=== PATIENT | male | born 1940 | race Caucasian/White ===

== ENCOUNTER 2018-02-15 11:49 | Inpatient (IN) | payer MEDICARE ==
[2018-02-15] MEDS ORDERED: Dextrose 50% Abboject 50 ML SYRINGE IVP PRN (12:19)
[2018-02-15] MEDS ORDERED: HumaLOG 300 UNITS/3 ML VIAL SC PRN (12:19)
[2018-02-15] MEDS ORDERED: Dextrose 5% in Water 1,000 ML IV PRN (12:19)
[2018-02-15] MEDS ORDERED: Acetaminophen 1,000 MG in Premix Bag 1 BAG IVPB PRN (12:21)
[2018-02-15] MEDS ORDERED: [UNRECOGNIZED DRUG - REMARK] FS SCH (12:45)
[2018-02-15] MEDS ORDERED: cefTRIAXone\\ROCEPHIN 1 GM in Sodium Chloride 0.9% 100 ML IVPB SCH ×2 (13:00→18:00)
[2018-02-15 13:19] LABS: #Eosinphils 0.3 thou/uL (0.0-0.7); #Lymphocytes 1.9 thou/uL (1.20-3.40); #Monocytes 0.4 thou/uL (0.11-0.59); #Neutrophils 5.2 thou/uL (1.40-6.50); %Basophils 0.2 % (0.0-1.0); %Eosinophils 3.2 % (0.0-10.0); %Lymphocytes 24.4 % (21.0-51.0); %Monocytes 5.6 % (0.0-10.0); %Neutrophils 66.5 % (42.0-75.0); Hemoglobin 10.7 g/dL (14.0-18.0); Mean Corpuscular HGB CONC 32.4 g/dL (32.0-36.0); Mean Corpuscular Hemoglobin 30.2 pg (27.0-31.0); Mean Corpuscular Volume 93.1 fL (78.0-98.0); Mean Platelet Volume 6.7 fL (7.4-10.4); Platelet Count 263 thou/uL (130-400); RBC Distribution Width 14.3 % (11.5-14.5); Red Blood Cell (RBC) Count 3.54 mill/uL (4.70-6.10); White Blood Cell (WBC) Count 7.8 thou/uL (4.8-10.8)
[2018-02-15 13:32] LABS: Anion Gap 13 mmol/L (10-20); BUN (Urea Nitrogen) 34 mg/dL (8.4-25.7); Calc. Creatinine Clearance 0 mL/min (70-130); Calcium 9.9 mg/dL (7.8-10.44); Carbon Dioxide 25 mmol/L (23-31); Chloride 105 mmol/L (98-107); Estimated GFR-MDRD 24; Glucose 100 mg/dL (83-110); Potassium 5.3 mmol/L (3.5-5.1); Sodium 138 mmol/L (136-145)
[2018-02-15 15:37] VITALS: BMI 28.2
[2018-02-15] MEDS ORDERED: Vancomycin HCl 1.5 GM in Sodium Chloride 0.9% 250 ML 300 ML IVPB SCH (16:00)
--- NOTE | 2018-02-15 16:09 | RAD ---
THREE VIEWS OF THE LEFT FOOT: 02/15/18 COMPARISON: None. HISTORY: Status post amputation. evaluation for foreign body or osteomyelitis. FINDINGS: Three views of the left foot shows the patient to be status post amputation of the foot through the m id metatarsal region. There is air in the distal soft tissues which may represent an open wound or i nfection. No radiopaque foreign body is seen. No underlying osseous erosions are seen to suggest ost eomyelitis. IMPRESSION: No evidence of osteomyelitis on this examination. POS: NELLIE
[2018-02-15] MEDS: Sodium Chloride 0.9% 1,000 ML IV SCH (16:32)
[2018-02-16] MEDS ORDERED: Dextrose 50% Abboject 50 ML SYRINGE SLOW IVP PRN ×2 (02:15→14:39)
[2018-02-16] MEDS ORDERED: Dextrose 5% in Water 1,000 ML IV PRN (02:15)
[2018-02-16] MEDS: Sodium Chloride 0.9% 1,000 ML IV SCH ×3 (05:42→18:30)
[2018-02-16] MEDS: Levothyroxine 175 MCG TAB PO SCH (06:03)
[2018-02-16 06:22] LABS: Anion Gap 12 mmol/L (10-20); Calc. Creatinine Clearance 30 mL/min (70-130); Carbon Dioxide 23 mmol/L (23-31); Chloride 106 mmol/L (98-107); Estimated GFR-MDRD 23; Glucose 247 mg/dL (83-110); Potassium 5.6 mmol/L (3.5-5.1); Sodium 135 mmol/L (136-145)
[2018-02-16 06:26] LABS: BUN (Urea Nitrogen) 32 mg/dL (8.4-25.7)
--- NOTE | 2018-02-16 07:08 | PDOC.PN ---
- Subjective Encounter Start Date: 02/16/18 Encounter Start Time: 05:00 Subjective: pt up in bed no complains - Objective Vital Signs & Weight: Vital Signs (12 hours) Temp Pulse Resp BP Pulse Ox 02/16/18 04:00 98.6 F 59 L 16 145/67 H 94 L 02/16/18 00:00 98.9 F 72 16 125/65 94 L 02/15/18 20:32 97 02/15/18 20:00 98.3 F 58 L 16 144/75 H 97 Weight Weight 208 lb I&O: 02/15/18 02/16/18 02/17/18 06:59 06:59 06:59 Intake Total 2430 Balance 2430 Result Diagrams: 02/15/18 13:03 02/16/18 05:06 Additional Labs: Accuchecks 02/16/18 02/15/18 02/15/18 05:17 20:16 16:35 POC Glucose 280 H 172 H 170 H Phys Exam - Physical Examination Neck: no nodes, no JVD, supple, full ROM Respiratory: no wheezing, no rales, no rhonchi, wheezing present, clear to auscultation bilateral Cardiovascular: RRR, no significant murmur, no rub, gallop, irregular Gastrointestinal: soft, non-tender, no distention, positive bowel sounds left foot area quarter size ulcer, right first metatarsal linear healing wound Neurological: non-focal, normal sensation, moves all 4 limbs Dx/Plan (1) Diabetic foot infection Code(s): E11.628 - TYPE 2 DIABETES MELLITUS WITH OTHER SKIN COMPLICATIONS; L08.9 - LOCAL INFECTION OF THE SKIN AND SUBCUTANEOUS TISSUE, UNSP Status: Acute Comment: continue IV cefepime, vancomycin and metronidazole. Cultures growing Staph, sensitive to oral Abx. Plan to transition if reasonable improveemnt in Deep wound infection. (2) Diabetes Code(s): E11.9 - TYPE 2 DIABETES MELLITUS WITHOUT COMPLICATIONS Status: Acute (3) CKD (chronic kidney disease) stage 4, GFR 15-29 ml/min Code(s): N18.4 - CHRONIC KIDNEY DISEASE, STAGE 4 (SEVERE) Status: Chronic Comment: check AM labs (4) Hyperkalemia Code(s): E87.5 - HYPERKALEMIA Status: Acute - Plan will half his 70/30 and hold am dose, pt is prone to hypoglycemia -: when pt returns will administer his insulin before he eats -: would benefit from JIMENA given his hx of DM -: abx per surgery. will give insulin and d50 for hyperkalemia -: may increase dose of insulin to home dose tori * . pt stated that he was doing well and has been of abx since end of jan. However pt stepped on a glass with his left foot, initially he had some minor bleeding. On Wednesday pt's sock was soaked. Home nurse came to see pt who got him an appointment with surgeon yesterday who then directed him to the ER. pt denies any fever or chills. since his K is high and so his blood sugar will give him 10 units of 70/30 mild risk of hypoglycemia due to the short acting insulin but that will help to lower his K. Review of Systems - Review of Systems Respiratory: negative: Cough, Dry, Shortness of Breath, Hemoptysis, SOB with Excertion, Pleuritic Pain, Sputum, Wheezing Cardiovascular: negative: chest pain, palpitations, orthopnea, paroxysmal nocturnal dyspnea, edema, light headedness, other Gastrointestinal: negative: Nausea, Vomiting, Abdominal Pain, Diarrhea, Constipation, Melena, Hematochezia, Other Genitourinary: negative: Dysuria, Frequency, Incontinence, Hematuria, Retention , Other - Medications/Allergies Allergies/Adverse Reactions: Allergies Allergy/AdvReac Type Severity Reaction Status Date / Time No Known Drug Allergies Allergy Verified 11/19/17 23:54 Medications: Current Medications Dextrose/Water (Dextrose 50%) 25 gm SLOW IVP PRN PRN PRN Reason: Hypoglycemia Enoxaparin Sodium (Lovenox) 40 mg SC 0900 [facility] Glucagon (Glucagon) 1 mg IM PRN PRN PRN Reason: Hypoglycemia Sodium Chloride (Normal Saline 0.9%) 1,000 mls @ 100 mls/hr IV .Q10H [facility] Last Admin: 02/16/18 05:42 Dose: 1,000 mls Acetaminophen 1,000 mg/ Device 100 mls @ 400 mls/hr IVPB Q6H PRN PRN Reason: Pain Stop: 02/16/18 12:22 Vancomycin HCl 1 gm/ Device 200 mls @ 200 mls/hr IVPB Q24HR@1600 [facility] Ceftriaxone Sodium 1 gm/ (Sodium Chloride) 100 mls @ 200 mls/hr IVPB 1800 [facility] Last Admin: 02/15/18 19:03 Dose: 100 mls Dextrose/Water (D5w) 1,000 mls @ 0 mls/hr IV .Q0M PRN PRN Reason: Hypoglycemia Insulin Human Isoph/Insulin Regular (Humulin 70/30) 22 units SC BID-WM [facility] Insulin Human Lispro (Humalog) 0 units SC .MODERATE SLIDING SC PRN; Protocol PRN Reason: MODERATE SLIDING SCALE Last Admin: 02/15/18 16:40 Dose: 2 unit Levothyroxine Sodium (Synthroid) 175 mcg PO 0600 [facility] Last Admin: 02/16/18 06:03 Dose: Not Given Miscellaneous Medication (Pharmacy To Dose) 0 each IVPB ASDIR PRN PRN Reason: Pharmacy to Dose VANCOMYCIN Pantoprazole Sodium (Protonix) 40 mg IVP DAILY [facility]
[2018-02-16] MEDS ORDERED: Insulin Regular 300 UNITS/3 ML VIAL IVP SCH (07:15)
[2018-02-16] MEDS ORDERED: Dextrose 25% Abboject 10 ML SYRINGE SLOW IVP SCH (07:15)
[2018-02-16] MEDS ORDERED: Calcium Gluc 4.6 MEQ/10 ML (100 MG/ML) SLOW IVP ONE (07:18)
[2018-02-16] MEDS ORDERED: Insulin NPH/Reg Insulin Hm 300 UNITS/3 ML VIAL SC SCH ×3 (07:30→17:00)
[2018-02-16] MEDS ORDERED: Sodium Bicarb 50 MEQ/50 ML Abboject 8.4% SYRINGE IVP SCH (08:30)
[2018-02-16 09:21] LABS: Hemoglobin A1c 7.2 % (4.0-6.0)
[2018-02-16 09:51] LABS: Potassium 5.2 mmol/L (3.5-5.1)
[2018-02-16] MEDS: Pantoprazole 40 MG VIAL IVP SCH (09:56)
[2018-02-16] MEDS: Enoxaparin Sodium 30 MG/0.3 ML SYRINGE SC SCH (09:58)
[2018-02-16] MEDS ORDERED: Bupivacaine 0.5% 10 ML VIAL ONE (11:33)
[2018-02-16] MEDS ORDERED: Fentanyl 100 MCG/2 ML VIAL ONE ×2 (11:36→11:49)
[2018-02-16] MEDS ORDERED: Midazolam HCl 2 mg/2 ml Vial ONE ×2 (11:36→11:49)
[2018-02-16] MEDS ORDERED: Ketamine 50 MG/ML (10ML VIAL) ONE (11:49)
[2018-02-16] MEDS ORDERED: Propofol 500 MG/50 ML VIAL ONE (11:49)
[2018-02-16] MEDS ORDERED: Bupivacaine/Epinephrine 0.25% 30 ML VIAL ONE (12:24)
[2018-02-16] MEDS ORDERED: Promethazine HCl 25 MG/ML VIAL IM PRN (12:56)
[2018-02-16] MEDS ORDERED: PACU-Morphine 4MG/ML VIAL SLOW IVP PRN (12:56)
[2018-02-16] MEDS ORDERED: Promethazine HCl 25 MG/ML VIAL SLOW IVP PRN (12:56)
[2018-02-16] MEDS ORDERED: Ondansetron HCl/PF 4 MG/2 ML Vial IVP PRN (12:56)
[2018-02-16] MEDS ORDERED: HYDROmorphone 2 MG/ML VIAL SLOW IVP PRN (12:56)
[2018-02-16 14:25] LABS: Potassium 4.9 mmol/L (3.5-5.1)
[2018-02-16] MEDS ORDERED: HumaLOG 300 UNITS/3 ML VIAL SC PRN (14:39)
[2018-02-16] MEDS ORDERED: Vancomycin HCl 1 GM in Premix Bag 1 BAG IVPB SCH ×2 (16:00→18:00)
[2018-02-16] MEDS ORDERED: PROPOFOL 200 MG/20 ML VIAL ONE (17:06)
[2018-02-16] MEDS: Insulin NPH/Reg Insulin Hm 300 UNITS/3 ML VIAL SC SCH (18:30)
[2018-02-16 19:04] LABS: Potassium 5.1 mmol/L (3.5-5.1)
[2018-02-16] MEDS ORDERED: cefTRIAXone\\ROCEPHIN 1 GM in Sodium Chloride 0.9% 100 ML IVPB SCH (20:00)
[2018-02-17] MEDS: Levothyroxine 175 MCG TAB PO SCH (04:16)
[2018-02-17] MEDS: Sodium Chloride 0.9% 1,000 ML IV SCH ×2 (04:17→14:21)
[2018-02-17 04:33] LABS: Anion Gap 10 mmol/L (10-20); BUN (Urea Nitrogen) 28 mg/dL (8.4-25.7); Calc. Creatinine Clearance 33 mL/min (70-130); Calcium 8.7 mg/dL (7.8-10.44); Carbon Dioxide 25 mmol/L (23-31); Chloride 107 mmol/L (98-107); Estimated GFR-MDRD 26; Glucose 108 mg/dL (83-110); Potassium 4.8 mmol/L (3.5-5.1); Sodium 137 mmol/L (136-145)
[2018-02-17] MEDS: Pantoprazole 40 MG VIAL IVP SCH (08:31)
[2018-02-17] MEDS: Enoxaparin Sodium 30 MG/0.3 ML SYRINGE SC SCH (08:32)
[2018-02-17] MEDS: Insulin NPH/Reg Insulin Hm 300 UNITS/3 ML VIAL SC SCH (08:40)
--- NOTE | 2018-02-17 08:45 | CON ---
DATE OF CONSULTATION: 02/16/2018 CONSULTING PHYSICIAN: Skinny Ronquillo M.D. REQUESTING PHYSICIAN: Flower Estrada MD REASON FOR CONSULTATION: Hyperkalemia in a patient with advanced chronic kidney disease. IMPRESSION: 1. Advanced chronic kidney disease stage 4 in the context of diabetic nephropathy plus or minus hype rtensive nephrosclerosis. 2. Hyperkalemia related to advanced chronic kidney disease stage 4 in the context of diabetic nephro princess plus or minus hypertensive nephrosclerosis. PLAN: 1. Low potassium diet. 2. Medical management of hyperkalemia. 3. Renally dose all medications for low GFR. Avoid potentially nephrotoxic agents. 4. Further management to be dependent on the clinical course. HISTORY OF PRESENT ILLNESS: This is a 78-year-old gentleman with advanced chronic kidney disease in the context of diabetic nephropathy, who presented here for debridement and noted with a slight eleva tion in creatinine above his baseline chronic kidney disease stage 4. The patient also noted to be h yperkalemic with potassium of 5.9. , decision has been taken to involve Renal in the management of this case. PAST MEDICAL HISTORY: Significant for chronic kidney disease stage 4, in the context of diabetic nep hropathy, type 2 diabetes, hypothyroidism, status post cholecystectomy and amputation. MEDICATIONS: Reviewed as documented on [employer]. ALLERGIES: No known drug allergy. FAMILY HISTORY: Significant for kidney disease, daughter is on dialysis. REVIEW OF SYSTEMS: As documented in the body of the history. All the other systems were reviewed an d found not to be significant related to the presenting illness. LABORATORY INVESTIGATION: Showed hemoglobin of 10.6. Chemistry showed a creatinine of 2.65, BUN of 32, potassium 5.6. PHYSICAL EXAMINATION: GENERAL: The patient was found not to be in any obvious distress. Noted with the following vital sig ns. VITAL SIGNS: Afebrile with temperature 97.6, pulse 64, respiratory rate of 16, O2 sat 96% with blood pressure of 115/64. HEENT: Unremarkable with moist oral mucosa. Neck is supple. No conjunctival injection or icterus. CARDIOVASCULAR SYSTEM: First and second heart sounds were heard. RESPIRATORY SYSTEM: Clear to auscultation. DIGESTIVE SYSTEM: Revealed a benign abdomen with positive bowel sounds. EXTREMITIES: No peripheral edema. SKIN: No new gross rash. LYMPHATICS: No peripheral lymphadenopathy. SUMMARY: A 78-year-old gentleman with advanced chronic kidney disease stage 4, who presented here fo r debridement of lower extremity and noted to be hyperkalemic. Thank you for this consultation. We will follow with you.
[2018-02-17] MEDS: HumaLOG 300 UNITS/3 ML VIAL SC PRN (12:36)
--- NOTE | 2018-02-17 14:13 | PDOC.OP ---
Operative Note - Operative Note Operative Note: PROCEDURE: Incision and debridement of left foot infection 02/16/2018 DATE OF PROCEDURE: SURGEON: Thompson Caballero M.D. PREOPERATIVE DIAGNOSES: Left diabetic foot infection POSTOPERATIVE DIAGNOSIS: Left diabetic foot infection HISTORY: Diabetic patient with significant peripheral neuropathy. He stepped on a piece of glass 2 weeks ago injuring the plantar surface of his foot. He has a previous transmetatarsal amputation of the left foot which has healed, and the puncture wound healed as well. However he then developed a blister over his distal foot, and had a necrotic area centrally. This was partially debrided at the bedside yesterday and culture swab sent, but he had additional necrotic tissue it was recommended he go to the operating room for definitive debridement. There is no evidence of osteomyelitis on foot x-ray. PROCEDURE IN DETAIL: After informed consent was obtained and appropriate antibiotics continued the patient was taken to the operating room he was placed in supine position and anesthesia was administered. He had an ankle block placed by anesthesia, and adequate anesthesia was confirmed intraoperatively. The necrotic skin over his transmetatarsal amputation site was sharply excised back to bleeding tissue. The underlying necrotic subcutaneous fat was sharply debrided back to viable appearing tissue. There was no bradley abscess cavity and the wound did not track to bone or medially under his flap. He did have some softness to the tissues over his medial foot is but on ultrasound this was just edema; there was no abscess cavity by ultrasound and the wound did not extend in that direction by direct examination. Hemostasis obtained throughout the case using Bovie electrocautery as necessary. The wound was irrigated and hemostasis was verified. The wound was then packed with iodoform and the foot dressed with gauze and Reji wrap. The patient was taken to recovery in good condition. Estimated blood loss is minimal. There were no complications. There were no specimens.
[2018-02-17] MEDS: metroNIDAZOLE 250 MG TAB PO SCH ×2 (15:08→20:59)
--- NOTE | 2018-02-17 15:39 | CON ---
DATE OF CONSULTATION: 02/17/2018 REASON FOR CONSULTATION: Left foot amputation site inflammatory changes. HISTORY OF PRESENT ILLNESS: A 78-year-old patient known to me from prior visit earlier this year when he presented with a history of type 2 diabetes, neuropathy, hypothyroidism, and bilateral transmetatarsal amputations, left and right foot. In November, he had amputation of the right first and second toes with almost complete resection of the right first metatarsal. In that area, he seems to be doing well, but now he developed inflammatory changes at the left foot, middle of the forefoot section. The patient was admitted and Dr. Caballero performed surgical procedure. The procedure report was reviewed. There was evidence of necrotic skin over the transmetatarsal amputation site. This was sharply excised back to bleeding tissue. There was no evidence of abscess cavity and the wound did not track to bone or to the flap area. There was some softness of tissues that was mostly edema. The patient had a foot x-ray which showed no bony abnormalities. There was some air in the distal soft tissues. Currently, he has minimal pain probably from neuropathy, no headaches, no change in visual symptoms, sore throat, odynophagia, dysphagia, no dyspnea or chest pain, no abdominal pain or diarrhea. No genitourinary symptoms. PAST MEDICAL HISTORY: Includes type 2 diabetes; neuropathy; prior transmetatarsal amputations, right and left side; hypothyroidism; and cholecystectomy. CURRENT MEDICATIONS: Include dextrose, Lovenox, glucagon, insulin, Synthroid, Zyvox, Flagyl, Protonix. ALLERGIES: No known drug allergy. SOCIAL HISTORY: Not contributory. FAMILY HISTORY: Noncontributory. PHYSICAL EXAMINATION: VITAL SIGNS: T-max 98.8, blood pressure 170/75, pulse 61, respirations 18, O2 saturation 97%. GENERAL: Appears in no distress. Standing up when I got in the room. Peripheral IV access. No Delgado catheter. The right foot with pretty much healed transmetatarsal amputation site of the first and second toes. The third , fourth, and fifth toes appear okay except for onycholysis. In the left foot transmetatarsal amputation site, there is an area of packing after the surgical debridement and around that there are some areas of peeling the superficial skin layer and also the surgical debridement sites. NECK: No lymphadenopathy. HEENT: Noncontributory. LUNGS: Clear. HEART: S1, S2, regular rate. ABDOMEN: Soft, not distended or tender. No signs of bladder distention. EXTREMITIES: No joint inflammatory activity. Pulses 1+ in dorsalis pedis. NEUROLOGIC: Nonfocal. LABORATORY DATA: White cell count 7.8, hemoglobin 10.7, platelets 263 with normal differential. Sodium 137, creatinine 2.44, which is a little bit higher than his baseline earlier in the year. The microbiology information from this admission with MRSA and Enterococcus faecalis from the foot site from the surgical procedure. ASSESSMENT: Type 2 diabetic neuropathy and superficial skin necrosis without tunneling towards the deeper segments of the left transmetatarsal amputation site. The surgical I+D was consistent with a superficial process. The bone x- ray did not show any evidence of bony abnormalities other than the amputation. At this point, we will switch him to oral Zyvox and Flagyl. Consider discharge planning. Duration of therapy around 10 days. Offloading will be important since this is probably what generated the original area of necrosis of the skin. Alternate combinations would include Minocycline/Rifampin if cost becomes a problem. Even Minocycline alone might suffice. MTDD
[2018-02-17] MEDS ORDERED: Insulin NPH/Reg Insulin Hm 300 UNITS/3 ML VIAL SC SCH (17:00)
--- NOTE | 2018-02-17 18:02 | PDOC.PN ---
- Subjective Encounter Start Date: 02/17/18 Encounter Start Time: 15:30 Patient seen and examined for med mngt. No new complaints. No overnight events - Objective MAR Reviewed: Yes Vital Signs & Weight: Vital Signs (12 hours) Temp Pulse Resp BP Pulse Ox 02/17/18 08:00 97.9 F 61 18 171/75 H 97 Weight Admit Weight 208 lb Weight 208 lb I&O: 02/16/18 02/17/18 02/18/18 06:59 06:59 06:59 Intake Total 2430 2480 1000 Balance 2430 2480 1000 Result Diagrams: 02/15/18 13:03 02/17/18 03:36 Additional Labs: Accuchecks 02/17/18 02/17/18 02/17/18 16:55 11:44 04:43 POC Glucose 179 H 252 H 114 H 02/16/18 20:24 POC Glucose 193 H Phys Exam - Physical Examination Constitutional: NAD Neurological: moves all 4 limbs Dx/Plan - Plan DVT proph w/lovenox, DVT proph w/SCDs 1. DM2 Humulin 70/30 dose reduced to 25 units in AM and 15 units in PM 2. CKD 4 with hyperkalemia Potssium improved, Nephrology consulted 3. Hypothyroidism Cont Levothyroxine 4. GERD Change PPI to PO Will sign off. Review of Systems - Review of Systems Respiratory: negative: Cough, Dry, Shortness of Breath, Hemoptysis, SOB with Excertion, Pleuritic Pain, Sputum, Wheezing Cardiovascular: negative: chest pain, palpitations, orthopnea, paroxysmal nocturnal dyspnea, edema, light headedness, other - Medications/Allergies Allergies/Adverse Reactions: Allergies Allergy/AdvReac Type Severity Reaction Status Date / Time No Known Drug Allergies Allergy Verified 11/19/17 23:54 Medications: Current Medications Dextrose/Water (Dextrose 50%) 25 gm SLOW IVP PRN PRN PRN Reason: Hypoglycemia Dextrose/Water (Dextrose 50%) 25 gm SLOW IVP PRN PRN PRN Reason: Hypoglycemia Enoxaparin Sodium (Lovenox) 30 mg SC 0900 [facility] Last Admin: 02/17/18 08:32 Dose: 30 mg Glucagon (Glucagon) 1 mg IM PRN PRN PRN Reason: Hypoglycemia Sodium Chloride (Normal Saline 0.9%) 1,000 mls @ 100 mls/hr IV .Q10H [facility] Last Admin: 02/17/18 14:21 Dose: Not Given Dextrose/Water (D5w) 1,000 mls @ 0 mls/hr IV .Q0M PRN PRN Reason: Hypoglycemia Insulin Human Isoph/Insulin Regular (Humulin 70/30) 25 units SC 0800 [facility] Insulin Human Isoph/Insulin Regular (Humulin 70/30) 15 units SC 1700 [facility] Last Admin: 02/17/18 17:44 Dose: 15 unit Insulin Human Lispro (Humalog) 0 units SC .MILD SLIDING SCALE PRN PRN Reason: Mild Correctional Scale Last Admin: 02/17/18 12:36 Dose: 4 unit Insulin Human Lispro (Humalog) 0 units SC .BEDTIME SLIDING SC PRN PRN Reason: Bedtime Correctional Scale Levothyroxine Sodium (Synthroid) 175 mcg PO 0600 [facility] Last Admin: 02/17/18 04:16 Dose: 175 mcg Linezolid (Zyvox) 600 mg PO Q12HR [facility] Metronidazole (Flagyl) 250 mg PO TID [facility] Last Admin: 02/17/18 15:08 Dose: 250 mg Pantoprazole Sodium (Protonix) 40 mg PO 2100 [facility]
[2018-02-17] MEDS: Linezolid 600 MG TAB PO SCH (20:58)
[2018-02-18] MEDS: Sodium Chloride 0.9% 1,000 ML IV SCH ×2 (01:03→10:29)
[2018-02-18] MEDS: Levothyroxine 175 MCG TAB PO SCH (05:21)
[2018-02-18] MEDS: HumaLOG 300 UNITS/3 ML VIAL SC PRN (05:22)
[2018-02-18] MEDS ORDERED: Insulin NPH/Reg Insulin Hm 300 UNITS/3 ML VIAL SC SCH (08:00)
[2018-02-18] MEDS: metroNIDAZOLE 250 MG TAB PO SCH ×2 (08:30→15:11)
[2018-02-18] MEDS: Enoxaparin Sodium 30 MG/0.3 ML SYRINGE SC SCH (08:33)
[2018-02-18] MEDS: Linezolid 600 MG TAB PO SCH (09:18)
[2018-02-18 15:03] VITALS: BP 174/77; TEMP 97.9
--- NOTE | 2018-02-18 17:14 | PRG ---
DATE OF SERVICE: 02/17/2018 SUBJECTIVE: The patient seen and examined, no new complaint, noted with the following vital signs. PHYSICAL EXAMINATION: VITAL SIGNS: Afebrile with temperature 98.4, pulse 58, respiratory rate of 18, O2 saturation 98% wit h blood pressure 174/77. HEENT: Unremarkable with moist oral mucosa. NECK: Supple, No conjunctival injection or icterus. CARDIOVASCULAR: First and second heart sounds were heard. RESPIRATORY: Clear to auscultation. DIGESTIVE: Revealed a benign abdomen with positive bowel sounds. EXTREMITIES: No peripheral edema. SKIN: No new gross rash. LYMPHATICS: No peripheral lymphadenopathy. IMPRESSION: Acute on chronic kidney disease, much improved. PLAN: 1. Continue current renal supportive measures. 2. Outpatient Nephrology followup recommended.
--- NOTE | 2018-02-18 18:16 | PRG ---
DATE OF SERVICE: 02/17/2018 SUBJECTIVE: The patient is seen and examined with no new complaint noted with the following vital si gns. OBJECTIVE: VITAL SIGNS: Afebrile with temperature 98.4, pulse 56, respiratory rate of 18, O2 saturation 97%, bl ood pressure /77. HEENT: Unremarkable with moist oral mucosa. Neck is supple. No conjunctival injection or icterus. DIGESTIVE: Revealed a benign abdomen with positive bowel sounds. EXTREMITIES: No peripheral edema. SKIN: No new gross rash. LYMPHATICS: No peripheral lymphadenopathy. IMPRESSION: 1. Acute on chronic kidney disease which is much improved with creatinine down to 2.4. 2. Hyperkalemia, resolved. PLAN: 1. Continue current renal supportive measures. 2. Outpatient Nephrology followup recommended.
== END 2018-02-18 15:24 | disposition home or self-care (01) | DRG 624 ==
LOC: T4-B 11:49
PROVIDERS: ADMIT Surgery; ATTEND Surgery
PROC: 0JBR0ZZ Excision of Left Foot Subcutaneous Tissue and Fascia, Open Approach (ICD-10-PCS; principal; 2018-02-16)
DX: E11.628 Type 2 diabetes mellitus with other skin complications (principal); L08.9 Local infection of the skin and subcutaneous tissue, unspecified; E87.5 Hyperkalemia; N18.4 Chronic kidney disease, stage 4 (severe); E11.22 Type 2 diabetes mellitus with diabetic chronic kidney disease; E03.9 Hypothyroidism, unspecified; K21.9 Gastro-esophageal reflux disease without esophagitis; D64.9 Anemia, unspecified; E11.21 Type 2 diabetes mellitus with diabetic nephropathy; E11.40 Type 2 diabetes mellitus with diabetic neuropathy, unspecified; N17.9 Acute kidney failure, unspecified; Z79.4 Long term (current) use of insulin; Z87.891 Personal history of nicotine dependence; Z89.422 Acquired absence of other left toe(s); Z89.421 Acquired absence of other right toe(s); Z81.1 Family history of alcohol abuse and dependence; Z83.3 Family history of diabetes mellitus; Z81.8 Family history of other mental and behavioral disorders
CPT/HCPCS: 36415; 36416; 80048; 83036; 84443; 85025; 87070; 87077; 87186; 87205; 99211; C9113; G0463; G8978-GP-CJ; G8979-GP-CI; J0696; J1650; J2250; J2704; J3010; J3370; J3490; J7050

== ENCOUNTER 2018-06-10 12:54 | Inpatient (IN) | payer MEDICARE ==
[2018-06-10 13:58] LABS: #Eosinphils 0.4 thou/uL (0.0-0.7); #Monocytes 0.6 thou/uL (0.11-0.59); #Neutrophils 3.8 thou/uL (1.40-6.50); %Basophils 0.6 % (0.0-1.0); %Eosinophils 5.8 % (0.0-10.0); %Lymphocytes 29.2 % (21.0-51.0); %Monocytes 8.4 % (0.0-10.0); %Neutrophils 56.1 % (42.0-75.0); Hemoglobin 11.5 g/dL (14.0-18.0); Mean Corpuscular HGB CONC 34.5 g/dL (32.0-36.0); Mean Corpuscular Hemoglobin 32.5 pg (27.0-31.0); Mean Platelet Volume 7.2 fL (7.4-10.4); Platelet Count 182 thou/uL (130-400); RBC Distribution Width 13.1 % (11.5-14.5); Red Blood Cell (RBC) Count 3.53 mill/uL (4.70-6.10); White Blood Cell (WBC) Count 6.8 thou/uL (4.8-10.8)
[2018-06-10 14:10] LABS: ALT (SGPT) 16 U/L (8-55); AST (SGOT) 15 U/L (5-34); Alkaline Phosphatase 58 U/L (40-150); Anion Gap 13 mmol/L (10-20); BUN (Urea Nitrogen) 27 mg/dL (8.4-25.7); Bilirubin, Total 0.4 mg/dL (0.2-1.2); Calc. Creatinine Clearance 0 mL/min (70-130); Calcium 9.7 mg/dL (7.8-10.44); Carbon Dioxide 23 mmol/L (23-31); Chloride 110 mmol/L (98-107); Estimated GFR-MDRD 25; Glucose 65 mg/dL (83-110); Potassium 4.5 mmol/L (3.5-5.1); Sodium 141 mmol/L (136-145)
--- NOTE | 2018-06-10 14:40 | RAD ---
LEFT FOOT 3 VIEWS: Date: 06/10/18 HISTORY: Wound. COMPARISON: Radiograph dated 02/15/18. FINDINGS: There is no acute fracture or malalignment. Prior transmetatarsal amputation at the first-fifth digit s with bridging bone between the second and third amputation margins. There is improved swelling of the soft tissue flap of the small lateral ulcer. Small focus of subcutaneous emphysema, improved, of the flap. IMPRESSION: Small focus of subcutaneous edema and emphysema of the flap, although appears improved from the 02/15 examination. No definite evidence of acute osteomyelitis. POS: CET
[2018-06-10] MEDS ORDERED: Piperacillin/Tazobactam 3.375 GM in Sodium Chloride 0.9% 100 ML IVPB SCH (16:00)
[2018-06-10] MEDS ORDERED: Piperacillin/Tazobactam 3.375 GM VIAL ONE (16:00)
[2018-06-10] MEDS ORDERED: Vancomycin HCl 1 GM in Premix Bag 1 BAG IVPB SCH (16:00)
[2018-06-10 18:14] LABS: Lactic Acid 1.3 mmol/L (0.5-2.2)
[2018-06-10] MEDS ORDERED: Guaifenesin DM 100-10/5 ML UDCUP PO PRN (18:17)
[2018-06-10] MEDS ORDERED: Acetaminophen 325 MG TAB PO PRN (18:17)
[2018-06-10] MEDS ORDERED: Dextrose 5% in Water 1,000 ML IV PRN (18:17)
[2018-06-10] MEDS ORDERED: HYDROcodone/Acetaminophen 5/325 mg Tablet PO PRN (18:17)
[2018-06-10] MEDS ORDERED: Dextrose 50% Abboject 50 ML SYRINGE SLOW IVP PRN (18:17)
[2018-06-10] MEDS ORDERED: HumaLOG 300 UNITS/3 ML VIAL SC PRN (18:17)
[2018-06-10] MEDS ORDERED: Senokot S 8.6-50 MG TAB PO PRN (18:17)
--- NOTE | 2018-06-10 20:04 | HP ---
REASON FOR ADMISSION: Left foot diabetic ulcer. HISTORY OF PRESENTING ILLNESS: The patient gives history of having seen Dr. Caballero a week back. He had a callus, which was cleaned up. This started to blister up, and the patient developed greenish discharge from the same. The ulcer started to become black. He got concerned, hence came to emergency room. The patient has prior history of transmetatarsal amputation of left foot. He also has had amputation of first and second toe on the right side, likely a ray amputation, and the surgical scar is healing well. No fever at home. He has been able to walk with no pain as such. PAST MEDICAL AND SURGICAL HISTORY: History of diabetes mellitus type 2 for more than 20 years, hypothyroidism, left transmetatarsal amputation of all toes, right first and second toe amputation, and cholecystectomy. CURRENT MEDICATIONS: 1. Novolin 70/30 45 units subcu twice daily. 2. Levothyroxine 175 mcg p.o. daily. ALLERGIES: NO KNOWN DRUG ALLERGIES. PERSONAL HISTORY: Does not abuse alcohol or drugs. No history of smoking. He lives alone. FAMILY HISTORY: Mother in her 70s. She of complications from seizure. He does not know much about his father, but he knows that he in his 70s. CODE STATUS: Full. [employer]: His daughter. REVIEW OF SYSTEMS: CONSTITUTIONAL: Negative for weight loss or gain, ability to conduct usual activities. SKIN: Negative for rash, itching. EYES: Negative for double vision, pain. ENT/MOUTH: Negative for nose bleeding, neck stiffness, pain, tenderness. CARDIOVASCULAR: Negative for palpitations, dyspnea on exertion, orthopnea. RESPIRATORY: Negative for shortness of breath, wheezing, cough, hemoptysis, fever or night sweats. GASTROINTESTINAL: Negative for poor appetite, abdominal pain, heartburn, nausea, vomiting, constipation, or diarrhea. GENITOURINARY: Negative for urgency, frequency, dysuria, nocturia. MUSCULOSKELETAL: Negative for pain, swelling. NEUROLOGIC/PSYCHIATRIC: Negative for anxiety, depression. ALLERGY/IMMUNOLOGIC: Negative for skin rash, bleeding tendency. PHYSICAL EXAMINATION: GENERAL: The patient is a 78-year-old male, who is currently not in any acute distress. VITAL SIGNS: Blood pressure 168/66, pulse 64 per minute, respiratory rate 18 per minute, temperature 98.8 degrees Fahrenheit, and saturating 96% on room air. NECK: Supple. No elevated JVD. EYES: Extraocular muscles are intact. Pupils are reacting to light. Oral cavity, mucous membranes are moist. No exudates or congestion. CARDIOVASCULAR SYSTEM: S1 and S2 heard. Regular rhythm. RESPIRATORY SYSTEM: Air entry 1+ bilateral. No rales or rhonchi. ABDOMEN: Soft. Bowel sounds heard. No tenderness, rigidity, or guarding. EXTREMITIES: Left foot on the ball of metatarsal head of the fifth toe, the patient has a 3 x 3 cm ulcer, which has black eschar. It is not oozing any material at present. The patient has a healing surgical scar on the right foot ray amputation site. Peripheral pulses are 1+ bilateral. No necrotic ulcer seen. CENTRAL NERVOUS SYSTEM: No gross focal deficits noted. The patient is alert, awake, and oriented well. PSYCHIATRIC SYSTEM: The patient's mood is euthymic. No hallucinations or delusions. LABORATORY DATA: White count of 6.8, H and H 11 and 33, platelet count 182, MCV is 94 with 56% neutrophils. Serum bicarb 23, BUN 27, creatinine 2.4, serum glucose 65. Lactic acid 2.7. CRP 1.38. Left foot three-view x-ray shows small focus of subcutaneous edema and emphysema of the flap, although appears improved from prior x-ray done on 02/15/2018. No definite evidence of acute osteomyelitis. CLINICAL IMPRESSION AND PLAN: The patient will be admitted to medical floor for left foot diabetic ulcer. This ulcer started out from last one week or so now. He has been started on vancomycin and Zosyn in the ER and will continue the same. We will obtain deep wound cultures by wound care from the left foot. The patient has chronic kidney disease, stage 3 to 4. We will continue his Humulin 70/30 at 20 units q.p.m. and 35 units q.a.m. along with Humalog coverage. We will also continue his Synthroid as before. We will consult Dr. Acosta on Wednesday. His general surgeon, Dr. Caballero is out for spring. We will continue to closely monitor him on medical floor. Job ID: [id number]
[2018-06-10 20:37] VITALS: BMI 30.6
[2018-06-10] MEDS: HumuLIN 70/30 (300 UNITS/3 ML VIAL) SC SCH (21:31)
[2018-06-10] MEDS: Famotidine 20 MG TAB PO SCH (21:31)
[2018-06-11] MEDS: Piperacillin/Tazobactam 2.25 GM in Sodium Chloride 0.9% 100 ML IVPB SCH ×4 (00:03→23:33)
[2018-06-11] MEDS: Levothyroxine 175 MCG TAB PO SCH (05:29)
[2018-06-11] MEDS: HumaLOG 300 UNITS/3 ML VIAL SC PRN ×2 (05:33→12:03)
[2018-06-11] MEDS: Enoxaparin Sodium 30 MG/0.3 ML SYRINGE SC SCH (07:58)
[2018-06-11] MEDS: HumuLIN 70/30 (300 UNITS/3 ML VIAL) SC SCH ×2 (07:58→20:27)
[2018-06-11 08:47] LABS: #Eosinphils 0.2 thou/uL (0.0-0.7); #Lymphocytes 0.9 thou/uL (1.20-3.40); #Monocytes 0.3 thou/uL (0.11-0.59); #Neutrophils 3.4 thou/uL (1.40-6.50); %Basophils 0.6 % (0.0-1.0); %Eosinophils 4.9 % (0.0-10.0); %Lymphocytes 18.9 % (21.0-51.0); %Neutrophils 69.6 % (42.0-75.0); Mean Corpuscular HGB CONC 34.1 g/dL (32.0-36.0); Mean Corpuscular Hemoglobin 31.2 pg (27.0-31.0); Mean Corpuscular Volume 91.5 fL (78.0-98.0); Mean Platelet Volume 7.5 fL (7.4-10.4); Platelet Count 173 thou/uL (130-400); RBC Distribution Width 13.2 % (11.5-14.5); Red Blood Cell (RBC) Count 3.52 mill/uL (4.70-6.10); White Blood Cell (WBC) Count 4.9 thou/uL (4.8-10.8)
[2018-06-11 09:12] LABS: Anion Gap 12 mmol/L (10-20); BUN (Urea Nitrogen) 25 mg/dL (8.4-25.7); Calc. Creatinine Clearance 36 mL/min (70-130); Calcium 9.4 mg/dL (7.8-10.44); Carbon Dioxide 21 mmol/L (23-31); Chloride 109 mmol/L (98-107); Estimated GFR-MDRD 26; Glucose 142 mg/dL (83-110); Potassium 4.5 mmol/L (3.5-5.1); Sodium 137 mmol/L (136-145)
--- NOTE | 2018-06-11 11:25 | PDOC.PN ---
- Subjective Encounter Start Date: 06/11/18 Encounter Start Time: 11:15 Subjective: feels better, no complaints -: had dressing change and cultures taken from wound care this am - Objective Resuscitation Status - Order Detail: 06/10/18 18:12 Resuscitation Status Routine Resuscitation Status: FULL: Full Resuscitation MAR Reviewed: Yes Vital Signs & Weight: Vital Signs (12 hours) Temp Pulse Resp BP Pulse Ox 06/11/18 08:00 95 06/11/18 07:40 97.9 F 59 L 16 159/68 H 95 06/11/18 03:45 98.7 F 58 L 16 156/69 H 95 06/10/18 23:44 98.1 F 60 16 164/72 H 98 Weight Weight 226 lb I&O: 06/10/18 06/11/18 06/12/18 06:59 06:59 07:59 Intake Total 412 240 Output Total 1075 Balance -663 240 Result Diagrams: 06/11/18 08:10 06/11/18 08:10 Additional Labs: Accuchecks 06/11/18 06/10/18 06/10/18 05:32 19:19 16:44 POC Glucose 199 H 219 H 72 06/10/18 14:36 POC Glucose 71 Phys Exam - Physical Examination HEENT: PERRLA, moist MMs Neck: no JVD, supple Respiratory: no wheezing, no rales Cardiovascular: RRR, no significant murmur Gastrointestinal: soft, non-tender, positive bowel sounds Musculoskeletal: pulses present left foot in dressing Neurological: non-focal, moves all 4 limbs Psychiatric: normal affect, A&O x 3 Dx/Plan (1) Diabetic foot infection Code(s): E11.628 - TYPE 2 DIABETES MELLITUS WITH OTHER SKIN COMPLICATIONS; L08.9 - LOCAL INFECTION OF THE SKIN AND SUBCUTANEOUS TISSUE, UNSP Status: Acute Comment: left foot (2) DM type 2 (diabetes mellitus, type 2) Status: Chronic Qualifiers: 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: with 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 use Diabetes mellitus complication detail: with chronic kidney disease Chronic kidney disease stage: stage 4 (severe) (3) CKD (chronic kidney disease) stage 4, GFR 15-29 ml/min Code(s): N18.4 - CHRONIC KIDNEY DISEASE, STAGE 4 (SEVERE) Status: Chronic (4) Hypothyroidism Code(s): E03.9 - HYPOTHYROIDISM, UNSPECIFIED Status: Chronic Qualifiers: Hypothyroidism type: unspecified Qualified Code(s): E03.9 - Hypothyroidism , unspecified Comment: on synthroid (5) Obesity (BMI 30.0-34.9) Code(s): E66.9 - OBESITY, UNSPECIFIED Status: Chronic - Plan is on vanc and zosyn, await cultures -: surgical/podiatry consultation pending -: continue humulin N twice daily, synthroid -: dc plan per surg/podiatry advice -: to ambulate as tolerated * . Review of Systems - Medications/Allergies Allergies/Adverse Reactions: Allergies Allergy/AdvReac Type Severity Reaction Status Date / Time No Known Drug Allergies Allergy Verified 11/19/17 23:54 Medications: Current Medications Acetaminophen (Tylenol) 650 mg PO Q4H PRN PRN Reason: Headache/Fever/Mild Pain (1-3) Hydrocodone Bitart/Acetaminophen ([place] 5/325) 1 tab PO Q4H PRN PRN Reason: Moderate Pain (4-6) Dextrose/Water (Dextrose 50%) 25 gm SLOW IVP PRN PRN PRN Reason: Hypoglycemia Enoxaparin Sodium (Lovenox) 30 mg SC 0900 [facility] Last Admin: 06/11/18 07:58 Dose: 30 mg Famotidine (Pepcid) 20 mg PO QPM [facility] Last Admin: 06/10/18 21:31 Dose: 20 mg Glucagon (Glucagon) 1 mg IM PRN PRN PRN Reason: Hypoglycemia Guaifenesin/Dextromethorphan (Robitussin Dm) 15 ml PO Q4H PRN PRN Reason: Cough Dextrose/Water (D5w) 1,000 mls @ 0 mls/hr IV .Q0M PRN PRN Reason: Hypoglycemia Piperacillin Sod/Tazobactam (Sod 2.25 gm/ Sodium Chloride) 100 mls @ 200 mls/ hr IVPB 0800,1600,2359 [facility] Last Admin: 06/11/18 07:57 Dose: 100 mls Vancomycin HCl 1.25 gm/ Sodium (Chloride) 250 mls @ 166.667 mls/hr IVPB Q24HR [facility] Insulin Human Isoph/Insulin Regular (Humulin 70/30) 20 units SC QPM [facility] Last Admin: 06/10/18 21:31 Dose: 20 units Insulin Human Isoph/Insulin Regular (Humulin 70/30) 35 units SC QAM [facility] Last Admin: 06/11/18 07:58 Dose: 35 unit Insulin Human Lispro (Humalog) 0 units SC .MODERATE SLIDING SC PRN PRN Reason: Moderate Correctional Scale Last Admin: 06/11/18 05:33 Dose: 2 units Insulin Human Lispro (Humalog) 0 units SC .BEDTIME SLIDING SC PRN PRN Reason: Bedtime Correctional Scale Levothyroxine Sodium (Synthroid) 175 mcg PO 0600 [facility] Last Admin: 06/11/18 05:29 Dose: 175 mcg Miscellaneous Medication (Pharmacy To Dose) 1 each IVPB PRN PRN PRN Reason: Pharmacy to dose Senna/Docusate Sodium (Senokot S) 2 tab PO BID PRN PRN Reason: Constipation Sodium Chloride (Flush - Normal Saline) 10 ml IVF Q12HR [facility] Last Admin: 06/11/18 08:01 Dose: 10 ml Sodium Chloride (Flush - Normal Saline) 10 ml IVF PRN PRN PRN Reason: Saline Flush
[2018-06-11] MEDS: Vancomycin HCl 1.25 GM in Sodium Chloride 0.9% 250 ML 250 ML IVPB SCH (13:46)
[2018-06-11] MEDS: Famotidine 20 MG TAB PO SCH (20:28)
[2018-06-12] MEDS: Levothyroxine 175 MCG TAB PO SCH (08:51)
[2018-06-12] MEDS: Piperacillin/Tazobactam 2.25 GM in Sodium Chloride 0.9% 100 ML IVPB SCH ×3 (08:51→23:49)
[2018-06-12] MEDS: Enoxaparin Sodium 30 MG/0.3 ML SYRINGE SC SCH (08:55)
[2018-06-12] MEDS: HumuLIN 70/30 (300 UNITS/3 ML VIAL) SC SCH ×2 (12:25→21:33)
[2018-06-12 13:44] LABS: Vancomycin, Trough 18.9 ug/mL
[2018-06-12] MEDS: Vancomycin HCl 1.25 GM in Sodium Chloride 0.9% 250 ML 250 ML IVPB SCH (15:13)
--- NOTE | 2018-06-12 15:19 | PDOC.PN ---
- Subjective Encounter Start Date: 06/12/18 Encounter Start Time: 13:00 Subjective: feels better, no complaints - Objective Resuscitation Status - Order Detail: 06/10/18 18:12 Resuscitation Status Routine Resuscitation Status: FULL: Full Resuscitation MAR Reviewed: Yes Vital Signs & Weight: Vital Signs (12 hours) Temp Pulse Resp BP BP Pulse Ox 06/12/18 11:00 98.3 F 53 L 18 169/75 H 93 L 06/12/18 08:00 98.4 F 56 L 18 167/70 H 95 Weight Admit Weight 226 lb Weight 226 lb I&O: 06/11/18 06/12/18 06/13/18 05:59 06:59 06:59 Intake Total Output Total Balance Result Diagrams: 06/11/18 08:10 06/11/18 08:10 Additional Labs: Accuchecks 06/12/18 06/12/18 06/11/18 11:42 06:26 19:31 POC Glucose 265 H 118 H 259 H 06/11/18 16:57 POC Glucose 136 H Phys Exam - Physical Examination HEENT: PERRLA, moist MMs Neck: no JVD, supple Respiratory: no wheezing, no rales Cardiovascular: RRR, no significant murmur Gastrointestinal: soft, non-tender, positive bowel sounds Musculoskeletal: no edema, pulses present Neurological: non-focal, moves all 4 limbs Psychiatric: normal affect, A&O x 3 Dx/Plan (1) Diabetic foot infection Code(s): E11.628 - TYPE 2 DIABETES MELLITUS WITH OTHER SKIN COMPLICATIONS; L08.9 - LOCAL INFECTION OF THE SKIN AND SUBCUTANEOUS TISSUE, UNSP Status: Acute Comment: left foot (2) DM type 2 (diabetes mellitus, type 2) Status: Chronic Qualifiers: Diabetes mellitus residential insulin use: with residential use Diabetes mellitus complication detail: with chronic kidney disease Chronic kidney disease stage: stage 4 (severe) (3) CKD (chronic kidney disease) stage 4, GFR 15-29 ml/min Code(s): N18.4 - CHRONIC KIDNEY DISEASE, STAGE 4 (SEVERE) Status: Chronic (4) Hypothyroidism Code(s): E03.9 - HYPOTHYROIDISM, UNSPECIFIED Status: Chronic Qualifiers: Hypothyroidism type: unspecified Qualified Code(s): E03.9 - Hypothyroidism , unspecified Comment: on synthroid (5) Obesity (BMI 30.0-34.9) Code(s): E66.9 - OBESITY, UNSPECIFIED Status: Chronic - Plan is on vanc and zosyn -: please consult in am (pt of ), ?debridement -: continue humulin, synthroid, narco prn -: to mobilize as tolerated -: dc plan per gen surgery adv * . Review of Systems - Medications/Allergies Allergies/Adverse Reactions: Allergies Allergy/AdvReac Type Severity Reaction Status Date / Time No Known Drug Allergies Allergy Verified 11/19/17 23:54 Medications: Current Medications Acetaminophen (Tylenol) 650 mg PO Q4H PRN PRN Reason: Headache/Fever/Mild Pain (1-3) Hydrocodone Bitart/Acetaminophen ([place] 5/325) 1 tab PO Q4H PRN PRN Reason: Moderate Pain (4-6) Dextrose/Water (Dextrose 50%) 25 gm SLOW IVP PRN PRN PRN Reason: Hypoglycemia Enoxaparin Sodium (Lovenox) 30 mg SC 0900 [facility] Last Admin: 06/12/18 08:55 Dose: 30 mg Famotidine (Pepcid) 20 mg PO QPM [facility] Last Admin: 06/11/18 20:28 Dose: 20 mg Glucagon (Glucagon) 1 mg IM PRN PRN PRN Reason: Hypoglycemia Guaifenesin/Dextromethorphan (Robitussin Dm) 15 ml PO Q4H PRN PRN Reason: Cough Dextrose/Water (D5w) 1,000 mls @ 0 mls/hr IV .Q0M PRN PRN Reason: Hypoglycemia Piperacillin Sod/Tazobactam (Sod 2.25 gm/ Sodium Chloride) 100 mls @ 200 mls/ hr IVPB 0800,1600,2359 [facility] Last Admin: 06/12/18 08:51 Dose: 100 mls Vancomycin HCl 1.25 gm/ Sodium (Chloride) 250 mls @ 166.667 mls/hr IVPB Q24HR [facility] Last Admin: 06/12/18 15:13 Dose: 250 mls Insulin Human Isoph/Insulin Regular (Humulin 70/30) 20 units SC QPM [facility] Last Admin: 06/11/18 20:27 Dose: 20 units Insulin Human Isoph/Insulin Regular (Humulin 70/30) 35 units SC QAM [facility] Last Admin: 06/12/18 12:25 Dose: 35 unit Insulin Human Lispro (Humalog) 0 units SC .MODERATE SLIDING SC PRN PRN Reason: Moderate Correctional Scale Last Admin: 06/11/18 12:03 Dose: 4 units Insulin Human Lispro (Humalog) 0 units SC .BEDTIME SLIDING SC PRN PRN Reason: Bedtime Correctional Scale Last Admin: 06/11/18 20:27 Dose: 3 unit Levothyroxine Sodium (Synthroid) 175 mcg PO 0600 [facility] Last Admin: 06/12/18 08:51 Dose: 175 mcg Miscellaneous Medication (Pharmacy To Dose) 1 each IVPB PRN PRN PRN Reason: Pharmacy to dose Senna/Docusate Sodium (Senokot S) 2 tab PO BID PRN PRN Reason: Constipation Sodium Chloride (Flush - Normal Saline) 10 ml IVF Q12HR [facility] Last Admin: 06/12/18 08:55 Dose: 10 ml Sodium Chloride (Flush - Normal Saline) 10 ml IVF PRN PRN PRN Reason: Saline Flush
[2018-06-12] MEDS: Famotidine 20 MG TAB PO SCH (21:33)
[2018-06-13] MEDS: Levothyroxine 175 MCG TAB PO SCH (05:09)
[2018-06-13] MEDS: Piperacillin/Tazobactam 2.25 GM in Sodium Chloride 0.9% 100 ML IVPB SCH ×2 (08:40→15:02)
[2018-06-13] MEDS: HumuLIN 70/30 (300 UNITS/3 ML VIAL) SC SCH (08:40)
[2018-06-13] MEDS: Enoxaparin Sodium 30 MG/0.3 ML SYRINGE SC SCH (08:40)
[2018-06-13] MEDS: Vancomycin HCl 1.25 GM in Sodium Chloride 0.9% 250 ML 250 ML IVPB SCH (13:50)
--- NOTE | 2018-06-13 13:56 | CON ---
DATE OF CONSULTATION: 06/13/2018 CHIEF COMPLAINT: Left foot ulcer. HISTORY OF PRESENT ILLNESS: The patient is a 78-year-old diabetic white male. He had prior surgery on his left foot by Dr. Caballero in February and he recently saw her in the office apparently last week. I am told that she debrided some callus on the lateral aspect of the distal/plantar surface of his left transmetatarsal amputation stump. He apparently began developing drainage from this and presented to the hospital. Cultures were obtained on June 11 when he presented and this revealed Pseudomonas. There was only a few organisms. There was also some Streptococcus. Since the culture and sensitivity has not yet been completed. He denies any infectious symptoms. He has had no fever or chills. He tells me his transmetatarsal amputation on his left foot was performed several years ago. PAST MEDICAL HISTORY: Diabetes, hypothyroidism. PAST SURGICAL HISTORY: 1. Left transmetatarsal amputation, right 1st and 2nd toe amputation, left foot incision and drainage in February [address] Caballero. 2. Cholecystectomy. MEDICATIONS: Include: 1. Novolin. 2. Levothyroxine. ALLERGIES: NO KNOWN DRUG ALLERGIES. PHYSICAL EXAMINATION: VITAL SIGNS: He is afebrile. Pulse is 52, blood pressure 161/78. MUSCULOSKELETAL: Examination is focused upon his left foot. Dressing is removed and there is an ulcer measuring about a cm in diameter. This has surrounding callus. The surrounding callus is easily elevated and sharply debrided. There is soft tissue within the ulcer base. This is not healthy tissue and I am able to pass a Q-tip or a or hemostat down to what I believe is the end of the 4th metatarsal bone. There is no purulence associated with this and there is certainly no foul smell or evidence of necrosis. X-RAYS: X-ray of the left foot was obtained upon admission on June 10. This revealed no evidence of osteomyelitis and specifically no definite changes associated with the tip of the 4th metatarsal. LABORATORY DATA: Basic metabolic panel obtained on June 11 is unremarkable except that his creatinine is elevated at 2.4, which is stable for him. His blood sugars have been elevated during this admission as well. His CBC reveals a hemoglobin level of 11 with a white blood cell count of 4.9. ASSESSMENT: The patient with a concerning ulcer on the plantar/distal aspect of his metatarsal stump. I am concerned that this appears to track down toward the bone. There is no evidence of purulence or obvious infection, but this is almost certainly a neuropathic problem that has the potential to turn into osteomyelitis. He will require continued gauze dressing changes and attempts of pressure avoidance. I recommended that he minimize ambulation to the extent possible because his severe diabetic neuropathy puts him at high risk for continued damage to this area. He already has a followup visit scheduled with Dr. Caballero in the office next week and I recommend that he has had appointment. From a surgical standpoint, he may certainly be discharged today. I would probably give him a prophylactic antibiotic like ciprofloxacin as we do not have final culture sensitivities. Job ID: [id number]
[2018-06-13 15:55] VITALS: BP 167/68; TEMP 97.9
== END 2018-06-13 16:29 | disposition home or self-care (01) | DRG 639 ==
LOC: ERS 12:54 → ONC 16:53 → T4-B 06-11 21:33
PROVIDERS: ADMIT Internal Medicine; ATTEND Internal Medicine
DX: E11.628 Type 2 diabetes mellitus with other skin complications (principal); N18.4 Chronic kidney disease, stage 4 (severe); E03.9 Hypothyroidism, unspecified; E11.22 Type 2 diabetes mellitus with diabetic chronic kidney disease; E66.9 Obesity, unspecified; Z90.49 Acquired absence of other specified parts of digestive tract; Z89.422 Acquired absence of other left toe(s); Z89.421 Acquired absence of other right toe(s); Z79.4 Long term (current) use of insulin; Z68.30 Body mass index [BMI] 30.0-30.9, adult
CPT/HCPCS: 36415; 36416; 80048; 80053; 80202; 83605; 85025; 85652; 86140; 87040; 87070; 87077; 87186; 87205; 96365; 96375; J1650; J1815; J2543; J3370; J7050

== ENCOUNTER 2018-07-12 14:23 | Inpatient (IN) | payer MEDICARE ==
[2018-07-12] MEDS ORDERED: Dextrose 5% in Water 1,000 ML IV PRN ×2 (16:00→21:31)
[2018-07-12] MEDS ORDERED: Dextrose 50% Abboject 50 ML SYRINGE IVP PRN (16:00)
[2018-07-12 16:33] VITALS: BMI 29.1
[2018-07-12 16:50] LABS: #Eosinphils 0.4 thou/uL (0.0-0.7); #Lymphocytes 1.9 thou/uL (1.20-3.40); #Monocytes 0.7 thou/uL (0.11-0.59); #Neutrophils 7.4 thou/uL (1.40-6.50); %Basophils 0.3 % (0.0-1.0); %Eosinophils 3.9 % (0.0-10.0); %Lymphocytes 17.9 % (21.0-51.0); %Monocytes 6.6 % (0.0-10.0); %Neutrophils 71.2 % (42.0-75.0); Hemoglobin 9.2 g/dL (14.0-18.0); Mean Corpuscular HGB CONC 32.5 g/dL (32.0-36.0); Mean Corpuscular Hemoglobin 30.7 pg (27.0-31.0); Mean Corpuscular Volume 94.5 fL (78.0-98.0); Mean Platelet Volume 6.3 fL (7.4-10.4); Platelet Count 449 thou/uL (130-400); RBC Distribution Width 12.3 % (11.5-14.5); White Blood Cell (WBC) Count 10.3 thou/uL (4.8-10.8)
[2018-07-12 17:15] LABS: ALT (SGPT) 23 U/L (8-55); AST (SGOT) 16 U/L (5-34); Albumin 3.5 g/dL (3.4-4.8); Alkaline Phosphatase 85 U/L (40-150); Anion Gap 13 mmol/L (10-20); BUN (Urea Nitrogen) 55 mg/dL (8.4-25.7); Bilirubin, Total 0.4 mg/dL (0.2-1.2); Calc. Creatinine Clearance 22 mL/min (70-130); Calcium 9.1 mg/dL (7.8-10.44); Carbon Dioxide 22 mmol/L (23-31); Chloride 107 mmol/L (98-107); Estimated GFR-MDRD 16; Globulin 5.1 g/dL (2.4-3.5); Glucose 145 mg/dL (83-110); Potassium 5.9 mmol/L (3.5-5.1); Protein, Total 8.6 g/dL (5.8-8.1); Sodium 136 mmol/L (136-145)
[2018-07-12] MEDS ORDERED: Piperacillin/Tazobactam 3.375 GM in Sodium Chloride 0.9% 100 ML IVPB SCH (18:00)
--- NOTE | 2018-07-12 18:37 | HP ---
HISTORY OF PRESENT ILLNESS: Mr. Park is a 78-year-old diabetic male with severe neuropathy, who has undergone multiple procedures on both feet. He appears to have healed his right first and second toe amputations and has not had any pain or drainage from that side. Also, he has rubbed a few new sores on the top of his third and fourth toes. However, his main problem today is his left foot. He had a wound on his left foot, which was debrided in the hospital a couple of months ago and he was discharged home with Home Health. However, his Home Health was recently discontinued and he has been trying to take care of the wound on his own. He has not been able to get into a Wound Care Clinic and states that the skin has gotten very white around the wound recently and he has developed a lot of odor. He has been changing the dressings twice a day . He has had some fevers up to about 101, but no pain. PAST MEDICAL HISTORY: 1. Diabetes with peripheral neuropathy. 2. Hypothyroidism. 3. Chronic renal insufficiency stage 4. 4. Anemia. PAST SURGICAL HISTORY: 1. Transmetatarsal amputation in 2010 with recent debridement of plantar wound. 2. Great toe amputation in 2007 with additional amputation of the first metatarsal and second toes in 2018. 3. Cholecystectomy. SOCIAL HISTORY: The patient is a former smoker, who quit in the . Does not use any illicit drugs and drinks rarely. He has limited help at home. ALLERGIES: NO KNOWN DRUG ALLERGIES. OUTPATIENT MEDICATIONS: Include insulin and Synthroid, but he is unsure of the exact doses. According to our clinic records, he is on 175 mcg of Synthroid daily, 70/30 insulin 45 units subcu b.i.d., and a sliding scale NovoLog pen. REVIEW OF SYSTEMS: Ten system review of systems is negative except per history of present illness and increasing swelling in his feet. PHYSICAL EXAMINATION: VITAL SIGNS: Weight is stable at 220 pounds, temperature 97.7, heart rate 66, blood pressure 155/53. GENERAL: Reveals an elderly man, in no acute distress. He is not flushed or toxic in appearance. He is not jaundiced or icteric. HEENT: Unremarkable. NECK: Supple without lymphadenopathy or thyroid nodules. HEART: Regular in its rate and rhythm. I cannot appreciate any murmurs, rubs, or gallops. LUNGS: Clear to auscultation bilaterally. ABDOMEN: Soft, nontender, nondistended. EXTREMITIES: He has palpable bilateral femoral pulses, but I cannot appreciate any popliteal or pedal pulses. However, his feet are warm and have fairly normal capillary refill. His right foot incision appears to be essentially healed, although there is a little bit of serous weeping from along the distal part of the incision. He has moderate edema of both feet. He has a large plantar wound with extensive tunneling on the left with necrotic tissue in the base, which was sharply excised. I cannot definitely feel any bone in the base of the wound. The surrounding skin is macerated and white, and some of the peeling epidermis was trimmed back. The wound was packed and dressed with Kerlix. ASSESSMENT AND PLAN: Worsening appearance of left plantar wound with concern for underlying osteomyelitis. The patient is going to be admitted to the hospital for IV antibiotics, MRI, and wound care. His home situation is tenuous, and he does not have any assistance with wound care, and this may just be a neglected wound, but if he does have evidence for osteomyelitis, then operative debridement and even below-knee amputation may be necessary. Hopefully, we will be able to salvage the foot as the patient is still ambulatory and living independently. He has poorly managed diabetes at baseline, so I am going to consult the Hospitalist Service to assist with his medical management. I am starting him empirically on Zosyn based on previous culture results. There was no abscess encountered today, just necrotic tissue. Job ID: [id number]
--- NOTE | 2018-07-12 19:31 | MRI ---
MRI LEFT FOOT WITHOUT CONTRAST: 07/12/18 HISTORY: Diabetic foot infection. Wound. COMPARISON: Radiograph 06/10/18. FINDINGS: BONES: There is subtle loss of normal T1 marrow signal within the fourth metatarsal diaphysis at the amputat ion site for a length of 1 cm. This is adjacent to a large plantar wound containing gas. Evaluation f or abscess is limited without intravenous contrast although there appears to be extensive phlegmonous changes in the large plantar ulcer. Prior transmetatarsal amputation through the forefoot through the first-fifth metatarsals. There is a bnormal tenosynovial fluid along the flexor digitorum tendons concerning for infectious tenosynovitis extending to the hindfoot. Extensive superficial soft tissue swelling. IMPRESSION: 1. 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 There is concern for adjacent phlegmonous changes with large overlying soft tissue ulcer containing gas. 2. Infectious tenosynovitis of the flexor tendons from the amputation margin to the hindfoot. POS: HOME
[2018-07-12] MEDS: Piperacillin/Tazobactam 3.375 GM in Sodium Chloride 0.9% 100 ML IVPB SCH (20:49)
[2018-07-12] MEDS: Insulin Regular 300 UNITS/3 ML VIAL SC PRN (21:11)
[2018-07-12] MEDS ORDERED: Dextrose 50% Abboject 50 ML SYRINGE SLOW IVP PRN (21:31)
[2018-07-12] MEDS ORDERED: HumaLOG 300 UNITS/3 ML VIAL SC PRN ×2 (21:31→21:34)
[2018-07-13] MEDS ORDERED: Lactated Ringer's 1,000 ML IV SCH (02:15)
--- NOTE | 2018-07-13 02:51 | CON ---
DATE OF CONSULTATION: CONSULTATION: Dr. Caballero asked hospitalist service to consult for medical management. REASON FOR CONSULTATION: Medical management. HISTORY OF PRESENT ILLNESS: Mr. Park is a 78-year-old male with past medical history pertinent for severe neuropathy and has undergone multiple procedures to both feet. Reason for admission is possible infection and wound on his left foot, was debrided in the hospital a couple months of ago and was discharged home with home health. However, home health was recently discontinued. The patient has been trying to care of the wound on his own. He has been unable to get into the wound care clinic and states the skin has gotten very white around the most recent wound and has developed a malodor. Reports that he has been changing the dressings on that left foot twice a day and does report some fevers up to 101, but denies any pain. Dr. Caballero has admitted him for further management. Has ordered MRI of that left foot which shows osteomyelitis of the amputation margin 4th metatarsal for a length of 1 cm with extensive adjacent reactive edema. There is concern for adjacent phlegmonous changes with large overlying soft-tissue ulcer containing gas. This infectious tenosynovitis of the flexor tendons from the amputation margin to the hind foot. Dr. Caballero has also started the patient on Zosyn due for high suspicion of infection to that left. PAST MEDICAL AND SURGICAL HISTORY: History of diabetes type 2 for more than 20 years, hypothyroidism, multiple amputation of his toes, cholecystectomy. ALLERGIES: NONE. HOME MEDICATIONS: Include; 1. Vitamin C 1000 mg p.o. daily. 2. Vitamin D3 at 2000 units p.o. daily. 3. Vitamin B12 at 1000 mcg p.o. daily. 4. Levothyroxine 175 mcg tablet daily. 5. Paroxetine. 6. Vitamin B6 at 50 mg p.o. daily. 7. Multiple vitamin 1 tablet p.o. daily. 8. NovoLog 70/30 35 units subcu a.m. and 20 units subcu p.m. PERSONAL HISTORY: Denies any alcohol, illicit drug, or smoking history. He lives alone. FAMILY HISTORY: Mother in her 70s and of a complication from a seizure. Father in his 70s. Medical history is largely unknown. REVIEW OF SYSTEMS: Denies any pain in his left foot. The patient reports increased edema to bilateral feet and then left foot wound, increasing odor and fever. Otherwise negative unless mentioned above. PHYSICAL EXAMINATION: VITAL SIGNS: Temperature is 97.7, heart rate 66, blood pressure 155/53. GENERAL: The patient does not appear in any distress, currently eating supper. Appears nontoxic. HEENT: Pupils are equally round and reactive to light. Eyelids are normal to inspection. Mucous membranes are moist. Mouth exam is normal. NECK: Supple without any lymphadenopathy. No JVD is noted. Normal range of motion. CARDIOVASCULAR: Regular rate and rhythm. Heart sounds are normal. LUNGS: Clear to auscultation bilaterally. ABDOMEN: Soft, nontender, and nondistended. EXTREMITIES: Palpable bilateral femoral pulses. Cap refill less than 4 seconds. No popliteal or pedal pulses were able to be palpated. Right foot incision appears well healed. Moderate edema to both feet. Large plantar wound with extensive tunneling on the left foot with necrotic tissue at the base. Wound packed and dressed with Kerlix. ASSESSMENT AND PLAN: Patient with long-standing history of diabetes with peripheral neuropathy, hypothyroidism, chronic renal insufficiency stage IV. Creatinine elevated today, so appears to have some acute on chronic renal insufficiency. Glucose 145, after he ate 245. We will restart home medications. We will add a sliding scale. We will do Accu-Cheks. Dr. Caballero has been kind and ordered that with admission. We will trend vital signs and lab values. We will recheck thyroid; last TSH we have on file is February of 2018. We will begin some gentle IV hydration in light of osteomyelitis and increased creatinine. Recheck lab values in the morning. We appreciate the consultation and we will follow patient with you. Job ID: [id number]
[2018-07-13] MEDS: Piperacillin/Tazobactam 3.375 GM in Sodium Chloride 0.9% 100 ML IVPB SCH ×4 (03:08→22:53)
[2018-07-13 04:56] LABS: #Eosinphils 0.3 thou/uL (0.0-0.7); #Lymphocytes 1.3 thou/uL (1.20-3.40); #Monocytes 0.5 thou/uL (0.11-0.59); #Neutrophils 5.4 thou/uL (1.40-6.50); %Basophils 0.6 % (0.0-1.0); %Eosinophils 4.1 % (0.0-10.0); %Lymphocytes 16.9 % (21.0-51.0); %Monocytes 6.4 % (0.0-10.0); Hemoglobin 8.1 g/dL (14.0-18.0); Mean Corpuscular HGB CONC 33.4 g/dL (32.0-36.0); Mean Corpuscular Hemoglobin 31.4 pg (27.0-31.0); Mean Corpuscular Volume 94.1 fL (78.0-98.0); Mean Platelet Volume 6.6 fL (7.4-10.4); Platelet Count 359 thou/uL (130-400); RBC Distribution Width 12.1 % (11.5-14.5); Red Blood Cell (RBC) Count 2.57 mill/uL (4.70-6.10); White Blood Cell (WBC) Count 7.5 thou/uL (4.8-10.8)
[2018-07-13 05:07] LABS: Anion Gap 12 mmol/L (10-20); BUN (Urea Nitrogen) 51 mg/dL (8.4-25.7); Calc. Creatinine Clearance 23 mL/min (70-130); Calcium 8.3 mg/dL (7.8-10.44); Carbon Dioxide 20 mmol/L (23-31); Chloride 109 mmol/L (98-107); Estimated GFR-MDRD 17; Glucose 165 mg/dL (83-110); Potassium 5.7 mmol/L (3.5-5.1); Sodium 135 mmol/L (136-145)
[2018-07-13 05:47] LABS: Free T4 (Free Thyroxine) 0.96 ng/dL (0.70-1.48)
[2018-07-13] MEDS: Levothyroxine 175 MCG TAB PO SCH (06:35)
[2018-07-13] MEDS ORDERED: Sodium Chloride 0.9% 500 ML IV SCH (11:45)
--- NOTE | 2018-07-13 12:02 | PRG ---
DATE OF SERVICE: 07/13/2018 SUBJECTIVE: The patient feels okay. He understands the situation and is expecting surgery with no other specific concerns. OBJECTIVE: VITAL SIGNS: Temperature 98.4, pulse 59, respirations are 18, O2 saturation 96% on room air, and BP 160/72. GENERAL APPEARANCE: Age-appropriate male, in no distress. His heart has a 2/6 murmur at the aortic position. LUNGS: Clear bilaterally. No wheezes or rales. ABDOMEN: Soft, nontender, and nondistended. Positive bowel sounds. EXTREMITIES: Left foot has appropriate bandaging with some yellow serous drainage soaking the distal portion of the bandage. Otherwise, he has no clubbing or edema. LABORATORY DATA: White count 7.5, hemoglobin 8.1, and platelets are 359. Sodium 135, potassium 5.7, chloride 109, CO2 is 20, BUN 51, creatinine is 3.57, glucose 185, and calcium 8.3. IMPRESSION AND PLAN: 1. Diabetic foot ulcer with osteomyelitis and infectious tenosynovitis potentially extending back to the hind foot. The patient is anticipating surgery today per his conversation with Dr. Caballero. The patient grew Pseudomonas from the wound along with Enterococcus on June 11, both were sensitive to the Zosyn, which he is currently receiving. 2. Chronic kidney disease stage 4. His current renal function is worse than his previous measurements, even on June 11; at that time, his estimated GFR was 26, now it is at about 16. He has received some fluid resuscitation gently and is only very slightly better with his creatinine coming down from 3.69 to 3.57, where his baseline is typically around 2.5, giving him a larger fluid bolus now. 3. Hyperkalemia is slightly better with hydration from 5.9 to 5.7. Obtaining an EKG and again giving the fluid bolus preoperatively. He is receiving some sliding scale insulin, which may help slightly as well. 4. Diabetes mellitus. Blood sugars ranging from 165 to 245, generally below 200. We will continue to monitor. 5. Hypothyroidism, stable. 6. Peripheral neuropathy, stable. Job ID: [id number]
[2018-07-13] MEDS ORDERED: Calcium Gluconate 4.6 MEQ in Sodium Chloride 0.9% 100 ML IVPB SCH (13:15)
--- NOTE | 2018-07-13 13:54 | PRG ---
DATE OF SERVICE: 07/13/2018 SUBJECTIVE: The patient's EKG showed some evidence of T-wave peaks and I discussed case with Dr. Caballero, given the evidence of peaked T-waves from the hyperkalemia, wanted to make sure he was aware, gave the fluid bolus. He has already consulted Nephrology, also recommended to be given some Kayexalate and recheck his potassium and EKG prior to doing the surgery today. It sounds like he is likely not going to have the ability to keep him on the schedule given those needs. Therefore, we will go ahead and give the Kayexalate p.o. and recheck his potassium later this afternoon. We will discuss with Nephrology as well. Also give him an amp of calcium given EKG findings. Job ID: [id number]
[2018-07-13] MEDS ORDERED: PROPOFOL 200 MG/20 ML VIAL ONE (14:40)
[2018-07-13] MEDS ORDERED: Lidocaine 1% PF 5 ML VIAL ONE (14:40)
--- NOTE | 2018-07-13 17:10 | EKG ---
Test Reason : Blood Pressure : / mmHG Vent. Rate : 056 BPM Atrial Rate : 056 BPM P-R Int : 168 ms QRS Dur : 080 ms QT Int : 432 ms P-R-T Axes : 045 038 052 degrees QTc Int : 416 ms Sinus bradycardia Otherwise normal ECG No previous ECGs available Confirmed by Stacie HEALY ([id number]) on 07/13/2018 5:09:33 PM Referred By: PAT Confirmed By:Stacie HEALY
[2018-07-13 17:33] LABS: Anion Gap 16 mmol/L (10-20); BUN (Urea Nitrogen) 46 mg/dL (8.4-25.7); Calc. Creatinine Clearance 24 mL/min (70-130); Carbon Dioxide 16 mmol/L (23-31); Chloride 111 mmol/L (98-107); Estimated GFR-MDRD 17; Glucose 193 mg/dL (83-110); Potassium 5.5 mmol/L (3.5-5.1); Sodium 137 mmol/L (136-145)
[2018-07-13] MEDS ORDERED: hydrALAZINE 20 MG/ML VIAL SLOW IVP PRN (17:39)
[2018-07-13 19:05] LABS: Creatinine, Urine 74.1 mg/dL (63-166)
--- NOTE | 2018-07-13 20:32 | CON ---
DATE OF CONSULTATION: REASON FOR CONSULTATION: Advanced kidney disease with hyperkalemia. IMPRESSION: 1. Advanced chronic kidney disease stage 4. This is likely progression of the patient's baseline chronic kidney disease. 2. Hyperkalemia, likely in the keeping of loss of GFR. 3. Metabolic acidosis worsening with re-expansion acidosis with normal saline infusion. 4. Hypertension, suboptimally controlled. PLAN: 1. Discontinue all IV fluid, especially the Ringer's lactate as well as normal saline. 2. Start this patient on antihypertensive medications. 3. Potassium management medically. Hopefully, this will respond to medical management to avoid requiring renal replacement therapy. 4. Avoid potentially nephrotoxic agents. 5. Protein evaluation to compared with the previous proteinuria level in this patient as of last year. 6. Bone mineral evaluation. 7. The patient's renal function seems to be deteriorating in 1 of the patient's visit to the OR, we probably are request long-term access in keeping with this, we will put a request for Dopplers to request for vein mapping in preparation for this possibility. 8. Further management will be dependent on the clinical course. HISTORY OF PRESENT ILLNESS: History is that of a 78-year-old gentleman, who presented here with significant nervous complications of diabetes resulting in infection, which required some debridement plus or minus amputation. The patient noted with a creatinine above 3 as well as severely elevated potassium of 5.7. Discharge delayed. They planned surgery of this patient. As a result of these findings, decision has been taken to involve Renal in the management of this case. The patient on clinical evaluation, noted to have suboptimally controlled blood pressure. PAST MEDICAL HISTORY: Significant for chronic kidney disease stage 3/4 with a baseline creatinine of about 2.5, type 2 diabetes, hypothyroidism, cholecystectomy, and amputations. ALLERGIES: NONE. MEDICATIONS: Reviewed as documented on [employer]. FAMILY HISTORY: Significant for the daughter on dialysis. SOCIAL HISTORY: Very remote history of tobacco use. Denies alcohol or illicit drug use. REVIEW OF SYSTEMS: As documented in the body of the history. All the other systems were reviewed and found not to be significantly related to presenting illness. PHYSICAL EXAMINATION: GENERAL: The patient was found not to be in any obvious distress. VITAL SIGNS: Noted with the following vital signs; afebrile, temperature 97.8, pulse 57, respiratory rate of 16, and O2 saturations are 99% with a blood pressure 192/83. HEENT: Unremarkable. CARDIOVASCULAR SYSTEM: First and second heart sounds were heard. RESPIRATORY SYSTEM: Clear to auscultation. DIGESTIVE SYSTEM: Revealed a benign abdomen. Positive bowel sounds. EXTREMITIES: No peripheral edema. SKIN: No new gross rash. LYMPHATICS: No peripheral lymphadenopathy. SUMMARY: A 78-year-old gentleman with advanced chronic kidney disease, who presented here with diabetic foot and noted to have severe hyperkalemia. Thank you for this consultation. We will follow with you. Job ID: [id number]
[2018-07-13] MEDS ORDERED: Midazolam HCl 2 mg/2 ml Vial ONE (22:26)
[2018-07-13] MEDS ORDERED: Fentanyl 100 MCG/2 ML VIAL ONE (22:26)
[2018-07-13] MEDS ORDERED: Sodium Chloride 0.9% 100 ML ONE (22:34)
[2018-07-13] MEDS ORDERED: Piperacillin/Tazobactam 3.375 GM VIAL ONE (22:34)
[2018-07-13] MEDS: Sodium Bicarbonate Tab 325 MG TAB PO SCH (22:53)
[2018-07-14] MEDS: Piperacillin/Tazobactam 3.375 GM in Sodium Chloride 0.9% 100 ML IVPB SCH ×4 (03:08→20:37)
[2018-07-14] MEDS: Levothyroxine 175 MCG TAB PO SCH (06:13)
[2018-07-14] MEDS: Insulin Regular 300 UNITS/3 ML VIAL SC PRN ×3 (06:15→17:38)
[2018-07-14 06:41] LABS: #Eosinphils 0.3 thou/uL (0.0-0.7); #Lymphocytes 0.9 thou/uL (1.20-3.40); #Monocytes 0.4 thou/uL (0.11-0.59); #Neutrophils 5.1 thou/uL (1.40-6.50); %Basophils 0.3 % (0.0-1.0); %Eosinophils 4.1 % (0.0-10.0); %Monocytes 6.6 % (0.0-10.0); %Neutrophils 75.9 % (42.0-75.0); Mean Corpuscular HGB CONC 33.1 g/dL (32.0-36.0); Mean Corpuscular Hemoglobin 30.8 pg (27.0-31.0); Mean Corpuscular Volume 93.1 fL (78.0-98.0); Mean Platelet Volume 6.4 fL (7.4-10.4); Platelet Count 330 thou/uL (130-400); RBC Distribution Width 12.2 % (11.5-14.5); Red Blood Cell (RBC) Count 2.59 mill/uL (4.70-6.10); White Blood Cell (WBC) Count 6.7 thou/uL (4.8-10.8)
[2018-07-14 07:06] LABS: Iron 22 ug/dL (65-175); Iron Binding Capacity, Total 141 mcg/dL (261-462)
[2018-07-14 07:07] LABS: Albumin 2.8 g/dL (3.4-4.8); Anion Gap 14 mmol/L (10-20); BUN (Urea Nitrogen) 42 mg/dL (8.4-25.7); BUN/Creatinine Ratio 12.35; Calc. Creatinine Clearance 24 mL/min (70-130); Calcium 8.4 mg/dL (7.8-10.44); Carbon Dioxide 18 mmol/L (23-31); Chloride 111 mmol/L (98-107); Estimated GFR-MDRD 18; Glucose 246 mg/dL (83-110); Iron 19 ug/dL (65-175); Phosphorus 4.1 mg/dL (2.3-4.7); Potassium 5.1 mmol/L (3.5-5.1); Sodium 138 mmol/L (136-145)
--- NOTE | 2018-07-14 09:10 | PDOC.PN ---
- Subjective Encounter Start Date: 07/14/18 Encounter Start Time: 12:20 Subjective: Patient with surgery on left foot yesterday. Doing well today. No -: pain. No SOB/CP. No N/V. No appetite recently. - Objective MAR Reviewed: Yes Vital Signs & Weight: Vital Signs (12 hours) Temp Pulse Resp BP Pulse Ox 07/14/18 07:58 98.1 F 59 L 18 162/75 H 90 L 07/14/18 05:04 97.9 F 56 L 18 170/72 H 98 07/14/18 00:10 97.4 F L 58 L 18 180/75 H 99 Weight Admit Weight 215 lb Weight 215 lb I&O: 07/13/18 07/14/18 07/15/18 06:59 06:59 06:59 Intake Total 200 2520 Output Total 3500 Balance 200 -980 Result Diagrams: 07/14/18 06:23 07/14/18 06:23 Additional Labs: Accuchecks 07/14/18 07/13/18 07/13/18 06:15 20:41 11:28 POC Glucose 282 H 192 H 185 H Phys Exam - Physical Examination Constitutional: NAD HEENT: moist MMs Respiratory: no wheezing, no rales, no rhonchi Cardiovascular: RRR, no significant murmur Gastrointestinal: soft, positive bowel sounds left foot with postop dressing C/D/I Neurological: moves all 4 limbs Psychiatric: normal affect, A&O x 3 Dx/Plan (1) Osteomyelitis Code(s): M86.9 - OSTEOMYELITIS, UNSPECIFIED Status: Acute Qualifiers: Osteomyelitis location: foot Laterality: left Comment: with infective tenosynovitis, s/p surgery 07/13/18 (2) CKD (chronic kidney disease) stage 4, GFR 15-29 ml/min Code(s): N18.4 - CHRONIC KIDNEY DISEASE, STAGE 4 (SEVERE) Status: Chronic Comment: Dr. Babb following (3) Hyperkalemia Code(s): E87.5 - HYPERKALEMIA Status: Acute Comment: improved with Kayexelate yesterday (4) DM type 2 (diabetes mellitus, type 2) Status: Chronic Qualifiers: Diabetes mellitus intermodal customer service insulin use: with intermodal customer service use Diabetes mellitus complication detail: with chronic kidney disease Chronic kidney disease stage: stage 4 (severe) (5) Hypothyroidism Code(s): E03.9 - HYPOTHYROIDISM, UNSPECIFIED Status: Chronic Qualifiers: Hypothyroidism type: unspecified Qualified Code(s): E03.9 - Hypothyroidism , unspecified Comment: on synthroid - Plan cont current plan of care, continue antibiotics, PT/OT, DVT proph w/SCDs * . - Discharge Day Encounter end time: 12:30
--- NOTE | 2018-07-14 09:29 | ULT ---
Exam: Vein mapping for dialysis access HISTORY: End-stage renal disease. TECHNIQUE: Multiplanar grayscale and color Doppler images were obtained in a bilateral upper extremit y venous ultrasound. Spectral analysis of the Doppler waveforms of the vessels were performed. FINDINGS: The bilateral internal jugular veins and subclavian veins are patent without evidence of th rombus. Right brachial artery 5.2 mm Right radial artery 2.9 mm Right ulnar artery 2.0 mm Left brachial artery 5.7 mm Left radial artery 3.2 mm Left ulnar artery 2.7 mm RIGHT CEPHALIC VEIN in millimeters 2.1 -- Shoulder 1.6 -- Upper arm 2.0 -- Mid upper arm 2.4 -- Just proximal to the elbow 1.3 -- Just distal to the elbow 1.6 -- Forearm 1.2 -- Wrist RIGHT BASILIC VEIN in millimeters 4.9 -- Shoulder 4.4 -- Upper arm 4.4 -- Mid upper arm 3.9 -- Just proximal to the elbow 1.2 -- Just distal to the elbow 1.4 -- Forearm 1.5 -- Wrist LEFT CEPHALIC VEIN in millimeters 3.3 -- Shoulder 4.1 -- Upper arm 3.6 -- Mid upper arm 3.2 -- Just proximal to the elbow 1.9 -- Just distal to the elbow 1.9 -- Forearm 1.8 -- Wrist LEFT BASILIC VEIN in millimeters 6.6 -- Shoulder 4.6 -- Upper arm 4.4 -- Mid upper arm 2.7 -- Just proximal to the elbow 2.0 -- Just distal to the elbow 1.6 -- Forearm 1.7 -- Wrist IMPRESSION: Vein mapping for dialysis access as above
[2018-07-14] MEDS: NIFEdipine XL 30 MG TAB PO SCH (10:35)
[2018-07-14] MEDS: Sodium Bicarbonate Tab 325 MG TAB PO SCH ×2 (10:36→20:37)
--- NOTE | 2018-07-14 14:43 | ULT ---
US Arterial Doppler Lower Ext History: [Osteomyelitis. Diminished pulses.] Comparison: None Findings: Real-time grayscale, color Doppler and spectral analysis of the left lower extremity arteri al system was performed. There is severe atherosclerotic plaque of the lower extremity. Triphasic waveform left common femoral artery. Monophasic waveforms throughout the lower extremity. There is flow to the first through the trifurcation. There is a focal hemodynamically significant raymundo nosis of the left popliteal artery and left dorsalis pedis artery. Impression: Severe atherosclerotic disease with multifocal hemodynamically significant stenosis. Conv entional angiogram may be beneficial in this patient.
[2018-07-14] MEDS ORDERED: Iron, Sodium Ferric Gluconate 250 MG in Sodium Chloride 0.9% 100 ML IVPB SCH (19:30)
--- NOTE | 2018-07-14 19:50 | PDOC.GSPN ---
Surgery Progress Note: Subj - Subjective Narrative: Vascular ultrasound shows significant popliteal disease, but renal function has not improved so angio risky. Will see how wound heals without for now. Cephalic vein on left to be preserved for future dialysis. 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 Surgery Progress Note: Obj - Vital signs Vital signs: Vital Signs - Most Recent Temp Pulse Resp BP Pulse Ox 98.1 F 56 L 16 145/72 H 99 07/14/18 15:29 07/14/18 15:29 07/14/18 15:29 07/14/18 15:29 07/14/18 15:29 Surgery Progress Note: Results - Labs Result Diagrams: 07/14/18 06:23 07/14/18 06:23 Lab results: Laboratory Results - last 24 hr 07/14/18 07/14/18 11:29 17:03 POC Glucose (other) 259 H 204 H
--- NOTE | 2018-07-14 20:04 | CON ---
DATE OF CONSULTATION: 07/14/2018 REASON FOR CONSULTATION: Inflammatory process left foot fourth transmetatarsal amputation site. HISTORY OF PRESENT ILLNESS: A 78-year-old, whom I had seen in the past, who has a history of type 2 diabetes, neuropathy, prior transmetatarsal amputations right and left side. In November 2017, he had an amputation of the right first and second toes with almost complete resection of the right first metatarsal and then subsequently he developed inflammatory changes in left foot, middle to forefoot region and he had evidence of necrotic skin over the transmetatarsal amputation site, which was excised back to bleeding tissue. No abscess cavity noted. We felt that it was superficial process and therefore, treated with oral Zyvox and Flagyl for a short period of time. He now gets admitted with inflammatory process around the left foot region. Dr. Caballero admitted this patient and she performed surgery and I do not see any operative report yet. He apparently was trying to take care of the wound on his own and he may have stepped on a sharp object, which perforated the foot. He developed odor, inflammatory changes and fever and was admitted. Initial vital signs were fairly unremarkable. There is mild elevation of systolic blood pressure. The femoral pulses were palpable. He had edema in the feet. There was a large plantar wound on the left side with tunneling on the left with necrotic tissue at the base. No bone was felt at the base. He had a lower extremity MRI completed and showed osteomyelitis with amputation margin of fourth metatarsal for length of 1 cm with extensive reactive edema and tenosynovitis of flexor tendons around that same area. Currently, he is awake. Denies headaches. No change in visual symptoms, sore throat, odynophagia, or dysphagia. No cough or sputum production. No chest pain. No abdominal pain. No diarrhea. No genitourinary symptoms. No joint symptoms outside the area of involvement. PAST MEDICAL HISTORY: Includes type 2 diabetes; neuropathy; transmetatarsal amputations in right and left side, those have healed on the right side and however, he remains with recrudescence on the left foot; hypothyroidism; and cholecystectomy. CURRENT MEDICATIONS: Include: 1. Glucagon. 2. Apresoline. 3. Humalog insulin. 4. Synthroid. 5. Nifedipine. 6. Zosyn. FAMILY HISTORY: Noncontributory. SOCIAL HISTORY: He lives in [place]. No smoking history or alcoholic beverage use. ALLERGIES: NONE. PHYSICAL EXAMINATION: VITAL SIGNS: T-max 98.4, blood pressure 160/75, pulse 59, and respirations 18. GENERAL: Appears is no distress, somewhat apathetic. SKIN: Shows the left foot inflammatory changes with a large ulcer at the base of the fourth metatarsal at the previous transmetatarsal amputation site. Peripheral IV access. He is voiding in the urinal. HEART: His ocular movements conjugate. Oral cavity with no remaining teeth in place. NECK: Supple. No jugular vein distention. LUNGS: Symmetric. Clear breath sounds. HEART: S1 and S2, regular rate. No S3 or S4. ABDOMEN: Soft. Not distended or tender. No ascites. No bladder distention. EXTREMITIES: His pulses are 1+ in popliteals. I could not feel dorsalis pedis. He has hyperpigmentation of the feet, right and left side and some hyperkeratosis. He is able to move extremities. NEUROLOGIC: He is oriented, follows commands. LABORATORY DATA: White cell count is 10.3 and now 6.7, hemoglobin 8, MCV 93, platelets 330, 75% neutrophils. Creatinine 3.40. The previous was 3.47, so is fairly stable. IMAGING STUDY: Discussed above. Microbiology with P. aeruginosa from June 11, gram-negative elsa and Enterococcus faecalis. P. aeruginosa was resistant to quinolones, but other agents were effective against it. The Enterococcus faecalis with the usual susceptibility profile. In February 20, he had MRSA, strep mitis, oralis, but this was a left side sample. ASSESSMENT: Type 2 diabetes, neuropathy, recurring complications in right and left feet with transmetatarsal amputations, now with a recurrence in the left transmetatarsal amputation site at the fourth metatarsal with osteomyelitis documented by MRI extending for 1 cm at the metatarsal. There are soft tissue inflammatory changes as well. He does have evidence of some element of peripheral vascular disease. At this point, we will probably require surgical debridement of that infected metatarsal and in the meantime, we will order arterial duplex ultrasound to get a formal evaluation of his arterial supply. The Zosyn is covering for the most recent organisms. He may need MRSA coverage in addition since he did have MRSA in the left foot in February and those organisms tend to be persistent. Job ID: [id number]
--- NOTE | 2018-07-15 01:35 | HP ---
HISTORY OF PRESENT ILLNESS: The patient was seen and examined with no new complaint noted with the following vital signs. VITAL SIGNS: Afebrile, temperature 98.1 pulse 56, respiratory rate of 16, O2 saturations of 99% with blood pressure 145/72. HEENT: Unremarkable. Moist oral mucosa. NECK: Supple. No conjunctival injection or icterus. CARDIOVASCULAR: First and second heart sounds were heard. RESPIRATORY: Clear to auscultation. DIGESTIVE: Revealed a benign abdomen. EXTREMITIES: No peripheral edema. SKIN: No new gross rash. LYMPHATICS: No peripheral lymphadenopathy. LABORATORY INVESTIGATION: Iron of 22, saturation of 16%, and ferritin 433. Hemoglobin of 8. Chemistry showed a creatinine of 3.4, BUN of 47 with a bicarb of 18, potassium 5.1, sub-nephrotic range proteinuria. IMPRESSION: 1. Advanced chronic kidney disease stage 4. 2. Metabolic acidosis in keeping with advanced chronic kidney disease stage 4. 3. Anemia of chronic kidney disease. 4. Peripheral vascular disease. 5. Hypertension, which seems to be improving with current medications. PLAN: 1. Erythropoiesis stimulating agent. 2. Parenteral iron. 3. If the patient is to undergo any form of study or intervention, then will require contrast which was strongly recommended, smallest possible dose with contrast prophylaxis as the patient significant chance of contrast nephropathy that might trip him over into dialysis. 4. May plan toward securing fistula in preparation for possible need for renal replacement therapy down the road. 5. Renally dose all medications and avoid potentially nephrotoxic agents. Job ID: [id number]
[2018-07-15] MEDS: Piperacillin/Tazobactam 3.375 GM in Sodium Chloride 0.9% 100 ML IVPB SCH ×4 (03:59→21:43)
[2018-07-15] MEDS: Levothyroxine 175 MCG TAB PO SCH (05:46)
[2018-07-15 07:13] LABS: #Basophils 0.1 thou/uL (0.0-0.2); #Eosinphils 0.3 thou/uL (0.0-0.7); #Lymphocytes 1.4 thou/uL (1.20-3.40); #Monocytes 0.5 thou/uL (0.11-0.59); #Neutrophils 4.7 thou/uL (1.40-6.50); %Basophils 0.9 % (0.0-1.0); %Lymphocytes 19.4 % (21.0-51.0); %Monocytes 7.2 % (0.0-10.0); %Neutrophils 67.6 % (42.0-75.0); Mean Corpuscular HGB CONC 33.3 g/dL (32.0-36.0); Mean Corpuscular Hemoglobin 31.5 pg (27.0-31.0); Mean Corpuscular Volume 94.4 fL (78.0-98.0); Mean Platelet Volume 6.6 fL (7.4-10.4); Platelet Count 325 thou/uL (130-400); RBC Distribution Width 12.1 % (11.5-14.5); Red Blood Cell (RBC) Count 2.54 mill/uL (4.70-6.10)
[2018-07-15 07:41] LABS: Albumin 2.8 g/dL (3.4-4.8); Anion Gap 14 mmol/L (10-20); BUN (Urea Nitrogen) 36 mg/dL (8.4-25.7); BUN/Creatinine Ratio 11.11; Calc. Creatinine Clearance 26 mL/min (70-130); Calcium 8.4 mg/dL (7.8-10.44); Carbon Dioxide 19 mmol/L (23-31); Chloride 109 mmol/L (98-107); Estimated GFR-MDRD 19; Glucose 138 mg/dL (83-110); Potassium 4.8 mmol/L (3.5-5.1); Sodium 137 mmol/L (136-145)
--- NOTE | 2018-07-15 08:27 | PDOC.PN ---
- Subjective Encounter Start Date: 07/15/18 Encounter Start Time: 10:50 Subjective: Patient denies pain. No fever. No N/V. Eating ok. - Objective MAR Reviewed: Yes Vital Signs & Weight: Vital Signs (12 hours) Temp Pulse Resp BP Pulse Ox 07/15/18 03:25 98.7 F 55 L 18 143/69 H 96 07/15/18 00:00 98.6 F 56 L 18 132/65 96 07/14/18 20:50 98.3 F 55 L 18 145/70 H 96 Weight Admit Weight 215 lb Weight 215 lb I&O: 07/14/18 07/15/18 07/16/18 06:59 06:59 06:59 Intake Total 2520 970 Output Total 3500 Balance -980 970 Result Diagrams: 07/15/18 06:29 07/15/18 06:29 Phys Exam - Physical Examination Constitutional: NAD HEENT: moist MMs Respiratory: no wheezing, no rales, no rhonchi Cardiovascular: RRR, no significant murmur Gastrointestinal: soft, positive bowel sounds left foot surgical dressing C/D/I Psychiatric: normal affect, A&O x 3 Dx/Plan (1) Osteomyelitis Code(s): M86.9 - OSTEOMYELITIS, UNSPECIFIED Status: Acute Qualifiers: Osteomyelitis location: foot Laterality: left Comment: with infective tenosynovitis, s/p surgery 07/13/18, culture starting to grow staph, hx of MRSA so likely will need to expand coverage (2) CKD (chronic kidney disease) stage 4, GFR 15-29 ml/min Code(s): N18.4 - CHRONIC KIDNEY DISEASE, STAGE 4 (SEVERE) Status: Chronic Comment: Dr. Babb following, creatinine improving a bit (3) Hyperkalemia Code(s): E87.5 - HYPERKALEMIA Status: Acute Comment: improved with Kayexelate yesterday (4) DM type 2 (diabetes mellitus, type 2) Status: Chronic Qualifiers: Diabetes mellitus huc insulin use: with huc use Diabetes mellitus complication detail: with chronic kidney disease Chronic kidney disease stage: stage 4 (severe) (5) Hypothyroidism Code(s): E03.9 - HYPOTHYROIDISM, UNSPECIFIED Status: Chronic Qualifiers: Hypothyroidism type: unspecified Qualified Code(s): E03.9 - Hypothyroidism , unspecified Comment: on synthroid - Plan cont current plan of care, continue antibiotics, PT/OT, DVT proph w/SCDs * . - Discharge Day Encounter end time: 11:00
[2018-07-15] MEDS ORDERED: Epoetin (ESRD) 20,000 UNITS/ML SC SCH (09:00)
[2018-07-15] MEDS: Sodium Bicarbonate Tab 325 MG TAB PO SCH ×2 (09:00→21:43)
[2018-07-15] MEDS ORDERED: EPOETIN ALFA-EPBX (ESRD) 4,000 UNIT/ML VIAL SC SCH (10:00)
[2018-07-15] MEDS: NIFEdipine XL 30 MG TAB PO SCH (12:01)
--- NOTE | 2018-07-15 17:30 | PDOC.GSPN ---
Surgery Progress Note: Subj - Subjective Narrative: Patient is feeling fine. No pain with VAC change. Will need long-term IV antibiotics per Dr. Tam so he is on the schedule for a Olson on Wednesday. Bone culture from the OR is growing staph aureus but sensitivities aren't back yet. I will examine his wound with the wound care team on Wednesday. If it appears to be healing well he will likely be ready for discharge to a swing bed on Wednesday. Surgery Progress Note: Obj - Vital signs Vital signs: Vital Signs - Most Recent Temp Pulse Resp BP Pulse Ox 98.7 F 58 L 16 137/69 94 L 07/15/18 15:50 07/15/18 15:50 07/15/18 15:50 07/15/18 15:50 07/15/18 15:50 Surgery Progress Note: Results - Labs Result Diagrams: 07/15/18 06:29 07/15/18 06:29 Lab results: Laboratory Results - last 24 hr 07/15/18 07/15/18 07/15/18 06:20 06:29 06:29 WBC 7.0 RBC 2.54 L Hgb 8.0 L Hct 24.0 L MCV 94.4 MCH 31.5 H MCHC 33.3 RDW 12.1 Plt Count 325 MPV 6.6 L Neutrophils % 67.6 Lymphocytes % 19.4 L Monocytes % 7.2 Eosinophils % 5.0 Basophils % 0.9 Neutrophils # 4.7 Lymphocytes # 1.4 Monocytes # 0.5 Eosinophils # 0.3 Basophils # 0.1 Sodium 137 Potassium 4.8 Chloride 109 H Carbon Dioxide 19 L Anion Gap 14 BUN 36 H Creatinine 3.24 H Estimated GFR (MDRD) 19 BUN/Creatinine Ratio 11.11 Glucose 138 H POC Glucose (other) 164 H Calcium 8.4 Phosphorus 4.0 Albumin 2.8 L 07/15/18 07/15/18 11:53 16:41 WBC RBC Hgb Hct MCV MCH MCHC RDW Plt Count MPV Neutrophils % Lymphocytes % Monocytes % Eosinophils % Basophils % Neutrophils # Lymphocytes # Monocytes # Eosinophils # Basophils # Sodium Potassium Chloride Carbon Dioxide Anion Gap BUN Creatinine Estimated GFR (MDRD) BUN/Creatinine Ratio Glucose POC Glucose (other) 270 H 289 H Calcium Phosphorus Albumin
[2018-07-15] MEDS: Insulin Regular 300 UNITS/3 ML VIAL SC PRN (21:44)
[2018-07-16] MEDS: Piperacillin/Tazobactam 3.375 GM in Sodium Chloride 0.9% 100 ML IVPB SCH ×4 (03:00→20:56)
[2018-07-16 04:58] LABS: Albumin 2.8 g/dL (3.4-4.8); Anion Gap 12 mmol/L (10-20); BUN (Urea Nitrogen) 31 mg/dL (8.4-25.7); BUN/Creatinine Ratio 9.72; Calc. Creatinine Clearance 26 mL/min (70-130); Calcium 8.1 mg/dL (7.8-10.44); Carbon Dioxide 19 mmol/L (23-31); Chloride 109 mmol/L (98-107); Estimated GFR-MDRD 19; Glucose 195 mg/dL (83-110); Phosphorus 3.8 mg/dL (2.3-4.7); Potassium 4.5 mmol/L (3.5-5.1); Sodium 135 mmol/L (136-145)
[2018-07-16] MEDS: Levothyroxine 175 MCG TAB PO SCH (06:59)
[2018-07-16] MEDS: Insulin Regular 300 UNITS/3 ML VIAL SC PRN ×3 (08:46→18:08)
[2018-07-16] MEDS: NIFEdipine XL 30 MG TAB PO SCH (08:47)
[2018-07-16] MEDS: Sodium Bicarbonate Tab 325 MG TAB PO SCH ×2 (08:47→20:57)
[2018-07-16] MEDS ORDERED: Vancomycin HCl 1 GM in Premix Bag 1 BAG IVPB SCH (09:45)
--- NOTE | 2018-07-16 11:26 | PRG ---
DATE OF SERVICE: 07/16/2018 SUBJECTIVE: The patient denies any pain. OBJECTIVE: VITAL SIGNS: He is afebrile, pulse 55, blood pressure 155/69. GENERAL: He is awake, alert, in no apparent distress. He is voiding well. EXTREMITIES: He has a wound VAC on his foot. ASSESSMENT: Status post diabetic foot amputation. PLAN: He states that they are going to keep him here for antibiotics and wound care until Wednesday and then discharge. Job ID: [id number]
[2018-07-16] MEDS ORDERED: VANCOMYCIN IVPB PRN (11:27)
[2018-07-16] MEDS ORDERED: Vancomycin HCl 1.5 GM in Sodium Chloride 0.9% 250 ML 300 ML IVPB SCH (12:00)
--- NOTE | 2018-07-16 13:23 | PDOC.PN ---
- Subjective Encounter Start Date: 07/16/18 Encounter Start Time: 13:22 Subjective: feels better.no new complaints. -: walking w PT - Objective MAR Reviewed: Yes Vital Signs & Weight: Vital Signs (12 hours) Temp Pulse Resp BP BP Pulse Ox 07/16/18 11:09 98.3 F 60 16 132/82 94 L 07/16/18 08:47 55 L 155/69 H 07/16/18 08:09 97 07/16/18 07:42 98.4 F 55 L 14 155/69 H 97 Weight Admit Weight 215 lb Weight 215 lb I&O: 07/15/18 07/16/18 07/17/18 06:59 06:59 06:59 Intake Total 970 Output Total 520 Balance 970 -520 Result Diagrams: 07/15/18 06:29 07/16/18 04:25 Additional Labs: Microbiology 07/13/18 23:20 Bone - Left Foot Bacterial Culture - Preliminary 07/13/18 23:20 Bone - Left Foot Anaerobic Culture - Preliminary Methicillin resistant S.aureus Phys Exam - Physical Examination Constitutional: NAD HEENT: PERRLA, moist MMs, sclera anicteric, oral pharynx no lesions Neck: no nodes, no JVD, supple, full ROM Respiratory: no wheezing, no rales, no rhonchi, clear to auscultation bilateral Cardiovascular: RRR, no significant murmur Gastrointestinal: soft, non-tender, no distention, positive bowel sounds Musculoskeletal: no edema, pulses present wound vac in place left leg Neurological: non-focal, normal sensation, moves all 4 limbs Psychiatric: normal affect, A&O x 3 Skin: no rash Dx/Plan (1) Osteomyelitis Code(s): M86.9 - OSTEOMYELITIS, UNSPECIFIED Status: Acute Qualifiers: Osteomyelitis location: foot Laterality: left Comment: with infective tenosynovitis, s/p surgery 07/13/18, culture starting to grow MRSA so will need to expand coverage (2) CKD (chronic kidney disease) stage 4, GFR 15-29 ml/min Code(s): N18.4 - CHRONIC KIDNEY DISEASE, STAGE 4 (SEVERE) Status: Chronic Comment: Dr. Babb following, creatinine improving a bit (3) DM type 2 (diabetes mellitus, type 2) Status: Chronic Qualifiers: Diabetes mellitus channel development director insulin use: with channel development director use Diabetes mellitus complication detail: with chronic kidney disease Chronic kidney disease stage: stage 4 (severe) (4) Hypothyroidism Code(s): E03.9 - HYPOTHYROIDISM, UNSPECIFIED Status: Chronic Qualifiers: Hypothyroidism type: unspecified Qualified Code(s): E03.9 - Hypothyroidism , unspecified Comment: on synthroid - Plan continue antibiotics, PT/OT, out of bed/ambulate, DVT proph w/SCDs add Vancomycin for MRSA.contact isolation -: Whitney Wednesday for protracted period od IV ABx -: HD stable -: IM team will follow * . Review of Systems - Review of Systems Constitutional: negative: fever, chills, sweats, weakness, malaise, other ENT: negative: Ear Pain, Ear Discharge, Nose Pain, Nose Discharge, Nose Congestion, Mouth Pain, Mouth Swelling, Throat Pain, Throat Swelling, Other Respiratory: negative: Cough, Dry, Shortness of Breath, Hemoptysis, SOB with Excertion, Pleuritic Pain, Sputum, Wheezing Cardiovascular: negative: chest pain, palpitations, orthopnea, paroxysmal nocturnal dyspnea, edema, light headedness, other Gastrointestinal: negative: Nausea, Vomiting, Abdominal Pain, Diarrhea, Constipation, Melena, Hematochezia, Other Genitourinary: negative: Dysuria, Frequency, Incontinence, Hematuria, Retention , Other Musculoskeletal: negative: Neck Pain, Shoulder Pain, Arm Pain, Back Pain, Hand Pain, Leg Pain, Foot Pain, Other Neurological: negative: Weakness, Numbness, Incoordination, Change in Speech, Confusion, Seizures, Other - Medications/Allergies Allergies/Adverse Reactions: Allergies Allergy/AdvReac Type Severity Reaction Status Date / Time No Known Drug Allergies Allergy Verified 11/19/17 23:54 Medications: Current Medications Dextrose/Water (Dextrose 50%) 25 gm IVP PRN PRN PRN Reason: HYPOGLYCEMIA PROTOCOL Glucagon (Glucagon) 1 mg IM PRN PRN PRN Reason: HYPOGLYCEMIA PROTOCOL Hydralazine HCl (Apresoline) 10 mg SLOW IVP Q4H PRN PRN Reason: Hypertension Last Admin: 07/13/18 18:12 Dose: 10 mg Dextrose/Water (D5w) 1,000 mls @ 0 mls/hr IV INF PRN PRN Reason: HYPOGLYCEMIA PROTOCOL Piperacillin Sod/Tazobactam (Sod 3.375 gm/ Sodium Chloride) 100 mls @ 200 mls/ hr IVPB 0300,0900,1500,2100 [facility] Last Admin: 07/16/18 08:47 Dose: 100 mls Vancomycin HCl 1.5 gm/ Sodium (Chloride) 300 mls @ 200 mls/hr IVPB 1200 [facility] Stop: 07/16/18 14:00 Last Admin: 07/16/18 11:43 Dose: 300 mls Vancomycin HCl 1.5 gm/ Sodium (Chloride) 300 mls @ 200 mls/hr IVPB .PENDING LEVEL [facility] Insulin Human Lispro (Humalog) 0 units SC .BEDTIME SLIDING SC PRN PRN Reason: Bedtime Correctional Scale Insulin Human Regular (Humulin R) 0 units SC .MODERATE SLIDING SC PRN; Protocol PRN Reason: MODERATE SLIDING SCALE Last Admin: 07/16/18 11:43 Dose: 6 unit Levothyroxine Sodium (Synthroid) 175 mcg PO 0600 [facility] Last Admin: 07/16/18 06:59 Dose: 175 mcg Miscellaneous Medication (Pharmacy To Dose) 1 each IVPB PRN PRN PRN Reason: Pharmacy to dose Nifedipine (Procardia Xl) 30 mg PO DAILY [facility] Last Admin: 07/16/18 08:47 Dose: 30 mg Sodium Bicarbonate (Bicarbonate, Sodium) 650 mg PO BID [facility] Last Admin: 07/16/18 08:47 Dose: 650 mg Sodium Chloride (Flush - Normal Saline) 10 ml IVF Q12HR [facility] Last Admin: 07/16/18 08:48 Dose: 10 ml Sodium Chloride (Flush - Normal Saline) 10 ml IVF PRN PRN PRN Reason: Saline Flush
--- NOTE | 2018-07-16 21:02 | PRG ---
DATE OF SERVICE: 07/16/2018 SUBJECTIVE: The patient is seen and examined, hemodynamically stable. OBJECTIVE: VITAL SIGNS: Noted with the following vital signs; afebrile, temperature 98.6, pulse 60, respiratory rate of 16, O2 saturation 95%, and blood pressure 151/70. HEENT: Unremarkable. Moist oral mucosa. No conjunctival injection or icterus. NECK: Supple. CARDIOVASCULAR: First and second heart sounds were heard. RESPIRATORY SYSTEM: Clear to auscultation. DIGESTIVE SYSTEM: Revealed a benign abdomen with positive bowel sounds. EXTREMITIES: No peripheral edema. SKIN: No new gross rash. LYMPHATICS: No peripheral lymphadenopathy. LABORATORY INVESTIGATION: Showed a bicarb of 19, BUN 31, with a creatinine of 3.1. IMPRESSION: 1. Chronic kidney disease, stage 4. 2. Anemia of chronic kidney disease. PLAN: 1. Very close outpatient Nephrology followup status with discharge recommended. 2. Renally dose all medications and avoid potentially nephrotoxic agents. 3. . 4. Further management to be dependent on the clinical course. Job ID: [id number]
[2018-07-17] MEDS: Piperacillin/Tazobactam 3.375 GM in Sodium Chloride 0.9% 100 ML IVPB SCH ×4 (02:49→20:14)
[2018-07-17] MEDS: Levothyroxine 175 MCG TAB PO SCH (05:39)
[2018-07-17] MEDS ORDERED: Famotidine 20 MG TAB PO SCH (09:00)
[2018-07-17] MEDS: NIFEdipine XL 30 MG TAB PO SCH (09:53)
[2018-07-17] MEDS: Sodium Bicarbonate Tab 325 MG TAB PO SCH ×2 (09:55→20:14)
[2018-07-17] MEDS ORDERED: Ondansetron PF 4 MG/2 ML Vial IVP PRN (10:53)
[2018-07-17] MEDS ORDERED: Ondansetron ORAL SOLN. 4 MG/5 ML UDCUP PO PRN (10:53)
[2018-07-17] MEDS ORDERED: Vancomycin HCl 1.5 GM in Sodium Chloride 0.9% 250 ML 300 ML IVPB SCH (12:00)
[2018-07-17 12:03] LABS: Vancomycin, Random 20.5 ug/mL (See Comment)
--- NOTE | 2018-07-17 12:21 | PRG ---
DATE OF SERVICE: 07/17/2018 SUBJECTIVE: The patient says he has no pain, feels fine. OBJECTIVE: VITAL SIGNS: Temperature 98.4, pulse 67, blood pressure 160/78. GENERAL: He looks good. Wound VAC is on, dressing is dry. ASSESSMENT: Doing well. PLAN: Per Dr. Caballero. Job ID: [id number]
--- NOTE | 2018-07-17 12:33 | PDOC.PN ---
- Subjective Encounter Start Date: 07/17/18 Encounter Start Time: 12:31 Subjective: feels better but has some loose stools and has poor appetite -: no N/V.no abd pain.No F/C - Objective MAR Reviewed: Yes Vital Signs & Weight: Vital Signs (12 hours) Temp Pulse Resp BP BP Pulse Ox 07/17/18 11:08 97.6 F 68 20 160/67 H 99 07/17/18 09:53 57 L 160/78 H 07/17/18 07:24 98.4 F 57 L 18 160/78 H 96 Weight Admit Weight 215 lb Weight 215 lb I&O: 07/16/18 07/17/18 07/18/18 06:59 06:59 06:59 Intake Total 1170 490 Output Total 1770 520 Balance -600 -30 Result Diagrams: 07/15/18 06:29 07/16/18 04:25 Additional Labs: Microbiology 07/13/18 23:20 Bone - Left Foot Bacterial Culture - Preliminary 07/13/18 23:20 Bone - Left Foot Anaerobic Culture - Preliminary Methicillin resistant S.aureus Phys Exam - Physical Examination Constitutional: NAD HEENT: PERRLA, moist MMs, sclera anicteric, oral pharynx no lesions Neck: no nodes, no JVD, supple, full ROM Respiratory: no wheezing, no rales, no rhonchi, clear to auscultation bilateral Cardiovascular: RRR, no significant murmur, no rub Gastrointestinal: soft, non-tender, no distention, positive bowel sounds Musculoskeletal: no edema, pulses present Left foot wound Vac and dresings.clear fluid on vac container Neurological: non-focal, normal sensation, moves all 4 limbs Psychiatric: normal affect, A&O x 3 Skin: no rash, normal turgor, cap refill <2 seconds Dx/Plan (1) Osteomyelitis Code(s): M86.9 - OSTEOMYELITIS, UNSPECIFIED Status: Acute Qualifiers: Osteomyelitis location: foot Laterality: left Comment: with infective tenosynovitis, s/p surgery 07/13/18, culture starting to grow MRSA so will need to expand coverage (2) CKD (chronic kidney disease) stage 4, GFR 15-29 ml/min Code(s): N18.4 - CHRONIC KIDNEY DISEASE, STAGE 4 (SEVERE) Status: Chronic Comment: Dr. 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 prn antiemetics. -: BP still high.will increase procardia & monitor -: am labs. IM team will follow * . Review of Systems - Review of Systems Constitutional: weakness. negative: fever, chills, sweats, malaise, other ENT: negative: Ear Pain, Ear Discharge, Nose Pain, Nose Discharge, Nose Congestion, Mouth Pain, Mouth Swelling, Throat Pain, Throat Swelling, Other Respiratory: negative: Cough, Dry, Shortness of Breath, Hemoptysis, SOB with Excertion, Pleuritic Pain, Sputum, Wheezing Cardiovascular: negative: chest pain, palpitations, orthopnea, paroxysmal nocturnal dyspnea, edema, light headedness, other Gastrointestinal: negative: Nausea, Vomiting, Abdominal Pain, Diarrhea, Constipation, Melena, Hematochezia, Other Genitourinary: negative: Dysuria, Frequency, Incontinence, Hematuria, Retention , Other Musculoskeletal: negative: Neck Pain, Shoulder Pain, Arm Pain, Back Pain, Hand Pain, Leg Pain, Foot Pain, Other Neurological: negative: Weakness, Numbness, Incoordination, Change in Speech, Confusion, Seizures, Other - Medications/Allergies Allergies/Adverse Reactions: Allergies Allergy/AdvReac Type Severity Reaction Status Date / Time No Known Drug Allergies Allergy Verified 11/19/17 23:54 Medications: Current Medications Dextrose/Water (Dextrose 50%) 25 gm IVP PRN PRN PRN Reason: HYPOGLYCEMIA PROTOCOL Famotidine (Pepcid) 20 mg PO DAILY [facility] Glucagon (Glucagon) 1 mg IM PRN PRN PRN Reason: HYPOGLYCEMIA PROTOCOL Hydralazine HCl (Apresoline) 10 mg SLOW IVP Q4H PRN PRN Reason: Hypertension Last Admin: 07/13/18 18:12 Dose: 10 mg Dextrose/Water (D5w) 1,000 mls @ 0 mls/hr IV INF PRN PRN Reason: HYPOGLYCEMIA PROTOCOL Piperacillin Sod/Tazobactam (Sod 3.375 gm/ Sodium Chloride) 100 mls @ 200 mls/ hr IVPB 0300,0900,1500,2100 [facility] Last Admin: 07/17/18 09:54 Dose: 100 mls Vancomycin HCl 1.5 gm/ Sodium (Chloride) 300 mls @ 200 mls/hr IVPB .PENDING LEVEL [facility] Insulin Human Lispro (Humalog) 0 units SC .BEDTIME SLIDING SC PRN PRN Reason: Bedtime Correctional Scale Insulin Human Regular (Humulin R) 0 units SC .MODERATE SLIDING SC PRN; Protocol PRN Reason: MODERATE SLIDING SCALE Last Admin: 07/16/18 18:08 Dose: 4 unit Levothyroxine Sodium (Synthroid) 175 mcg PO 0600 [facility] Last Admin: 07/17/18 05:39 Dose: 175 mcg Miscellaneous Medication (Pharmacy To Dose) 1 each IVPB PRN PRN PRN Reason: Pharmacy to dose Nifedipine (Procardia Xl) 30 mg PO DAILY [facility] Last Admin: 07/17/18 09:53 Dose: 30 mg Ondansetron HCl (Zofran) 4 mg PO Q6H PRN PRN Reason: Nausea/Vomiting Ondansetron HCl (Zofran) 4 mg IVP Q6H PRN PRN Reason: Nausea/Vomiting Saccharomyces Boulardii (Florastor) 250 mg PO DAILY [facility] Sodium Bicarbonate (Bicarbonate, Sodium) 650 mg PO BID [facility] Last Admin: 07/17/18 09:55 Dose: 650 mg Sodium Chloride (Flush - Normal Saline) 10 ml IVF Q12HR [facility] Last Admin: 07/17/18 09:55 Dose: 10 ml Sodium Chloride (Flush - Normal Saline) 10 ml IVF PRN PRN PRN Reason: Saline Flush
[2018-07-17] MEDS: Saccharomyces boulardii 250 MG CAP PO SCH (13:07)
[2018-07-17] MEDS: Famotidine 20 MG TAB PO SCH (13:07)
[2018-07-17] MEDS: Insulin Regular 300 UNITS/3 ML VIAL SC PRN ×2 (13:10→17:55)
--- NOTE | 2018-07-17 21:18 | PRG ---
DATE OF SERVICE: 07/17/2018 SUBJECTIVE: The patient is seen and examined. OBJECTIVE: VITAL SIGNS: Noted with the following vital signs; afebrile, temperature 97.6, pulse 62, respiratory rate 16, O2 saturations are 99%, and blood pressure 147/64. HEENT: Unremarkable. CARDIOVASCULAR SYSTEM: First and second heart sounds were heard. RESPIRATORY SYSTEM: Clear to auscultation. DIGESTIVE SYSTEM: Revealed a benign abdomen. Positive bowel sounds. EXTREMITIES: No peripheral edema. SKIN: No new gross rash. LYMPHATICS: No peripheral lymphadenopathy. IMPRESSION: 1. Advanced chronic kidney disease, stage IV. 2. Type 2 diabetes. 3. Osteomyelitis. PLAN: 1. We will continue current renal supportive measures. 2. Further management will be dependent on clinical course. 3. Very close outpatient Nephrology followup strongly recommended. 4. Adjust antihypertensive medications to optimize the hemodynamics. Job ID: [id number]
[2018-07-18] MEDS: Piperacillin/Tazobactam 3.375 GM in Sodium Chloride 0.9% 100 ML IVPB SCH ×4 (02:07→20:01)
[2018-07-18 05:10] LABS: #Basophils 0.1 thou/uL (0.0-0.2); #Eosinphils 0.3 thou/uL (0.0-0.7); #Lymphocytes 1.3 thou/uL (1.20-3.40); #Monocytes 0.4 thou/uL (0.11-0.59); %Basophils 1.2 % (0.0-1.0); %Eosinophils 4.5 % (0.0-10.0); %Lymphocytes 21.8 % (21.0-51.0); %Monocytes 7.2 % (0.0-10.0); %Neutrophils 65.4 % (42.0-75.0); Mean Corpuscular HGB CONC 33.1 g/dL (32.0-36.0); Mean Corpuscular Hemoglobin 30.9 pg (27.0-31.0); Mean Corpuscular Volume 93.1 fL (78.0-98.0); Mean Platelet Volume 6.3 fL (7.4-10.4); Platelet Count 248 thou/uL (130-400); RBC Distribution Width 12.4 % (11.5-14.5); Red Blood Cell (RBC) Count 2.61 mill/uL (4.70-6.10); White Blood Cell (WBC) Count 6.2 thou/uL (4.8-10.8)
[2018-07-18 05:22] LABS: Anion Gap 14 mmol/L (10-20); BUN (Urea Nitrogen) 29 mg/dL (8.4-25.7); Calc. Creatinine Clearance 27 mL/min (70-130); Calcium 8.3 mg/dL (7.8-10.44); Carbon Dioxide 20 mmol/L (23-31); Chloride 108 mmol/L (98-107); Estimated GFR-MDRD 20; Glucose 196 mg/dL (83-110); Potassium 4.3 mmol/L (3.5-5.1); Sodium 138 mmol/L (136-145)
[2018-07-18] MEDS: Levothyroxine 175 MCG TAB PO SCH (05:57)
--- NOTE | 2018-07-18 08:56 | PRG ---
DATE OF SERVICE: 07/15/2018 SUBJECTIVE: The patient is seen and examined. OBJECTIVE: VITAL SIGNS: Afebrile, temperature 98.7, pulse 58, respiratory rate of 16, pulse ox 94%, blood pressure 137/69. HEENT: Unremarkable. CARDIOVASCULAR SYSTEM: First and second heart sounds were heard. RESPIRATORY: Clear to auscultation. DIGESTIVE SYSTEM: Revealed a benign abdomen with positive bowel sounds. EXTREMITIES: No peripheral edema. SKIN: No new gross rash. LYMPHATICS: No peripheral lymphadenopathy. IMPRESSION: 1. Advanced chronic kidney disease stage 4, more or less stable. 2. Hyperkalemia, which seems to have resolved. 3. status post surgery. PLAN: 1. Continue current renal supportive measures. 2. Very close outpatient Nephrology followup strongly recommended. 3. May secure long time axis during this hospitalization. Job ID: [id number]
[2018-07-18] MEDS: Famotidine 20 MG TAB PO SCH (09:28)
[2018-07-18] MEDS: Saccharomyces boulardii 250 MG CAP PO SCH (09:32)
[2018-07-18] MEDS: NIFEdipine XL 60 MG TAB PO SCH ×2 (09:32→12:01)
[2018-07-18] MEDS: Sodium Bicarbonate Tab 325 MG TAB PO SCH ×2 (09:33→20:00)
[2018-07-18] MEDS: Vancomycin HCl 750 MG in Sodium Chloride 0.9% 250 ML 250 ML IVPB SCH (12:02)
[2018-07-18] MEDS ORDERED: Fentanyl 100 MCG/2 ML VIAL ONE (13:00)
[2018-07-18] MEDS ORDERED: Midazolam HCl 2 mg/2 ml Vial ONE (13:01)
[2018-07-18] MEDS ORDERED: Lidocaine 1% PF 5 ML VIAL ONE (13:05)
[2018-07-18] MEDS ORDERED: Ondansetron PF 4 MG/2 ML Vial ONE (13:05)
[2018-07-18] MEDS ORDERED: PROPOFOL 200 MG/20 ML VIAL ONE (13:05)
[2018-07-18] MEDS ORDERED: Lidocaine 2% PF 5 ML VIAL ONE (13:22)
[2018-07-18] MEDS ORDERED: Sodium Chloride 0.9% 20 ML ONE (13:22)
[2018-07-18] MEDS ORDERED: Bupivacaine/Epinephrine 0.25% 30 ML VIAL ONE (13:22)
--- NOTE | 2018-07-18 13:22 | PDOC.PN ---
- Subjective Encounter Start Date: 07/18/18 Encounter Start Time: 13:21 Subjective: feels good. no new complaints - Objective MAR Reviewed: Yes Vital Signs & Weight: Vital Signs (12 hours) Temp Pulse Resp BP BP Pulse Ox 07/18/18 12:01 58 L 169/76 H 07/18/18 09:32 58 L 07/18/18 08:00 98.6 F 57 L 18 163/71 H 96 07/18/18 07:42 96 07/18/18 04:00 98.6 F 58 L 16 159/82 H 98 Weight Admit Weight 215 lb Weight 215 lb I&O: 07/17/18 07/18/18 07/19/18 06:59 06:59 06:59 Intake Total 1170 490 Output Total 1770 520 Balance -600 -30 Result Diagrams: 07/18/18 04:33 07/18/18 04:33 Additional Labs: Microbiology 07/13/18 23:20 Bone - Left Foot Bacterial Culture - Final 07/13/18 23:20 Bone - Left Foot Anaerobic Culture - Final Methicillin resistant S.aureus Phys Exam - Physical Examination Constitutional: NAD HEENT: PERRLA, moist MMs, sclera anicteric, oral pharynx no lesions Neck: no nodes, no JVD, supple, full ROM Respiratory: no wheezing, no rales, no rhonchi, clear to auscultation bilateral Cardiovascular: RRR, no significant murmur Gastrointestinal: soft, non-tender, no distention, positive bowel sounds Musculoskeletal: no edema, pulses present Left foot Wound Vac,chr venostasis changes B/L Neurological: non-focal, normal sensation, moves all 4 limbs Psychiatric: normal affect, A&O x 3 Skin: no rash Dx/Plan (1) Osteomyelitis Code(s): M86.9 - OSTEOMYELITIS, UNSPECIFIED Status: Acute Qualifiers: Osteomyelitis location: foot Laterality: left Comment: with infective tenosynovitis, s/p surgery 07/13/18, culture starting to grow MRSA so coverage expanded (2) CKD (chronic kidney disease) stage 4, GFR 15-29 ml/min Code(s): N18.4 - CHRONIC KIDNEY DISEASE, STAGE 4 (SEVERE) Status: Chronic Comment: Dr. 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 -: will need intermediate IV ABx -: Abx for DC per ID -: HD stable.cont meds as below -: IM team will follow * . Review of Systems - Review of Systems Constitutional: weakness. negative: fever, chills, sweats, malaise, other Respiratory: negative: Cough, Dry, Shortness of Breath, Hemoptysis, SOB with Excertion, Pleuritic Pain, Sputum, Wheezing Cardiovascular: negative: chest pain, palpitations, orthopnea, paroxysmal nocturnal dyspnea, edema, light headedness, other Gastrointestinal: negative: Nausea, Vomiting, Abdominal Pain, Diarrhea, Constipation, Melena, Hematochezia, Other Genitourinary: negative: Dysuria, Frequency, Incontinence, Hematuria, Retention , Other Musculoskeletal: negative: Neck Pain, Shoulder Pain, Arm Pain, Back Pain, Hand Pain, Leg Pain, Foot Pain, Other Neurological: negative: Weakness, Numbness, Incoordination, Change in Speech, Confusion, Seizures, Other - Medications/Allergies Allergies/Adverse Reactions: Allergies Allergy/AdvReac Type Severity Reaction Status Date / Time No Known Drug Allergies Allergy Verified 11/19/17 23:54 Medications: Current Medications Dextrose/Water (Dextrose 50%) 25 gm IVP PRN PRN PRN Reason: HYPOGLYCEMIA PROTOCOL Famotidine (Pepcid) 20 mg PO DAILY [facility] Last Admin: 07/18/18 09:28 Dose: Not Given Glucagon (Glucagon) 1 mg IM PRN PRN PRN Reason: HYPOGLYCEMIA PROTOCOL Hydralazine HCl (Apresoline) 10 mg SLOW IVP Q4H PRN PRN Reason: Hypertension Last Admin: 07/13/18 18:12 Dose: 10 mg Dextrose/Water (D5w) 1,000 mls @ 0 mls/hr IV INF PRN PRN Reason: HYPOGLYCEMIA PROTOCOL Piperacillin Sod/Tazobactam (Sod 3.375 gm/ Sodium Chloride) 100 mls @ 200 mls/ hr IVPB 0300,0900,1500,2100 [facility] Last Admin: 07/18/18 09:14 Dose: 100 mls Vancomycin HCl 750 mg/ Sodium (Chloride) 250 mls @ 250 mls/hr IVPB Q24H [facility] Last Admin: 07/18/18 12:02 Dose: 250 mls Insulin Human Lispro (Humalog) 0 units SC .BEDTIME SLIDING SC PRN PRN Reason: Bedtime Correctional Scale Insulin Human Regular (Humulin R) 0 units SC .MODERATE SLIDING SC PRN; Protocol PRN Reason: MODERATE SLIDING SCALE Last Admin: 07/17/18 17:55 Dose: 4 unit Levothyroxine Sodium (Synthroid) 175 mcg PO 0600 [facility] Last Admin: 07/18/18 05:57 Dose: Not Given Miscellaneous Medication (Pharmacy To Dose) 1 each IVPB PRN PRN PRN Reason: Pharmacy to dose Nifedipine (Procardia Xl) 60 mg PO DAILY [facility] Last Admin: 07/18/18 12:01 Dose: 60 mg Ondansetron HCl (Zofran) 4 mg PO Q6H PRN PRN Reason: Nausea/Vomiting Ondansetron HCl (Zofran) 4 mg IVP Q6H PRN PRN Reason: Nausea/Vomiting Saccharomyces Boulardii (Florastor) 250 mg PO DAILY [facility] Last Admin: 07/18/18 09:32 Dose: Not Given Sodium Bicarbonate (Bicarbonate, Sodium) 650 mg PO BID [facility] Last Admin: 07/18/18 09:33 Dose: Not Given Sodium Chloride (Flush - Normal Saline) 10 ml IVF Q12HR [facility] Last Admin: 07/18/18 12:02 Dose: 10 ml Sodium Chloride (Flush - Normal Saline) 10 ml IVF PRN PRN PRN Reason: Saline Flush
[2018-07-18] MEDS ORDERED: Sodium Chloride 0.9% 100 ML ONE (15:39)
[2018-07-18] MEDS ORDERED: Piperacillin/Tazobactam 3.375 GM VIAL ONE (15:39)
[2018-07-18] MEDS ORDERED: Promethazine HCl 25 MG/ML VIAL SLOW IVP PRN (15:43)
[2018-07-18] MEDS ORDERED: Promethazine HCl 25 MG/ML VIAL IM PRN (15:43)
[2018-07-18] MEDS ORDERED: Ondansetron HCl/PF 4 MG/2 ML Vial IVP PRN (15:43)
--- NOTE | 2018-07-18 16:02 | RAD ---
AP CHEST: History: Assessment Olson catheter placement. FINDINGS: Central line has been placed via the left jugular. The tip overlies the SVC and appears adequately in position. Lung luna appear clear. Heart and mediastinum unremarkable. IMPRESSION: No acute abnormality. POS: [facility]
--- NOTE | 2018-07-18 19:36 | PRG ---
DATE OF SERVICE: 07/18/2018 SUBJECTIVE: The patient is seen and examined. Noted with the following vital signs. OBJECTIVE: VITAL SIGNS: Afebrile, temperature 98.2, pulse 61, blood pressure 129/76, respiratory rate of 14, O2 saturation of 98%. HEENT: Unremarkable. CARDIOVASCULAR SYSTEM: First and second heart sounds were heard. RESPIRATORY SYSTEM: Clear to auscultation. DIGESTIVE SYSTEM: Revealed a benign abdomen. EXTREMITIES: No peripheral edema. SKIN: No new gross rash. LYMPHATICS: No peripheral lymphadenopathy. LABORATORY INVESTIGATION: Showed hemoglobin 8.0. Chemistry showed a creatinine of 3.07 with BUN of 29. IMPRESSION: 1. [id number] kidney disease, which had shown some moderate improvement. 2. Mild metabolic acidosis. 3. Anemia of chronic kidney disease. PLAN: 1. Continue current renal supportive measures. 2. Erythropoiesis noted. 3. Outpatient Nephrology followup strongly recommended. 4. Renally dosed all medications. 5. Avoid daily blood draws in order to prevent iatrogenic anemia. Job ID: [id number]
[2018-07-18] MEDS: Insulin Regular 300 UNITS/3 ML VIAL SC PRN (21:30)
--- NOTE | 2018-07-18 22:06 | PDOC.GSPN ---
Surgery Progress Note: Subj - Subjective Narrative: Olson placed today, wound clean and granulating. Ready for transfer to swing bed once arranged w cont VAC and abx. Surgery Progress Note: Obj - Vital signs Vital signs: Vital Signs - Most Recent Temp Pulse Resp BP Pulse Ox 98 F 55 L 16 150/75 H 98 07/18/18 20:00 07/18/18 20:00 07/18/18 20:00 07/18/18 20:00 07/18/18 20:00 Surgery Progress Note: Results - Labs Result Diagrams: 07/18/18 04:33 07/18/18 04:33 Lab results: Laboratory Results - last 24 hr 07/18/18 07/18/18 07/18/18 11:35 16:50 21:04 POC Glucose (other) 191 H 190 H 265 H
[2018-07-19] MEDS: Piperacillin/Tazobactam 3.375 GM in Sodium Chloride 0.9% 100 ML IVPB SCH ×3 (02:02→14:21)
[2018-07-19] MEDS: Levothyroxine 175 MCG TAB PO SCH (05:32)
[2018-07-19 08:29] VITALS: TEMP 98.7
[2018-07-19] MEDS: NIFEdipine XL 60 MG TAB PO SCH (09:54)
[2018-07-19] MEDS: Sodium Bicarbonate Tab 325 MG TAB PO SCH (09:56)
[2018-07-19] MEDS: Famotidine 20 MG TAB PO SCH (09:56)
[2018-07-19] MEDS: Saccharomyces boulardii 250 MG CAP PO SCH (09:56)
--- NOTE | 2018-07-19 11:37 | PDOC.GSPN ---
Surgery Progress Note: Subj - Subjective Narrative: No complaints feeling well. Olson is functioning and VAC is in place. We're trying to arrange transport to [facility] bed. Dr. Tam is writing orders for antibiotics. Surgery Progress Note: Obj - Vital signs Vital signs: Vital Signs - Most Recent Temp Pulse Resp BP Pulse Ox 98.7 F 53 L 19 150/70 H 94 L 07/19/18 08:00 07/19/18 09:54 07/19/18 08:00 07/19/18 09:54 07/19/18 08:00 Surgery Progress Note: Results - Labs Result Diagrams: 07/18/18 04:33 07/18/18 04:33 Lab results: Laboratory Results - last 24 hr 07/19/18 07/19/18 05:38 11:27 POC Glucose (other) 157 H 252 H
[2018-07-19] MEDS: Vancomycin HCl 750 MG in Sodium Chloride 0.9% 250 ML 250 ML IVPB SCH (14:16)
[2018-07-19] MEDS: Insulin Regular 300 UNITS/3 ML VIAL SC PRN (14:26)
[2018-07-19 15:50] VITALS: BP 159/79
--- NOTE | 2018-07-20 13:38 | DIS ---
DATE OF ADMISSION: 07/12/2018 DATE OF DISCHARGE: 07/19/2018 FINAL DIAGNOSES: 1. Ekgdo-[id number] renal failure. 2. Diabetes. 3. Medical noncompliance. 4. Osteomyelitis, left fourth foot with open wound. PROCEDURE PERFORMED: Debridement of left wound and Olson catheter placement. HISTORY: Mr. 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 He was admitted to the hospital for IV antibiotics, and an MRI confirmed osteomyelitis in the left fourth metatarsal bone. Recommendation was made to proceed to the operating room, which he did the following day for debridement and irrigating VAC dressing was placed by the wound care team and the wound improved in appearance. A Olson catheter was placed due to the patient's need for long-term IV antibiotics and worsening renal failure. It was felt that he might need to have dialysis in the near future . He underwent a Olson catheter placement on 07/19/2018, and once the swing bed was available for transfer, he was transferred there the following day. DISCHARGE MEDICATIONS: Include, 1. Meropenem 500 mg IV b.i.d. 2. Florastor 250 mg p.o. daily. 3. Sodium bicarbonate 650 mg p.o. b.i.d. 4. Vancomycin 750 mg IV every 24 hours. 5. Nifedipine mg p.o. daily. In addition, he is to continue on his, 1. Synthroid. 2. 70/30 insulin. 3. Vitamin B6. 4. Ocuvite with lutein. 5. Vitamin B12. 6. Vitamin C. 7. Vitamin D3. Medications daily as he had been doing pre-hospital. He has a VAC in place and the wound care team at the swing bed will continue with this. He is to follow up either in our wound care clinic or in my clinic in 2 weeks for a wound check and Dr. Tam is managing his IV antibiotics. Job ID: [id number]
--- NOTE | 2018-07-26 14:59 | PDOC.OP ---
Operative Note - Operative Note Operative Note: PROCEDURE: Debridement of left foot SURGEON: Thompson Caballero M.D. DATE: 07/13/2018 PREOPERATIVE DIAGNOSIS: Chronic wound and osteomyelitis of the left foot POSTOPERATIVE DIAGNOSIS: Chronic wound and osteomyelitis of the left foot HISTORY: Patient is status post transmetatarsal application of the left foot with recent reinjury. He had sudden worsening in the appearance of his wound with increased drainage swelling and redness and MRI showed recurrent osteomyelitis in the fourth metatarsal. Recommendation was made to proceed to the operating room for operative debridement of the wound. PROCEDURE IN DETAIL: After informed consent was obtained and appropriate preoperative antibiotics continued the patient was taken to the operating room he was placed in supine position and anesthesia was administered. He was prepped and draped in standard sterile fashion and the incision widened. Dissection was carried down to the fourth metatarsal bone which was rongeured back to healthier appearing bone. The bone chips at this level were sent for bone culture. There was a large amount of fibrosis in the wound but no abscess or necrotic tissue and the tissues appeared viable. Wound was irrigated and packed with gauze and the patient was taken to recovery in good condition, with the plan to place an irrigating VAC with the wound care team the following day. Estimated blood loss was minimal. There were no complications. Specimen is left fourth metatarsal bone chips for bone culture.
--- NOTE | 2018-07-26 15:05 | PDOC.OP ---
Operative Note - Operative Note Operative Note: PROCEDURE: Left internal jugular Olson catheter with ultrasound and fluoroscopic guidance SURGEON: Thompson Caballero M.D. DATE: 07/18/2018 PREOPERATIVE DIAGNOSIS: Osteomyelitis left foot POSTOPERATIVE DIAGNOSIS: Osteomyelitis left foot HISTORY: Patient with osteomyelitis of the left foot status post operative debridement. He will require long-term antibiotics for attempted limb salvage. He has chronic renal insufficiency which is worsening so Olson is preferred over PICC line placement. PROCEDURE IN DETAIL: After informed consent was obtained and appropriate preoperative antibiotics continued the patient was taken to the operating room where he was placed in supine position and anesthesia was administered. The patent compressible left internal jugular vein was identified and accessed under direct ultrasound guidance. A wire was threaded and confirmed to be in the patent compressible vein by ultrasound and with the tip in the superior vena cava by fluoroscopy. Local anesthesia was infused the skin and subcutaneous tissues of the left neck and chest and skin incisions made. The Olson catheter was tunneled from the infraclavicular to the IJ access site and trimmed to the appropriate length. A dilator and sheath were placed over the wire and the wire and dilator removed leaving the sheath in place. The catheter was tunneled through the sheath and confirmed to be in good position by fluoroscopy. The sheath was split and removed leaving the catheter in place. Both ports easily aspirated and easily flushed. The course of the catheter was confirmed to be smooth by fluoroscopy. The catheter was secured to the skin and the skin incisions closed with 4-0 Monocryl suture and Dermabond dressings placed. Sterile dressings were placed and the patient was taken to recovery in good condition. Estimated blood loss was minimal. There were no complications. There were no specimens.
== END 2018-07-19 15:39 | DRG 617 ==
LOC: SURG B 14:23
PROVIDERS: ADMIT Surgery; ATTEND Surgery
PROC: 0Y6N0ZD Detachment at Left Foot, Partial 4th Ray, Open Approach (ICD-10-PCS; principal; 2018-07-13)
PROC: 02HV33Z Insertion of Infusion Device into Superior Vena Cava, Percutaneous Approach (ICD-10-PCS; 2018-07-18)
PROC: B518ZZA Fluoroscopy of Superior Vena Cava, Guidance (ICD-10-PCS; 2018-07-18)
DX: E11.69 Type 2 diabetes mellitus with other specified complication (principal); M86.172 Other acute osteomyelitis, left ankle and foot; E87.2 Acidosis; E11.42 Type 2 diabetes mellitus with diabetic polyneuropathy; N18.4 Chronic kidney disease, stage 4 (severe); N17.9 Acute kidney failure, unspecified; E11.22 Type 2 diabetes mellitus with diabetic chronic kidney disease; D63.1 Anemia in chronic kidney disease; E03.9 Hypothyroidism, unspecified; E11.621 Type 2 diabetes mellitus with foot ulcer; L97.529 Non-pressure chronic ulcer of other part of left foot with unspecified severity; E87.5 Hyperkalemia; I12.9 Hypertensive chronic kidney disease with stage 1 through stage 4 chronic kidney disease, or unspecified chronic kidney disease; M65.172 Other infective (teno)synovitis, left ankle and foot; E11.51 Type 2 diabetes mellitus with diabetic peripheral angiopathy without gangrene; Z90.49 Acquired absence of other specified parts of digestive tract; Z87.891 Personal history of nicotine dependence; Z79.4 Long term (current) use of insulin; Z79.899 Other long term (current) drug therapy
CPT/HCPCS: 36415; 36416; 71045; 80048; 80053; 80069; 80202; 82570; 82728; 82947; 83540; 83550; 83880; 83970; 84156; 84439; 84443; 84481; 85025; 87070; 87077; 87186; 87205; 93005; 93010; 93923; 93970; 99214; C1751; C1769; G0365; G0463; J0360; J1642; J1815; J2001; J2250; J2405; J2543; J2704; J2916; J3010; J3370; J3490; J7050; Q4081; Q5105

== ENCOUNTER 2018-09-21 12:42 | Outpatient (CLI) | payer MEDICARE ==
--- NOTE | 2018-09-21 16:48 | MRI ---
LEFT FOOT MRI WITHOUT IV CONTRAST: 09/21/18 HISTORY: Open wound. Follow-up osteomyelitis. COMPARISON: 07/12/18. FINDINGS: Progressive osteomyelitis involving the fourth metatarsal from the amputation margin to near the base . In addition, there is evidence for osteomyelitis with abnormal T2 and STIR hyperintensity and T1 hy pointensity involving the third metatarsal from the amputation margin to the base as well as similar changes involving the second metatarsal from the amputation margin to near the base. Small foci of al tered signal in the distal first metatarsal amputation margin, evidence for minimal osteomyelitis or at least nonspecific osteitis. The previously noted fairly extensive fluid along the flexor digitoru m tendon sheath has considerably improved. Diffuse soft tissue swelling. IMPRESSION: Progressive osteomyelitis involving the second, third, and fourth toes from the amputation margin to near the metatarsal base. Very minimal subtle abnormal activity in the distal first metatarsal at the amputation site possibly very minimal or early osteomyelitis versus nonspecific osteitis. Diffuse s oft tissue swelling. No evidence for a drainable abscess. Improvement in the previously noted flexor digitorum tendon sheath fluid. Extensive amputation cameron milner. POS: Vivienne
== END 2018-09-21 12:43 | disposition home or self-care (01) ==
LOC: BICMRI 12:42
PROVIDERS: ATTEND Surgery
DX: S91.302A Unspecified open wound, left foot, initial encounter (principal); M86.9 Osteomyelitis, unspecified; M79.89 Other specified soft tissue disorders; Z89.422 Acquired absence of other left toe(s)

== ENCOUNTER 2018-10-04 10:46 | Outpatient (CLI) | payer MEDICARE ==
[2018-10-04 13:55] LABS: #Eosinphils 0.5 thou/uL (0.0-0.7); #Lymphocytes 1.9 thou/uL (1.20-3.40); #Monocytes 0.6 thou/uL (0.11-0.59); #Neutrophils 5.8 thou/uL (1.40-6.50); %Basophils 0.5 % (0.0-1.0); %Eosinophils 5.1 % (0.0-10.0); %Lymphocytes 21.7 % (21.0-51.0); %Neutrophils 65.6 % (42.0-75.0); Hemoglobin 8.7 g/dL (14.0-18.0); Mean Corpuscular HGB CONC 32.9 g/dL (32.0-36.0); Mean Corpuscular Hemoglobin 29.2 pg (27.0-31.0); Mean Corpuscular Volume 88.8 fL (78.0-98.0); Mean Platelet Volume 6.6 fL (7.4-10.4); Platelet Count 316 thou/uL (130-400); RBC Distribution Width 14.5 % (11.5-14.5); Red Blood Cell (RBC) Count 2.98 mill/uL (4.70-6.10); White Blood Cell (WBC) Count 8.9 thou/uL (4.8-10.8)
[2018-10-04 14:11] LABS: Anion Gap 17 mmol/L (10-20); BUN (Urea Nitrogen) 38 mg/dL (8.4-25.7); Calc. Creatinine Clearance 0 mL/min (70-130); Calcium 9.4 mg/dL (7.8-10.44); Carbon Dioxide 21 mmol/L (23-31); Chloride 105 mmol/L (98-107); Estimated GFR-MDRD 22; Glucose 168 mg/dL (83-110); Potassium 5.8 mmol/L (3.5-5.1); Sodium 137 mmol/L (136-145)
== END 2018-10-04 10:47 | disposition home or self-care (01) ==
LOC: LABBT 10:46
PROVIDERS: ATTEND Surgery
DX: Z01.818 Encounter for other preprocedural examination (principal); L97.529 Non-pressure chronic ulcer of other part of left foot with unspecified severity
CPT/HCPCS: 80048; 85025; 93005; 93010

== ENCOUNTER 2018-10-04 12:30 | Inpatient (IN) | payer MEDICARE ==
[2018-10-04 12:02] VITALS: BMI 27.1
[2018-10-05] MEDS ORDERED: Piperacillin/Tazobactam 3.375 GM VIAL ONE (10:18)
[2018-10-05] MEDS ORDERED: Sodium Chloride 0.9% 100 ML ONE (10:18)
[2018-10-05] MEDS ORDERED: Bupivacaine/Epinephrine 0.25% 30 ML VIAL ONE (10:49)
[2018-10-05] MEDS ORDERED: Dexmedetomidine 200 MCG/2 ML VIAL ONE (11:38)
[2018-10-05] MEDS ORDERED: Fentanyl 100 MCG/2 ML VIAL ONE (11:38)
[2018-10-05] MEDS ORDERED: PROPOFOL 20 ML ONE (12:14)
[2018-10-05] MEDS ORDERED: Ketamine 50 MG/ML (10ML VIAL) ONE (12:16)
[2018-10-05] MEDS ORDERED: Promethazine HCl 25 MG/ML VIAL IM PRN ×2 (13:27→13:36)
[2018-10-05] MEDS ORDERED: Ondansetron HCl/PF 4 MG/2 ML Vial IVP PRN (13:27)
[2018-10-05] MEDS ORDERED: Promethazine HCl 25 MG/ML VIAL SLOW IVP PRN (13:27)
[2018-10-05] MEDS ORDERED: Morphine 4 MG/ML VIAL SLOW IVP PRN (13:36)
[2018-10-05] MEDS ORDERED: hydrALAZINE 20 MG/ML VIAL SLOW IVP PRN (13:36)
[2018-10-05] MEDS ORDERED: Ondansetron PF 4 MG/2 ML Vial IVP PRN (13:36)
[2018-10-05] MEDS ORDERED: Dextrose 50% Abboject 50 ML SYRINGE SLOW IVP PRN (13:36)
[2018-10-05] MEDS ORDERED: Ondansetron ODT 4 MG TAB PO PRN (13:36)
[2018-10-05] MEDS ORDERED: HYDROcodone/Acetaminophen 10/325 mg Tablet PO PRN ×2 (13:36)
[2018-10-05] MEDS ORDERED: Dextrose 5% in Water 1,000 ML IV PRN (13:36)
[2018-10-05] MEDS ORDERED: Vancomycin HCl 1.5 GM in Sodium Chloride 0.9% 250 ML 300 ML IVPB SCH (14:15)
--- NOTE | 2018-10-05 14:19 | PDOC.OP ---
Operative Note - Operative Note Operative Note: PROCEDURE: Left foot incision and debridement of soft tissue and bone SURGEON: Thompson Caballero M.D. DATE: 10/05/2018 PREOPERATIVE DIAGNOSIS: Osteomyelitis left foot POSTOPERATIVE DIAGNOSIS: Osteomyelitis left foot HISTORY: Patient is status post debridement of left foot for osteomyelitis. He was on long-term IV antibiotics with a VAC dressing and appeared to be healing, but recently had increased drainage and the wound opened back up and there was eroded bone in the base of the wound. Recommendation was made to return to the operating room for repeat debridement since the patient refuses below-knee amputation. PROCEDURE IN DETAIL: After informed consent was obtained the patient was taken to the operating room where he was placed in the supine position and IV anesthesia administered. He was prepped and draped in standard sterile fashion and local anesthesia infused the skin and subcutaneous tissues overlying the plantar wound. The previous incision was reopened and dissection carried down to the eroded bone which was debridement back to healthy cancellous bone. The second and third metatarsals were debrided down to near their base. Fragments of the base of the metatarsal were sent to microbiology for bone culture. The remainder of the wound was clean and granulating. Wound care placed an irrigating VAC and the patient was taken to recovery in good condition. Estimated blood loss was minimal. There medications. Specimen is bone chips for bone culture.
[2018-10-05] MEDS ORDERED: Lidocaine 1% PF 5 ML VIAL ONE (16:17)
[2018-10-05] MEDS ORDERED: PROPOFOL 200 MG/20 ML VIAL ONE (16:17)
[2018-10-05] MEDS: Piperacillin/Tazobactam 3.375 GM in Sodium Chloride 0.9% 100 ML IVPB SCH ×2 (18:56→22:00)
[2018-10-05] MEDS ORDERED: Famotidine 20 MG TAB PO SCH (21:00)
[2018-10-05] MEDS ORDERED: Non-Formulary Item 1 EACH (Insulin Aspart Prot/Insuln Asp [Novolog Mix 70-30 Flexpen Syrn SQ SCH (21:00)
[2018-10-05] MEDS ORDERED: HumuLIN 70/30 (300 UNITS/3 ML VIAL) SC SCH (21:00)
[2018-10-05] MEDS: Famotidine 20 MG TAB PO SCH (22:00)
[2018-10-05] MEDS: HumaLOG 300 UNITS/3 ML VIAL SC PRN (22:01)
--- NOTE | 2018-10-06 03:17 | CON ---
DATE OF CONSULTATION: PRIMARY CARE PHYSICIAN: Dr. Abraham. REASON FOR ADMISSION: Revision of a left foot wound. REASON FOR CONSULTATION: Medical management. HISTORY OF PRESENT ILLNESS: Mr. Park is a pleasant 78-year-old gentleman, who has a history of hypertension and diabetes mellitus. He has a chronic wound on the right foot in which Dr. Caballero electively admitted him for a debridement. He has currently undergone the procedure and is feeling fine. He does not have any complaints. He has a history of diabetes mellitus as well as diabetic peripheral neuropathy and hypertension. We have been asked to help manage his chronic conditions while in the hospital and as stated previously, he has no complaints. No chest pain. No shortness of breath. No PND. No orthopnea. No nausea. No vomiting. No leg pain. REVIEW OF SYSTEMS: All systems were reviewed and are negative except for that mentioned in the history of present illness. PAST MEDICAL HISTORY: Significant for hypothyroidism, hypertension, diabetes mellitus, chronic kidney disease stage 4, peripheral vascular disease, and anemia of chronic disease. PAST SURGICAL HISTORY: The patient had a left toe amputation as well as a cholecystectomy and a right toe amputation and I and D and debridement. ALLERGIES: NO KNOWN DRUG ALLERGIES. SOCIAL HISTORY: He is a former smoker. He denies any alcohol use. No drug use. He is single, has 4 children and he would like to be a do not resuscitate. FAMILY HISTORY: Significant for end-stage renal disease in his daughter. CURRENT MEDICATIONS: 1. Vitamin C 1000 mg. 2. Vitamin D3 2000 units. 3. Vitamin B12 daily. 4. Levothyroxine 175 mcg daily. 5. Vitamin B6 50 mg daily. 6. Vitamin A, C, and E and lutein and minerals daily. PHYSICAL EXAMINATION: GENERAL: He is alert and oriented. He appears to be in no acute distress. He is well developed and well nourished. VITAL SIGNS: Blood pressure was 159/74, heart rate 59, respiratory rate of 18, temperature was 97.8, and O2 saturation was 100% on room air. HEENT: Pupils are equal, round, and reactive to light. Extraocular muscles are intact. His sclerae anicteric. Throat, there is no erythema, no exudates. NECK: No adenopathy. No bruits. LUNGS: Clear to auscultation. There is no wheezing, no rales, no rhonchi. CARDIOVASCULAR: He has a normal S1 and S2. There is no S3 or S4. No murmurs, clicks, or rubs. ABDOMEN: Soft, nontender, and nondistended. Positive for bowel sounds. There is no rebound, no guarding, no organomegaly. EXTREMITIES: He has chronic venous stasis changes with some mild 1+ edema on the left is greater than the right. NEUROLOGIC: Cranial nerves are grossly intact. His muscle strength is intact. SKIN AND INTEGUMENT: He has some hyperpigmentation and mild erythema on both lower extremities and skin is a little bit thicker and his pulses are diminished but barely palpable. LABORATORY RESULTS: Blood sugar is 192. His white blood cell count was 8.9, hemoglobin 8.7, hematocrit is 26.5, and platelet count was 316. On his chemistry, the sodium was 137, potassium 5.8, chloride is 105, CO2 is 21, BUN of 38, creatinine 2.81, glucose is 168. ASSESSMENT: 1. This is a pleasant 78-year-old gentleman, who was admitted for an elective debridement. We have been asked to help with medical management. With regard to hypertension, we will continue his home medication of nifedipine and that is extended release 60 mg as well as a p.r.n. antihypertensive. 2. Diabetes mellitus. We will continue his scheduled insulin as well as a sliding scale. 3. Hyperkalemia. We will give him one dose of Kayexalate this evening and recheck his chemistry panel in the a.m. 4. Chronic kidney disease. This appears to be clinically stable. His baseline creatinine appears to be in the mid to upper 2 range. 5. Anemia of chronic disease. His hemoglobin appears to be close to his baseline. We will be happy to follow along with you. Job ID: [id number]
[2018-10-06] MEDS: Piperacillin/Tazobactam 3.375 GM in Sodium Chloride 0.9% 100 ML IVPB SCH ×4 (03:42→21:15)
[2018-10-06] MEDS: Levothyroxine 175 MCG TAB PO SCH (05:24)
[2018-10-06] MEDS: HumaLOG 300 UNITS/3 ML VIAL SC PRN ×4 (05:24→21:18)
[2018-10-06 05:50] LABS: #Eosinphils 0.4 thou/uL (0.0-0.7); #Lymphocytes 0.7 thou/uL (1.20-3.40); #Monocytes 0.3 thou/uL (0.11-0.59); %Basophils 0.2 % (0.0-1.0); %Eosinophils 7.4 % (0.0-10.0); %Lymphocytes 12.9 % (21.0-51.0); %Monocytes 5.7 % (0.0-10.0); %Neutrophils 73.8 % (42.0-75.0); Hemoglobin 7.1 g/dL (14.0-18.0); Mean Corpuscular HGB CONC 33.5 g/dL (32.0-36.0); Mean Corpuscular Hemoglobin 29.7 pg (27.0-31.0); Mean Corpuscular Volume 88.9 fL (78.0-98.0); Mean Platelet Volume 6.5 fL (7.4-10.4); Platelet Count 217 thou/uL (130-400); RBC Distribution Width 14.4 % (11.5-14.5); Red Blood Cell (RBC) Count 2.37 mill/uL (4.70-6.10); White Blood Cell (WBC) Count 5.4 thou/uL (4.8-10.8)
[2018-10-06 06:10] LABS: Anion Gap 12 mmol/L (10-20); BUN (Urea Nitrogen) 29 mg/dL (8.4-25.7); Calc. Creatinine Clearance 29 mL/min (70-130); Calcium 8.3 mg/dL (7.8-10.44); Carbon Dioxide 21 mmol/L (23-31); Chloride 106 mmol/L (98-107); Estimated GFR-MDRD 24; Glucose 269 mg/dL (83-110); Magnesium 1.6 mg/dL (1.6-2.6); Potassium 4.9 mmol/L (3.5-5.1); Sodium 134 mmol/L (136-145)
[2018-10-06] MEDS ORDERED: HumuLIN 70/30 (300 UNITS/3 ML VIAL) SC SCH (08:15)
[2018-10-06] MEDS: NIFEdipine XL 60 MG TAB PO SCH (08:57)
[2018-10-06] MEDS: Ascorbic Acid 500 mg Chewable Tablet PO SCH (08:57)
[2018-10-06] MEDS: Vit A,C & E/Lutein/Minerals Tablet PO SCH (08:57)
[2018-10-06] MEDS: pyridOXINE 50 MG (B6) TAB PO SCH (08:57)
[2018-10-06] MEDS: Cyanocobalamin (Vitamin B-12) 1,000 MCG TAB PO SCH (08:57)
[2018-10-06] MEDS: Enoxaparin Sodium 30 MG/0.3 ML SYRINGE SC SCH (08:58)
[2018-10-06] MEDS ORDERED: Enoxaparin Sodium 40 MG/0.4 ML SYRINGE SC SCH (09:00)
[2018-10-06] MEDS ORDERED: Non-Formulary Item 1 EACH (Insulin Aspart Prot/Insuln Asp [Novolog Mix 70-30 Flexpen Syrn SQ SCH (09:00)
--- NOTE | 2018-10-06 14:22 | PRG ---
DATE OF SERVICE: 10/06/2018 SUBJECTIVE: Mr. Park is postoperative day #1 from left foot incision and debridement of soft tissue and bone for osteomyelitis of his left foot. This is performed yesterday by Dr. Caballero. He is resting in bed. He has a wound VAC in place that extends around onto the plantar aspect of his foot. He is receiving intravenous antibiotics with Zosyn and vancomycin currently. The Gram stain from his surgery yesterday reveals gram-negative rods with final cultures pending. He has no complaints. OBJECTIVE: VITAL SIGNS: He is afebrile. Pulse is 58 and blood pressure 155/60. EXTREMITIES: Examination is limited to his foot. The wound VAC is intact. LABORATORY DATA: His hemoglobin this morning was 7.1, down from 8.7. His white blood cell count is 5.4. His basic metabolic panel shows minor electrolyte abnormalities. His creatinine is 2.6, but this is actually lower than usual for him. His glucose is substantially elevated at 270. In summary, stable following the surgery. He will continue with wound VAC and IV antibiotics. Awaiting final cultures. Disposition will be decided with plans for arrangement early this next week. Job ID: [id number]
[2018-10-06] MEDS ORDERED: Prevnar 13-Val Conj/PF 0.5 ML SYRINGE IM ONE (14:30)
[2018-10-06 15:34] LABS: Vancomycin, Random 21.1 ug/mL (See Comment)
[2018-10-06] MEDS: HumuLIN 70/30 (300 UNITS/3 ML VIAL) SC SCH (16:01)
[2018-10-06] MEDS ORDERED: Polyethylene Glycol 3350 17 GM Packet PO PRN (16:39)
[2018-10-06] MEDS ORDERED: Senokot 8.6 MG TAB PO PRN (16:39)
--- NOTE | 2018-10-06 16:39 | PDOC.PN ---
- Subjective Encounter Start Date: 10/06/18 Encounter Start Time: 16:37 Patient seen and examined for med mngt. Pain controlled. No fever/chills/CP. No new complaints. No overnight events - Objective Resuscitation Status - Order Detail: 10/05/18 13:36 Resuscitation Status Routine Resuscitation Status: FULL: Full Resuscitation Discussed with: pt MEMO Reviewed: Yes Vital Signs & Weight: Vital Signs (12 hours) Temp Pulse Pulse Resp BP BP BP 10/06/18 15:48 98.0 F 61 18 130/66 10/06/18 15:45 98.0 F 61 18 130/66 10/06/18 13:45 98.0 F 70 18 168/69 H 10/06/18 13:25 98.6 F 70 18 143/73 H 10/06/18 11:09 97.6 F 58 L 16 155/60 H 10/06/18 08:57 59 L 153/69 H 10/06/18 08:53 10/06/18 07:39 98.5 F 59 L 16 153/69 H Pulse Ox 10/06/18 15:48 93 L 10/06/18 15:45 93 L 10/06/18 13:45 10/06/18 13:25 96 10/06/18 11:09 95 10/06/18 08:57 10/06/18 08:53 95 10/06/18 07:39 96 Weight Weight 200 lb I&O: 10/05/18 10/06/18 10/07/18 06:59 06:59 06:59 Intake Total 1630 Output Total 925 Balance 705 Result Diagrams: 10/06/18 05:30 10/06/18 05:30 Additional Labs: Accuchecks 10/06/18 10/06/18 10/06/18 15:54 11:13 05:12 POC Glucose 239 H 291 H 291 H 10/05/18 20:51 POC Glucose 249 H Radiology Reviewed by me: Yes (CXR - no infiltrate (last admission)) Phys Exam - Physical Examination Constitutional: NAD Respiratory: no wheezing, no rhonchi Cardiovascular: RRR, no rub Gastrointestinal: soft, non-tender, no distention, positive bowel sounds Musculoskeletal: no edema wound vac+ Neurological: moves all 4 limbs Dx/Plan - Plan DVT proph w/SCDs IMPRESSION: Left foot osteomyelitis - on IV Atbx s/p debridement DM2 with diabetic neuropathy HTN 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 Hyperkalemia s/p kayexalate CKD 4 Hypothyroidism PVD PLAN: s/p 1 unit PRBC Cont Levothyroxine Cont Procardia XL AM labs Change 70-30 to 35 units BID with sliding scale Cont accuchecks ACHS Will follow Review of Systems - Review of Systems Respiratory: negative: Cough, Dry, Shortness of Breath, Hemoptysis, SOB with Excertion, Pleuritic Pain, Sputum, Wheezing Cardiovascular: negative: chest pain, palpitations, orthopnea, paroxysmal nocturnal dyspnea, edema, light headedness, other Gastrointestinal: negative: Nausea, Vomiting, Abdominal Pain, Diarrhea, Constipation, Melena, Hematochezia, Other - Medications/Allergies Allergies/Adverse Reactions: Allergies Allergy/AdvReac Type Severity Reaction Status Date / Time No Known Drug Allergies Allergy Verified 10/05/18 14:23 Medications: Current Medications Hydrocodone Bitart/Acetaminophen (Lawrence 10/325) 2 tab PO Q6H PRN PRN Reason: Severe Pain (7-10) Hydrocodone Bitart/Acetaminophen (Lawrence 10/325) 1 tab PO Q6H PRN PRN Reason: Mild-Moderate Pain (1-5) Albuterol/Ipratropium (Duoneb) 3 ml NEB Q4H PRN PRN Reason: Wheezing Ascorbic Acid (Vitamin C) 1,000 mg PO DAILY [facility] Last Admin: 10/06/18 08:57 Dose: 1,000 mg Cholecalciferol (Vitamin D3) 2,000 units PO DAILY [facility] Last Admin: 10/06/18 08:57 Dose: 2,000 units Cyanocobalamin (Vitamin B-12) 1,000 mcg PO DAILY [facility] Last Admin: 10/06/18 08:57 Dose: 1,000 mcg Dextrose/Water (Dextrose 50%) 25 gm SLOW IVP PRN PRN PRN Reason: Hypoglycemia Enoxaparin Sodium (Lovenox) 30 mg SC 0900 [facility] Last Admin: 10/06/18 08:58 Dose: 30 mg Famotidine (Pepcid) 20 mg PO QPM [facility] Last Admin: 10/05/18 22:00 Dose: 20 mg Glucagon (Glucagon) 1 mg IM PRN PRN PRN Reason: Hypoglycemia Hydralazine HCl (Apresoline) 10 mg SLOW IVP Q6H PRN PRN Reason: SBP > 150 Dextrose/Water (D5w) 1,000 mls @ 0 mls/hr IV .Q0M PRN PRN Reason: Hypoglycemia Piperacillin Sod/Tazobactam (Sod 3.375 gm/ Sodium Chloride) 100 mls @ 200 mls/ hr IVPB 0400,1000,1600,2200 [facility] Last Admin: 10/06/18 15:54 Dose: 100 mls Vancomycin HCl 1 gm/ Device 200 mls @ 200 mls/hr IVPB 1700 [facility] Insulin Human Isoph/Insulin Regular (Humulin 70/30) 35 units SC BID-WM [facility] Last Admin: 10/06/18 16:01 Dose: 35 units Insulin Human Lispro (Humalog) 0 units SC .MODERATE SLIDING SC PRN PRN Reason: Moderate Correctional Scale Last Admin: 10/06/18 15:58 Dose: 4 unit Levothyroxine Sodium (Synthroid) 175 mcg PO 0600 [facility] Last Admin: 10/06/18 05:24 Dose: 175 mcg Miscellaneous Medication (Pharmacy To Dose) 1 each IVPB PRN PRN PRN Reason: . Morphine Sulfate (Morphine) 2 mg SLOW IVP Q2H PRN PRN Reason: Mild Pain (1-3) Multivitamins/Minerals (Ocuvite With Lutein) 1 tab PO DAILY [facility] Last Admin: 10/06/18 08:57 Dose: 1 tab Nifedipine (Procardia Xl) 60 mg PO DAILY [facility] Last Admin: 10/06/18 08:57 Dose: 60 mg Ondansetron HCl (Zofran Odt) 4 mg PO Q6H PRN PRN Reason: Nausea/Vomiting Ondansetron HCl (Zofran) 4 mg IVP Q6H PRN PRN Reason: Nausea Promethazine HCl (Phenergan) 12.5 mg IM Q4H PRN PRN Reason: Nausea Pyridoxine HCl (Vitamin B 6) 50 mg PO DAILY [facility] Last Admin: 10/06/18 08:57 Dose: 50 mg Sodium Chloride (Flush - Normal Saline) 10 ml IVF PRN PRN PRN Reason: Saline Flush
[2018-10-06] MEDS: Vancomycin HCl 1 GM in Premix Bag 1 BAG IVPB SCH (17:02)
--- NOTE | 2018-10-06 20:57 | CON ---
DATE OF CONSULTATION: 10/06/2018 HISTORY OF PRESENT ILLNESS: Mr. Park is back in the hospital because of deterioration in the appearance of the wound. As recently noted, the patient had a history of type 2 diabetes, neuropathy, and peripheral vascular disease with prior transmetatarsal amputations right and left sides. In November 2017, he had an amputation of the right first and second toes, almost complete resection of the right first metatarsal. Then developed inflammatory changes, left foot, middle to forefoot region with necrotic skin over transmetatarsal amputation site, which was excised back to bleeding tissue. He was treated then with oral Zyvox and Flagyl for a short period of time and then on July 2018, he was admitted with inflammatory process around the left foot region at lateral aspect. He had a 4th metatarsal revision of the amputation, about a cm was taken out. The MRI showed extension of the osteomyelitis for 1 cm of the metatarsal segment. There were soft tissue inflammatory changes as well. Arterial duplex ultrasound showed significant arterial insufficiency to the left lower extremity. However, due to his elevated creatinine with GFR in the 20 range, it would be prohibitive to perform contrast studies due to the likely precipitation of end-stage renal disease, so no full vascular evaluation has been carried out thus far. He was continued on IV antimicrobial therapy and this was carried out through a tunneled catheter in the left IJ position. The previous microbiology included Pseudomonas aeruginosa, E faecalis and MRSA. He had been receiving Zosyn and vancomycin adjusted for renal function. I saw him in the clinic and there was improvement in the appearance of the wound, that is still not completely healed. Unfortunately, there was regression of the wound and Dr. Caballero had to readmit the patient, revised the area. The patient declined a BK amputation. Denies any headaches. No change in visual symptoms, sore throat, odynophagia, or dysphagia. No cough or sputum production , chest pain. No abdominal pain. No genitourinary symptoms. PAST MEDICAL HISTORY: Type 2 diabetes, neuropathy, peripheral vascular disease, transmetatarsal amputations, right and left feet, recent revision and then regression of the wound with this procedure that was carried out at this time. No invasive study because of risk of end-stage renal disease, prior cholecystectomy , hypothyroidism. ALLERGIES: NONE. SOCIAL HISTORY: Lives in [place], never a smoker. FAMILY HISTORY: Noncontributory. CURRENT MEDICATIONS: 1. Franklin. 2. DuoNeb. 3. Vitamin C. 4. B12. 5. Dextrose. 6. Lovenox. 7. Pepcid. 8. Insulin. 9. Morphine. 10. Zosyn. 11. Vancomycin. PHYSICAL EXAMINATION: VITAL SIGNS: Temperature normal. BP normal. Respiratory rate 18, O2 saturation 93-96 on room air. SKIN: Shows the wound in the lateral aspect of the left foot stump site. The patient has a tunneled catheter in the left IJ position and is urinating in the urinal. GENERAL: He is somewhat disheveled, chronically ill appearing. HEENT: Ocular movements conjugate. Sclerae white. Pupils are equal. Nasal passages are patent. Oral cavity with numerous missing teeth. Oral mucosa is normal. NECK: Supple. No jugular vein distention. No carotid bruits. LUNGS: Symmetric. Clear breath sounds. HEART: S1, S2. Regular rate. No S3 or S4. ABDOMEN: Soft, not distended or tender. No ascites. No bladder distention. VASCULAR: Pulses are diminished in dorsalis pedis, faintly palpable in popliteals. NEUROLOGIC: He moves extremities equally. His cognitive function is intact. He seems to be a bit depressed. LABORATORY DATA: White cell count 5.4, hemoglobin 7.1, MCV 88, platelets 217, 73% neutrophils. Creatinine 2.63, GFR 24, is about his baseline creatinine. Glucose 291. Vancomycin trough 21. Microbiology from the bone sample yet to be identified, susceptibility tested. ASSESSMENT: Type 2 diabetes, neuropathy, peripheral vascular disease and poor healing of left foot surgical intervention likely due to vascular disease. The patient will now go back on his antimicrobial therapy. We may have to adjust it depending on the results of the final susceptibility studies of the organisms retrieved. This means that he will have to be referred back to the same place where he received most of his treatment in [place]. We may be steadily marching to the final outcome which will likely be a bka. Job ID: [id number] [facility]
[2018-10-06] MEDS: Famotidine 20 MG TAB PO SCH (21:15)
[2018-10-07] MEDS: Piperacillin/Tazobactam 3.375 GM in Sodium Chloride 0.9% 100 ML IVPB SCH ×4 (04:12→20:14)
[2018-10-07 04:37] LABS: #Eosinphils 0.4 thou/uL (0.0-0.7); #Lymphocytes 1.2 thou/uL (1.20-3.40); #Monocytes 0.4 thou/uL (0.11-0.59); #Neutrophils 3.1 thou/uL (1.40-6.50); %Basophils 0.6 % (0.0-1.0); %Eosinophils 7.7 % (0.0-10.0); %Lymphocytes 23.4 % (21.0-51.0); %Monocytes 6.8 % (0.0-10.0); %Neutrophils 61.4 % (42.0-75.0); Hemoglobin 7.6 g/dL (14.0-18.0); Mean Corpuscular HGB CONC 33.8 g/dL (32.0-36.0); Mean Corpuscular Hemoglobin 29.9 pg (27.0-31.0); Mean Corpuscular Volume 88.7 fL (78.0-98.0); Mean Platelet Volume 6.5 fL (7.4-10.4); Platelet Count 217 thou/uL (130-400); RBC Distribution Width 14.2 % (11.5-14.5); Red Blood Cell (RBC) Count 2.55 mill/uL (4.70-6.10); White Blood Cell (WBC) Count 5.1 thou/uL (4.8-10.8)
[2018-10-07] MEDS: Levothyroxine 175 MCG TAB PO SCH (06:02)
[2018-10-07] MEDS: Enoxaparin Sodium 30 MG/0.3 ML SYRINGE SC SCH (08:48)
[2018-10-07] MEDS: Cyanocobalamin (Vitamin B-12) 1,000 MCG TAB PO SCH (08:50)
[2018-10-07] MEDS: Ascorbic Acid 500 mg Chewable Tablet PO SCH (08:50)
[2018-10-07] MEDS: pyridOXINE 50 MG (B6) TAB PO SCH (08:50)
[2018-10-07] MEDS: Saccharomyces boulardii 250 MG CAP PO SCH (08:51)
[2018-10-07] MEDS: Vit A,C & E/Lutein/Minerals Tablet PO SCH (08:51)
[2018-10-07] MEDS: NIFEdipine XL 60 MG TAB PO SCH (08:51)
[2018-10-07] MEDS: HumuLIN 70/30 (300 UNITS/3 ML VIAL) SC SCH ×2 (08:51→17:28)
--- NOTE | 2018-10-07 10:45 | PRG ---
DATE OF SERVICE: 10/06/2018 ADDENDUM: In treatment of his anemia, I will transfuse 1 unit of packed red blood cells today. He is hemodynamically stable, but in light of his impaired healing, anemia could make the problem even worse. Job ID: [id number]
--- NOTE | 2018-10-07 14:44 | PDOC.PN ---
- Subjective Encounter Start Date: 10/07/18 Encounter Start Time: 14:42 Patient seen and examined for med mngt. Pain controlled. No fever/chills/ diarrhea. No new complaints. No overnight events - Objective Resuscitation Status - Order Detail: 10/05/18 13:36 Resuscitation Status Routine Resuscitation Status: FULL: Full Resuscitation Discussed with: pt MEMO Reviewed: Yes Vital Signs & Weight: Vital Signs (12 hours) Temp Pulse Resp BP Pulse Ox 10/07/18 11:51 98.2 F 54 L 16 150/70 H 96 10/07/18 08:00 95 10/07/18 07:50 98.2 F 55 L 18 152/65 H 95 10/07/18 04:12 98.5 F 57 L 18 142/67 H 95 Weight Admit Weight 200 lb Weight 200 lb I&O: 10/06/18 10/07/18 10/08/18 06:59 06:59 06:59 Intake Total 2310 Output Total 1425 Balance 885 Result Diagrams: 10/07/18 04:22 10/06/18 05:30 Additional Labs: Accuchecks 10/07/18 10/07/18 10/06/18 11:56 05:42 21:19 POC Glucose 146 H 111 H 199 H 10/06/18 15:54 POC Glucose 239 H Phys Exam - Physical Examination Constitutional: NAD Respiratory: no wheezing, no rhonchi Cardiovascular: RRR, no rub Gastrointestinal: soft, non-tender, positive bowel sounds Musculoskeletal: no edema left foot dressing + Neurological: moves all 4 limbs Dx/Plan - Plan DVT proph w/lovenox, DVT proph w/SCDs IMPRESSION: Left foot osteomyelitis - on IV Atbx s/p debridement DM2 with diabetic neuropathy HTN 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 s/p 1 unit PRBC Hyperkalemia s/p kayexalate - resolved CKD 4 Hypothyroidism PVD Hyponatremia PLAN: Cont Insulin 70-30 @ 35 units BID with sliding scale/accuchecks ACHS Cont Levothyroxine/Procardia XL On Vancomycin/Zosyn Monitor Vancomycin level AM labs Cont other meds as below Review of Systems - Review of Systems Constitutional: negative: fever, chills, sweats, weakness, malaise, other Respiratory: negative: Cough, Dry, Shortness of Breath, Hemoptysis, SOB with Excertion, Pleuritic Pain, Sputum, Wheezing Cardiovascular: negative: chest pain, palpitations, orthopnea, paroxysmal nocturnal dyspnea, edema, light headedness, other Gastrointestinal: negative: Nausea, Vomiting, Abdominal Pain, Diarrhea, Constipation, Melena, Hematochezia, Other Genitourinary: negative: Dysuria, Frequency, Incontinence, Hematuria, Retention , Other - Medications/Allergies Allergies/Adverse Reactions: Allergies Allergy/AdvReac Type Severity Reaction Status Date / Time No Known Drug Allergies Allergy Verified 10/05/18 14:23 Medications: Current Medications Hydrocodone Bitart/Acetaminophen ([place] 10/325) 2 tab PO Q6H PRN PRN Reason: Severe Pain (7-10) Hydrocodone Bitart/Acetaminophen ([place] 10/325) 1 tab PO Q6H PRN PRN Reason: Mild-Moderate Pain (1-5) Albuterol/Ipratropium (Duoneb) 3 ml NEB Q4H PRN PRN Reason: Wheezing Ascorbic Acid (Vitamin C) 1,000 mg PO DAILY [facility] Last Admin: 10/07/18 08:50 Dose: 1,000 mg Cholecalciferol (Vitamin D3) 2,000 units PO DAILY [facility] Last Admin: 10/07/18 08:49 Dose: 2,000 units Cyanocobalamin (Vitamin B-12) 1,000 mcg PO DAILY [facility] Last Admin: 10/07/18 08:50 Dose: 1,000 mcg Dextrose/Water (Dextrose 50%) 25 gm SLOW IVP PRN PRN PRN Reason: Hypoglycemia Enoxaparin Sodium (Lovenox) 30 mg SC 0900 [facility] Last Admin: 10/07/18 08:48 Dose: 30 mg Famotidine (Pepcid) 20 mg PO QPM [facility] Last Admin: 10/06/18 21:15 Dose: 20 mg Glucagon (Glucagon) 1 mg IM PRN PRN PRN Reason: Hypoglycemia Hydralazine HCl (Apresoline) 10 mg SLOW IVP Q6H PRN PRN Reason: SBP > 150 Dextrose/Water (D5w) 1,000 mls @ 0 mls/hr IV .Q0M PRN PRN Reason: Hypoglycemia Piperacillin Sod/Tazobactam (Sod 3.375 gm/ Sodium Chloride) 100 mls @ 200 mls/ hr IVPB 0400,1000,1600,2200 [facility] Last Admin: 10/07/18 08:47 Dose: 100 mls Vancomycin HCl 1 gm/ Device 200 mls @ 200 mls/hr IVPB 1700 [facility] Last Admin: 10/06/18 17:02 Dose: 200 mls Insulin Human Isoph/Insulin Regular (Humulin 70/30) 35 units SC BID-WM [facility] Last Admin: 10/07/18 08:51 Dose: 35 units Insulin Human Lispro (Humalog) 0 units SC .MODERATE SLIDING SC PRN PRN Reason: Moderate Correctional Scale Last Admin: 10/06/18 21:18 Dose: 2 unit Levothyroxine Sodium (Synthroid) 175 mcg PO 0600 [facility] Last Admin: 10/07/18 06:02 Dose: 175 mcg Miscellaneous Medication (Pharmacy To Dose) 1 each IVPB PRN PRN PRN Reason: . Morphine Sulfate (Morphine) 2 mg SLOW IVP Q2H PRN PRN Reason: Mild Pain (1-3) Multivitamins/Minerals (Ocuvite With Lutein) 1 tab PO DAILY [facility] Last Admin: 10/07/18 08:51 Dose: 1 tab Nifedipine (Procardia Xl) 60 mg PO DAILY [facility] Last Admin: 10/07/18 08:51 Dose: 60 mg Ondansetron HCl (Zofran Odt) 4 mg PO Q6H PRN PRN Reason: Nausea/Vomiting Ondansetron HCl (Zofran) 4 mg IVP Q6H PRN PRN Reason: Nausea Polyethylene Glycol (Miralax) 17 gm PO DAILY PRN PRN Reason: Constipation Promethazine HCl (Phenergan) 12.5 mg IM Q4H PRN PRN Reason: Nausea Pyridoxine HCl (Vitamin B 6) 50 mg PO DAILY [facility] Last Admin: 10/07/18 08:50 Dose: 50 mg Saccharomyces Boulardii (Florastor) 250 mg PO DAILY [facility] Last Admin: 10/07/18 08:51 Dose: 250 mg Senna (Senokot) 2 tab PO HSPRN PRN PRN Reason: Constipation Sodium Chloride (Flush - Normal Saline) 10 ml IVF PRN PRN PRN Reason: Saline Flush
--- NOTE | 2018-10-07 14:49 | PRG ---
DATE OF SERVICE: 10/07/2018 SUBJECTIVE: Mr. Park is postoperative day #2 from debridement of left foot soft tissue and bone for osteomyelitis of the left foot. He has a wound VAC in place. He has no complaints. PHYSICAL EXAMINATION: VITAL SIGNS: He is afebrile. Vital signs within normal limits. EXTREMITIES: Wound VAC is intact on his left foot. LABORATORY DATA: His hemoglobin today is 7.6, after receiving 1 unit of transfusion yesterday. This is still relatively low. ASSESSMENT: The patient is stable following left foot surgery. We will continue wound VAC and intravenous antibiotics per Dr. Caballero with plan for placement upon her return. Job ID: [id number]
[2018-10-07] MEDS: Vancomycin HCl 1 GM in Premix Bag 1 BAG IVPB SCH (17:28)
[2018-10-07] MEDS: Famotidine 20 MG TAB PO SCH (20:14)
[2018-10-08] MEDS: Piperacillin/Tazobactam 3.375 GM in Sodium Chloride 0.9% 100 ML IVPB SCH ×4 (04:47→19:44)
[2018-10-08] MEDS: Levothyroxine 175 MCG TAB PO SCH (04:47)
[2018-10-08 04:53] LABS: #Eosinphils 0.4 thou/uL (0.0-0.7); #Lymphocytes 1.4 thou/uL (1.20-3.40); #Monocytes 0.4 thou/uL (0.11-0.59); #Neutrophils 3.2 thou/uL (1.40-6.50); %Basophils 0.4 % (0.0-1.0); %Eosinophils 8.2 % (0.0-10.0); %Lymphocytes 25.4 % (21.0-51.0); %Monocytes 7.5 % (0.0-10.0); %Neutrophils 58.6 % (42.0-75.0); Hemoglobin 8.6 g/dL (14.0-18.0); Mean Corpuscular HGB CONC 33.5 g/dL (32.0-36.0); Mean Corpuscular Hemoglobin 29.6 pg (27.0-31.0); Mean Corpuscular Volume 88.5 fL (78.0-98.0); Mean Platelet Volume 6.5 fL (7.4-10.4); Platelet Count 241 thou/uL (130-400); RBC Distribution Width 14.4 % (11.5-14.5); White Blood Cell (WBC) Count 5.5 thou/uL (4.8-10.8)
[2018-10-08 05:26] LABS: Anion Gap 4 mmol/L (10-20); BUN (Urea Nitrogen) 24 mg/dL (8.4-25.7); BUN/Creatinine Ratio 9.16; Calc. Creatinine Clearance 29 mL/min (70-130); Carbon Dioxide 24 mmol/L (23-31); Chloride 86 mmol/L (98-107); Estimated GFR-MDRD 24; Glucose 77 mg/dL (83-110); Potassium 3.2 mmol/L (3.5-5.1); Sodium 111 mmol/L (136-145)
[2018-10-08] MEDS: Sodium Chloride 0.9% 1,000 ML IV SCH ×2 (05:52→19:44)
[2018-10-08 05:58] LABS: #Eosinphils 0.5 thou/uL (0.0-0.7); #Lymphocytes 1.5 thou/uL (1.20-3.40); #Monocytes 0.5 thou/uL (0.11-0.59); %Basophils 0.5 % (0.0-1.0); %Eosinophils 8.6 % (0.0-10.0); %Lymphocytes 27.2 % (21.0-51.0); %Neutrophils 54.8 % (42.0-75.0); Hemoglobin 8.5 g/dL (14.0-18.0); Mean Corpuscular HGB CONC 33.2 g/dL (32.0-36.0); Mean Corpuscular Hemoglobin 29.5 pg (27.0-31.0); Mean Corpuscular Volume 88.8 fL (78.0-98.0); Platelet Count 221 thou/uL (130-400); RBC Distribution Width 14.2 % (11.5-14.5); Red Blood Cell (RBC) Count 2.88 mill/uL (4.70-6.10); White Blood Cell (WBC) Count 5.4 thou/uL (4.8-10.8)
[2018-10-08 08:56] LABS: Anion Gap 12 mmol/L (10-20); BUN (Urea Nitrogen) 23 mg/dL (8.4-25.7); Calc. Creatinine Clearance 29 mL/min (70-130); Calcium 8.6 mg/dL (7.8-10.44); Carbon Dioxide 23 mmol/L (23-31); Chloride 105 mmol/L (98-107); Estimated GFR-MDRD 23; Glucose 135 mg/dL (83-110); Potassium 4.3 mmol/L (3.5-5.1); Sodium 136 mmol/L (136-145)
[2018-10-08] MEDS: HumuLIN 70/30 (300 UNITS/3 ML VIAL) SC SCH ×2 (08:59→16:23)
[2018-10-08] MEDS: Cyanocobalamin (Vitamin B-12) 1,000 MCG TAB PO SCH (09:00)
[2018-10-08] MEDS: Saccharomyces boulardii 250 MG CAP PO SCH (09:00)
[2018-10-08] MEDS: NIFEdipine XL 60 MG TAB PO SCH (09:00)
[2018-10-08] MEDS: Ascorbic Acid 500 mg Chewable Tablet PO SCH (09:00)
[2018-10-08] MEDS: Enoxaparin Sodium 30 MG/0.3 ML SYRINGE SC SCH (09:00)
[2018-10-08] MEDS: Vit A,C & E/Lutein/Minerals Tablet PO SCH (09:00)
[2018-10-08] MEDS: pyridOXINE 50 MG (B6) TAB PO SCH (09:00)
--- NOTE | 2018-10-08 13:44 | PDOC.PN ---
- Subjective Encounter Start Date: 10/08/18 Encounter Start Time: 13:42 Doing well. No complaints. Foot feels ok. - Objective Resuscitation Status - Order Detail: 10/05/18 13:36 Resuscitation Status Routine Resuscitation Status: FULL: Full Resuscitation Discussed with: pt Vital Signs & Weight: Vital Signs (12 hours) Temp Pulse Resp BP Pulse Ox 10/08/18 11:29 97.8 F 55 L 16 164/74 H 97 10/08/18 07:44 97.9 F 56 L 16 156/73 H 94 L 10/08/18 04:54 98.3 F 64 16 155/69 H 97 Weight Admit Weight 200 lb Weight 200 lb I&O: 10/07/18 10/08/18 10/09/18 06:59 06:59 06:59 Intake Total 2310 2660 Output Total 1425 2900 Balance 885 -240 Result Diagrams: 10/08/18 05:43 10/08/18 08:24 Additional Labs: Accuchecks 10/08/18 10/08/18 10/07/18 11:29 05:38 21:01 POC Glucose 149 H 80 116 H 10/07/18 15:45 POC Glucose 129 H Phys Exam - Physical Examination Constitutional: NAD Respiratory: no wheezing, no rales, no rhonchi Cardiovascular: RRR, no significant murmur, no rub Gastrointestinal: soft, non-tender, no distention, positive bowel sounds Musculoskeletal: no edema Left foot with wound vac and wrap. Neurological: non-focal Psychiatric: normal affect Dx/Plan (1) Diabetic foot infection Code(s): E11.628 - TYPE 2 DIABETES MELLITUS WITH OTHER SKIN COMPLICATIONS; L08.9 - LOCAL INFECTION OF THE SKIN AND SUBCUTANEOUS TISSUE, UNSP Status: Acute Comment: left foot (2) Anemia due to chronic kidney disease treated with erythropoietin Code(s): N18.9 - CHRONIC KIDNEY DISEASE, UNSPECIFIED; D63.1 - ANEMIA IN CHRONIC KIDNEY DISEASE Status: Chronic (3) CKD (chronic kidney disease) stage 4, GFR 15-29 ml/min Code(s): N18.4 - CHRONIC KIDNEY DISEASE, STAGE 4 (SEVERE) Status: Chronic Comment: Dr. Babb following, creatinine improving a bit (4) DM type 2 (diabetes mellitus, type 2) Status: Chronic Qualifiers: Diabetes mellitus half-way insulin use: with intermediate manager use Diabetes mellitus complication detail: with chronic kidney disease Chronic kidney disease stage: stage 4 (severe) (5) Hypothyroidism Code(s): E03.9 - HYPOTHYROIDISM, UNSPECIFIED Status: Chronic Qualifiers: Hypothyroidism type: unspecified Qualified Code(s): E03.9 - Hypothyroidism , unspecified Comment: on synthroid - Plan * Culture is polymicrobial. Not unexpected. Continue Vanc and Zosyn. * Dr. Tam following. Awaiting final ID and sens. * Renal function and hgb stable (had an errant sodium value this morning better on repeat). * Continue wound vac.
--- NOTE | 2018-10-08 15:21 | PRG ---
DATE OF SERVICE: 10/08/2018 Mr. Park is resting comfortably in his bed on the surgical floor. He is postoperative day #3 from debridement of left foot. His wound VAC in place and he remains on IV antibiotics. He will continue the same care, and outpatient planning will be made per Dr. Caballero upon her return. Job ID: [id number]
[2018-10-08 16:51] LABS: Vancomycin, Trough 30.4 ug/mL
[2018-10-08] MEDS: Vancomycin HCl 1 GM in Premix Bag 1 BAG IVPB SCH (17:28)
[2018-10-08] MEDS: Famotidine 20 MG TAB PO SCH (19:44)
[2018-10-09 04:30] LABS: Vancomycin, Random 27.2 ug/mL (See Comment)
[2018-10-09] MEDS: Levothyroxine 175 MCG TAB PO SCH (04:51)
[2018-10-09] MEDS: Piperacillin/Tazobactam 3.375 GM in Sodium Chloride 0.9% 100 ML IVPB SCH ×4 (04:51→21:14)
[2018-10-09] MEDS ORDERED: Vancomycin HCl 1 GM in Premix Bag 1 BAG IVPB SCH ×2 (05:00→05:15)
[2018-10-09] MEDS: HumuLIN 70/30 (300 UNITS/3 ML VIAL) SC SCH ×2 (08:54→17:14)
[2018-10-09] MEDS: Ascorbic Acid 500 mg Chewable Tablet PO SCH (08:55)
[2018-10-09] MEDS: Cyanocobalamin (Vitamin B-12) 1,000 MCG TAB PO SCH (08:56)
[2018-10-09] MEDS: NIFEdipine XL 60 MG TAB PO SCH (08:56)
[2018-10-09] MEDS: Vit A,C & E/Lutein/Minerals Tablet PO SCH (08:56)
[2018-10-09] MEDS: Saccharomyces boulardii 250 MG CAP PO SCH (08:57)
[2018-10-09] MEDS: pyridOXINE 50 MG (B6) TAB PO SCH (08:57)
[2018-10-09] MEDS: Enoxaparin Sodium 30 MG/0.3 ML SYRINGE SC SCH (08:57)
[2018-10-09] MEDS: Sodium Chloride 0.9% 1,000 ML IV SCH ×2 (08:58→20:13)
[2018-10-09] MEDS: HumaLOG 300 UNITS/3 ML VIAL SC PRN ×3 (12:44→21:15)
[2018-10-09] MEDS: hydrALAZINE 25 MG TAB PO SCH ×2 (15:45→20:13)
--- NOTE | 2018-10-09 16:07 | PDOC.PN ---
- Subjective Encounter Start Date: 10/09/18 Encounter Start Time: 15:15 Doing well. Slept well today. No other complaints. - Objective Resuscitation Status - Order Detail: 10/05/18 13:36 Resuscitation Status Routine Resuscitation Status: FULL: Full Resuscitation Discussed with: pt Vital Signs & Weight: Vital Signs (12 hours) Temp Pulse Resp BP BP Pulse Ox 10/09/18 15:45 57 L 156/73 H 10/09/18 15:14 98.2 F 59 L 16 156/73 H 95 10/09/18 11:55 98.1 F 54 L 18 170/71 H 97 10/09/18 09:00 58 L 181/79 H 10/09/18 08:56 58 L 181/79 H 10/09/18 07:17 98.1 F 58 L 14 181/79 H 94 L 10/09/18 07:10 94 L Weight Admit Weight 200 lb Weight 200 lb I&O: 10/08/18 10/09/18 10/10/18 06:59 06:59 06:59 Intake Total 2660 4300 480 Output Total 2900 2950 550 Balance -240 1350 -70 Result Diagrams: 10/08/18 05:43 10/08/18 08:24 Additional Labs: Accuchecks 10/09/18 10/09/18 10/08/18 15:17 11:59 19:52 POC Glucose 210 H 208 H 127 H 10/08/18 16:04 POC Glucose 104 Phys Exam - Physical Examination Constitutional: NAD Respiratory: no wheezing, no rales, no rhonchi Cardiovascular: RRR, no significant murmur, no rub Gastrointestinal: soft, non-tender, no distention, positive bowel sounds Musculoskeletal: no edema Psychiatric: normal affect, A&O x 3 Dx/Plan (1) Diabetic foot infection Code(s): E11.628 - TYPE 2 DIABETES MELLITUS WITH OTHER SKIN COMPLICATIONS; L08.9 - LOCAL INFECTION OF THE SKIN AND SUBCUTANEOUS TISSUE, UNSP Status: Acute Comment: left foot (2) Anemia due to chronic kidney disease treated with erythropoietin Code(s): N18.9 - CHRONIC KIDNEY DISEASE, UNSPECIFIED; D63.1 - ANEMIA IN CHRONIC KIDNEY DISEASE Status: Chronic (3) CKD (chronic kidney disease) stage 4, GFR 15-29 ml/min Code(s): N18.4 - CHRONIC KIDNEY DISEASE, STAGE 4 (SEVERE) Status: Chronic Comment: Dr. Babb following, creatinine improving a bit (4) DM type 2 (diabetes mellitus, type 2) Status: Chronic Qualifiers: Diabetes mellitus exterminator helper insulin use: with shelter use Diabetes mellitus complication detail: with chronic kidney disease Chronic kidney disease stage: stage 4 (severe) (5) Hypothyroidism Code(s): E03.9 - HYPOTHYROIDISM, UNSPECIFIED Status: Chronic Qualifiers: Hypothyroidism type: unspecified Qualified Code(s): E03.9 - Hypothyroidism , unspecified Comment: on synthroid - Plan * Doing well. Continue wound vac. * Polymicrobial culture not surprising. * Continue broad coverage. * ID following. * Blood sugar is adequately controlled.
[2018-10-09 16:33] LABS: Vancomycin, Trough 23.5 ug/mL
[2018-10-09] MEDS ORDERED: Vancomycin HCl 750 MG in Sodium Chloride 0.9% 250 ML 250 ML IVPB SCH (17:00)
--- NOTE | 2018-10-09 17:38 | PRG ---
DATE OF SERVICE: 10/09/2018 SUBJECTIVE: Mr. Park is resting in his bed on the surgical floor. He has no new complaints. Wound VAC is in place. He continues to receive IV antibiotics. PLAN: Placement per Dr. Caballero, who returns tomorrow. Job ID: [id number]
--- NOTE | 2018-10-09 17:44 | PRG ---
DATE OF SERVICE: 10/09/2018 SUBJECTIVE: Feeling stable and no respiratory symptoms or abdominal pain. No diarrhea. OBJECTIVE: VITAL SIGNS: Temperature is normal. Other vital signs are with mild elevation of systolic blood pressure. GENERAL: Appears in no distress. LUNGS: Clear. HEART: S1, S2. Regular rate. ABDOMEN: Soft, not distended. EXTREMITIES: The foot is completely dressed at this time, we do not have a recent photo. LABORATORY DATA: White cell count 5.4, hemoglobin 8.5, and platelets 221. Creatinine 2.65, which is stable. Microbiology with presumptive Pseudomonas and 2 different gram negatives, in addition, Enterococcus, and Peptostreptococcus as well isolated from the site. CURRENT MEDICATIONS: Include Zosyn and vancomycin. ASSESSMENT AND DISCUSSION: Type 2 diabetes, neuropathy, peripheral vascular disease, and poor healing of left foot surgical intervention, likely vascular disease. He still had some exposure of bone with residual osteomyelitis, which needs to be treated. I will continue with IV therapy, probably with Zosyn, waiting on susceptibilities of the organisms to be determined prior to defining the final regiment for discharge planning. Disposition will likely be [place] for continuation of therapy. Job ID: [id number]
[2018-10-09] MEDS: Famotidine 20 MG TAB PO SCH (20:13)
[2018-10-10] MEDS: Piperacillin/Tazobactam 3.375 GM in Sodium Chloride 0.9% 100 ML IVPB SCH ×4 (04:54→21:15)
[2018-10-10] MEDS: Levothyroxine 175 MCG TAB PO SCH (05:04)
[2018-10-10] MEDS: HumuLIN 70/30 (300 UNITS/3 ML VIAL) SC SCH ×2 (09:02→17:24)
[2018-10-10] MEDS: Enoxaparin Sodium 30 MG/0.3 ML SYRINGE SC SCH (09:03)
[2018-10-10] MEDS: Ascorbic Acid 500 mg Chewable Tablet PO SCH (09:03)
[2018-10-10] MEDS: pyridOXINE 50 MG (B6) TAB PO SCH (09:03)
[2018-10-10] MEDS: hydrALAZINE 25 MG TAB PO SCH ×3 (09:03→21:15)
[2018-10-10] MEDS: Saccharomyces boulardii 250 MG CAP PO SCH (09:04)
[2018-10-10] MEDS: Cyanocobalamin (Vitamin B-12) 1,000 MCG TAB PO SCH (09:04)
[2018-10-10] MEDS: NIFEdipine XL 60 MG TAB PO SCH (09:04)
[2018-10-10] MEDS: Vit A,C & E/Lutein/Minerals Tablet PO SCH (09:05)
[2018-10-10] MEDS: Sodium Chloride 0.9% 1,000 ML IV SCH (10:39)
--- NOTE | 2018-10-10 14:16 | PDOC.PN ---
- Subjective Encounter Start Date: 10/10/18 Encounter Start Time: 10:15 Subjective: pt up in bed no complains - Objective Resuscitation Status - Order Detail: 10/05/18 13:36 Resuscitation Status Routine Resuscitation Status: FULL: Full Resuscitation Discussed with: pt Vital Signs & Weight: Vital Signs (12 hours) Temp Pulse Resp BP BP Pulse Ox 10/10/18 11:29 98.2 F 56 L 16 160/71 H 94 L 10/10/18 09:04 54 L 156/72 H 10/10/18 09:03 54 L 156/72 H 10/10/18 08:58 96 10/10/18 07:26 98.2 F 54 L 16 156/72 H 96 10/10/18 05:48 60 150/67 H 10/10/18 04:14 97.7 F 61 16 169/76 H 97 Weight Admit Weight 200 lb Weight 200 lb I&O: 10/09/18 10/10/18 10/11/18 06:59 06:59 06:59 Intake Total 4300 1980 Output Total 2950 875 Balance 1350 1105 Result Diagrams: 10/08/18 05:43 10/08/18 08:24 Additional Labs: Accuchecks 10/10/18 10/10/18 10/10/18 11:32 08:07 05:14 POC Glucose 115 H 76 64 L 10/09/18 10/09/18 20:50 15:17 POC Glucose 167 H 210 H Phys Exam - Physical Examination Respiratory: no wheezing, no rales, no rhonchi, wheezing present, clear to auscultation bilateral Cardiovascular: RRR, no significant murmur, no rub, gallop, irregular Gastrointestinal: soft, non-tender, no distention, positive bowel sounds left foot wrapped with vac Dx/Plan (1) Diabetic foot infection Code(s): E11.628 - TYPE 2 DIABETES MELLITUS WITH OTHER SKIN COMPLICATIONS; L08.9 - LOCAL INFECTION OF THE SKIN AND SUBCUTANEOUS TISSUE, UNSP Status: Acute Comment: left foot (2) Osteomyelitis Code(s): M86.9 - OSTEOMYELITIS, UNSPECIFIED Status: Acute Qualifiers: Osteomyelitis location: foot Laterality: left Comment: with infective tenosynovitis, s/p surgery 07/13/18, culture starting to grow MRSA so coverage expanded (3) Anemia due to chronic kidney disease treated with erythropoietin Code(s): N18.9 - CHRONIC KIDNEY DISEASE, UNSPECIFIED; D63.1 - ANEMIA IN CHRONIC KIDNEY DISEASE Status: Chronic (4) CKD (chronic kidney disease) stage 4, GFR 15-29 ml/min Code(s): N18.4 - CHRONIC KIDNEY DISEASE, STAGE 4 (SEVERE) Status: Chronic Comment: Dr. Babb following, creatinine improving a bit - Plan will increase his bp meds -: will check labs in creatinine stable will add JIMENA -: blood sugars controlled. pt needs to be placed per notes * . Review of Systems - Review of Systems Respiratory: negative: Cough, Dry, Shortness of Breath, Hemoptysis, SOB with Excertion, Pleuritic Pain, Sputum, Wheezing Cardiovascular: negative: chest pain, palpitations, orthopnea, paroxysmal nocturnal dyspnea, edema, light headedness, other - Medications/Allergies Allergies/Adverse Reactions: Allergies Allergy/AdvReac Type Severity Reaction Status Date / Time No Known Drug Allergies Allergy Verified 10/05/18 14:23 Medications: Current Medications Hydrocodone Bitart/Acetaminophen ([place] 10/325) 2 tab PO Q6H PRN PRN Reason: Severe Pain (7-10) Hydrocodone Bitart/Acetaminophen ([place] 10/325) 1 tab PO Q6H PRN PRN Reason: Mild-Moderate Pain (1-5) Albuterol/Ipratropium (Duoneb) 3 ml NEB Q4H PRN PRN Reason: Wheezing Ascorbic Acid (Vitamin C) 1,000 mg PO DAILY [facility] Last Admin: 10/10/18 09:03 Dose: 1,000 mg Cholecalciferol (Vitamin D3) 2,000 units PO DAILY [facility] Last Admin: 10/10/18 09:03 Dose: 2,000 units Cyanocobalamin (Vitamin B-12) 1,000 mcg PO DAILY [facility] Last Admin: 10/10/18 09:04 Dose: 1,000 mcg Dextrose/Water (Dextrose 50%) 25 gm SLOW IVP PRN PRN PRN Reason: Hypoglycemia Enoxaparin Sodium (Lovenox) 30 mg SC 0900 [facility] Last Admin: 10/10/18 09:03 Dose: 30 mg Famotidine (Pepcid) 20 mg PO QPM [facility] Last Admin: 10/09/18 20:13 Dose: 20 mg Glucagon (Glucagon) 1 mg IM PRN PRN PRN Reason: Hypoglycemia Hydralazine HCl (Apresoline) 10 mg SLOW IVP Q6H PRN PRN Reason: SBP > 150 Last Admin: 10/09/18 09:00 Dose: 10 mg Hydralazine HCl (Apresoline) 25 mg PO TID [facility] Last Admin: 10/10/18 09:03 Dose: 25 mg Dextrose/Water (D5w) 1,000 mls @ 0 mls/hr IV .Q0M PRN PRN Reason: Hypoglycemia Piperacillin Sod/Tazobactam (Sod 3.375 gm/ Sodium Chloride) 100 mls @ 200 mls/ hr IVPB 0400,1000,1600,2200 [facility] Last Admin: 10/10/18 10:38 Dose: 100 mls Sodium Chloride (Normal Saline 0.9%) 1,000 mls @ 75 mls/hr IV .[id number] [facility] Last Admin: 10/10/18 10:39 Dose: 1,000 mls Vancomycin HCl 750 mg/ Sodium (Chloride) 250 mls @ 250 mls/hr IVPB 1700 [facility] Insulin Human Isoph/Insulin Regular (Humulin 70/30) 35 units SC BID-WM [facility] Last Admin: 10/10/18 09:02 Dose: 35 units Insulin Human Lispro (Humalog) 0 units SC .MODERATE SLIDING SC PRN PRN Reason: Moderate Correctional Scale Last Admin: 10/09/18 21:15 Dose: 2 unit Levothyroxine Sodium (Synthroid) 175 mcg PO 0600 [facility] Last Admin: 10/10/18 05:04 Dose: 175 mcg Miscellaneous Medication (Pharmacy To Dose) 1 each IVPB PRN PRN PRN Reason: . Morphine Sulfate (Morphine) 2 mg SLOW IVP Q2H PRN PRN Reason: Mild Pain (1-3) Multivitamins/Minerals (Ocuvite With Lutein) 1 tab PO DAILY [facility] Last Admin: 10/10/18 09:05 Dose: 1 tab Nifedipine (Procardia Xl) 60 mg PO DAILY [facility] Last Admin: 10/10/18 09:04 Dose: 60 mg Ondansetron HCl (Zofran Odt) 4 mg PO Q6H PRN PRN Reason: Nausea/Vomiting Ondansetron HCl (Zofran) 4 mg IVP Q6H PRN PRN Reason: Nausea Polyethylene Glycol (Miralax) 17 gm PO DAILY PRN PRN Reason: Constipation Promethazine HCl (Phenergan) 12.5 mg IM Q4H PRN PRN Reason: Nausea Pyridoxine HCl (Vitamin B 6) 50 mg PO DAILY [facility] Last Admin: 10/10/18 09:03 Dose: 50 mg Saccharomyces Boulardii (Florastor) 250 mg PO DAILY [facility] Last Admin: 10/10/18 09:04 Dose: 250 mg Senna (Senokot) 2 tab PO HSPRN PRN PRN Reason: Constipation Sodium Chloride (Flush - Normal Saline) 10 ml IVF PRN PRN PRN Reason: Saline Flush
[2018-10-10] MEDS: Vancomycin HCl 750 MG in Sodium Chloride 0.9% 250 ML 250 ML IVPB SCH (17:25)
[2018-10-10] MEDS: Famotidine 20 MG TAB PO SCH (21:15)
[2018-10-11] MEDS: Sodium Chloride 0.9% 1,000 ML IV SCH ×2 (03:46→14:15)
[2018-10-11] MEDS: Piperacillin/Tazobactam 3.375 GM in Sodium Chloride 0.9% 100 ML IVPB SCH ×4 (03:46→22:18)
[2018-10-11] MEDS: Levothyroxine 175 MCG TAB PO SCH (06:34)
[2018-10-11 06:38] LABS: Anion Gap 12 mmol/L (10-20); BUN (Urea Nitrogen) 21 mg/dL (8.4-25.7); Calc. Creatinine Clearance 30 mL/min (70-130); Calcium 8.5 mg/dL (7.8-10.44); Carbon Dioxide 19 mmol/L (23-31); Chloride 110 mmol/L (98-107); Estimated GFR-MDRD 25; Glucose 81 mg/dL (83-110); Potassium 3.6 mmol/L (3.5-5.1); Sodium 137 mmol/L (136-145)
[2018-10-11] MEDS: Enoxaparin Sodium 30 MG/0.3 ML SYRINGE SC SCH (09:15)
[2018-10-11] MEDS: Cyanocobalamin (Vitamin B-12) 1,000 MCG TAB PO SCH (09:16)
[2018-10-11] MEDS: Ascorbic Acid 500 mg Chewable Tablet PO SCH (09:16)
[2018-10-11] MEDS: hydrALAZINE 25 MG TAB PO SCH ×3 (09:17→22:17)
[2018-10-11] MEDS: Saccharomyces boulardii 250 MG CAP PO SCH (09:17)
[2018-10-11] MEDS: NIFEdipine XL 60 MG TAB PO SCH (09:17)
[2018-10-11] MEDS: pyridOXINE 50 MG (B6) TAB PO SCH (09:17)
[2018-10-11] MEDS: Vit A,C & E/Lutein/Minerals Tablet PO SCH (09:17)
[2018-10-11] MEDS: HumuLIN 70/30 (300 UNITS/3 ML VIAL) SC SCH ×2 (09:50→17:46)
--- NOTE | 2018-10-11 16:06 | PDOC.PN ---
- Subjective Encounter Start Date: 10/11/18 Encounter Start Time: 12:30 Subjective: pt up in bed no complains - Objective Resuscitation Status - Order Detail: 10/05/18 13:36 Resuscitation Status Routine Resuscitation Status: FULL: Full Resuscitation Discussed with: pt Vital Signs & Weight: Vital Signs (12 hours) Temp Pulse Resp BP BP Pulse Ox 10/11/18 15:52 97.6 F 56 L 16 161/83 H 97 10/11/18 15:48 57 L 171/70 H 10/11/18 10:56 98.0 F 57 L 16 171/70 H 98 10/11/18 09:17 55 L 165/76 H 10/11/18 09:15 96 10/11/18 07:45 98.3 F 55 L 14 165/76 H 96 10/11/18 04:05 98.1 F 58 L 16 158/74 H 96 Weight Admit Weight 200 lb Weight 200 lb I&O: 10/10/18 10/11/18 10/12/18 06:59 06:59 06:59 Intake Total 1980 3150 Output Total 875 625 Balance 1105 2525 Result Diagrams: 10/08/18 05:43 10/11/18 05:44 Additional Labs: Accuchecks 10/11/18 10/11/18 10/11/18 15:56 11:00 05:27 POC Glucose 175 H 137 H 91 10/10/18 10/10/18 20:19 16:01 POC Glucose 125 H 92 Phys Exam - Physical Examination Neck: no nodes, no JVD, supple, full ROM Respiratory: no wheezing, no rales, no rhonchi, wheezing present, clear to auscultation bilateral Cardiovascular: RRR, no significant murmur, no rub, gallop, irregular Gastrointestinal: soft, non-tender, no distention, positive bowel sounds Dx/Plan (1) Diabetic foot infection Code(s): E11.628 - TYPE 2 DIABETES MELLITUS WITH OTHER SKIN COMPLICATIONS; L08.9 - LOCAL INFECTION OF THE SKIN AND SUBCUTANEOUS TISSUE, UNSP Status: Acute Comment: left foot (2) Osteomyelitis Code(s): M86.9 - OSTEOMYELITIS, UNSPECIFIED Status: Acute Qualifiers: Osteomyelitis location: foot Laterality: left Comment: with infective tenosynovitis, s/p surgery 07/13/18, culture starting to grow MRSA so coverage expanded (3) Anemia due to chronic kidney disease treated with erythropoietin Code(s): N18.9 - CHRONIC KIDNEY DISEASE, UNSPECIFIED; D63.1 - ANEMIA IN CHRONIC KIDNEY DISEASE Status: Chronic (4) CKD (chronic kidney disease) stage 4, GFR 15-29 ml/min Code(s): N18.4 - CHRONIC KIDNEY DISEASE, STAGE 4 (SEVERE) Status: Chronic Comment: Dr. Babb following, creatinine improving a bit - Plan final cx pending -: not sure if pt can go home vs swing -: bp and blood sugars are stable * . Review of Systems - Review of Systems Respiratory: negative: Cough, Dry, Shortness of Breath, Hemoptysis, SOB with Excertion, Pleuritic Pain, Sputum, Wheezing Cardiovascular: negative: chest pain, palpitations, orthopnea, paroxysmal nocturnal dyspnea, edema, light headedness, other Gastrointestinal: negative: Nausea, Vomiting, Abdominal Pain, Diarrhea, Constipation, Melena, Hematochezia, Other - Medications/Allergies Allergies/Adverse Reactions: Allergies Allergy/AdvReac Type Severity Reaction Status Date / Time No Known Drug Allergies Allergy Verified 10/05/18 14:23 Medications: Current Medications Hydrocodone Bitart/Acetaminophen ([place] 10/325) 2 tab PO Q6H PRN PRN Reason: Severe Pain (7-10) Hydrocodone Bitart/Acetaminophen ([place] 10/325) 1 tab PO Q6H PRN PRN Reason: Mild-Moderate Pain (1-5) Albuterol/Ipratropium (Duoneb) 3 ml NEB Q4H PRN PRN Reason: Wheezing Ascorbic Acid (Vitamin C) 1,000 mg PO DAILY [facility] Last Admin: 10/11/18 09:16 Dose: 1,000 mg Cholecalciferol (Vitamin D3) 2,000 units PO DAILY [facility] Last Admin: 10/11/18 09:17 Dose: 2,000 units Cyanocobalamin (Vitamin B-12) 1,000 mcg PO DAILY [facility] Last Admin: 10/11/18 09:16 Dose: 1,000 mcg Dextrose/Water (Dextrose 50%) 25 gm SLOW IVP PRN PRN PRN Reason: Hypoglycemia Enoxaparin Sodium (Lovenox) 30 mg SC 0900 [facility] Last Admin: 10/11/18 09:15 Dose: 30 mg Famotidine (Pepcid) 20 mg PO QPM [facility] Last Admin: 10/10/18 21:15 Dose: 20 mg Glucagon (Glucagon) 1 mg IM PRN PRN PRN Reason: Hypoglycemia Hydralazine HCl (Apresoline) 10 mg SLOW IVP Q6H PRN PRN Reason: SBP > 150 Last Admin: 10/09/18 09:00 Dose: 10 mg Hydralazine HCl (Apresoline) 50 mg PO TID [facility] Last Admin: 10/11/18 15:48 Dose: 50 mg Dextrose/Water (D5w) 1,000 mls @ 0 mls/hr IV .Q0M PRN PRN Reason: Hypoglycemia Piperacillin Sod/Tazobactam (Sod 3.375 gm/ Sodium Chloride) 100 mls @ 200 mls/ hr IVPB 0400,1000,1600,2200 [facility] Last Admin: 10/11/18 15:49 Dose: 100 mls Sodium Chloride (Normal Saline 0.9%) 1,000 mls @ 75 mls/hr IV .[id number] [facility] Last Admin: 10/11/18 14:15 Dose: Not Given Vancomycin HCl 750 mg/ Sodium (Chloride) 250 mls @ 250 mls/hr IVPB 1700 [facility] Last Admin: 10/10/18 17:25 Dose: 250 mls Insulin Human Isoph/Insulin Regular (Humulin 70/30) 35 units SC BID-WM [facility] Last Admin: 10/11/18 09:50 Dose: 35 units Insulin Human Lispro (Humalog) 0 units SC .MODERATE SLIDING SC PRN PRN Reason: Moderate Correctional Scale Last Admin: 10/09/18 21:15 Dose: 2 unit Levothyroxine Sodium (Synthroid) 175 mcg PO 0600 [facility] Last Admin: 10/11/18 06:34 Dose: 175 mcg Miscellaneous Medication (Pharmacy To Dose) 1 each IVPB PRN PRN PRN Reason: . Morphine Sulfate (Morphine) 2 mg SLOW IVP Q2H PRN PRN Reason: Mild Pain (1-3) Multivitamins/Minerals (Ocuvite With Lutein) 1 tab PO DAILY [facility] Last Admin: 10/11/18 09:17 Dose: 1 tab Nifedipine (Procardia Xl) 60 mg PO DAILY [facility] Last Admin: 10/11/18 09:17 Dose: 60 mg Ondansetron HCl (Zofran Odt) 4 mg PO Q6H PRN PRN Reason: Nausea/Vomiting Ondansetron HCl (Zofran) 4 mg IVP Q6H PRN PRN Reason: Nausea Polyethylene Glycol (Miralax) 17 gm PO DAILY PRN PRN Reason: Constipation Promethazine HCl (Phenergan) 12.5 mg IM Q4H PRN PRN Reason: Nausea Pyridoxine HCl (Vitamin B 6) 50 mg PO DAILY [facility] Last Admin: 10/11/18 09:17 Dose: 50 mg Saccharomyces Boulardii (Florastor) 250 mg PO DAILY [facility] Last Admin: 10/11/18 09:17 Dose: 250 mg Senna (Senokot) 2 tab PO HSPRN PRN PRN Reason: Constipation Sodium Chloride (Flush - Normal Saline) 10 ml IVF PRN PRN PRN Reason: Saline Flush
[2018-10-11] MEDS: HumaLOG 300 UNITS/3 ML VIAL SC PRN (16:27)
[2018-10-11] MEDS: Vancomycin HCl 750 MG in Sodium Chloride 0.9% 250 ML 250 ML IVPB SCH (16:28)
[2018-10-11] MEDS: Famotidine 20 MG TAB PO SCH (22:18)
[2018-10-12] MEDS: Piperacillin/Tazobactam 3.375 GM in Sodium Chloride 0.9% 100 ML IVPB SCH ×2 (04:48→09:20)
[2018-10-12] MEDS: Levothyroxine 175 MCG TAB PO SCH (04:49)
[2018-10-12] MEDS: Sodium Chloride 0.9% 1,000 ML IV SCH (07:55)
[2018-10-12] MEDS: Enoxaparin Sodium 30 MG/0.3 ML SYRINGE SC SCH (09:20)
[2018-10-12] MEDS: Ascorbic Acid 500 mg Chewable Tablet PO SCH (09:21)
[2018-10-12] MEDS: Vit A,C & E/Lutein/Minerals Tablet PO SCH (09:21)
[2018-10-12] MEDS: hydrALAZINE 25 MG TAB PO SCH ×2 (09:22→15:41)
[2018-10-12] MEDS: Saccharomyces boulardii 250 MG CAP PO SCH (09:22)
[2018-10-12] MEDS: Cyanocobalamin (Vitamin B-12) 1,000 MCG TAB PO SCH (09:22)
[2018-10-12] MEDS: NIFEdipine XL 60 MG TAB PO SCH (09:22)
[2018-10-12] MEDS: pyridOXINE 50 MG (B6) TAB PO SCH (09:22)
[2018-10-12] MEDS: HumuLIN 70/30 (300 UNITS/3 ML VIAL) SC SCH ×2 (09:23→18:39)
--- NOTE | 2018-10-12 10:55 | PDOC.GSPN ---
Surgery Progress Note: Subj - Subjective Narrative: Patient feels good. No pain. No fevers. Inspected wintering VAC change today with wound care team. There is a good bed of granulation tissue and the bone is covered. Irrigating VAC was changed to a regular VAC. He is ready for transfer to [facility] and I have discussed his transfer with the accepting physician. Dr. Tam is managing the antibiotics. Surgery Progress Note: Obj - Vital signs Vital signs: Vital Signs - Most Recent Temp Pulse Resp BP Pulse Ox 98.3 F 57 L 16 157/69 H 96 10/12/18 08:05 10/12/18 08:05 10/12/18 08:05 10/12/18 08:05 10/12/18 08:05 Surgery Progress Note: Results - Labs Result Diagrams: 10/08/18 05:43 10/11/18 05:44 Lab results: Laboratory Results - last 24 hr 10/11/18 10/12/18 10/12/18 21:12 06:00 06:33 POC Glucose 156 H 54 L* 92
[2018-10-12] MEDS ORDERED: Piperacillin/Tazobactam 2.25 GM in Sodium Chloride 0.9% 100 ML IVPB SCH (16:00)
[2018-10-12 16:21] LABS: Vancomycin, Trough 24.4 ug/mL
[2018-10-12 16:22] VITALS: BP 158/70; TEMP 97.5
[2018-10-13] MEDS ORDERED: Vancomycin HCl 1 GM in Premix Bag 1 BAG IVPB SCH (09:00)
--- NOTE | 2018-10-14 05:48 | PQF ---
[employer] Crystal Reports Winform Viewer SHARON JAEGER KIMIYE MD [id number] [facility] [id number] CLINICAL DOCUMENTATION CLARIFICATION FORM: POST DISCHARGE Addendum to original discharge summary date: ____ Late entry note date: __ DATE:10-13-18 ATTN: Dr. Federico Mackay Please exercise your independent, professional judgment in responding to the clarification form. Clinical indicators are provided on the bottom of this form for your review Can you please specify the type of debridement of bones. Please check appropriate box(s): [ ] Excisional Debridement: [ ] Excised [ ] Cut away [ ] Other: [ ] Non-excisional Debridement: (Removal by flushing, brushing, chemical, or washing) [ ] Incision and Drainage only (No Debridement): [ ] Other procedure diagnosis please specify: [ ] Unable to determine For continuity of documentation, please document condition throughout progress notes and discharge summary. Thank You. CLINICAL INDICATORS: Op Note / pg1 Dr. Caballero Procedure: Left foot incision and debridement of soft tissue and bone Op Note 10/[address] Caballero Postoperative Diagnosis: Osteomyelitis of the left foot Op Note 07/ pg1 Dr. Caballero recently had increased drainage and the wound opened back up and there was eroded bone in the base of the wound Op Note 10/[address] Caballero return to the operating room for repeat debridement since the patient refuses below knee amputation Op Note 10/[address] Caballero The previous incision was reopened and dissection carried down to the eroded bone which was debridement back to healthy cancellous bone. Op Note 10/[address] Caballero The second and third metatarsals were debrided down to near their base Op Note 07/ pg1 Dr. Caballero Specimen is bone chips for bone culture. RISK FACTORS: H&P-Debridement of left foot 07/13/18 H&P-Osteomyelitis of the left foot Consult-Diabetes Mellitus Consult-CKD 4 Consult- Former Smoker Consult- Hypertension Consult- Peripheral vascular disease TREATMENTS: Op Note 10/05- Left foot incision and debridement of soft tissue and bone MAR 10/05- Zosyn IV 3.375 gm - Vancomycin Hcl 1.5 gm IV (This form is maintained as a part of the permanent medical record) 2014 [employer]. All Rights Reserved [email or web address] [not provided] MTDD
== END 2018-10-12 19:49 | disposition short-term general hospital (02) | DRG 982 ==
LOC: SURG A 10-05 09:16 → SJJU 10-05 14:07
PROVIDERS: ADMIT Surgery; ATTEND Surgery
PROC: 30233N1 Transfusion of Nonautologous Red Blood Cells into Peripheral Vein, Percutaneous Approach (ICD-10-PCS; principal; 2018-10-05)
PROC: 0QDP0ZZ Extraction of Left Metatarsal, Open Approach (ICD-10-PCS; 2018-10-05)
DX: E11.69 Type 2 diabetes mellitus with other specified complication (principal); M86.172 Other acute osteomyelitis, left ankle and foot; E87.1 Hypo-osmolality and hyponatremia; L97.509 Non-pressure chronic ulcer of other part of unspecified foot with unspecified severity; N18.4 Chronic kidney disease, stage 4 (severe); I12.9 Hypertensive chronic kidney disease with stage 1 through stage 4 chronic kidney disease, or unspecified chronic kidney disease; D63.1 Anemia in chronic kidney disease; E03.9 Hypothyroidism, unspecified; E11.42 Type 2 diabetes mellitus with diabetic polyneuropathy; E11.22 Type 2 diabetes mellitus with diabetic chronic kidney disease; E11.51 Type 2 diabetes mellitus with diabetic peripheral angiopathy without gangrene; E87.5 Hyperkalemia; Z79.899 Other long term (current) drug therapy; Z89.432 Acquired absence of left foot; Z89.431 Acquired absence of right foot; Z90.49 Acquired absence of other specified parts of digestive tract; Z79.4 Long term (current) use of insulin; Z79.2 Long term (current) use of antibiotics
CPT/HCPCS: 36415; 36416; 36430; 80048; 80069; 80202; 83735; 85025; 86850; 86900; 86901; 87070; 87076; 87205; 87324; 87449; 93005; 93010; 99213; G0463; J0360; J1650; J1815; J2001; J2270; J2543; J2704; J3010; J3370; J3490; J7050; P9016

== ENCOUNTER 2018-12-15 10:08 | Inpatient (IN) | payer MEDICARE, OTHER ==
[2018-12-14 17:07] VITALS: BMI 27.8
[2018-12-15] MEDS ORDERED: Fentanyl 100 MCG/2 ML VIAL ONE (11:37)
[2018-12-15 11:42] LABS: #Eosinphils 0.3 thou/uL (0.0-0.7); #Lymphocytes 1.5 thou/uL (1.20-3.40); #Monocytes 0.5 thou/uL (0.11-0.59); #Neutrophils 4.1 thou/uL (1.40-6.50); %Basophils 0.3 % (0.0-1.0); %Eosinophils 4.1 % (0.0-10.0); %Lymphocytes 23.3 % (21.0-51.0); %Monocytes 8.2 % (0.0-10.0); %Neutrophils 64.1 % (42.0-75.0); Hemoglobin 9.5 g/dL (14.0-18.0); Mean Corpuscular HGB CONC 34.2 g/dL (32.0-36.0); Mean Corpuscular Hemoglobin 30.5 pg (27.0-31.0); Mean Platelet Volume 7.1 fL (7.4-10.4); Platelet Count 185 thou/uL (130-400); RBC Distribution Width 14.1 % (11.5-14.5); Red Blood Cell (RBC) Count 3.11 mill/uL (4.70-6.10); White Blood Cell (WBC) Count 6.4 thou/uL (4.8-10.8)
[2018-12-15 12:03] LABS: Anion Gap 13 mmol/L (10-20); BUN (Urea Nitrogen) 29 mg/dL (8.4-25.7); Calc. Creatinine Clearance 28 mL/min (70-130); Calcium 9.3 mg/dL (7.8-10.44); Carbon Dioxide 22 mmol/L (23-31); Chloride 107 mmol/L (98-107); Estimated GFR-MDRD 22; Glucose 145 mg/dL (83-110); Potassium 4.9 mmol/L (3.5-5.1); Sodium 137 mmol/L (136-145)
[2018-12-15] MEDS ORDERED: PROPOFOL 200 MG/20 ML VIAL ONE (13:29)
[2018-12-15] MEDS ORDERED: Lidocaine 1% PF 5 ML VIAL ONE (13:29)
[2018-12-15] MEDS ORDERED: Ondansetron PF 4 MG/2 ML Vial ONE (13:29)
[2018-12-15] MEDS ORDERED: HYDROcodone/Acetaminophen 5/325 mg Tablet PO PRN (14:41)
[2018-12-15] MEDS ORDERED: Dextrose 50% Abboject 50 ML SYRINGE SLOW IVP PRN (17:07)
[2018-12-15] MEDS ORDERED: hydrALAZINE 20 MG/ML VIAL SLOW IVP PRN (17:07)
[2018-12-15] MEDS ORDERED: Dextrose 5% in Water 1,000 ML IV PRN (17:07)
[2018-12-15] MEDS ORDERED: HumaLOG 300 UNITS/3 ML VIAL SC PRN (17:07)
--- NOTE | 2018-12-15 18:52 | CON ---
DATE OF CONSULTATION: PRIMARY CARE PROVIDER: Dr. Abraham. CHIEF COMPLAINT: Management of medical comorbidities. HISTORY OF PRESENT ILLNESS: Mr. Park is a pleasant 78-year-old gentleman who was seen at [facility] on December 15, 2018. He was hospitalized here from October 05 to October 12 of this year for osteomyelitis of the left foot. He underwent left foot incision and debridement of soft tissue and bone who was seen at [facility] on December 15, 2018. He was hospitalized at this facility from October 05 to of this year for osteomyelitis of the left foot. He underwent left foot incision and debridement of soft tissue and bone on October 05, 2018. He required wound VAC and long-term IV antibiotics and was discharged to swing bed at [place]. He reports that he was seen by Surgical Service in the office yesterday. He reports that the wound had initially improved, but is now open, with a pinkish colored discharge. He denies any fevers or chills. He was advised by Surgical service to have procedures on the left foot. He underwent debridement of the left foot wound and was admitted to the hospital. He denies any chest pain or shortness of breath. He denies any nausea, vomiting, diarrhea, or abdominal pain. Recurrent osteomyelitis of the left foot requiring incision and drainage and wound VAC. Swing bed at [place] for further management. He reports that his wound initially improved, but is now open, with pinkish discharge. He denies any fevers or chills. He denies any diarrhea. He was seen by Surgical Service in office yesterday. He was taken to the operating room today for left foot wound debridement and is now admitted to the hospital. REVIEW OF SYSTEMS: All systems were reviewed and found to be negative except for the pertinent positives mentioned above. PAST MEDICAL HISTORY: Recurrent osteomyelitis of left foot, diabetes mellitus type 2, diabetic peripheral neuropathy, chronic kidney disease, stage 4, peripheral vascular disease, hypertension, dyslipidemia, hypothyroidism, deconditioning, anemia of chronic disease. 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 First metatarsal and 2nd toe amputation on the left. Repeat incision and debridement of the left foot in 2019, cholecystectomy, and Olson catheter placement. SOCIAL HISTORY: The patient denies tobacco use. He reports occasional alcohol use. He denies any recreational drug use. ALLERGIES: NO KNOWN DRUG ALLERGIES. CURRENT MEDICATIONS: 1. Vitamin C 1000 mg daily. 2. Vitamin D3 2000 units daily. 3. Vitamin B12 1000 mcg daily. 4. Levothyroxine 175 mcg daily. 5. Vitamin B6 50 mg daily. 6. Humulin 70/30, 20 units in the evening and 35 units in the morning. FAMILY HISTORY: He denies any family history of premature coronary artery disease. PHYSICAL EXAMINATION: GENERAL: On examination, Mr. Park is awake and alert, not in acute distress. VITAL SIGNS: Blood pressure is 137/62, pulse is 52, respiratory rate 18, and oxygen saturation 100% on room air. He is afebrile. EYES: No scleral icterus, no conjunctival pallor. ENT: Moist mucosal membranes. No oropharyngeal erythema or exudates. NECK: Supple, nontender. Trachea is midline. RESPIRATORY: Accessory muscles of breathing are not active. Chest wall movements are symmetric bilaterally. Lungs are clear to auscultation without wheeze, rhonchi, or crepitations. CARDIOVASCULAR: S1 and S2 are heard, regular. Peripheral pulses palpable. ABDOMEN: Soft, nontender, bowel sounds heard. NEUROLOGIC: Cranial nerves 2 through 12 are intact. MUSCULOSKELETAL: The patient is moving all 4 extremities. SKIN: The patient has a wound VAC over the left foot. LYMPHATIC: No cervical lymphadenopathy. PSYCHIATRIC: Normal mood, normal affect, patient is oriented to person, place, and time. LABORATORY DATA: Mr. Park's labs and investigations were reviewed. He has normal white count, normocytic anemia with hemoglobin 9.5, normal platelet count, normal sodium, normal potassium, elevated blood urea nitrogen of 29, elevated creatinine of 2.80, last known creatinine 3.60 on November 16, 2018. Calcium is normal. ASSESSMENT AND PLAN: Mr. Park is a pleasant 78-year-old gentleman who was seen at [facility] on December 15, 2018. His problem list includes: 1. Diabetes mellitus type 2: Resume his Lantus dose as at home, start Accu-Cheks and insulin sliding scale. 2. Chronic kidney disease stage 4: This appears to be stable. 3. Hypertension: Vital signs are stable at this time. 4. Hypothyroidism: Continue levothyroxine. Many thanks for allowing me to participate in your patient's care. Please feel free to contact me with any questions or concerns. LEVEL OF RISK: Moderate. LEVEL OF COMPLEXITY: Moderate. Job ID: [id number]
[2018-12-15] MEDS: HumuLIN 70/30 (300 UNITS/3 ML VIAL) SC SCH (20:25)
[2018-12-15] MEDS: Heparin 5,000 UNITS/ML VIAL SC SCH (20:25)
[2018-12-16] MEDS: Levothyroxine 175 MCG TAB PO SCH (05:36)
[2018-12-16] MEDS: Ascorbic Acid 500 mg Chewable Tablet PO SCH (08:38)
[2018-12-16] MEDS: HumuLIN 70/30 (300 UNITS/3 ML VIAL) SC SCH ×2 (08:39→21:31)
[2018-12-16] MEDS: pyridOXINE 50 MG (B6) TAB PO SCH (08:39)
[2018-12-16] MEDS: Heparin 5,000 UNITS/ML VIAL SC SCH ×2 (08:39→20:24)
[2018-12-16] MEDS: Cyanocobalamin (Vitamin B-12) 1,000 MCG TAB PO SCH (08:39)
[2018-12-16] MEDS ORDERED: Non-Formulary Item 1 EACH (Cholecalciferol (Vitamin D3) [D3-2000] 2,000 UNIT) PO SCH (09:00)
[2018-12-16] MEDS ORDERED: Non-Formulary Item 1 EACH (Ascorbic Acid [C-1000] 1,000 MG) PO SCH (09:00)
[2018-12-16] MEDS ORDERED: Cyanocobalamin (Vitamin B-12) 1,000 MCG TAB PO SCH (09:00)
[2018-12-16 09:11] LABS: #Eosinphils 0.3 thou/uL (0.0-0.7); #Lymphocytes 1.5 thou/uL (1.20-3.40); #Monocytes 0.3 thou/uL (0.11-0.59); #Neutrophils 3.4 thou/uL (1.40-6.50); %Basophils 0.3 % (0.0-1.0); %Eosinophils 4.9 % (0.0-10.0); %Lymphocytes 27.3 % (21.0-51.0); %Neutrophils 61.5 % (42.0-75.0); Hemoglobin 9.3 g/dL (14.0-18.0); Mean Corpuscular HGB CONC 34.7 g/dL (32.0-36.0); Mean Corpuscular Hemoglobin 30.9 pg (27.0-31.0); Mean Corpuscular Volume 88.9 fL (78.0-98.0); Mean Platelet Volume 7.2 fL (7.4-10.4); Platelet Count 187 thou/uL (130-400); Red Blood Cell (RBC) Count 3.01 mill/uL (4.70-6.10); White Blood Cell (WBC) Count 5.5 thou/uL (4.8-10.8)
[2018-12-16 09:26] LABS: Anion Gap 11 mmol/L (10-20); BUN (Urea Nitrogen) 29 mg/dL (8.4-25.7); Calc. Creatinine Clearance 28 mL/min (70-130); Carbon Dioxide 24 mmol/L (23-31); Chloride 106 mmol/L (98-107); Estimated GFR-MDRD 22; Glucose 130 mg/dL (83-110); Potassium 5.1 mmol/L (3.5-5.1); Sodium 136 mmol/L (136-145)
[2018-12-16] MEDS: HumaLOG 300 UNITS/3 ML VIAL SC PRN ×2 (11:12→21:15)
--- NOTE | 2018-12-16 13:19 | PDOC.HOSPP ---
- Subjective Encounter Date: 12/16/18 Encounter Time: 08:00 Subjective: Pt seen for followup re: DM2. Feels better, no complaints. - Objective Vital Signs & Weight: Vital Signs (12 hours) Temp Pulse Resp BP Pulse Ox 12/16/18 11:00 98.5 F 56 L 14 131/55 L 98 12/16/18 08:35 97 12/16/18 07:42 98.8 F 54 L 18 149/69 H 97 12/16/18 03:43 98.9 F 60 16 142/76 H 97 Weight Admit Weight 205 lb Weight 205 lb I&O: 12/15/18 12/16/18 12/17/18 06:59 06:59 06:59 Intake Total 300 600 Output Total 1600 Balance -1300 600 Result Diagrams: 12/16/18 08:47 12/16/18 08:47 Additional Labs: Accuchecks 12/16/18 12/16/18 12/15/18 10:53 05:28 20:03 POC Glucose 192 H 120 H 211 H 12/15/18 16:14 POC Glucose 146 H Labs and MARs reviewed by ny Hospitalist ROS - Review of Systems Cardiovascular: denies: chest pain, palpitations, orthopnea, paroxysmal noc. dyspnea, edema, light headedness Gastrointestinal: denies: nausea, vomiting, abdominal pain, diarrhea, constipation, melena, hematochezia - Medication Medications: Active Medications Generic Name Dose Route Start Last Admin Trade Name Freq PRN Reason Stop Dose Admin Ascorbic Acid 1,000 mg 12/16/18 09:00 12/16/18 08:38 Vitamin C PO 1,000 mg DAILY SUHAS Administration Cholecalciferol 2,000 units 12/16/18 09:00 12/16/18 08:38 Vitamin D3 PO 2,000 units DAILY SUHAS Administration Cyanocobalamin 1,000 mcg 12/16/18 09:00 12/16/18 08:39 Vitamin B-12 PO 1,000 mcg DAILY SUHAS Administration Heparin Sodium (Porcine) 5,000 units 12/15/18 21:00 12/16/18 08:39 Heparin SC 5,000 units BID SUHAS Administration Insulin Human Isoph/Insulin Regular 20 units 12/15/18 21:00 12/15/18 20:25 Humulin 70/30 SC 20 unit QPM SUHAS Administration Insulin Human Isoph/Insulin Regular 35 units 12/16/18 09:00 12/16/18 08:39 Humulin 70/30 SC 35 units QAM SUHAS Administration Insulin Human Lispro 0 units 12/16/18 08:49 12/16/18 11:12 Humalog SC 2 units .MODERATE SLIDING SC PRN Administration Moderate Correctional Scale Levothyroxine Sodium 175 mcg 12/16/18 06:00 12/16/18 05:36 Synthroid PO 175 mcg 0600 SUHAS Administration Pyridoxine HCl 50 mg 12/16/18 09:00 12/16/18 08:39 Vitamin B 6 PO 50 mg DAILY SUHAS Administration - Exam General Appearance: NAD Eye: anicteric sclera ENT: moist mucosa Neck: supple Heart: RRR Respiratory: CTAB Gastrointestinal: soft, non-tender Extremities - other findings: L foot dressing Neurological: no weakness Psychiatric: normal affect, normal behavior Hosp A/P (1) DM type 2 (diabetes mellitus, type 2) Status: Chronic (2) Hypothyroidism Code(s): E03.9 - HYPOTHYROIDISM, UNSPECIFIED Status: Chronic Qualifiers: (3) CKD (chronic kidney disease) stage 4, GFR 15-29 ml/min Code(s): N18.4 - CHRONIC KIDNEY DISEASE, STAGE 4 (SEVERE) Status: Chronic - Plan PT/OT, out of bed/ambulate Blood sugars high, switch to moderate insulin sliding scale. Continue thyroid replacement. CKD Stage 4 stable. s/p L foot wound debridement yesterday.
--- NOTE | 2018-12-16 20:27 | PDOC.GSPN ---
Surgery Progress Note: Subj - Subjective Narrative: Doing well. Walking with physical therapy using his heel for balance. VAC is in place with minimal drainage. Afebrile with normal vital signs. Case management is working on placement options. Continue with VAC and IV antibiotics. Still awaiting ID recommendations on antibiotics so we'll continue based on old culture results. Gram-negative rods on Gram stain, ID and sensitivity still pending. Surgery Progress Note: Obj - Vital signs Vital signs: Vital Signs - Most Recent Temp Pulse Resp BP Pulse Ox 97.8 F 54 L 16 153/71 H 98 12/16/18 20:00 12/16/18 20:00 12/16/18 20:00 12/16/18 20:00 12/16/18 20:00 Surgery Progress Note: Results - Labs Result Diagrams: 12/16/18 08:47 12/16/18 08:47 Lab results: Laboratory Results - last 24 hr 12/16/18 12/16/18 12/16/18 08:47 08:47 10:53 WBC 5.5 RBC 3.01 L Hgb 9.3 L Hct 26.8 L MCV 88.9 MCH 30.9 MCHC 34.7 RDW 14.0 Plt Count 187 MPV 7.2 L Neutrophils % 61.5 Lymphocytes % 27.3 Monocytes % 6.0 Eosinophils % 4.9 Basophils % 0.3 Neutrophils # 3.4 Lymphocytes # 1.5 Monocytes # 0.3 Eosinophils # 0.3 Basophils # 0.0 Sodium 136 Potassium 5.1 Chloride 106 Carbon Dioxide 24 Anion Gap 11 BUN 29 H Creatinine 2.78 H Estimated GFR (MDRD) 22 Glucose 130 H POC Glucose 192 H Calcium 9.0 12/16/18 15:37 WBC RBC Hgb Hct MCV MCH MCHC RDW Plt Count MPV Neutrophils % Lymphocytes % Monocytes % Eosinophils % Basophils % Neutrophils # Lymphocytes # Monocytes # Eosinophils # Basophils # Sodium Potassium Chloride Carbon Dioxide Anion Gap BUN Creatinine Estimated GFR (MDRD) Glucose POC Glucose 77 Calcium
[2018-12-16] MEDS ORDERED: Vancomycin HCl 1 GM in Premix Bag 1 BAG IVPB SCH (21:00)
--- NOTE | 2018-12-16 21:14 | CON ---
DATE OF CONSULTATION: HISTORY OF PRESENT ILLNESS: This is a followup note to Mr. Park. He has a number of issues that we have discussed previously in previous consultations. The last time I saw him was in October this year when he presented with a history of type 2 diabetes, neuropathy, peripheral vascular disease, and prior transmetatarsal amputations right and left sides, and in November 20, he had an amputation of the right first and second toes and almost complete resection of the right first metatarsal. Subsequent inflammatory changes in the left foot developed in the middle to forefoot region with necrotic skin over transmetatarsal amputation site, which was excised. He was treated with oral Zyvox and Flagyl for a short period of time. In July 22, he was admitted with inflammatory process around the left foot region in lateral aspect and had a fourth metatarsal revision of the amputation about 1 cm taken out. The MRI showed extension of the osteomyelitis for about 1 cm of the metatarsal segment. Arterial duplex ultrasound then showed significant arterial insufficiency. He is not eligible for any attempted revascularization because of his GFR in the 20 range, possible precipitation of end-stage renal disease. This last time, the microbiology of the site identified Peptostreptococcus sha, Enterococcus, and three other gram-negatives including Pseudomonas aeruginosa. The Pseudomonas is a fairly broad susceptibility profile including quinolones. The Enterococcus is broadly susceptible as well. The other 2 gram-negative rods were not susceptibility tested. The patient received protracted IV antimicrobial therapy in [place], I believe with the Zosyn, and he completed about 6 weeks of therapy. He was discharged on November [address] Wu Abraham. The inflammatory markers returned to normal range. Unfortunately, on followup with Dr. Caballero, there was obvious dehiscence of the wound with some inflammatory process noticeable. The patient declined BK amputation and was readmitted, had a revision of the site by Dr. Caballero. The operative report is not yet available for review. Currently, Mr. Park is standing up in the room. He denies any headaches. No visual symptoms, sore throat, odynophagia, or dysphagia. No dyspnea or chest pain. No cough. No abdominal pain or diarrhea. Voiding without difficulty. Minimal pain in the left foot, almost none in view of neuropathy. PAST MEDICAL HISTORY: Type 2 diabetes, peripheral vascular disease, CKD stage 4 to 5, prior multiple transmetatarsal amputations, osteomyelitis, protracted IV antimicrobial therapy placement; PICC line catheter placement, still in place at this time; cholecystectomy, hypothyroidism. ALLERGIES: NONE. SOCIAL HISTORY: Lives in [place]. Never smoker. FAMILY HISTORY: Noncontributory. CURRENT MEDICATIONS: 1. [place]. 2. Vitamin C. 3. Dextrose. 4. Glucagon. 5. Heparin. 6. Apresoline. 7. Insulin. 8. Synthroid. PHYSICAL EXAMINATION: VITAL SIGNS: T-max 98.9, BP 130/50, pulse 56, respirations 14, O2 saturation 98. SKIN: Shows the fresh area of wound in the lateral forefoot at the transmetatarsal amputation site. Right now, he has the area dressed. There is negative pressure dressing in place. No lymphadenopathy. HEENT: Ocular movements conjugate. The patient has no venetie teeth remaining in place. NECK: Supple. No jugular vein distention. LUNGS: Symmetric clear breath sounds. HEART: S1 and S2 regular rate with a soft aortic murmur. No S3. ABDOMEN: Soft, not distended or tender. No ascites. No bladder distention. GENITAL: Normal. EXTREMITIES: Pulses are diminished in dorsalis pedis and faintly palpable in popliteals. NEUROLOGIC: His cognitive function appears to be intact and he has nonfocal neuro examination. LABORATORY DATA: White cell count 6.4, hemoglobin 9.5, platelets 185. Creatinine is at 2.78. ASSESSMENT AND DISCUSSION: Type 2 diabetes, peripheral vascular disease, refractory process left foot transmetatarsal amputation site with breakdown of the lateral forefoot amputation site. Repeat I and D. Cultures and negative pressure dressing. We will set up treatment again through the Olson catheter probably now in [place], once we have the final identification and susceptibility profile of the organism, probably with meropenem this time, but we will wait on the final identification and susceptibility profile again. Job ID: [id number]
[2018-12-16] MEDS: Piperacillin/Tazobactam 3.375 GM in Sodium Chloride 0.9% 100 ML IVPB SCH (23:10)
[2018-12-17] MEDS: Piperacillin/Tazobactam 3.375 GM in Sodium Chloride 0.9% 100 ML IVPB SCH ×4 (05:18→23:06)
[2018-12-17] MEDS: Levothyroxine 175 MCG TAB PO SCH (05:19)
[2018-12-17] MEDS: HumaLOG 300 UNITS/3 ML VIAL SC PRN ×2 (05:19→12:38)
[2018-12-17] MEDS: pyridOXINE 50 MG (B6) TAB PO SCH (08:43)
[2018-12-17] MEDS: Cyanocobalamin (Vitamin B-12) 1,000 MCG TAB PO SCH (08:44)
[2018-12-17] MEDS: Heparin 5,000 UNITS/ML VIAL SC SCH ×2 (08:44→20:20)
[2018-12-17] MEDS: Ascorbic Acid 500 mg Chewable Tablet PO SCH (08:44)
[2018-12-17] MEDS: HumuLIN 70/30 (300 UNITS/3 ML VIAL) SC SCH ×2 (08:46→20:20)
--- NOTE | 2018-12-17 11:05 | PDOC.OP ---
Operative Note - Operative Note Operative Note: PROCEDURE: Debridement of left foot wound, skin, subcutaneous tissue, and bone SURGEON: Thompson Caballero M.D. DATE: 12/15/2018 PREOPERATIVE DIAGNOSIS: Recurrent osteomyelitis POSTOPERATIVE DIAGNOSIS: Recurrent osteomyelitis HISTORY: Patient is a 78-year-old diabetic with severe neuropathy and a plantar wound which has undergone debridement in the past. This had almost healed but underwent significant regression after discontinuation of IV antibiotics and VAC wound dressing, and on examination in clinic yesterday had exposed bone in the base of the wound. Recommendation was made to proceed with left below-knee amputation but the patient is not willing to undergo amputation, so repeat debridement was recommended. PROCEDURE IN DETAIL: After informed consent was obtained, the patient was taken to the operating room where he was placed in supine position and anesthesia administered. He was prepped and draped in the standard sterile fashion and the macerated unhealthy skin excised around the edge of the wound. Some nonviable tissue in the base of the wound was also debrided. The exposed eroded bone was then rongeured back to healthy-appearing bone. This appeared to be the fourth metatarsal bone which was exposed. The third metatarsal bone was palpable under some granulation tissue along the medial edge of the wound but was not exposed. Bone chips were sent of the healthy-appearing bone in the base of the wound after debridement was completed. The wound was irrigated and hemostasis verified. The wound care team placed a VAC dressing and the patient was taken to recovery in stable condition. Estimated blood loss was minimal. There are no complications. Specimens are bone chips for Gram stain and culture.
--- NOTE | 2018-12-17 14:19 | PRG ---
DATE OF SERVICE: 12/17/2018 SUBJECTIVE: The patient is 1 day status post debridement of diabetic foot ulcer. Feels fine. No pain. It was for osteomyelitis. OBJECTIVE: On exam, temperature 98.5, pulse 55, blood pressure 160/75. Dressing is dry. There is nothing out in the wound VAC. LABORATORY DATA: His white count is 5.5, hemoglobin 9, and hematocrit 26. He looks good. ASSESSMENT: Osteomyelitis. PLAN: IV antibiotics per Dr. Tam. Job ID: [id number]
--- NOTE | 2018-12-17 15:28 | PDOC.HOSPP ---
- Subjective Encounter Date: 12/17/18 Encounter Time: 08:00 Subjective: Pt seen for followup re: DM2. Feels well, no complaints. - Objective Vital Signs & Weight: Vital Signs (12 hours) Temp Pulse Resp BP Pulse Ox 12/17/18 11:07 98.5 F 55 L 16 160/75 H 99 12/17/18 08:45 98 12/17/18 08:07 98.4 F 56 L 16 145/71 H 98 12/17/18 03:58 98.8 F 58 L 16 143/72 H 98 Weight Admit Weight 205 lb Weight 205 lb I&O: 12/16/18 12/17/18 12/18/18 06:59 06:59 06:59 Intake Total 300 900 Output Total 1600 950 Balance -1300 -50 Result Diagrams: 12/16/18 08:47 12/16/18 08:47 Additional Labs: Accuchecks 12/17/18 12/17/18 12/16/18 11:12 05:21 20:33 POC Glucose 237 H 267 H 160 H 12/16/18 15:37 POC Glucose 77 Labs and MARs reviewed by la Hospitalist ROS - Review of Systems Cardiovascular: denies: chest pain, palpitations, orthopnea, paroxysmal noc. dyspnea, edema, light headedness Gastrointestinal: denies: nausea, vomiting, abdominal pain, diarrhea, constipation, melena, hematochezia - Medication Medications: Active Medications Generic Name Dose Route Start Last Admin Trade Name Freq PRN Reason Stop Dose Admin Ascorbic Acid 1,000 mg 12/16/18 09:00 12/17/18 08:44 Vitamin C PO 1,000 mg DAILY SUHAS Administration Cholecalciferol 2,000 units 12/16/18 09:00 12/17/18 08:43 Vitamin D3 PO 2,000 units DAILY SUHAS Administration Cyanocobalamin 1,000 mcg 12/16/18 09:00 12/17/18 08:44 Vitamin B-12 PO 1,000 mcg DAILY SUHAS Administration Heparin Sodium (Porcine) 5,000 units 12/15/18 21:00 12/17/18 08:44 Heparin SC 5,000 units BID SUHAS Administration Piperacillin Sod/Tazobactam 100 mls @ 200 mls/hr 12/16/18 23:59 12/17/18 12: 34 Sod 3.375 gm/ Sodium Chloride IVPB 100 mls Q6HR SUHAS Administration Insulin Human Isoph/Insulin Regular 20 units 12/15/18 21:00 12/16/18 21:31 Humulin 70/30 SC Not Given QPM SUHAS Insulin Human Isoph/Insulin Regular 35 units 12/16/18 09:00 12/17/18 08:46 Humulin 70/30 SC 35 units QAM SUHAS Administration Insulin Human Lispro 0 units 12/16/18 08:49 12/17/18 12:38 Humalog SC 4 units .MODERATE SLIDING SC PRN Administration Moderate Correctional Scale Levothyroxine Sodium 175 mcg 12/16/18 06:00 12/17/18 05:19 Synthroid PO 175 mcg 0600 SUHAS Administration Pyridoxine HCl 50 mg 12/16/18 09:00 12/17/18 08:43 Vitamin B 6 PO 50 mg DAILY SUHAS Administration - Exam General Appearance: NAD, awake alert ENT: moist mucosa Neck: supple, no thyromegaly Heart: RRR Respiratory: CTAB Gastrointestinal: soft, non-tender Extremities: no cyanosis Neurological: no weakness Psychiatric: normal affect, normal behavior Hosp A/P (1) DM type 2 (diabetes mellitus, type 2) Status: Chronic (2) Hypothyroidism Code(s): E03.9 - HYPOTHYROIDISM, UNSPECIFIED Status: Chronic Qualifiers: (3) CKD (chronic kidney disease) stage 4, GFR 15-29 ml/min Code(s): N18.4 - CHRONIC KIDNEY DISEASE, STAGE 4 (SEVERE) Status: Chronic - Plan PT/OT, out of bed/ambulate Blood sugars high, pt is on moderate insulin sliding scale, increase evening 70/ 30 insulin to 25 units.. Continue synthroid. CKD Stage 4 stable. s/p L foot wound debridement. Awaiting culture ID & sensitivities.
[2018-12-18] MEDS ORDERED: Vancomycin HCl 750 MG in Sodium Chloride 0.9% 250 ML 250 ML IVPB SCH (01:00)
[2018-12-18] MEDS: Levothyroxine 175 MCG TAB PO SCH (05:27)
[2018-12-18] MEDS: Piperacillin/Tazobactam 3.375 GM in Sodium Chloride 0.9% 100 ML IVPB SCH ×2 (05:28→12:04)
[2018-12-18] MEDS: Heparin 5,000 UNITS/ML VIAL SC SCH ×2 (09:03→21:08)
[2018-12-18] MEDS: Ascorbic Acid 500 mg Chewable Tablet PO SCH (09:05)
[2018-12-18] MEDS: pyridOXINE 50 MG (B6) TAB PO SCH (09:06)
[2018-12-18] MEDS: Cyanocobalamin (Vitamin B-12) 1,000 MCG TAB PO SCH (09:06)
[2018-12-18] MEDS: HumuLIN 70/30 (300 UNITS/3 ML VIAL) SC SCH ×2 (09:06→21:08)
[2018-12-18] MEDS: HumaLOG 300 UNITS/3 ML VIAL SC PRN (12:18)
--- NOTE | 2018-12-18 13:37 | PRG ---
DATE OF SERVICE: 12/18/2018 SUBJECTIVE: The patient feels fine. He denies any pain. He is basically here for IV antibiotics to treat osteomyelitis. OBJECTIVE: VITAL SIGNS: Temperature 98, pulse 52, blood pressure 155/77. GENERAL: He looks fine. Bandages dry. Nothing coming out of the wound VAC. ASSESSMENT: Stable growing Proteus, Pseudomonas, and Enterococcus. PLAN: Awaiting Dr. Tam to give direction on antibiotic therapy. Job ID: [id number]
--- NOTE | 2018-12-18 15:54 | PDOC.HOSPP ---
- Subjective Encounter Date: 12/18/18 Encounter Time: 08:20 Subjective: Pt seen for followup re: DM2. feels well, no complaints. - Objective Vital Signs & Weight: Vital Signs (12 hours) Temp Pulse Resp BP Pulse Ox 12/18/18 15:06 98.3 F 56 L 18 185/89 H 99 12/18/18 10:48 98.1 F 52 L 16 155/77 H 98 12/18/18 08:54 98 12/18/18 07:28 98 F 55 L 16 164/76 H 98 12/18/18 04:07 97.9 F 67 16 160/77 H Weight Admit Weight 205 lb Weight 205 lb I&O: 12/17/18 12/18/18 12/19/18 06:59 06:59 06:59 Intake Total 900 700 Output Total 950 750 Balance -50 -50 Result Diagrams: 12/16/18 08:47 12/16/18 08:47 Additional Labs: Accuchecks 12/18/18 12/18/18 12/18/18 15:04 10:50 05:25 POC Glucose 114 H 169 H 89 12/17/18 12/17/18 20:19 15:47 POC Glucose 156 H 94 Labs and MARs reviewed by nv Hospitalist ROS - Review of Systems Cardiovascular: denies: chest pain, palpitations, orthopnea, paroxysmal noc. dyspnea, edema, light headedness Gastrointestinal: denies: nausea, vomiting, abdominal pain, diarrhea, constipation, melena, hematochezia - Medication Medications: Active Medications Generic Name Dose Route Start Last Admin Trade Name Freq PRN Reason Stop Dose Admin Ascorbic Acid 1,000 mg 12/16/18 09:00 12/18/18 09:05 Vitamin C PO 1,000 mg DAILY SUHAS Administration Cholecalciferol 2,000 units 12/16/18 09:00 12/18/18 09:05 Vitamin D3 PO 2,000 units DAILY SUHAS Administration Cyanocobalamin 1,000 mcg 12/16/18 09:00 12/18/18 09:06 Vitamin B-12 PO 1,000 mcg DAILY SUHAS Administration Heparin Sodium (Porcine) 5,000 units 12/15/18 21:00 12/18/18 09:03 Heparin SC 5,000 units BID SUHAS Administration Piperacillin Sod/Tazobactam 100 mls @ 200 mls/hr 12/16/18 23:59 12/18/18 12: 04 Sod 3.375 gm/ Sodium Chloride IVPB 100 mls Q6HR SUHAS Administration Insulin Human Isoph/Insulin Regular 35 units 12/16/18 09:00 12/18/18 09:06 Humulin 70/30 SC 35 units QAM SUHAS Administration Insulin Human Isoph/Insulin Regular 25 units 12/17/18 21:00 12/17/18 20:20 Humulin 70/30 SC 25 unit QPM SUHAS Administration Insulin Human Lispro 0 units 12/16/18 08:49 12/18/18 12:18 Humalog SC 2 units .MODERATE SLIDING SC PRN Administration Moderate Correctional Scale Levothyroxine Sodium 175 mcg 12/16/18 06:00 12/18/18 05:27 Synthroid PO 175 mcg 0600 SUHAS Administration Pyridoxine HCl 50 mg 12/16/18 09:00 12/18/18 09:06 Vitamin B 6 PO 50 mg DAILY SUHAS Administration - Exam General Appearance: NAD Eye: anicteric sclera ENT: moist mucosa Neck: supple Heart: RRR, no rubs Respiratory: CTAB Gastrointestinal: soft, non-tender Skin - other findings: wounds as documented Psychiatric: normal affect, normal behavior Hosp A/P (1) DM type 2 (diabetes mellitus, type 2) Status: Chronic (2) Hypothyroidism Code(s): E03.9 - HYPOTHYROIDISM, UNSPECIFIED Status: Chronic Qualifiers: (3) CKD (chronic kidney disease) stage 4, GFR 15-29 ml/min Code(s): N18.4 - CHRONIC KIDNEY DISEASE, STAGE 4 (SEVERE) Status: Chronic - Plan Discontinue Zosyn, start cefepime. Continue vancomycin. Blood sugars reasonably controlled. 70/30 insulin dose increased yesterday. Continue synthroid. CKD Stage 4 stable. s/p L foot wound debridement.
[2018-12-18] MEDS: Cefepime 2 GM in Sodium Chloride 0.9% 100 ML IVPB SCH (16:53)
[2018-12-18] MEDS: hydrALAZINE 20 MG/ML VIAL SLOW IVP PRN (21:06)
[2018-12-19] MEDS: Levothyroxine 175 MCG TAB PO SCH (05:28)
[2018-12-19] MEDS: Cefepime 2 GM in Sodium Chloride 0.9% 100 ML IVPB SCH (05:28)
[2018-12-19] MEDS: Cyanocobalamin (Vitamin B-12) 1,000 MCG TAB PO SCH (08:15)
[2018-12-19] MEDS: Heparin 5,000 UNITS/ML VIAL SC SCH ×2 (08:16→20:26)
[2018-12-19] MEDS: HumuLIN 70/30 (300 UNITS/3 ML VIAL) SC SCH ×2 (08:16→22:10)
[2018-12-19] MEDS: hydrALAZINE 20 MG/ML VIAL SLOW IVP PRN (08:17)
[2018-12-19] MEDS: Ascorbic Acid 500 mg Chewable Tablet PO SCH (08:18)
[2018-12-19] MEDS: pyridOXINE 50 MG (B6) TAB PO SCH (08:18)
[2018-12-19] MEDS: HumaLOG 300 UNITS/3 ML VIAL SC PRN ×2 (11:35→18:02)
--- NOTE | 2018-12-19 15:02 | PRG ---
DATE OF SERVICE: 12/19/2018 The patient is feeling fine. No complaints. Still on IV antibiotics. He is just awaiting further disposition for long-term antibiotics for osteomyelitis. Job ID: [id number]
[2018-12-19] MEDS ORDERED: Vancomycin HCl 500 MG in Sodium Chloride 0.9% 100 ML IVPB SCH (17:00)
--- NOTE | 2018-12-19 19:53 | PRG ---
DATE OF SERVICE: 12/19/2018 SUBJECTIVE: Feeling well. Denies any headaches, shortness of breath, or abdominal pain. No diarrhea. OBJECTIVE: VITAL SIGNS: T-max 98.7, blood pressure 150/74, pulse 54, respirations 14, O2 saturation 99. GENERAL: In no distress. Oriented. LUNGS: Clear. S1 and S2, regular rate. ABDOMEN: Soft, not distended. HEART: Heart sounds are diminished. EXTREMITIES: Left foot with negative pressure dressing. Operative report reviewed from 2 days ago, macerated unhealthy skin excised around edge of wound. Some nonviable tissue at the base of the wound also debrided. Exposed eroded bone was then rongeured back to healthy-appearing bone at the fourth metatarsal ray. The third metatarsal bone was palpable, was not exposed. Cultures with 5 different organisms including Proteus mirabilis, Pseudomonas, MRSA, and Enterococcus faecalis. The Proteus mirabilis had garcia-susceptibility. The Enterobacter was resistant to cefoxitin, ceftazidime, and ceftriaxone. Pseudomonas was intermediate to gentamicin and levofloxacin and susceptible to the remainder antimicrobials. MRSA with the usual susceptibility. E faecalis with usual susceptibility. White cell count 5.5. Creatinine last checked 2.7. GFR 22. ASSESSMENT AND DISCUSSION: Type 2 diabetes, peripheral vascular disease, refractory process left transmetatarsal amputation site with one more incision and drainage completed. The patient now to be transitioned to meropenem 1 g q.12 plus vancomycin 500 mg q.48 hours and date of therapy will be February 17. Weekly labs. home visit field care manager orders have been placed. Job ID: [id number] MTDD
[2018-12-19] MEDS: MEROPENEM 1 GM/50 ML 1 GM in Premix Bag 1 BAG IVPB SCH (20:26)
--- NOTE | 2018-12-19 22:45 | PDOC.HOSPP ---
- Subjective Encounter Date: 12/19/18 Encounter Time: 15:30 Subjective: Patient seen and examined for med mgnt. Pain controlled. No fever/chills/CP. No new complaints. No overnight events - Objective Vital Signs & Weight: Vital Signs (12 hours) Temp Pulse Resp BP Pulse Ox 12/19/18 20:55 98.5 F 55 L 16 146/71 H 98 12/19/18 18:01 158/74 H 12/19/18 16:30 98.2 F 54 L 14 168/74 H 99 12/19/18 12:00 98.7 F 58 L 16 149/78 H 98 Weight Admit Weight 205 lb Weight 205 lb I&O: 12/18/18 12/19/18 12/20/18 06:59 06:59 06:59 Intake Total 700 550 Output Total 750 450 Balance -50 100 Result Diagrams: 12/20/18 05:50 12/20/18 05:50 Additional Labs: Accuchecks 12/19/18 12/19/18 12/19/18 21:30 17:44 11:16 POC Glucose 202 H 162 H 230 H 12/19/18 05:40 POC Glucose 150 H Hospitalist ROS - Review of Systems Respiratory: denies: cough, dry, shortness of breath, hemoptysis, SOB with excertion, pleuritic pain, sputum, wheezing, other Cardiovascular: denies: chest pain, palpitations, orthopnea, paroxysmal noc. dyspnea, edema, light headedness, other - Medication Medications: Active Medications Generic Name Dose Route Start Last Admin Trade Name Freq PRN Reason Stop Dose Admin Ascorbic Acid 1,000 mg 12/16/18 09:00 12/19/18 08:18 Vitamin C PO 1,000 mg DAILY SUHAS Administration Cholecalciferol 2,000 units 12/16/18 09:00 12/19/18 08:15 Vitamin D3 PO 2,000 units DAILY SUHAS Administration Cyanocobalamin 1,000 mcg 12/16/18 09:00 12/19/18 08:15 Vitamin B-12 PO 1,000 mcg DAILY SUHAS Administration Heparin Sodium (Porcine) 5,000 units 12/15/18 21:00 12/19/18 20:26 Heparin SC 5,000 units BID SUHAS Administration Hydralazine HCl 10 mg 12/15/18 18:07 12/19/18 08:17 Apresoline SLOW IVP 10 mg Q6H PRN Administration SBP Greater Than 170 Vancomycin HCl 500 mg/ Sodium 100 mls @ 100 mls/hr 12/19/18 17:00 12/19/18 18 :01 Chloride IVPB 100 mls Q2DAYS SUHAS Administration Meropenem 1 gm/ Device 50 mls @ 200 mls/hr 12/19/18 21:00 12/19/18 20:26 IVPB 50 mls Q12HR SUHAS Administration Insulin Human Isoph/Insulin Regular 35 units 12/16/18 09:00 12/19/18 08:16 Humulin 70/30 SC 35 units QAM SUHAS Administration Insulin Human Isoph/Insulin Regular 25 units 12/17/18 21:00 12/19/18 22:10 Humulin 70/30 SC 25 unit QPM SUHAS Administration Insulin Human Lispro 0 units 12/16/18 08:49 12/19/18 18:02 Humalog SC 2 units .MODERATE SLIDING SC PRN Administration Moderate Correctional Scale Levothyroxine Sodium 175 mcg 12/16/18 06:00 12/19/18 05:28 Synthroid PO 175 mcg 0600 SUHAS Administration Pyridoxine HCl 50 mg 12/16/18 09:00 12/19/18 08:18 Vitamin B 6 PO 50 mg DAILY SUHAS Administration - Exam General Appearance: NAD Heart: RRR, no rubs Respiratory: CTAB, no rales Gastrointestinal: soft, non-tender, normal bowel sounds Extremities: no edema Extremities - other findings: foot dressing+ Hosp A/P (1) DM type 2 (diabetes mellitus, type 2) Status: Chronic Qualifiers: Chronic kidney disease stage: stage 3 (moderate) (2) Hypothyroidism Code(s): E03.9 - HYPOTHYROIDISM, UNSPECIFIED Status: Chronic Qualifiers: (3) Chronic anemia Code(s): D64.9 - ANEMIA, UNSPECIFIED Status: Chronic - Plan DVT proph w/heparin Cont Current dose of Insulin Change sliding scale to mild AM labs Antibiotics per ID
[2018-12-20] MEDS: Levothyroxine 175 MCG TAB PO SCH (05:55)
[2018-12-20 06:12] LABS: #Eosinphils 0.3 thou/uL (0.0-0.7); #Lymphocytes 0.9 thou/uL (1.20-3.40); #Monocytes 0.4 thou/uL (0.11-0.59); %Basophils 0.3 % (0.0-1.0); %Lymphocytes 19.5 % (21.0-51.0); %Monocytes 8.4 % (0.0-10.0); %Neutrophils 64.8 % (42.0-75.0); Hemoglobin 10.4 g/dL (14.0-18.0); Mean Corpuscular HGB CONC 34.3 g/dL (32.0-36.0); Mean Corpuscular Hemoglobin 30.9 pg (27.0-31.0); Mean Platelet Volume 6.4 fL (7.4-10.4); Platelet Count 169 thou/uL (130-400); RBC Distribution Width 14.2 % (11.5-14.5); Red Blood Cell (RBC) Count 3.36 mill/uL (4.70-6.10); White Blood Cell (WBC) Count 4.7 thou/uL (4.8-10.8)
[2018-12-20 06:33] LABS: Anion Gap 10 mmol/L (10-20); BUN (Urea Nitrogen) 26 mg/dL (8.4-25.7); Calc. Creatinine Clearance 30 mL/min (70-130); Calcium 9.1 mg/dL (7.8-10.44); Carbon Dioxide 24 mmol/L (23-31); Chloride 107 mmol/L (98-107); Estimated GFR-MDRD 24; Glucose 95 mg/dL (83-110); Potassium 4.3 mmol/L (3.5-5.1); Sodium 137 mmol/L (136-145)
[2018-12-20] MEDS ORDERED: HumaLOG 300 UNITS/3 ML VIAL SC PRN (08:53)
[2018-12-20] MEDS: Cyanocobalamin (Vitamin B-12) 1,000 MCG TAB PO SCH (10:18)
[2018-12-20] MEDS: Ascorbic Acid 500 mg Chewable Tablet PO SCH (10:18)
[2018-12-20] MEDS: pyridOXINE 50 MG (B6) TAB PO SCH (10:18)
[2018-12-20] MEDS: MEROPENEM 1 GM/50 ML 1 GM in Premix Bag 1 BAG IVPB SCH ×2 (10:18→20:44)
[2018-12-20] MEDS: HumuLIN 70/30 (300 UNITS/3 ML VIAL) SC SCH ×2 (10:19→21:48)
[2018-12-20] MEDS: Heparin 5,000 UNITS/ML VIAL SC SCH ×2 (10:19→20:44)
--- NOTE | 2018-12-20 15:36 | PDOC.HOSPP ---
- Subjective Encounter Date: 12/20/18 Encounter Time: 12:30 Subjective: Patient seen and examined for med mngt. No fever/chills. No new complaints. No overnight events - Objective Vital Signs & Weight: Vital Signs (12 hours) Temp Pulse Resp BP Pulse Ox 12/20/18 11:19 97.6 F 60 18 141/69 H 100 12/20/18 09:12 98.6 F 60 16 156/70 H 97 12/20/18 04:14 98.2 F 57 L 20 164/73 H 98 Weight Admit Weight 205 lb Weight 205 lb I&O: 12/19/18 12/20/18 12/21/18 06:59 06:59 06:59 Intake Total 1200 600 Output Total 1425 Balance -225 600 Result Diagrams: 12/20/18 05:50 12/20/18 05:50 Additional Labs: Accuchecks 12/20/18 12/20/18 12/19/18 10:42 06:01 21:30 POC Glucose 170 H 104 202 H 12/19/18 17:44 POC Glucose 162 H Hospitalist ROS - Review of Systems Respiratory: denies: cough, dry, shortness of breath, hemoptysis, SOB with excertion, pleuritic pain, sputum, wheezing, other Cardiovascular: denies: chest pain, palpitations, orthopnea, paroxysmal noc. dyspnea, edema, light headedness, other Gastrointestinal: denies: nausea, vomiting, abdominal pain, diarrhea, constipation, melena, hematochezia, other - Medication Medications: Active Medications Generic Name Dose Route Start Last Admin Trade Name Danyelq PRN Reason Stop Dose Admin Ascorbic Acid 1,000 mg 12/16/18 09:00 12/20/18 10:18 Vitamin C PO 1,000 mg DAILY SUHAS Administration Cholecalciferol 2,000 units 12/16/18 09:00 12/20/18 10:17 Vitamin D3 PO 2,000 units DAILY SUHAS Administration Cyanocobalamin 1,000 mcg 12/16/18 09:00 12/20/18 10:18 Vitamin B-12 PO 1,000 mcg DAILY SUHAS Administration Heparin Sodium (Porcine) 5,000 units 12/15/18 21:00 12/20/18 10:19 Heparin SC 5,000 units BID SUHAS Administration Hydralazine HCl 10 mg 12/15/18 18:07 12/19/18 08:17 Apresoline SLOW IVP 10 mg Q6H PRN Administration SBP Greater Than 170 Vancomycin HCl 500 mg/ Sodium 100 mls @ 100 mls/hr 12/19/18 17:00 12/19/18 18 :01 Chloride IVPB 100 mls Q2DAYS SUHAS Administration Meropenem 1 gm/ Device 50 mls @ 200 mls/hr 12/19/18 21:00 12/20/18 10:18 IVPB 50 mls Q12HR SUHAS Administration Insulin Human Isoph/Insulin Regular 35 units 12/16/18 09:00 12/20/18 10:19 Humulin 70/30 SC 35 units QAM SUHAS Administration Insulin Human Isoph/Insulin Regular 25 units 12/17/18 21:00 12/19/18 22:10 Humulin 70/30 SC 25 unit QPM SUHAS Administration Levothyroxine Sodium 175 mcg 12/16/18 06:00 12/20/18 05:55 Synthroid PO 175 mcg 0600 SUHAS Administration Pyridoxine HCl 50 mg 12/16/18 09:00 12/20/18 10:18 Vitamin B 6 PO 50 mg DAILY SUHAS Administration - Exam General Appearance: NAD Neck: supple, no JVD Heart: RRR, no rubs Respiratory: CTAB, no rales Gastrointestinal: soft, non-tender, normal bowel sounds Extremities: no cyanosis Extremities - other findings: wound vac+ Hosp A/P (1) DM type 2 (diabetes mellitus, type 2) Status: Chronic Qualifiers: Chronic kidney disease stage: stage 3 (moderate) (2) Hypothyroidism Code(s): E03.9 - HYPOTHYROIDISM, UNSPECIFIED Status: Chronic Qualifiers: (3) Chronic anemia Code(s): D64.9 - ANEMIA, UNSPECIFIED Status: Chronic (4) Diabetic foot infection Code(s): E11.628 - TYPE 2 DIABETES MELLITUS WITH OTHER SKIN COMPLICATIONS; L08.9 - LOCAL INFECTION OF THE SKIN AND SUBCUTANEOUS TISSUE, UNSP Status: Acute - Plan Cont Insulin/sliding scale Cont Vancomycin Monitor Vancomycin level Cont Meropenem SNF eval vs outpt [facility]
[2018-12-21] MEDS: Levothyroxine 175 MCG TAB PO SCH (06:18)
[2018-12-21] MEDS: Cyanocobalamin (Vitamin B-12) 1,000 MCG TAB PO SCH (09:17)
[2018-12-21] MEDS: Ascorbic Acid 500 mg Chewable Tablet PO SCH (09:17)
[2018-12-21] MEDS: MEROPENEM 1 GM/50 ML 1 GM in Premix Bag 1 BAG IVPB SCH (09:18)
[2018-12-21] MEDS: Heparin 5,000 UNITS/ML VIAL SC SCH (09:18)
[2018-12-21] MEDS: HumuLIN 70/30 (300 UNITS/3 ML VIAL) SC SCH (09:18)
[2018-12-21] MEDS: pyridOXINE 50 MG (B6) TAB PO SCH (09:18)
[2018-12-21 11:39] VITALS: BP 155/75; TEMP 98.5
--- NOTE | 2018-12-21 13:58 | PDOC.HOSPP ---
- Subjective Encounter Date: 12/21/18 Encounter Time: 08:00 Subjective: Patient seen and examined for med mngt. No fever/pain. No new complaints. No overnight events - Objective Vital Signs & Weight: Vital Signs (12 hours) Temp Pulse Resp BP Pulse Ox 12/21/18 11:35 98.5 F 57 L 18 155/75 H 98 12/21/18 07:31 98.2 F 60 18 147/70 H 97 12/21/18 03:57 98.0 F 70 16 161/78 H 99 Weight Admit Weight 205 lb Weight 205 lb I&O: 12/20/18 12/21/18 12/22/18 06:59 06:59 06:59 Intake Total 1200 1480 Output Total 1425 1025 Balance -225 455 Result Diagrams: 12/20/18 05:50 12/20/18 05:50 Additional Labs: Accuchecks 12/21/18 12/21/18 12/20/18 11:39 05:15 21:09 POC Glucose 192 H 141 H 169 H 12/20/18 16:29 POC Glucose 101 Hospitalist ROS - Review of Systems Cardiovascular: denies: chest pain, palpitations, orthopnea, paroxysmal noc. dyspnea, edema, light headedness, other Gastrointestinal: denies: nausea, vomiting, abdominal pain, diarrhea, constipation, melena, hematochezia, other - Medication Medications: Active Medications Generic Name Dose Route Start Last Admin Trade Name Freq PRN Reason Stop Dose Admin Ascorbic Acid 1,000 mg 12/16/18 09:00 12/21/18 09:17 Vitamin C PO 1,000 mg DAILY SUHAS Administration Cholecalciferol 2,000 units 12/16/18 09:00 12/21/18 09:17 Vitamin D3 PO 2,000 units DAILY SUHAS Administration Cyanocobalamin 1,000 mcg 12/16/18 09:00 12/21/18 09:17 Vitamin B-12 PO 1,000 mcg DAILY SUHAS Administration Heparin Sodium (Porcine) 5,000 units 12/15/18 21:00 12/21/18 09:18 Heparin SC 5,000 units BID SUHAS Administration Hydralazine HCl 10 mg 12/15/18 18:07 12/19/18 08:17 Apresoline SLOW IVP 10 mg Q6H PRN Administration SBP Greater Than 170 Vancomycin HCl 500 mg/ Sodium 100 mls @ 100 mls/hr 12/19/18 17:00 12/19/18 18 :01 Chloride IVPB 100 mls Q2DAYS SUHAS Administration Meropenem 1 gm/ Device 50 mls @ 200 mls/hr 12/19/18 21:00 12/21/18 09:18 IVPB 50 mls Q12HR SUHAS Administration Insulin Human Isoph/Insulin Regular 35 units 12/16/18 09:00 12/21/18 09:18 Humulin 70/30 SC 35 units QAM SUHAS Administration Insulin Human Isoph/Insulin Regular 25 units 12/17/18 21:00 12/20/18 21:48 Humulin 70/30 SC 25 unit QPM SUHAS Administration Insulin Human Lispro 0 units 12/20/18 08:53 12/21/18 12:42 Humalog SC 2 unit .MILD SLIDING SCALE PRN Administration Mild Correctional Scale Levothyroxine Sodium 175 mcg 12/16/18 06:00 12/21/18 06:18 Synthroid PO 175 mcg 0600 SUHAS Administration Pyridoxine HCl 50 mg 12/16/18 09:00 12/21/18 09:18 Vitamin B 6 PO 50 mg DAILY SUHAS Administration - Exam General Appearance: NAD Neck: supple, no JVD Heart: RRR, no gallops Respiratory: CTAB, no rales Gastrointestinal: soft, non-tender, normal bowel sounds Extremities: no edema Extremities - other findings: wound vac+ Hosp A/P (1) DM type 2 (diabetes mellitus, type 2) Status: Chronic Qualifiers: Chronic kidney disease stage: stage 3 (moderate) (2) Hypothyroidism Code(s): E03.9 - HYPOTHYROIDISM, UNSPECIFIED Status: Chronic Qualifiers: (3) Chronic anemia Code(s): D64.9 - ANEMIA, UNSPECIFIED Status: Chronic (4) Diabetic foot infection Code(s): E11.628 - TYPE 2 DIABETES MELLITUS WITH OTHER SKIN COMPLICATIONS; L08.9 - LOCAL INFECTION OF THE SKIN AND SUBCUTANEOUS TISSUE, UNSP Status: Acute - Plan Await SNF setup Cont current dose of Insulin Cont sliding scale Cont Vancomycin with Meropenem Monitor Vancomycin level
--- NOTE | 2018-12-22 20:29 | PQF ---
SAP Manager Search [employer] Winform Viewer SHARON JAEGER KIMIYE MD [id number] [id number] CLINICAL DOCUMENTATION CLARIFICATION FORM: POST DISCHARGE Addendum to original discharge summary date: ____ Late entry note date: __ DATE: 12/22/18 ATTN: Thompson [place] Please exercise your independent, professional judgment in responding to the clarification form. Clinical indicators are provided on the bottom of this form for your review Can you please further clarify the type of debridement? Please check appropriate box(s): [ ] Excisional Debridement: [ ] Non-excisional Debridement: (Removal by flushing, brushing, chemical, or washing) [ ] Incision and Drainage only (No Debridement): [ ] Other procedure diagnosis please specify [ ] Unable to determine For continuity of documentation, please document condition throughout progress notes and discharge summary. Thank You. CLINICAL INDICATORS - SIGNS / SYMPTOMS / LABS OP Report 12/15 Dr. Caballero pg.1- "Procedure: Debridement of left foot wound skin, subcutaneous tissue and bone" OP Report 12/15 Dr. Caballero pg.1- "macerated unhealthy skin excised around the edge of the wound" OP Report 12/15 Dr. Caballero pg.1- "the exposed eroded bone was then rongeured back to healthy-appearing bone" RISK FACTORS Recurrent osteomyelitis-OP Report 12/15 Dr. Caballero pg.1 Diabetic foot infection- Physician Office H and P 12/15 pg.2 PVD- Consult 12/15 Dr. Muir pg.1 Hypertension- Consult 12/15 Dr. Muir pg.1 Dyslipidemia- Consult 12/15 Dr. Muir pg.1 TREATMENTS: Debridement of left foot wound skin, subcutaneous tissue and bone-OP Report Dr. Caballero pg.1 Infectious Consult- Dr. Tam 12/16 IV Fluids- JUN 11 Vancomycin 1gm IV- JUN 11 Piperacillin (Zosyn)3.375gm IV- JUN 11 SAP Manager Search [employer] Winform Viewer (This form is maintained as a part of the permanent medical record) 2014 [employer]. All Rights Reserved Juanjo [email or web address] [not [email or web address]] MTDD
--- NOTE | 2018-12-22 20:55 | PQF ---
SHARON JAEGER MALIK MD [id number] SURG A- [id number] CLINICAL DOCUMENTATION CLARIFICATION FORM: POST DISCHARGE Addendum to original discharge summary date: ____ Late entry note date: __ DATE: 12/22/18 ATTN: Jovon Grant Please exercise your independent, professional judgment in responding to the clarification form. Clinical indicators are provided on the bottom of this form for your review Can you please further specify if osteomyelitis was due to previous post op incision and debridement or not? Please check appropriate box(s): [ x ] Osteomyelitis is due to recent post operative incision and debridement [ ] Osteomyelitis was not due to recent post operative incision and debridement [ ] Other diagnosis please specify [ ] Unable to determine In addition, please specify: Present on Admission (POA): [ x ] Yes [ ] No [ ] Unable to determine CLINICAL INDICATORS - SIGNS / SYMPTOMS / LABS Physician Office H and P pg.1- "Neurotropic ulcer of left foot" Physician Office H and P pg.1- "Patient was seen last week for his left foot infection. He had undergone [facility] and a VAC dressing for this but VAC dressing had bee discontinued" Consult 12/15 Dr. Muir pg.1- "He was hospitalized here from October 05 to October 12 of this year for osteomyelitis of left foot" Consult 12/15 Dr. Muir pg.1- "He underwent left foot incision and debridement of soft tissue and bone" Consult 12/15 Dr. Muir pg.1- - "recurrent osteomyelitis of the left foot requiring incision and drainage and wound VAC" RISK FACTORS Recurrent osteomyelitis-Consult 12/15 Dr. Muir pg.2 Diabetes mellitus type 2-Consult 12/15 Dr. Muir pg.2 Chronic kidney disease stage 4-Consult 12/15 Dr. Muir pg.2 Hypertension-Consult 12/15 Dr. Muir pg.2 Dyslipidemia-Consult 12/15 Dr. Muir pg.2 TREATMENT: Debridement of left foot wound, skin, subcutaneous tissue, and bone- OP report pg.1 Infectious Consult- Dr. Tam 12/16 Antibiotic Therapy- PN 12/18 Dr. Tam pg.1 IV Fluids- MAT 12/15 (This form is maintained as a part of the permanent medical record) 2014 [employer]. All Rights Reserved [email or web address] [not provided] MTDD
== END 2018-12-21 15:10 | disposition swing bed (61) | DRG 629 ==
LOC: SDC 10:08 → SURG A 13:30
PROVIDERS: ADMIT Surgery; ATTEND Surgery
PROC: 0QBP0ZZ Excision of Left Metatarsal, Open Approach (ICD-10-PCS; principal; 2018-12-17)
DX: E11.69 Type 2 diabetes mellitus with other specified complication (principal); M86.672 Other chronic osteomyelitis, left ankle and foot; N18.4 Chronic kidney disease, stage 4 (severe); E11.51 Type 2 diabetes mellitus with diabetic peripheral angiopathy without gangrene; E11.22 Type 2 diabetes mellitus with diabetic chronic kidney disease; E11.42 Type 2 diabetes mellitus with diabetic polyneuropathy; I12.9 Hypertensive chronic kidney disease with stage 1 through stage 4 chronic kidney disease, or unspecified chronic kidney disease; E78.5 Hyperlipidemia, unspecified; E03.9 Hypothyroidism, unspecified; D63.1 Anemia in chronic kidney disease; E11.621 Type 2 diabetes mellitus with foot ulcer; L97.529 Non-pressure chronic ulcer of other part of left foot with unspecified severity; B96.4 Proteus (mirabilis) (morganii) as the cause of diseases classified elsewhere; B96.5 Pseudomonas (aeruginosa) (mallei) (pseudomallei) as the cause of diseases classified elsewhere; B95.2 Enterococcus as the cause of diseases classified elsewhere; E11.628 Type 2 diabetes mellitus with other skin complications; Z90.49 Acquired absence of other specified parts of digestive tract; Z79.4 Long term (current) use of insulin; Z79.899 Other long term (current) drug therapy; Z89.431 Acquired absence of right foot
CPT/HCPCS: 36415; 36416; 80048; 80202; 85025; 87070; 87077; 87186; 87205; J0360; J0690; J0692; J1644; J1815; J2185; J2543; J3010; J3370; J3490; J7050

== ENCOUNTER 2019-03-15 09:44 | Outpatient (CLI) | payer MEDICARE, OTHER ==
--- NOTE | 2019-03-15 14:53 | NM ---
WHOLE BODY BONE SCAN WITH TRIPLE PHASE IMAGING OF THE FEET: HISTORY: Nonpressure chronic ulcer left foot. The patient is a diabetic. RADIOPHARMACEUTICAL: Technetium 99m MDP 30 millicuries injected intravenously. FINDINGS: There is increased flow and blood pooling to the left foot compared to the right with the delayed adalberto ges demonstrating increased uptake at the lateral aspect of the distal left foot. Delayed whole body images also demonstrate mildly increased uptake in the right foot, consistent with degenerative changes. Tracer excretion through the kidneys is within normal limits. Increased uptake in the sternoclavicular joints is also consistent with degenerative changes. IMPRESSION: Findings are highly suspicious for osteomyelitis involving the left distal lateral foot. POS: TPC
== END 2019-03-15 09:45 | disposition home or self-care (01) ==
LOC: NM 09:44
PROVIDERS: ATTEND Surgery
DX: L97.509 Non-pressure chronic ulcer of other part of unspecified foot with unspecified severity (principal)
CPT/HCPCS: 78315; A9503; J1642

== ENCOUNTER 2019-03-20 10:28 | Emergency (ER) | payer MEDICARE ==
[2019-03-20] MEDS ORDERED: diphenhydrAMINE 25 MG CAP ONE (12:48)
[2019-03-20] MEDS ORDERED: Adacel (T-DAP) 0.5 ML SYRINGE ONE (12:48)
[2019-03-20] MEDS ORDERED: Famotidine 20 MG TAB ONE (13:06)
== END 2019-03-20 13:35 | disposition home or self-care (01) ==
LOC: ERS 10:28
DX: L50.0 Allergic urticaria (principal); E11.621 Type 2 diabetes mellitus with foot ulcer; E03.9 Hypothyroidism, unspecified; Z23 Encounter for immunization; Z79.4 Long term (current) use of insulin; Z79.899 Other long term (current) drug therapy
CPT/HCPCS: 36416; 90471; 90715; Q0163

== ENCOUNTER 2019-05-28 16:54 | Inpatient (IN) | payer MEDICARE, OTHER ==
[2019-05-28] MEDS ORDERED: Ondansetron ODT 4 MG TAB PO PRN (23:20)
[2019-05-28] MEDS ORDERED: Ondansetron PF 4 MG/2 ML Vial IVP PRN (23:20)
[2019-05-28] MEDS ORDERED: Dextrose 50% Abboject 50 ML SYRINGE SLOW IVP PRN (23:20)
[2019-05-28] MEDS ORDERED: Dextrose 5% in Water 1,000 ML IV PRN (23:20)
[2019-05-28] MEDS ORDERED: hydrALAZINE 20 MG/ML VIAL SLOW IVP PRN (23:20)
[2019-05-28 23:36] VITALS: BMI 25.7
[2019-05-28] MEDS: HumaLOG 300 UNITS/3 ML VIAL SC PRN (23:54)
[2019-05-28] MEDS: Sodium Chloride 0.9% 1,000 ML IV SCH (23:54)
[2019-05-28] MEDS ORDERED: Piperacillin/Tazobactam 3.375 GM in Sodium Chloride 0.9% 100 ML IVPB SCH (23:59)
--- NOTE | 2019-05-29 02:27 | HP ---
PRIMARY CARE PROVIDER: Dr. Headley in [place], [place]. CHIEF COMPLAINT: Left foot pain. HISTORY OF PRESENT ILLNESS: This is an 79-year-old male, who presents to [facility] Emergency Department in transfer from [facility] Emergency Room, where the patient initially presented with chronic left foot wound drainage and pain with ambulation. The patient with significant history of recurrent osteomyelitis of bilateral feet, most recently evaluated in February 2019 for recurrent osteomyelitis of the left foot, status post IV antibiotic therapy. The patient states he had been doing fairly well at home, attending to his left chronic ulcer with daily wound changes and general care. The patient states he does not receive home health services and manages his own wound care independently. The patient denies any recent antibiotic exposure with last dated in February 2019. The patient underwent a three-phase bone scan showing osteomyelitis in the distal aspect of the left lateral foot. The patient noted increasing difficulty with ambulation with pain in the left foot, stating he usually wears a tennis shoe and ambulates without an assistive device. The patient denied fever, chills, but has noted drainage of the left foot and the wound distribution laterally. In the emergency room, the patient underwent general evaluation including plain radiographs showing evidence of erosion in the 5th left metatarsal concerning for progressive osteomyelitis and bone loss. The patient was also noted with subcutaneous gas in the foot concerning for recurrent infection. The patient received Ancef, cefepime, [place], and intravenous normal saline x2 L. The patient received additional vancomycin 1 g IV piggyback in the emergency room at [place]. PAST MEDICAL HISTORY: 1. Recurrent osteomyelitis of left foot. 2. History of right foot osteomyelitis, status post amputation of multiple toes. 3. Diabetic peripheral neuropathy. 4. Diabetes mellitus type 2, insulin requiring. 5. Hypothyroidism. 6. Smokeless tobacco use. PAST SURGICAL HISTORY: 1. Status post transmetatarsal amputation of the left foot. 2. Status post great and 2nd toe amputation of the right foot. 3. Status post cholecystectomy. CURRENT MEDICATIONS: 1. Humulin 70/30, 40 units subcutaneously q.a.m. and 20 units subcutaneously at bedtime. 2. Multivitamin 1 p.o. daily. 3. Levothyroxine 175 mcg p.o. daily. ALLERGIES: NO KNOWN DRUG ALLERGIES. FAMILY HISTORY: Mother in her 70s after complications from seizure disorder. SOCIAL HISTORY: Resides in [place], [place]. Retired. Smokeless tobacco use. Occasional alcohol. No illicit drug use. Ambulates without assistive device. REVIEW OF SYSTEMS: CONSTITUTIONAL: Negative for weight loss or gain, ability to conduct usual activities. SKIN: Negative for rash, itching. EYES: Negative for double vision, pain. ENT/MOUTH: Negative for nose bleeding, neck stiffness, pain, tenderness. CARDIOVASCULAR: Negative for palpitations, dyspnea on exertion, orthopnea. RESPIRATORY: Negative for shortness of breath, wheezing, cough, hemoptysis, fever or night sweats. GASTROINTESTINAL: Negative for poor appetite, abdominal pain, heartburn, nausea, vomiting, constipation, or diarrhea. GENITOURINARY: Negative for urgency, frequency, dysuria, nocturia. MUSCULOSKELETAL: Negative for pain, swelling. NEUROLOGIC/PSYCHIATRIC: Negative for anxiety, depression. ALLERGY/IMMUNOLOGIC: Negative for skin rash, bleeding tendency. Otherwise negative except as stated per HPI. PHYSICAL EXAMINATION: VITAL SIGNS: On admission, blood pressure 131/77, pulse is 58, respiratory rate 19, temperature 98.9 degrees Fahrenheit, O2 saturation 100% on room air. GENERAL APPEARANCE: This is an 79-year-old male, alert and oriented x3, pleasant, responsive, in no acute distress. HEENT: Pupils are equal, round, reactive to light and accommodation. Extraocular muscles are intact. No scleral icterus. No conjunctival injection. Nares patent. OP is clear. Teeth in fair repair. NECK: Supple. No cervical adenopathy. No thyromegaly. No carotid bruits. No JVD appreciated. Cervical spine with full active and passive range of motion. No meningeal signs noted. CHEST: Lungs are clear to auscultation bilaterally. CARDIOVASCULAR: S1, S2 without noted murmur, rub, or gallop. ABDOMEN: Rounded, soft, nontender, and nondistended. Bowel sounds are positive in all 4 quadrants. There is no hepatosplenomegaly. No abdominal bruits. No rebound or guarding appreciated. EXTREMITIES: Left lower extremity with transmetatarsal amputation of the left foot with stump in place, draining wound noted on the lateral aspect of the left foot and ankle region. Positive erythema with dusky skin discoloration. Hyperpigmentation changes to the left lower extremity consistent with vascular disease and peripheral neuropathy. Surgical changes of the right foot noted without open ulceration. Pulses are diminished at the dorsalis pedis, and posterior tibial arteries on the left. Pulses are palpable at the popliteal arteries bilaterally. NEUROLOGIC: Cranial nerves 2 through 12 are grossly intact. No focal or lateralizing signs appreciated. PERTINENT LABORATORY AND X-RAY FINDINGS: Sodium 129, potassium 4.7, chloride 100, CO2 of 19, BUN 47, creatinine 3.05, estimated GFR of 18, calcium 9.6, glucose 252. LFTs within normal limits. Albumin 3.0, PT 15.9, INR 1.3, PTT 37.8. CBC showed a white blood cell count of 15.1, hemoglobin 6.9, hematocrit 22, platelet count 396 with 86% neutrophils. Lactic acid level 1.3. Three views of the left foot showed changes consistent with osteomyelitis in the metatarsal and cuboid region with soft tissue gas of the left foot. ASSESSMENT AND PLAN: 1. Diabetic left foot with recurrent osteomyelitis and gangrene. The patient will be admitted to the medical floor. We will continue IV antibiotic therapy with vancomycin 1 g IV q.24 hours with additional Zosyn 2.25 g IV q.8 hours. Wound cultures pending. We will consult General Surgery Service in the a.m. for surgical evaluation and consideration for local debridement. Pain control as clinically indicated. Morphine sulfate 2 g IV q.4 hours p.r.n. 2. Acute kidney injury on chronic kidney disease, stage 4. Avoid nephrotoxic agents and limit contrast exposure. Continue intravenous normal saline at 75 mL/h. Repeat creatinine in the a.m. 3. Chronic normocytic anemia. We will continue serial H and H monitoring. No obvious source of acute blood loss. Repeat CBC in the a.m. 4. Diabetes mellitus type 2, insulin-requiring with peripheral neuropathy, and peripheral vascular disease. Insulin sliding scale for reflexive coverage. Serial Accu-Cheks before meals and at bedtime. Resume home insulin regimen. 5. Hypothyroidism. Continue levothyroxine 175 mcg daily. 6. Prophylaxis. SCDs held due to amputation and peripheral vascular disease. Lovenox 30 mg subcutaneously q.24 hours. Wound care consult in the a.m. CODE STATUS: Full. Surrogate medical decision maker is patient's son. Job ID: [id number]
[2019-05-29 06:05] LABS: Band 2 % (5-11); Eosinophils 2 % (0-10); Hemoglobin 7.1 g/dL (14.0-18.0); Lymphocytes 11 % (21-51); MDiff Complete? YES; Mean Corpuscular HGB CONC 32.8 g/dL (32.0-36.0); Mean Corpuscular Hemoglobin 28.9 pg (27.0-31.0); Mean Corpuscular Volume 88.3 fL (78.0-98.0); Mean Platelet Volume 6.7 fL (7.4-10.4); Monocytes 2 % (0-10); Neutrophil 83 % (42-75); Platelet Count 357 thou/uL (130-400); Platelet Morphology Comment Appears Adequate; RBC Distribution Width 13.8 % (11.5-14.5); Red Blood Cell (RBC) Count 2.46 mill/uL (4.70-6.10); White Blood Cell (WBC) Count 9.8 thou/uL (4.8-10.8)
[2019-05-29] MEDS: Levothyroxine 175 MCG TAB PO SCH (06:12)
[2019-05-29] MEDS: Acetaminophen 500 MG TAB PO PRN ×2 (06:12→21:03)
[2019-05-29] MEDS: HumaLOG 300 UNITS/3 ML VIAL SC PRN ×2 (06:13→11:31)
[2019-05-29 06:15] LABS: Anion Gap 14 mmol/L (10-20); BUN (Urea Nitrogen) 49 mg/dL (8.4-25.7); Calc. Creatinine Clearance 25 mL/min (70-130); Calcium 8.4 mg/dL (7.8-10.44); Carbon Dioxide 18 mmol/L (23-31); Chloride 103 mmol/L (98-107); Estimated GFR-MDRD 21; Glucose 244 mg/dL (83-110); Potassium 5.3 mmol/L (3.5-5.1); Sodium 130 mmol/L (136-145)
[2019-05-29] MEDS: Piperacillin/Tazobactam 2.25 GM in Sodium Chloride 0.9% 100 ML IVPB SCH ×2 (08:02→15:01)
[2019-05-29] MEDS: Multivit, Therapeutic 1 TAB PO SCH (08:03)
[2019-05-29] MEDS: Enoxaparin Sodium 30 MG/0.3 ML SYRINGE SC SCH (08:03)
[2019-05-29] MEDS: HumuLIN 70/30 (300 UNITS/3 ML VIAL) SC SCH ×2 (08:04→20:28)
[2019-05-29] MEDS ORDERED: Vancomycin HCl 1 GM in Premix Bag 1 BAG IVPB SCH ×2 (09:00→18:00)
[2019-05-29] MEDS ORDERED: Famotidine 20 MG TAB PO SCH (09:00)
[2019-05-29] MEDS: Sodium Chloride 0.9% 1,000 ML IV SCH (12:56)
--- NOTE | 2019-05-29 15:17 | PDOC.HOSPP ---
- Subjective Encounter Date: 05/29/19 Encounter Time: 15:40 Subjective: Patient with some pain in left ankle. No other complaints. No fever or systemic symptoms. - Objective Vital Signs & Weight: Vital Signs (12 hours) Temp Pulse Resp BP Pulse Ox 05/29/19 11:13 98.4 F 61 22 H 115/59 L 95 05/29/19 08:00 94 L 05/29/19 07:25 98.9 F 77 16 170/71 H 94 L 05/29/19 04:44 100.1 F H 69 16 137/75 94 L Weight Weight 195 lb 1.6 oz I&O: 05/28/19 05/29/19 05/30/19 06:59 06:59 06:59 Intake Total 1005 Output Total 975 Balance 30 Result Diagrams: 05/29/19 05:31 05/29/19 05:31 Additional Labs: Accuchecks 05/29/19 05/29/19 05/28/19 10:40 06:08 23:34 POC Glucose 224 H 277 H 335 H Hospitalist ROS - Review of Systems Constitutional: denies: fever, chills Respiratory: denies: cough, shortness of breath Cardiovascular: denies: chest pain, palpitations, orthopnea Gastrointestinal: denies: nausea, vomiting, abdominal pain Musculoskeletal: reports: foot pain Skin: reports: rash - Medication Medications: Active Medications Generic Name Dose Route Start Last Admin Trade Name Freq PRN Reason Stop Dose Admin Acetaminophen 1,000 mg 05/28/19 23:20 05/29/19 06:12 Tylenol PO 1,000 mg Q6H PRN Administration Mild Pain (1-3) Enoxaparin Sodium 30 mg 05/29/19 09:00 05/29/19 08:03 Lovenox SC 30 mg 0900 SUHAS Administration Piperacillin Sod/Tazobactam 100 mls @ 200 mls/hr 05/29/19 08:00 05/29/19 15: 01 Sod 2.25 gm/ Sodium Chloride IVPB 100 mls 0800,1600,2359 SUHAS Administration Sodium Chloride 1,000 mls @ 75 mls/hr 05/28/19 23:30 05/29/19 12:56 Normal Saline 0.9% IV 1,000 mls .[id number] SUHAS Administration Insulin Human Isoph/Insulin Regular 40 units 05/29/19 09:00 05/29/19 08:04 Humulin 70/30 SC 40 unit QAM SUHAS Administration Insulin Human Lispro 0 units 05/28/19 23:20 05/29/19 11:31 Humalog SC 3 unit .MILD SLIDING SCALE PRN Administration Mild Correctional Scale Insulin Human Lispro 0 units 05/28/19 23:20 05/28/19 23:54 Humalog SC 4 unit .BEDTIME SLIDING SC PRN Administration Bedtime Correctional Scale Levothyroxine Sodium 175 mcg 05/29/19 06:00 05/29/19 06:12 Synthroid PO 175 mcg 0600 SUHAS Administration Multivitamins 1 tab 05/29/19 09:00 05/29/19 08:03 Theragran PO 1 tab DAILY SUHAS Administration - Exam General Appearance: NAD, awake alert ENT: moist mucosa Heart: RRR, no murmur, no gallops, no rubs Respiratory: CTAB, no wheezes, no rales, no ronchi Gastrointestinal: soft, non-tender, non-distended, normal bowel sounds Extremities - other findings: left foot wound with dressing in place Psychiatric: normal affect, normal behavior, A&O x 3 Hosp A/P (1) Diabetic foot infection Code(s): E11.628 - TYPE 2 DIABETES MELLITUS WITH OTHER SKIN COMPLICATIONS; L08.9 - LOCAL INFECTION OF THE SKIN AND SUBCUTANEOUS TISSUE, UNSP Status: Acute (2) Osteomyelitis Code(s): M86.9 - OSTEOMYELITIS, UNSPECIFIED Status: Acute Qualifiers: Osteomyelitis location: foot Laterality: left (3) CKD (chronic kidney disease) stage 4, GFR 15-29 ml/min Code(s): N18.4 - CHRONIC KIDNEY DISEASE, STAGE 4 (SEVERE) Status: Chronic (4) Hyperkalemia Code(s): E87.5 - HYPERKALEMIA Status: Acute (5) Chronic anemia Code(s): D64.9 - ANEMIA, UNSPECIFIED Status: Chronic (6) DM type 2 (diabetes mellitus, type 2) Status: Chronic Qualifiers: Chronic kidney disease stage: stage 3 (moderate) (7) Hypothyroidism Code(s): E03.9 - HYPOTHYROIDISM, UNSPECIFIED Status: Chronic Qualifiers: (8) Obesity (BMI 30.0-34.9) Code(s): E66.9 - OBESITY, UNSPECIFIED Status: Chronic - Plan On Zosyn and Vancomycin since 05/28/2019 Dr. Caballero consulted, planning on surgery Cultures pending.
[2019-05-29 17:40] LABS: Vancomycin, Trough 13.2 ug/mL
--- NOTE | 2019-05-29 19:15 | CON ---
DATE OF CONSULTATION: CONSULTING PHYSICIAN: Skinny Ronquillo MD REQUESTING PHYSICIAN: Dr. Davidson. REASON FOR CONSULTATION: Advanced chronic kidney disease. IMPRESSION: 1. Advanced chronic kidney disease stage 4 in the context of likely diabetic nephropathy. 2. Anemia of chronic kidney disease/anemia of iron deficiency. PLAN: 1. The patient is more or less at his baseline, chronic kidney disease stage 4. 2. Get iron studies to evaluate for potential iron deficiency. If the patient is not iron deficient, we will go ahead and start this patient on erythropoiesis-stimulating agents. Otherwise, we will replenish the iron. 3. Discontinue current IV fluid and start this patient on sodium bicarbonate oral tablet. 4. Renally dose all medications and avoid potentially nephrotoxic agents. 5. Further management to be dependent on the clinical course. HISTORY OF PRESENT ILLNESS: History is that of 79-year-old gentleman, who presented with left foot pain. The patient does carry diagnosis of chronic kidney disease stage 4 with baseline creatinine of about 3, on presentation noted with a creatinine of 2.9, more or less at baseline creatinine of this patient. The patient noted to be metabolically acidotic and mildly hyperkalemia. As a result of all these findings, decision has been taken to involve Renal in the management of this case. PAST MEDICAL HISTORY: Significant for recurrent osteomyelitis, diabetes type 2, hypothyroidism, and diabetic peripheral neuropathy. MEDICATIONS: Reviewed as documented on [employer]. ALLERGIES: NO KNOWN DRUG ALLERGIES. FAMILY HISTORY: Not significantly related to presenting illness. SOCIAL HISTORY: The patient uses smokeless tobacco. Denies illicit drug use or any alcohol abuse. REVIEW OF SYSTEMS: As documented in the body of history. All the other systems were reviewed and found not to be significantly related to presenting illness. PHYSICAL EXAMINATION: GENERAL: The patient was found not to be in any obvious distress. Noted with the following vital signs. VITAL SIGNS: Afebrile, temperature 97.9, pulse 58, respiratory rate of 16, and O2 saturation of 99% with a blood pressure 137/65. HEENT: Unremarkable. CARDIOVASCULAR SYSTEM: First and second heart sounds were heard. RESPIRATORY SYSTEM: Clear to auscultation. DIGESTIVE SYSTEM: Revealed a benign abdomen. Positive bowel sounds. EXTREMITIES: No peripheral edema. SKIN: No new gross rash. LYMPHATICS: No peripheral lymphadenopathy. SUMMARY: An 79-year-old gentleman with advanced chronic kidney disease, who presented here with leg pain. Thank you for this consultation. We will follow with you. Job ID: [id number]
[2019-05-29] MEDS: Sodium Bicarbonate Tab 325 MG TAB PO SCH (20:31)
[2019-05-30] MEDS: Piperacillin/Tazobactam 2.25 GM in Sodium Chloride 0.9% 100 ML IVPB SCH ×3 (00:36→18:20)
[2019-05-30] MEDS: Levothyroxine 175 MCG TAB PO SCH (05:55)
[2019-05-30 06:15] LABS: #Eosinphils 0.2 thou/uL (0.0-0.7); #Lymphocytes 0.9 thou/uL (1.20-3.40); #Monocytes 0.6 thou/uL (0.11-0.59); #Neutrophils 7.2 thou/uL (1.40-6.50); %Basophils 0.1 % (0.0-1.0); %Eosinophils 2.2 % (0.0-10.0); %Lymphocytes 9.7 % (21.0-51.0); %Monocytes 6.9 % (0.0-10.0); %Neutrophils 81.1 % (42.0-75.0); Hemoglobin 6.6 g/dL (14.0-18.0); Mean Corpuscular HGB CONC 30.3 g/dL (32.0-36.0); Mean Corpuscular Hemoglobin 27.1 pg (27.0-31.0); Mean Corpuscular Volume 89.3 fL (78.0-98.0); Platelet Count 369 thou/uL (130-400); RBC Distribution Width 13.9 % (11.5-14.5); Red Blood Cell (RBC) Count 2.45 mill/uL (4.70-6.10); White Blood Cell (WBC) Count 8.9 thou/uL (4.8-10.8)
[2019-05-30 06:29] LABS: Albumin 2.4 g/dL (3.4-4.8); Anion Gap 12 mmol/L (10-20); BUN (Urea Nitrogen) 48 mg/dL (8.4-25.7); BUN/Creatinine Ratio 16.49; Calc. Creatinine Clearance 25 mL/min (70-130); Calcium 8.8 mg/dL (7.8-10.44); Carbon Dioxide 20 mmol/L (23-31); Chloride 105 mmol/L (98-107); Estimated GFR-MDRD 21; Glucose 170 mg/dL (83-110); Iron 11 ug/dL (65-175); Iron Binding Capacity, Total 108 mcg/dL (261-462); Phosphorus 3.5 mg/dL (2.3-4.7); Potassium 4.9 mmol/L (3.5-5.1); Sodium 132 mmol/L (136-145)
[2019-05-30 07:08] LABS: Reticulocyte Count 1.5 % (0.5-1.5)
[2019-05-30] MEDS: Sodium Bicarbonate Tab 325 MG TAB PO SCH ×2 (08:16→21:52)
[2019-05-30] MEDS: Famotidine 20 MG TAB PO SCH (08:16)
[2019-05-30] MEDS: Multivit, Therapeutic 1 TAB PO SCH (08:16)
[2019-05-30] MEDS: Enoxaparin Sodium 30 MG/0.3 ML SYRINGE SC SCH (08:17)
[2019-05-30] MEDS: HumuLIN 70/30 (300 UNITS/3 ML VIAL) SC SCH ×2 (08:17→21:59)
--- NOTE | 2019-05-30 09:56 | PDOC.HOSPP ---
- Subjective Encounter Date: 05/30/19 Encounter Time: 14:20 Subjective: Patient about to go down for surgery. Continue left ankle pain. No other symptoms. Getting his second unit of blood right now. - Objective Vital Signs & Weight: Vital Signs (12 hours) Temp Pulse Resp BP Pulse Ox 05/30/19 07:39 98.4 F 70 18 142/68 H 94 L 05/30/19 00:00 97.2 F L Weight Admit Weight 195 lb 1.6 oz Weight 195 lb 1.6 oz I&O: 05/29/19 05/30/19 05/31/19 06:59 06:59 06:59 Intake Total 1005 590 Output Total 975 750 Balance 30 -160 Result Diagrams: 05/30/19 05:33 05/30/19 05:33 Additional Labs: Accuchecks 05/30/19 05/29/19 05/29/19 04:41 20:10 15:55 POC Glucose 181 H 193 H 68 L 05/29/19 10:40 POC Glucose 224 H Hospitalist ROS - Review of Systems Constitutional: denies: fever, chills Respiratory: denies: cough, shortness of breath Cardiovascular: denies: chest pain, palpitations Gastrointestinal: denies: nausea, vomiting Musculoskeletal: reports: foot pain - Medication Medications: Active Medications Generic Name Dose Route Start Last Admin Trade Name Freq PRN Reason Stop Dose Admin Acetaminophen 1,000 mg 05/28/19 23:20 05/29/19 21:03 Tylenol PO 1,000 mg Q6H PRN Administration Mild Pain (1-3) Enoxaparin Sodium 30 mg 05/29/19 09:00 05/30/19 08:17 Lovenox SC Not Given 0900 [facility] Famotidine 20 mg 05/30/19 09:00 05/30/19 08:16 Pepcid PO 20 mg DAILY SUHAS Administration Piperacillin Sod/Tazobactam 100 mls @ 200 mls/hr 05/29/19 08:00 05/30/19 08: 15 Sod 2.25 gm/ Sodium Chloride IVPB 100 mls 0800,1600,2359 SUHAS Administration Insulin Human Isoph/Insulin Regular 20 units 05/29/19 21:00 05/29/19 20:28 Humulin 70/30 SC Not Given QPM [facility] Insulin Human Isoph/Insulin Regular 40 units 05/29/19 09:00 05/30/19 08:17 Humulin 70/30 SC Not Given QAM SUHAS Insulin Human Lispro 0 units 05/28/19 23:20 05/29/19 11:31 Humalog SC 3 unit .MILD SLIDING SCALE PRN Administration Mild Correctional Scale Insulin Human Lispro 0 units 05/28/19 23:20 05/28/19 23:54 Humalog SC 4 unit .BEDTIME SLIDING SC PRN Administration Bedtime Correctional Scale Levothyroxine Sodium 175 mcg 05/29/19 06:00 05/30/19 05:55 Synthroid PO 175 mcg 0600 SUHAS Administration Multivitamins 1 tab 05/29/19 09:00 05/30/19 08:16 Theragran PO 1 tab DAILY SUHAS Administration Sodium Bicarbonate 650 mg 05/29/19 21:00 05/30/19 08:16 Bicarbonate, Sodium PO 650 mg BID SUHAS Administration - Exam General Appearance: NAD, awake alert ENT: moist mucosa Heart: RRR, no murmur, no gallops, no rubs Respiratory: CTAB, no wheezes, no rales, no ronchi Gastrointestinal: soft, non-tender, non-distended, normal bowel sounds Extremities - other findings: left foot with dressing in place, lots of serosangenous drainage Psychiatric: normal affect, normal behavior, A&O x 3 Hosp A/P (1) Diabetic foot infection Code(s): E11.628 - TYPE 2 DIABETES MELLITUS WITH OTHER SKIN COMPLICATIONS; L08.9 - LOCAL INFECTION OF THE SKIN AND SUBCUTANEOUS TISSUE, UNSP Status: Acute (2) Osteomyelitis Code(s): M86.9 - OSTEOMYELITIS, UNSPECIFIED Status: Acute Qualifiers: Osteomyelitis location: foot Laterality: left (3) CKD (chronic kidney disease) stage 4, GFR 15-29 ml/min Code(s): N18.4 - CHRONIC KIDNEY DISEASE, STAGE 4 (SEVERE) Status: Chronic (4) Hyperkalemia Code(s): E87.5 - HYPERKALEMIA Status: Acute (5) Chronic anemia Code(s): D64.9 - ANEMIA, UNSPECIFIED Status: Chronic (6) DM type 2 (diabetes mellitus, type 2) Status: Chronic Qualifiers: Chronic kidney disease stage: stage 3 (moderate) (7) Hypothyroidism Code(s): E03.9 - HYPOTHYROIDISM, UNSPECIFIED Status: Chronic Qualifiers: (8) Obesity (BMI 30.0-34.9) Code(s): E66.9 - OBESITY, UNSPECIFIED Status: Chronic - Plan On Zosyn and Vancomycin since 05/28/2019 Dr. Caballero consulted, planning on surgery today for I&D as patient refused amputation Cultures pending. Anemia dropped further to less than 7, will transfuse 2 units PRBC Iron studies consistent with anemia of chronic disease.
[2019-05-30] MEDS ORDERED: Lidocaine 1% PF 5 ML VIAL ONE (09:59)
[2019-05-30] MEDS ORDERED: Glycopyrrolate 0.2 MG/ML 5 ML SYRINGE ONE (09:59)
[2019-05-30] MEDS ORDERED: PROPOFOL 200 MG/20 ML VIAL ONE (09:59)
[2019-05-30] MEDS: HumaLOG 300 UNITS/3 ML VIAL SC PRN ×2 (11:39→22:02)
[2019-05-30] MEDS ORDERED: Sodium Chloride 0.9% 30 ML ONE (17:16)
[2019-05-30] MEDS ORDERED: Bupivacaine 0.25% HCL 30 ML VIAL ONE (17:16)
[2019-05-30] MEDS ORDERED: Lidocaine 2% w/Epinephrine 1:200K 20 ML VIAL ONE (17:16)
[2019-05-30] MEDS ORDERED: Fentanyl 100 MCG/2 ML VIAL ONE ×2 (17:28→19:13)
[2019-05-30] MEDS ORDERED: Insulin Regular 300 UNITS/3 ML VIAL ONE (17:31)
[2019-05-30 18:06] LABS: Vancomycin, Random 16.5 ug/mL (See Comment)
[2019-05-30] MEDS ORDERED: Vancomycin HCl 1 GM in Premix Bag 1 BAG IVPB SCH (19:00)
[2019-05-30] MEDS ORDERED: Promethazine HCl 25 MG/ML VIAL IM PRN (20:30)
[2019-05-30] MEDS ORDERED: Promethazine HCl 25 MG/ML VIAL SLOW IVP PRN (20:30)
[2019-05-30] MEDS ORDERED: Ondansetron HCl/PF 4 MG/2 ML Vial IVP PRN (20:30)
[2019-05-30] MEDS ORDERED: Heparin 10,000 UNITS/ 10 ML VIAL ONE ×2 (20:49)
--- NOTE | 2019-05-30 23:00 | RAD ---
Portable frontal chest radiograph: 05/30/2019 COMPARISON: 07/18/2018 HISTORY: Postoperative patient FINDINGS: Right vascular catheter overlies the cavoatrial junction region. Supine imaging limits asse ssment for pleural fluid and pneumothorax. Patchy linear increased density noted in the right cardiophrenic angle region in the medial left lung base. No lobar consolidation. Supine imaging limit s assessment for pneumothorax and pleural fluid. IMPRESSION: Patchy bibasilar density, which may represent infiltrate or volume loss. No focal consoli dation.
[2019-05-31] MEDS: Piperacillin/Tazobactam 2.25 GM in Sodium Chloride 0.9% 100 ML IVPB SCH ×3 (00:47→15:41)
[2019-05-31] MEDS ORDERED: Polyethylene Glycol 3350 17 GM Packet PO PRN (04:59)
[2019-05-31] MEDS: Levothyroxine 175 MCG TAB PO SCH (06:08)
[2019-05-31] MEDS: HumaLOG 300 UNITS/3 ML VIAL SC PRN ×4 (06:09→21:32)
[2019-05-31 06:37] LABS: #Basophils 0.1 thou/uL (0.0-0.2); #Eosinphils 0.2 thou/uL (0.0-0.7); #Lymphocytes 1.1 thou/uL (1.20-3.40); #Monocytes 0.6 thou/uL (0.11-0.59); #Neutrophils 8.4 thou/uL (1.40-6.50); %Basophils 0.5 % (0.0-1.0); %Eosinophils 2.3 % (0.0-10.0); %Lymphocytes 10.5 % (21.0-51.0); %Monocytes 5.9 % (0.0-10.0); %Neutrophils 80.9 % (42.0-75.0); Hemoglobin 8.2 g/dL (14.0-18.0); Mean Corpuscular HGB CONC 31.8 g/dL (32.0-36.0); Mean Corpuscular Hemoglobin 28.2 pg (27.0-31.0); Mean Corpuscular Volume 88.6 fL (78.0-98.0); Mean Platelet Volume 6.5 fL (7.4-10.4); Platelet Count 362 thou/uL (130-400); RBC Distribution Width 13.7 % (11.5-14.5); Red Blood Cell (RBC) Count 2.89 mill/uL (4.70-6.10); White Blood Cell (WBC) Count 10.4 thou/uL (4.8-10.8)
[2019-05-31 07:03] LABS: Albumin 2.6 g/dL (3.4-4.8); Anion Gap 13 mmol/L (10-20); BUN (Urea Nitrogen) 39 mg/dL (8.4-25.7); BUN/Creatinine Ratio 14.44; Calc. Creatinine Clearance 27 mL/min (70-130); Calcium 8.6 mg/dL (7.8-10.44); Carbon Dioxide 21 mmol/L (23-31); Chloride 103 mmol/L (98-107); Estimated GFR-MDRD 23; Glucose 176 mg/dL (83-110); Phosphorus 3.2 mg/dL (2.3-4.7); Potassium 4.5 mmol/L (3.5-5.1); Sodium 132 mmol/L (136-145)
--- NOTE | 2019-05-31 08:15 | CON ---
DATE OF CONSULTATION: 05/30/2019 CHIEF COMPLAINT: Left ankle pain. HISTORY OF PRESENT ILLNESS: Mr. Park is an 79-year-old man, known to me from previous admissions, whom I last saw in March. At that time, he had developed a new ulcer on his left fifth metatarsal area from wearing inappropriate footwear. I recommended Wound Care evaluation for footwear fittings, home health, and a bone scan, after which, he was to return to clinic but did not. I do not know if he followed up with the footwear specialist. He states that home health never came to see him , but that the area that he had seen me for healed up, so he did not worry about it. He did get the bone scan, but did not return to my office. The foot started hurting last week, opened up in a couple of new areas and started draining. He said that the foot is not really hurting him much, but he is having a lot of pain in the ankle. He denies any fevers, but he has had some sweats and chills. He still has a Olson in place, but has not had it flushed in several months, and states ER nurses were unable to aspirate or flush it. He was admitted to the hospital due to clinical evidence of diabetic foot infection and plain films showing erosion of the fifth left metatarsal and some subcutaneous gas. He is feeling somewhat better since being admitted and started on IV antibiotics. PAST MEDICAL HISTORY: Osteomyelitis of both feet with refusal to contemplate below-knee amputation; severe diabetic neuropathy; diabetes type 2, now on insulin; hypothyroidism; and diabetic nephropathy. PAST SURGICAL HISTORY: Transmetatarsal amputation of the left foot, multiple toe amputations of the right foot, and cholecystectomy. OUTPATIENT MEDICATIONS: Include 70/30 insulin, multivitamin, and Synthroid. ALLERGIES: HE HAS NO KNOWN DRUG ALLERGIES. FAMILY HISTORY: Diabetes and renal failure in his daughter. SOCIAL HISTORY: He lives in [place]. Does not smoke, but does chew tobacco. Drinks, but not to excess. Denies drug use. Son is next of kin. REVIEW OF SYSTEMS: Ten-system review of systems is negative except per HPI. PHYSICAL EXAMINATION: VITAL SIGNS: T-max is 100.3, T-current 98.6, heart rate 61, respirations 18, oxygen saturations 100, blood pressure 145/66. GENERAL: Reveals a tired-appearing elderly gentleman, in no acute distress. He is somewhat pale. He is not flushed or toxic in appearance. HEENT: Neck supple, no lymphadenopathy or thyroid nodules. HEART: Regular in its rate and rhythm without murmurs, rubs, or gallops. LUNGS: Clear bilaterally. ABDOMEN: Soft, nontender, and nondistended without hernias or masses. EXTREMITIES: Warm and well perfused. His right foot ulcer has healed, although there is a callus at that site. His left foot has multiple draining sinuses with purulent discharge and exposed tendons and some nonviable skin. There is exposed bone in at least 2 areas, felt to represent the fourth and fifth metatarsal bones. LABORATORY DATA: White count is normal at 8.9, but he does have a left shift. Hematocrit is 21. Platelets are 316. BUN and creatinine are 48 and 2.9, which are close to his baseline. Ferritin was elevated at 1130. Iron was low at 11. Glucoses ranged from 68 to 377 in the past 24 hours. Bicarb is 20, potassium is 4.9. There is no current microbiology, but past cultures have shown proteus, enterobacter, pseudomonas, MRSA, and enterococcus. Bone scan in March showed increased activity in fifth metatarsal of left foot. ASSESSMENT: Diabetic foot infection and abscess with cellulitis of the left foot and the patient was unfortunately lost to followup. He continues to refuse to consider amputation, although that was recommended. We will debride the foot as best we can and place an irrigating vacuum dressing. He will need long-term antibiotics. and a new Olson placed. The procedure and its inherent risks were discussed with the patient. These risks include, but are not limited to bleeding, infection, risks of anesthesia, need for other procedures, progression of the infectious process. Risks for the Olson catheter include hemothorax, pneumothorax and DVT as well. He understands and accepts these risks and wishes to proceed. He is scheduled for the OR today and made n.p.o. after his clear liquid breakfast. All of his questions were answered. Job ID: [id number] [facility]
--- NOTE | 2019-05-31 09:31 | PDOC.HOSPP ---
- Subjective Encounter Date: 05/31/19 Encounter Time: 14:20 Subjective: Patient reports persistent ankle pain. Had I&D with wound vac now in place. No fever. - Objective Vital Signs & Weight: Vital Signs (12 hours) Temp Pulse Resp BP Pulse Ox 05/31/19 08:05 98.1 F 60 20 144/65 H 96 05/31/19 04:30 97.3 F L 60 18 151/72 H 96 05/31/19 00:00 97.3 F L 60 18 94/56 L 97 Weight Admit Weight 195 lb 1.6 oz Weight 195 lb 1.6 oz I&O: 05/30/19 05/31/19 06/01/19 06:59 06:59 06:59 Intake Total 590 1050 780 Output Total 750 2449 300 Balance -160 -1399 480 Result Diagrams: 05/31/19 06:07 05/31/19 06:07 Additional Labs: Accuchecks 05/31/19 05/30/19 05/30/19 04:02 22:02 17:12 POC Glucose 227 H 234 H 243 H 05/30/19 11:33 POC Glucose 377 H Hospitalist ROS - Review of Systems Constitutional: denies: fever, chills Respiratory: denies: cough, shortness of breath Cardiovascular: denies: chest pain, palpitations, orthopnea Gastrointestinal: denies: nausea, vomiting, abdominal pain Genitourinary: denies: dysuria, hematuria Musculoskeletal: reports: foot pain - Medication Medications: Active Medications Generic Name Dose Route Start Last Admin Trade Name Freq PRN Reason Stop Dose Admin Acetaminophen 1,000 mg 05/28/19 23:20 05/29/19 21:03 Tylenol PO 1,000 mg Q6H PRN Administration Mild Pain (1-3) Enoxaparin Sodium 30 mg 05/29/19 09:00 05/30/19 08:17 Lovenox SC Not Given 0900 SUHAS Famotidine 20 mg 05/30/19 09:00 05/30/19 08:16 Pepcid PO 20 mg DAILY SUHAS Administration Piperacillin Sod/Tazobactam 100 mls @ 200 mls/hr 05/29/19 08:00 05/31/19 00: 47 Sod 2.25 gm/ Sodium Chloride IVPB 100 mls 0800,1600,2359 SUHAS Administration Insulin Human Isoph/Insulin Regular 20 units 05/29/19 21:00 05/30/19 21:59 Humulin 70/30 SC 20 units QPM SUHAS Administration Insulin Human Isoph/Insulin Regular 40 units 05/29/19 09:00 05/30/19 08:17 Humulin 70/30 SC Not Given QAM SUHAS Insulin Human Lispro 0 units 05/28/19 23:20 05/31/19 06:09 Humalog SC 3 unit .MILD SLIDING SCALE PRN Administration Mild Correctional Scale Insulin Human Lispro 0 units 05/28/19 23:20 05/30/19 22:02 Humalog SC 2 unit .BEDTIME SLIDING SC PRN Administration Bedtime Correctional Scale Levothyroxine Sodium 175 mcg 05/29/19 06:00 05/31/19 06:08 Synthroid PO 175 mcg 0600 SUHAS Administration Multivitamins 1 tab 05/29/19 09:00 05/30/19 08:16 Theragran PO 1 tab DAILY SUHAS Administration Polyethylene Glycol 17 gm 05/31/19 04:59 05/31/19 06:09 Miralax PO 17 gm DAILY PRN Administration Constipation Sodium Bicarbonate 650 mg 05/29/19 21:00 05/30/19 21:52 Bicarbonate, Sodium PO 650 mg BID SUHAS Administration - Exam General Appearance: NAD, awake alert ENT: moist mucosa Heart: RRR, no murmur, no gallops, no rubs Respiratory: CTAB, no wheezes, no rales, no ronchi Gastrointestinal: soft, non-tender, non-distended, normal bowel sounds Extremities - other findings: left foot with dressing and wound vac in place Psychiatric: normal affect, normal behavior, A&O x 3 Hosp A/P (1) Diabetic foot infection Code(s): E11.628 - TYPE 2 DIABETES MELLITUS WITH OTHER SKIN COMPLICATIONS; L08.9 - LOCAL INFECTION OF THE SKIN AND SUBCUTANEOUS TISSUE, UNSP Status: Acute (2) Osteomyelitis Code(s): M86.9 - OSTEOMYELITIS, UNSPECIFIED Status: Acute Qualifiers: Osteomyelitis location: foot Laterality: left (3) CKD (chronic kidney disease) stage 4, GFR 15-29 ml/min Code(s): N18.4 - CHRONIC KIDNEY DISEASE, STAGE 4 (SEVERE) Status: Chronic (4) Hyperkalemia Code(s): E87.5 - HYPERKALEMIA Status: Acute (5) Chronic anemia Code(s): D64.9 - ANEMIA, UNSPECIFIED Status: Chronic (6) DM type 2 (diabetes mellitus, type 2) Status: Chronic Qualifiers: Chronic kidney disease stage: stage 3 (moderate) (7) Hypothyroidism Code(s): E03.9 - HYPOTHYROIDISM, UNSPECIFIED Status: Chronic Qualifiers: (8) Obesity (BMI 30.0-34.9) Code(s): E66.9 - OBESITY, UNSPECIFIED Status: Chronic - Plan On Zosyn and Vancomycin since 05/28/2019 Dr. Caballero consulted, performed I&D on 05/30/2019 as patient refused amputation Cultures pending. Will consult Dr. Tam for need for prolonged IV abx. Anemia dropped further to less than 7, transfused 2 units PRBC prior to surgery , now Hgb 8.2 Iron studies consistent with anemia of chronic disease.
[2019-05-31] MEDS: HumuLIN 70/30 (300 UNITS/3 ML VIAL) SC SCH ×2 (10:05→21:31)
[2019-05-31] MEDS: Senokot S 8.6-50 MG TAB PO SCH ×2 (10:07→21:31)
[2019-05-31] MEDS: Multivit, Therapeutic 1 TAB PO SCH (10:07)
[2019-05-31] MEDS: Sodium Bicarbonate Tab 325 MG TAB PO SCH ×2 (10:07→21:31)
[2019-05-31] MEDS: Famotidine 20 MG TAB PO SCH (10:07)
[2019-05-31] MEDS: Enoxaparin Sodium 30 MG/0.3 ML SYRINGE SC SCH (10:08)
--- NOTE | 2019-05-31 14:49 | PDOC.OP ---
Operative Note - Operative Note Operative Note: PROCEDURE: Right internal jugular Olson catheter placement. Removal of left internal jugular Olson catheter. Debridement of left foot osteomyelitis and abscess with resection of third through fifth metatarsal bones and portions of first and second metatarsal bones and tarsal bones SURGEON: Thompson Caballero M.D. DATE: 05/30/2019 PREOPERATIVE DIAGNOSIS: Left foot osteomyelitis and abscess POSTOPERATIVE DIAGNOSIS: Left foot osteomyelitis and abscess HISTORY: Patient with history of recurrent osteomyelitis which has progressed to involve most of his forefoot. He is not ready to consider left below-knee amputation so extensive debridement was recommended. His left internal jugular Olson catheter is nonfunctional so replacement was recommended. FINDINGS: Inability to advance a wire into the superior vena cava from the left internal jugular approach, consistent with possible stenosis. Extensive infection of the left forefoot and extending up into the midfoot especially laterally with extensive bony destruction. PROCEDURE IN DETAIL: After informed consent was obtained and appropriate preoperative antibiotics continue the patient was taken to the operating room where he was placed in the supine position and general anesthesia was administered. The left internal jugular Olson catheter was unable to be aspirated or flushed so the skin was prepped with alcohol and local anesthesia was infused. The cuff was dissected free of the subcutaneous tissues and the Olson catheter was removed and confirmed to be intact. Pressure was held over the exit site for several minutes and hemostasis confirmed. The patient was prepped and draped in standard sterile fashion including the neck and chest and the left foot, with a sterile occlusive dressing placed over the exit site of the previous left Olson catheter. Attention was turned first to the Olson catheter placement. Using a sterile ultrasound probe the patent compressible left internal jugular vein was easily identified and easily accessed under direct ultrasound guidance with excellent flow of dark venous nonpulsatile blood. A wire was advanced but would not advance into the superior vena cava despite multiple maneuvers. Instead it was doubling back up into a parallel vein in the neck, suggesting a possible stenosis in the vena cava below the level of the clavicle. Therefore attention was turned to the right internal jugular vein which was patent and compressible and easily accessed under direct ultrasound guidance. There was excellent flow of dark venous nonpulsatile blood and wire easily advanced into the superior vena cava. Additional local anesthesia was infused to the skin and subcutaneous tissue of the right neck and chest and infraclavicular incision made. The Olson catheter was tunneled from this site to the right IJ access site and trimmed to the appropriate length. A dilator and sheath were placed over the wire and the dilator and wire removed leaving the sheath in place. The Olson catheter was placed through the sheath and the sheath was split and removed leaving the Olson catheter in place. Fluoroscopy confirmed proper positioning of the tip of the catheter in the superior vena cava and no kinking of the course of the catheter. All ports easily aspirated and easily flushed without resistance. The right IJ access site was closed with 4-0 subcuticular Monocryl and the exit site snugged up around the catheter with 4-0 Monocryl as well. Dermabond dressings were placed at the right IJ access site and the exit site and the catheter secured to the skin with nylon suture. Once the Dermabond was dry a chlorhexidine dressing was placed and attention turned to the right foot debridement. The necrotic skin overlying the end of the transmetatarsal amputation was sharply debrided back to viable appearing tissue and the large abscess in the foot drained. Necrotic extensor tendons and flexor tendons were sharply excised and the exposed fourth and fifth metatarsal bones were debrided back to the midfoot. The entire metatarsal bones were nonviable and spongy in consistency due to extensive infection. The midfoot bones were debrided back past the articular surface but were healthier in appearance. There was necrotic infected tissue between the second and third metatarsal bones which was debrided back and the third metatarsal bone. Infected as well and was spongy in consistency. This was entirely resected as well back to the midfoot and the articular surface debrided. The second and first metatarsal bones were partially resected with part of the bone spongy and part of it more normal in consistency. The medial portion of the first metatarsal bone appeared to have normal consistency and was left in place as was part of the superior portion of the second metatarsal bone. It was hoped that this would leave enough structural integrity to the forefoot to allow the patient to maintain balance if he continues to refuse below-knee amputation. However the remainder of these bones was spongy and chronically infected in appearance and was resected. All necrotic and infected appearing tissue of the foot was sharply excised back to bleeding viable noninfected appearing tissue. The wound was irrigated and hemostasis obtained using Bovie electrocautery as necessary. There was oozing from the marrow which was controlled with Josselyn and pressure, following which the wound was packed with Kerlix and wrapped with Kerlix and an Reji wrap, with plans to place an irrigating VAC dressing in the morning. The patient tolerated the procedure well. Estimated blood loss was 150 mL's. There were no complications. Bone fragments were sent for bone culture.
--- NOTE | 2019-05-31 14:51 | PDOC.GSPN ---
Surgery Progress Note: Subj - Subjective Narrative: I discussed the patient's operative findings and what was done in the operating room last night with him today. We examined the wound with the wound care team and an irrigating VAC dressing was placed. For the first time the patient seems willing to consider below-knee amputation and we discussed this in more detail. He would like to talk to the orthotics people and I will request that they see him. If he decides to proceed with below-knee amputation we will schedule that. I believe it would be a more functional option for him and carries less risk of recurrent infection and need for further procedures. Surgery Progress Note: Obj - Vital signs Vital signs: Vital Signs - Most Recent Temp Pulse Resp BP Pulse Ox 98.2 F 61 20 135/64 95 05/31/19 11:05 05/31/19 11:05 05/31/19 11:05 05/31/19 11:05 05/31/19 11:05 Surgery Progress Note: Results - Labs Result Diagrams: 05/31/19 06:07 05/31/19 06:07 Lab results: Laboratory Results - last 24 hr 05/31/19 05/31/19 05/31/19 04:02 06:07 06:07 WBC 10.4 RBC 2.89 L Hgb 8.2 L Hct 25.6 L MCV 88.6 MCH 28.2 MCHC 31.8 L RDW 13.7 Plt Count 362 MPV 6.5 L Neutrophils % 80.9 H Lymphocytes % 10.5 L Monocytes % 5.9 Eosinophils % 2.3 Basophils % 0.5 Neutrophils # 8.4 H Lymphocytes # 1.1 L Monocytes # 0.6 H Eosinophils # 0.2 Basophils # 0.1 Sodium 132 L Potassium 4.5 Chloride 103 Carbon Dioxide 21 L Anion Gap 13 BUN 39 H Creatinine 2.70 H Estimated GFR (MDRD) 23 BUN/Creatinine Ratio 14.44 Glucose 176 H POC Glucose 227 H Calcium 8.6 Phosphorus 3.2 Albumin 2.6 L 05/31/19 11:10 WBC RBC Hgb Hct MCV MCH MCHC RDW Plt Count MPV Neutrophils % Lymphocytes % Monocytes % Eosinophils % Basophils % Neutrophils # Lymphocytes # Monocytes # Eosinophils # Basophils # Sodium Potassium Chloride Carbon Dioxide Anion Gap BUN Creatinine Estimated GFR (MDRD) BUN/Creatinine Ratio Glucose POC Glucose 249 H Calcium Phosphorus Albumin
[2019-05-31] MEDS ORDERED: Vancomycin HCl 1 GM in Premix Bag 1 BAG IVPB SCH (18:00)
--- NOTE | 2019-05-31 18:24 | CON ---
DATE OF CONSULTATION: 05/31/2019 REASON FOR CONSULTATION: Recrudescence of left foot inflammatory process. HISTORY OF PRESENT ILLNESS: An 79-year-old well known to us from multiple prior visits, who has a history of type 2 diabetes with neuropathy and multiple feet complications with right and left transmetatarsal amputations. In December 2018, he presented with this refractory process in the left foot transmetatarsal amputation site with breakdown of the lateral forefoot amputation site. He had repeat I and D and had a Olson catheter placed. The microbiology indicated polymicrobial clara with P aeruginosa, E cloacae, P mirabilis, MRSA, and Enterococcus faecalis. He was treated with meropenem and vancomycin in [facility]. Reportedly, the foot healed completely, went back home, but never followed up with us and he had recrudescence of inflammatory process after repeat breakdown. Reportedly, he was walking on his tennis shoes and developed a blister. Anyway, Dr. Caballero has already operated on him and the patient had debridement of an abscess and resection of third through fifth metatarsal bones and portions of fifth and second metatarsal bones and tarsal bones. He had a Olson was replaced because the old one was plugged up. He is currently complaining of some abdominal distention and constipation for the past 2 days. He had some urinary retention, but he does not have an indwelling catheter at this moment. He is voiding in the urinal. No headaches. No visual symptoms, sore throat, odynophagia, or dysphagia. No dyspnea, cough, or chest pain. No joint symptoms outside the area of involvement. PAST MEDICAL HISTORY: Type 2 diabetes, peripheral vascular disease, CKD stage 4 to 5, multiple prior transmetatarsal amputations, protracted IV antimicrobial therapy courses, Olson catheter placement, cholecystectomy, and hypothyroidism. ALLERGIES: NONE. SOCIAL HISTORY: Lives in [place]. Never smoker. FAMILY HISTORY: Noncontributory. CURRENT MEDICATIONS: 1. Vancomycin. 2. Zosyn. 3. Levothyroxine. 4. Insulin. 5. P.r.n. medications. 6. Enoxaparin. PHYSICAL EXAMINATION: VITAL SIGNS: Essentially normal. He has been afebrile. T-max 100.1 on arrival, but has defervesced since. Blood pressure 90/50, pulse is 60, respirations 18, and O2 saturation 97%. SKIN: The left foot photo showed redness, breakdown of the skin in the transmetatarsal amputation site. A little bit of intertriginous maceration in the intergluteal region. The patient has a fresh right subclavian Olson catheter. No lymphadenopathy. HEENT: Ocular movements conjugate. Numerous missing teeth. Oral cavity otherwise normal. NECK: Supple. No jugular vein distention. LUNGS: Symmetric. CLEAR: Breath sounds. HEART: S1 and S2, regular rate with a soft aortic murmur. No S3 or S4. ABDOMEN: Soft with [id number] tenderness in the lower quadrants. Question of bladder distention. EXTREMITIES: Pulses are faintly palpable in dorsalis pedis. NEUROLOGIC: Nonfocal. He is awake, alert, oriented, follows commands. LABORATORY DATA: Sodium 132 and creatinine 2.7, his baseline is around that range. White cell count is 10.4, hemoglobin 8.2, platelets 362 with 80% neutrophils and microbiology is pending at this time. IMAGING: There is a chest x-ray with some bibasilar changes could be atelectasis. ASSESSMENT: 1. Type 2 diabetes, severe neuropathy. 2. Multiple complications in right and left feet with the refractory left side inflammatory process, which had healed, but now is recrudesced. Extensive debridement was done. He is trying to avoid BK amputation for now, and he will be restarted on Merrem and vancomycin for discharge planning, probably will be transferred back to [place], and hopefully insurance will still have in space for that transfer process. We will place orders for Case Management. He is having some abdominal pain and may develop a worsening urinary retention, may need a CT of the abdomen and pelvis depending on clinical progress. Job ID: [id number]
--- NOTE | 2019-05-31 18:34 | PRG ---
DATE OF SERVICE: 05/31/2019 SUBJECTIVE: The patient was seen and examined. The patient noted with the following vital signs. OBJECTIVE: VITAL SIGNS: Afebrile, temperature 98.8, pulse 66, respiratory rate of 18, O2 saturations are 97%, and blood pressure 148/69. HEENT: Unremarkable. CARDIOVASCULAR SYSTEM: First and second heart sounds were heard. RESPIRATORY SYSTEM: Clear to auscultation. DIGESTIVE SYSTEM: Revealed a benign abdomen with positive bowel sounds. EXTREMITIES: No peripheral edema. SKIN: No new gross rash. LYMPHATICS: No peripheral lymphadenopathy. LABORATORY INVESTIGATION: Showed a hemoglobin of 8.2. Chemistry showed a creatinine of 2.7 with BUN of 39. IMPRESSION: 1. Chronic kidney disease stage 4, more or less at baseline. 2. Mild hyperkalemia. 3. Metabolic acidosis. 4. Hyponatremia. PLAN: 1. We will continue to renally dose all medications while avoiding potentially nephrotoxic agents. 2. Continue with sodium bicarbonate supplementation. 3. Further management to be dependent on the clinical course. Job ID: [id number]
[2019-05-31] MEDS ORDERED: Meropenem 0.5 GM in Sodium Chloride 0.9% 100 ML IVPB SCH (21:00)
[2019-06-01] MEDS: Levothyroxine 175 MCG TAB PO SCH (06:21)
[2019-06-01] MEDS: HumaLOG 300 UNITS/3 ML VIAL SC PRN (06:21)
[2019-06-01 06:39] LABS: #Eosinphils 0.3 thou/uL (0.0-0.7); #Lymphocytes 1.4 thou/uL (1.20-3.40); #Monocytes 0.6 thou/uL (0.11-0.59); %Basophils 0.4 % (0.0-1.0); %Eosinophils 3.1 % (0.0-10.0); %Lymphocytes 15.3 % (21.0-51.0); %Monocytes 6.6 % (0.0-10.0); %Neutrophils 74.6 % (42.0-75.0); Hemoglobin 7.8 g/dL (14.0-18.0); Mean Corpuscular HGB CONC 33.6 g/dL (32.0-36.0); Mean Corpuscular Hemoglobin 30.1 pg (27.0-31.0); Mean Corpuscular Volume 89.5 fL (78.0-98.0); Mean Platelet Volume 6.4 fL (7.4-10.4); Platelet Count 382 thou/uL (130-400); RBC Distribution Width 13.7 % (11.5-14.5); White Blood Cell (WBC) Count 9.3 thou/uL (4.8-10.8)
[2019-06-01 06:57] LABS: Vancomycin, Random 18.5 ug/mL (See Comment)
[2019-06-01 06:59] LABS: Albumin 2.5 g/dL (3.4-4.8); Anion Gap 13 mmol/L (10-20); BUN (Urea Nitrogen) 34 mg/dL (8.4-25.7); BUN/Creatinine Ratio 13.13; Calc. Creatinine Clearance 28 mL/min (70-130); Calcium 8.4 mg/dL (7.8-10.44); Carbon Dioxide 20 mmol/L (23-31); Chloride 104 mmol/L (98-107); Estimated GFR-MDRD 24; Glucose 180 mg/dL (83-110); Phosphorus 3.1 mg/dL (2.3-4.7); Potassium 4.6 mmol/L (3.5-5.1); Sodium 132 mmol/L (136-145)
[2019-06-01] MEDS: Famotidine 20 MG TAB PO SCH (09:10)
[2019-06-01] MEDS: Multivit, Therapeutic 1 TAB PO SCH (09:11)
[2019-06-01] MEDS: Sodium Bicarbonate Tab 325 MG TAB PO SCH ×2 (09:11→21:10)
[2019-06-01] MEDS: Senokot S 8.6-50 MG TAB PO SCH ×2 (09:12→21:05)
[2019-06-01] MEDS: Enoxaparin Sodium 30 MG/0.3 ML SYRINGE SC SCH (09:12)
[2019-06-01] MEDS: Meropenem 500 MG in Sodium Chloride 0.9% 100 ML IVPB SCH ×2 (09:13→21:11)
[2019-06-01] MEDS: HumuLIN 70/30 (300 UNITS/3 ML VIAL) SC SCH ×2 (09:13→21:11)
[2019-06-01] MEDS: Vancomycin HCl 750 MG in Sodium Chloride 0.9% 250 ML 250 ML IVPB SCH (09:13)
--- NOTE | 2019-06-01 10:38 | PDOC.HOSPP ---
- Subjective Encounter Date: 06/01/19 Encounter Time: 10:10 Subjective: Patient feeling better this AM. Pain in ankle improved. Had some abdominal pain yesterday but resolved today, voiding well. - Objective Vital Signs & Weight: Vital Signs (12 hours) Temp Pulse Resp BP Pulse Ox 06/01/19 08:00 98.6 F 62 20 155/71 H 97 06/01/19 05:00 97.8 F 96 19 159/71 H 94 L Weight Admit Weight 195 lb 1.6 oz Weight 195 lb 1.6 oz I&O: 05/31/19 06/01/19 06/02/19 06:59 06:59 06:59 Intake Total 1050 780 Output Total 2449 1100 Balance -1399 -320 Result Diagrams: 06/01/19 06:28 06/01/19 06:28 Additional Labs: Accuchecks 06/01/19 05/31/19 05/31/19 05:09 20:00 17:11 POC Glucose 201 H 296 H 296 H 05/31/19 11:10 POC Glucose 249 H Hospitalist ROS - Review of Systems Constitutional: denies: fever, chills Respiratory: denies: cough, shortness of breath Cardiovascular: denies: chest pain, palpitations Gastrointestinal: denies: nausea, vomiting, abdominal pain Genitourinary: denies: dysuria, hematuria Musculoskeletal: reports: foot pain - Medication Medications: Active Medications Generic Name Dose Route Start Last Admin Trade Name Freq PRN Reason Stop Dose Admin Acetaminophen 1,000 mg 05/28/19 23:20 05/29/19 21:03 Tylenol PO 1,000 mg Q6H PRN Administration Mild Pain (1-3) Enoxaparin Sodium 30 mg 05/29/19 09:00 06/01/19 09:12 Lovenox SC 30 mg 0900 [facility] Administration Famotidine 20 mg 05/30/19 09:00 06/01/19 09:10 Pepcid PO 20 mg DAILY [facility] Administration Vancomycin HCl 750 mg/ Sodium 250 mls @ 250 mls/hr 06/01/19 08:00 06/01/19 09 :13 Chloride IVPB 250 mls 0800 [facility] Administration Meropenem 500 mg/ Sodium 100 mls @ 200 mls/hr 06/01/19 09:00 06/01/19 09:13 Chloride IVPB 100 mls Q12HR [facility] Administration Insulin Human Isoph/Insulin Regular 20 units 05/29/19 21:00 05/31/19 21:31 Humulin 70/30 SC 20 units QPM [facility] Administration Insulin Human Isoph/Insulin Regular 40 units 05/29/19 09:00 06/01/19 09:13 Humulin 70/30 SC Not Given QAM [facility] Insulin Human Lispro 0 units 05/28/19 23:20 06/01/19 06:21 Humalog SC 3 unit .MILD SLIDING SCALE PRN Administration Mild Correctional Scale Insulin Human Lispro 0 units 05/28/19 23:20 05/31/19 21:32 Humalog SC 3 unit .BEDTIME SLIDING SC PRN Administration Bedtime Correctional Scale Levothyroxine Sodium 175 mcg 05/29/19 06:00 06/01/19 06:21 Synthroid PO 175 mcg 0600 [facility] Administration Multivitamins 1 tab 05/29/19 09:00 06/01/19 09:11 Theragran PO 1 tab DAILY [facility] Administration Polyethylene Glycol 17 gm 05/31/19 04:59 05/31/19 06:09 Miralax PO 17 gm DAILY PRN Administration Constipation Senna/Docusate Sodium 2 tab 05/31/19 09:00 06/01/19 09:12 Senokot S PO Not Given BID [facility] Sodium Bicarbonate 650 mg 05/29/19 21:00 06/01/19 09:11 Bicarbonate, Sodium PO 650 mg BID [facility] Administration - Exam General Appearance: NAD, awake alert ENT: moist mucosa Heart: RRR, no murmur, no gallops, no rubs Respiratory: CTAB, no wheezes, no rales, no ronchi Gastrointestinal: soft, non-tender, non-distended, normal bowel sounds Extremities - other findings: left foot with dressing and wound vac in place Psychiatric: normal affect, normal behavior, A&O x 3 Hosp A/P (1) Diabetic foot infection Code(s): E11.628 - TYPE 2 DIABETES MELLITUS WITH OTHER SKIN COMPLICATIONS; L08.9 - LOCAL INFECTION OF THE SKIN AND SUBCUTANEOUS TISSUE, UNSP Status: Acute (2) Osteomyelitis Code(s): M86.9 - OSTEOMYELITIS, UNSPECIFIED Status: Acute Qualifiers: Osteomyelitis location: foot Laterality: left (3) CKD (chronic kidney disease) stage 4, GFR 15-29 ml/min Code(s): N18.4 - CHRONIC KIDNEY DISEASE, STAGE 4 (SEVERE) Status: Chronic (4) Hyperkalemia Code(s): E87.5 - HYPERKALEMIA Status: Acute (5) Chronic anemia Code(s): D64.9 - ANEMIA, UNSPECIFIED Status: Chronic (6) DM type 2 (diabetes mellitus, type 2) Status: Chronic Qualifiers: Chronic kidney disease stage: stage 3 (moderate) (7) Hypothyroidism Code(s): E03.9 - HYPOTHYROIDISM, UNSPECIFIED Status: Chronic Qualifiers: (8) Obesity (BMI 30.0-34.9) Code(s): E66.9 - OBESITY, UNSPECIFIED Status: Chronic - Plan On Zosyn and Vancomycin since 05/28/2019, Zosyn switched to Meropenem 05/31/2019 Dr. Caballero consulted, performed I&D on 05/30/2019 as patient refused amputation , patient reconsidering amputation now Cultures pending. Appreciate Dr. Tam' assistance with the antibiotics. Anemia dropped further to less than 7, transfused 2 units PRBC prior to surgery , now stable in low 8, high 7s. Iron studies consistent with anemia of chronic disease. Discharge planning based on patient decision about amputation.
--- NOTE | 2019-06-01 12:36 | PDOC.GSPN ---
Surgery Progress Note: Subj - Subjective Narrative: Patient is feeling okay today. He spoke with the orthotics people yesterday and also with his son and has decided to proceed with a left below-knee amputation. I do believe this will be a more functional outcome for him. He will require inpatient rehab postoperatively so we will begin that process. His operation will be later in the day so he can have clear liquids for breakfast and then n.p.o. after that. We discussed the operation in detail as well as the inherent risks. These include but are not limited to bleeding, infection, risks of anesthesia, healing issues, and need for other procedures. I will type and cross him for 1 unit. Surgery Progress Note: Obj - Vital signs Vital signs: Vital Signs - Most Recent Temp Pulse Resp BP Pulse Ox 98.6 F 62 20 155/71 H 97 06/01/19 08:00 06/01/19 08:00 06/01/19 08:00 06/01/19 08:00 06/01/19 08:00 Surgery Progress Note: Results - Labs Result Diagrams: 06/01/19 06:28 06/01/19 06:28 Lab results: Laboratory Results - last 24 hr 06/01/19 06/01/19 06/01/19 05:09 06:28 06:28 WBC 9.3 RBC 2.60 L Hgb 7.8 L Hct 23.3 L MCV 89.5 MCH 30.1 MCHC 33.6 RDW 13.7 Plt Count 382 MPV 6.4 L Neutrophils % 74.6 Lymphocytes % 15.3 L Monocytes % 6.6 Eosinophils % 3.1 Basophils % 0.4 Neutrophils # 7.0 H Lymphocytes # 1.4 Monocytes # 0.6 H Eosinophils # 0.3 Basophils # 0.0 Sodium 132 L Potassium 4.6 Chloride 104 Carbon Dioxide 20 L Anion Gap 13 BUN 34 H Creatinine 2.59 H Estimated GFR (MDRD) 24 BUN/Creatinine Ratio 13.13 Glucose 180 H POC Glucose 201 H Calcium 8.4 Phosphorus 3.1 Albumin 2.5 L Random Vancomycin 06/01/19 06:28 WBC RBC Hgb Hct MCV MCH MCHC RDW Plt Count MPV Neutrophils % Lymphocytes % Monocytes % Eosinophils % Basophils % Neutrophils # Lymphocytes # Monocytes # Eosinophils # Basophils # Sodium Potassium Chloride Carbon Dioxide Anion Gap BUN Creatinine Estimated GFR (MDRD) BUN/Creatinine Ratio Glucose POC Glucose Calcium Phosphorus Albumin Random Vancomycin 18.5
--- NOTE | 2019-06-01 16:33 | PRG ---
DATE OF SERVICE: 06/01/2019 SUBJECTIVE: Mr. Park has decided in favor of below-knee amputation procedure, his symptoms are pretty much unchanged and T-max 99. The exam is unchanged from yesterday with a white cell count 9.3, hemoglobin 7.8, platelets 382, and creatinine is at 2.59. Microbiology from the foot, we have 5 different organisms. The patient had a Olson catheter placement. He is probably not going to need this access anyway. ASSESSMENT AND DISCUSSION: Type 2 diabetes; neuropathy with refractory infection, left foot. Now, the patient has agreed to a below the knee amputation and that will avoid the need for long-term antimicrobial therapy, so antimicrobials will be able to be discontinued once the procedure is completed. The only question will be the potential for breakdown of the BKA site due to vascular disease. He does have documented peripheral vascular disease, so that will be the only concern going forward. Job ID: [id number]
--- NOTE | 2019-06-01 16:47 | PRG ---
DATE OF SERVICE: 06/01/2019 SUBJECTIVE: The patient is seen and noted with the following vital signs. OBJECTIVE: VITAL SIGNS: Afebrile, temperature 99, pulse 66, respiratory rate of 20, O2 saturations are 99%, and blood pressure 159/72. HEENT: Unremarkable. CARDIOVASCULAR SYSTEM: First and second heart sounds were heard. RESPIRATORY SYSTEM: Clear to auscultation. DIGESTIVE SYSTEM: Revealed a benign abdomen. EXTREMITIES: No peripheral edema. SKIN: No new gross rash. LYMPHATICS: No peripheral lymphadenopathy. LABORATORY INVESTIGATION: Showed albumin of 2.5, creatinine 2.59, BUN of 34, and sodium 132. Hemoglobin of 7.8. IMPRESSION: 1. Advanced chronic kidney disease, stage 4, more or less at baseline. 2. Diabetic nephropathy with possible significant proteinuria. 3. Hypertension. 4. Anemia, likely anemia of chronic kidney disease. PLAN: 1. Continue current renal supportive measures and avoid potentially nephrotoxic agents. 2. Renally dose all medications. 3. Continue sodium bicarb supplementation. 4. Further management to be dependent on the clinical course. Job ID: [id number]
[2019-06-02 03:11] LABS: Albumin 2.5 g/dL (3.4-4.8); Anion Gap 15 mmol/L (10-20); BUN (Urea Nitrogen) 31 mg/dL (8.4-25.7); BUN/Creatinine Ratio 12.86; Calc. Creatinine Clearance 31 mL/min (70-130); Calcium 8.4 mg/dL (7.8-10.44); Carbon Dioxide 19 mmol/L (23-31); Chloride 106 mmol/L (98-107); Estimated GFR-MDRD 26; Glucose 209 mg/dL (83-110); Phosphorus 3.2 mg/dL (2.3-4.7); Potassium 4.9 mmol/L (3.5-5.1); Sodium 135 mmol/L (136-145)
[2019-06-02] MEDS: Levothyroxine 175 MCG TAB PO SCH (05:01)
[2019-06-02 08:10] LABS: Vancomycin, Random 20.5 ug/mL (See Comment)
[2019-06-02] MEDS: Vancomycin HCl 750 MG in Sodium Chloride 0.9% 250 ML 250 ML IVPB SCH (08:30)
[2019-06-02] MEDS: Multivit, Therapeutic 1 TAB PO SCH (08:31)
[2019-06-02] MEDS: Famotidine 20 MG TAB PO SCH (08:31)
[2019-06-02] MEDS: Sodium Bicarbonate Tab 325 MG TAB PO SCH ×2 (08:32→21:14)
[2019-06-02] MEDS: Senokot S 8.6-50 MG TAB PO SCH ×2 (08:32→21:14)
[2019-06-02] MEDS: HumuLIN 70/30 (300 UNITS/3 ML VIAL) SC SCH ×2 (08:33→21:15)
[2019-06-02] MEDS: Enoxaparin Sodium 30 MG/0.3 ML SYRINGE SC SCH (08:34)
[2019-06-02] MEDS: Meropenem 500 MG in Sodium Chloride 0.9% 100 ML IVPB SCH ×2 (08:43→21:15)
[2019-06-02] MEDS ORDERED: Vancomycin HCl 750 MG in Sodium Chloride 0.9% 250 ML 250 ML IVPB SCH (08:45)
[2019-06-02] MEDS ORDERED: PROPOFOL 200 MG/20 ML VIAL ONE (12:02)
[2019-06-02] MEDS ORDERED: EPHEDRINE 25 MG/5 ML SYRINGE ONE (12:02)
[2019-06-02] MEDS ORDERED: Lidocaine 1% PF 5 ML VIAL ONE (12:02)
[2019-06-02] MEDS ORDERED: Dexamethasone 20 MG/5 ML VIAL ONE (12:02)
[2019-06-02] MEDS ORDERED: Glycopyrrolate 0.2 MG/ML 5 ML SYRINGE ONE (12:02)
[2019-06-02] MEDS ORDERED: Ondansetron PF 4 MG/2 ML Vial ONE (12:02)
[2019-06-02] MEDS ORDERED: Bacitracin Zinc Ointment 30 gm TUBE ONE (15:22)
[2019-06-02] MEDS ORDERED: Fentanyl 100 MCG/2 ML VIAL ONE (15:23)
[2019-06-02] MEDS ORDERED: HYDROmorphone 2 MG/ML VIAL ONE (15:24)
[2019-06-02] MEDS ORDERED: Phenylephrine 10 MG/ML VIAL ONE (15:38)
[2019-06-02] MEDS ORDERED: Promethazine HCl 25 MG/ML VIAL IM PRN (16:06)
[2019-06-02] MEDS ORDERED: Promethazine HCl 25 MG/ML VIAL SLOW IVP PRN (16:06)
[2019-06-02] MEDS ORDERED: Ondansetron HCl/PF 4 MG/2 ML Vial IVP PRN (16:06)
[2019-06-02] MEDS ORDERED: Dextrose 50% Abboject 50 ML SYRINGE ONE (16:19)
--- NOTE | 2019-06-02 16:56 | PDOC.OP ---
Operative Note - Operative Note Operative Note: PROCEDURE: Left below-knee amputation SURGEON: Thompson Caballero M.D. DATE: 06/02/2019 PREOPERATIVE DIAGNOSIS: POSTOPERATIVE DIAGNOSIS: HISTORY: Patient with extensive osteonecrosis and abscess of the left foot status post debridement. He has decided to proceed with left below-knee amputation. PROCEDURE IN DETAIL: After informed consent was obtained and appropriate preoperative antibiotics administered, the patient was taken to the operating room and was placed in supine position and anesthesia was administered. The leg was prepped and draped in standard sterile fashion. A short anterior long posterior flap was measured out and marked on the skin. The skin was incised anteriorly and dissection carried down using electrocautery to the tibia which was cleared anteriorly. The periosteum was elevated proximally and a Gigli saw passed posteriorly. The tibia was transected using the Gigli saw at a level of couple centimeters proximal to the skin incision, angling upward anteriorly to avoid a sharp edge under the skin. The anterior tibial vessels were identified and clamped and ligated. Dissection was carried down to the fibula which was dissected free circumferentially. The periosteum was elevated proximally and rib karey were used to transect the fibula at a level a few centimeters proximal to the tibial transection. The posterior tibial vessels were then dissected free, clamped and ligated. The posterior flap incision was made through the skin using a scalpel and then through subcutaneous tissues to the muscle using Bovie electrocautery. An amputation blade was placed behind the tibia and fibula and the leg amputated. Some bleeding vessels were clamped and ligated. The soleus was trimmed and the posterior flap muscle was trimmed to the appropriate length to allow closure without tension. The nerves were pulled down into the wound, ligated and allowed to retract into the soft tissues. Oozing from the muscle and the subcutaneous tissues was controlled with electrocautery. A bone rasp was used to smooth the edges of the tibia. The fibula was smoothed with rongeurs and the wound was irrigated and hemostasis verified. Muscular fascia was reapproximated over the stump using interrupted [id number] 2-0 Vicryl sutures. The subcutaneous tissues were reapproximated using 3-0 Vicryl sutures and the skin was closed with skin jeniffer. Xeroform gauze, Kerlix, and Reji wrap were used to dress the amputation stump and the patient was placed in a knee immobilizer. The patient was taken to the recovery room in stable condition. There were no complications. ESTIMATED BLOOD LOSS: SPECIMEN: Left leg
--- NOTE | 2019-06-02 16:56 | PRG ---
DATE OF SERVICE: 06/02/2019 SUBJECTIVE: The patient was seen and examined. Noted with the following vital signs. OBJECTIVE: VITAL SIGNS: Afebrile, temperature 98.5, pulse 55, respiratory rate of 20, O2 saturations of 98%, and blood pressure 164/74. HEENT: Unremarkable. CARDIOVASCULAR SYSTEM: First and second heart sounds were heard. RESPIRATORY SYSTEM: Clear to auscultation. DIGESTIVE SYSTEM: Revealed a benign abdomen. EXTREMITIES: No peripheral edema. SKIN: No new gross rash. LYMPHATICS: No peripheral lymphadenopathy. LABORATORY INVESTIGATION: Showed a hemoglobin of 7.8. Chemistry showed a creatinine of 2.41, BUN of 31, and bicarb of 19. IMPRESSION: 1. Advanced chronic kidney disease, stage 4, which seems to be much improved. 2. Nonhealing diabetic foot likely to undergo amputation. 3. Anemia likely anemia of chronic kidney disease. PLAN: 1. Continue current renal supportive measures. 2. Renally dose all medications. 3. Further management will be dependent on the clinical course. Job ID: [id number]
[2019-06-02] MEDS ORDERED: HYDROcodone/Acetaminophen 7.5/325 mg Tablet PO PRN (19:22)
[2019-06-03] MEDS: HumaLOG 300 UNITS/3 ML VIAL SC PRN ×2 (06:14→13:18)
[2019-06-03] MEDS: Levothyroxine 175 MCG TAB PO SCH (06:14)
[2019-06-03 07:45] LABS: Vancomycin, Random 20.8 ug/mL (See Comment)
[2019-06-03] MEDS: Meropenem 500 MG in Sodium Chloride 0.9% 100 ML IVPB SCH (08:39)
[2019-06-03] MEDS: Famotidine 20 MG TAB PO SCH (08:40)
[2019-06-03] MEDS: HumuLIN 70/30 (300 UNITS/3 ML VIAL) SC SCH ×2 (08:40→20:22)
[2019-06-03] MEDS: Sodium Bicarbonate Tab 325 MG TAB PO SCH ×2 (08:40→20:27)
[2019-06-03] MEDS: Multivit, Therapeutic 1 TAB PO SCH (08:40)
[2019-06-03] MEDS: Enoxaparin Sodium 30 MG/0.3 ML SYRINGE SC SCH (08:40)
[2019-06-03] MEDS: Morphine 2 MG/ML SYRINGE SLOW IVP PRN (10:22)
[2019-06-03] MEDS: Senokot S 8.6-50 MG TAB PO SCH ×2 (10:33→19:33)
[2019-06-03] MEDS ORDERED: Vancomycin HCl 750 MG in Sodium Chloride 0.9% 250 ML 250 ML IVPB SCH (11:30)
--- NOTE | 2019-06-03 12:11 | PRG ---
DATE OF SERVICE: 06/03/2019 SUBJECTIVE: The patient complains of severe pain in the ankle that is gone. Morphine 2, does not touch it. OBJECTIVE: Temperature 97.9, pulse 60, blood pressure 168/78. On exam, there is no evidence of bleeding. The dressing is not excessively tight. The skin looks healthy. ASSESSMENT: Phantom pain. PLAN: We will increase morphine. Job ID: [id number]
[2019-06-03] MEDS: Morphine 4 MG/ML VIAL SLOW IVP PRN ×2 (12:28→16:25)
[2019-06-03] MEDS: HYDROcodone/Acetaminophen 7.5/325 mg Tablet PO PRN ×2 (12:37→18:27)
[2019-06-03 12:50] LABS: #Eosinphils 0.1 thou/uL (0.0-0.7); #Monocytes 0.8 thou/uL (0.11-0.59); #Neutrophils 9.8 thou/uL (1.40-6.50); %Basophils 0.1 % (0.0-1.0); %Eosinophils 0.5 % (0.0-10.0); %Monocytes 6.2 % (0.0-10.0); %Neutrophils 77.2 % (42.0-75.0); Hemoglobin 8.3 g/dL (14.0-18.0); Mean Corpuscular Hemoglobin 29.2 pg (27.0-31.0); Mean Corpuscular Volume 88.4 fL (78.0-98.0); Mean Platelet Volume 6.4 fL (7.4-10.4); Platelet Count 459 thou/uL (130-400); RBC Distribution Width 14.1 % (11.5-14.5); Red Blood Cell (RBC) Count 2.83 mill/uL (4.70-6.10); White Blood Cell (WBC) Count 12.7 thou/uL (4.8-10.8)
[2019-06-03 13:08] LABS: Anion Gap 16 mmol/L (10-20); BUN (Urea Nitrogen) 30 mg/dL (8.4-25.7); Calc. Creatinine Clearance 32 mL/min (70-130); Calcium 8.4 mg/dL (7.8-10.44); Carbon Dioxide 19 mmol/L (23-31); Chloride 104 mmol/L (98-107); Estimated GFR-MDRD 27; Glucose 238 mg/dL (83-110); Potassium 4.4 mmol/L (3.5-5.1); Sodium 135 mmol/L (136-145)
--- NOTE | 2019-06-03 15:08 | PDOC.HOSPP ---
- Subjective Encounter Date: 06/03/19 Encounter Time: 10:45 Subjective: pt up in bed complains of pain to his left leg - Objective Vital Signs & Weight: Vital Signs (12 hours) Temp Pulse Resp BP BP Pulse Ox 06/03/19 11:00 97.9 F 60 20 168/78 H 96 06/03/19 08:00 98 06/03/19 07:37 98.1 F 60 20 130/65 98 06/03/19 04:45 98.1 F 64 16 139/65 100 Weight Admit Weight 195 lb 1.6 oz Weight 195 lb 1.6 oz I&O: 06/02/19 06/03/19 06/04/19 06:59 06:59 06:59 Intake Total 950 Output Total 400 1165 Balance -400 -215 Result Diagrams: 06/03/19 12:41 06/03/19 12:41 Additional Labs: Accuchecks 06/03/19 06/03/19 06/02/19 11:15 04:42 20:34 POC Glucose 304 H 363 H 142 H 06/02/19 06/02/19 06/02/19 18:59 17:30 15:42 POC Glucose 122 H 143 H 68 L 06/02/19 06/02/19 06/02/19 15:25 14:57 14:23 POC Glucose 68 L 73 70 06/02/19 06/02/19 13:53 13:27 POC Glucose 90 113 H Hospitalist ROS - Review of Systems Cardiovascular: denies: chest pain, palpitations, orthopnea, paroxysmal noc. dyspnea, edema, light headedness, other Gastrointestinal: denies: nausea, vomiting, abdominal pain, diarrhea, constipation, melena, hematochezia, other Genitourinary: denies: dysuria, frequency, incontinence, hematuria, retention, other - Medication Medications: Active Medications Generic Name Dose Route Start Last Admin Trade Name Freq PRN Reason Stop Dose Admin Acetaminophen 1,000 mg 05/28/19 23:20 05/29/19 21:03 Tylenol PO 1,000 mg Q6H PRN Administration Mild Pain (1-3) Hydrocodone Bitart/Acetaminophen 2 tab 06/02/19 19:22 06/03/19 12:37 Herminie 7.5/325 PO 2 tab Q4H PRN Administration Moderate to Severe Pain (6-10) Dextrose/Water 25 gm 05/28/19 23:20 06/02/19 12:36 Dextrose 50% SLOW IVP 25 gm PRN PRN Administration Hypoglycemia Enoxaparin Sodium 30 mg 05/29/19 09:00 06/03/19 08:40 Lovenox SC 30 mg 0900 [facility] Administration Famotidine 20 mg 05/30/19 09:00 06/03/19 08:40 Pepcid PO 20 mg DAILY [facility] Administration Heparin Sodium (Porcine) 500 units 06/02/19 19:23 06/03/19 10:24 Heparin Lock Flush 100 Units/Ml IVF 500 unit PRN PRN Administration Heparin Flush Meropenem 500 mg/ Sodium 100 mls @ 200 mls/hr 06/01/19 09:00 06/03/19 08:39 Chloride IVPB 100 mls Q12HR [facility] Administration Insulin Human Isoph/Insulin Regular 20 units 05/29/19 21:00 06/02/19 21:15 Humulin 70/30 SC Not Given QPM [facility] Insulin Human Isoph/Insulin Regular 40 units 05/29/19 09:00 06/03/19 08:40 Humulin 70/30 SC 40 unit QAM [facility] Administration Insulin Human Lispro 0 units 05/28/19 23:20 06/03/19 13:18 Humalog SC 5 unit .MILD SLIDING SCALE PRN Administration Mild Correctional Scale Insulin Human Lispro 0 units 05/28/19 23:20 05/31/19 21:32 Humalog SC 3 unit .BEDTIME SLIDING SC PRN Administration Bedtime Correctional Scale Levothyroxine Sodium 175 mcg 05/29/19 06:00 06/03/19 06:14 Synthroid PO 175 mcg 0600 [facility] Administration Morphine Sulfate 2 mg 05/28/19 23:49 06/03/19 10:22 Morphine SLOW IVP 2 mg Q4H PRN Administration Moderate to Severe Pain (6-10) Morphine Sulfate 4 mg 06/03/19 11:28 06/03/19 12:28 Morphine SLOW IVP 4 mg Q2H PRN Administration Moderate to Severe Pain (6-10) Multivitamins 1 tab 05/29/19 09:00 06/03/19 08:40 Theragran PO 1 tab DAILY [facility] Administration Polyethylene Glycol 17 gm 05/31/19 04:59 05/31/19 06:09 Miralax PO 17 gm DAILY PRN Administration Constipation Senna/Docusate Sodium 2 tab 05/31/19 09:00 06/03/19 10:33 Senokot S PO Not Given BID [facility] Sodium Bicarbonate 650 mg 05/29/19 21:00 06/03/19 08:40 Bicarbonate, Sodium PO 650 mg BID [facility] Administration - Exam Heart: negative: RRR, no murmur, no gallops, no rubs, normal peripheral pulses, irregular, diminshed peripheral pulses, murmur present, II/IV, III/IV Respiratory: negative: CTAB, no wheezes, no rales, no ronchi, normal chest expansion, no tachypnea, normal percussion, rales, rhonchi, tachypneic, wheezes Gastrointestinal: negative: soft, non-tender, non-distended, normal bowel sounds , no palpable masses, no hepatomegaly, no splenomegaly, no bruit, no guarding, no rigidity, tender to palpation, distended, diminished bowl sounds, voluntary guarding Extremities - other findings: left leg wrapped Hosp A/P - Plan (1) Diabetic foot infection Code(s): E11.628 - TYPE 2 DIABETES MELLITUS WITH OTHER SKIN COMPLICATIONS; L08.9 - LOCAL INFECTION OF THE SKIN AND SUBCUTANEOUS TISSUE, UNSP Status: Acute (2) Osteomyelitis Code(s): M86.9 - OSTEOMYELITIS, UNSPECIFIED Status: Acute Qualifiers: Osteomyelitis location: foot Laterality: left (3) CKD (chronic kidney disease) stage 4, GFR 15-29 ml/min Code(s): N18.4 - CHRONIC KIDNEY DISEASE, STAGE 4 (SEVERE) Status: Chronic (4) Hyperkalemia Code(s): E87.5 - HYPERKALEMIA Status: Acute (5) Chronic anemia Code(s): D64.9 - ANEMIA, UNSPECIFIED Status: Chronic (6) DM type 2 (diabetes mellitus, type 2) Status: Chronic Qualifiers: Chronic kidney disease stage: stage 3 (moderate) (7) Hypothyroidism Code(s): E03.9 - HYPOTHYROIDISM, UNSPECIFIED Status: Chronic Qualifiers: (8) Obesity (BMI 30.0-34.9) Code(s): E66.9 - OBESITY, UNSPECIFIED Status: Chronic - Plan On Zosyn and Vancomycin since 05/28/2019, Zosyn switched to Meropenem 05/31/2019 Dr. Caballero consulted, performed I&D on 05/30/2019 as patient refused amputation , patient reconsidering amputation now Cultures pending. Appreciate Dr. Tam' assistance with the antibiotics. Anemia dropped further to less than 7, transfused 2 units PRBC prior to surgery , now stable in low 8, high 7s. Iron studies consistent with anemia of chronic disease. Discharge planning based on patient decision about amputation. s/p amputation on 06/02, pt has pain to his left leg. will stop his abx since he had an amputation. blood sugars controlled. HH is stable. concern for wound healing due to PVD.
[2019-06-03] MEDS: Tamsulosin HCl 0.4 MG CAP PO SCH (20:27)
[2019-06-04] MEDS: Morphine 2 MG/ML SYRINGE SLOW IVP PRN (04:36)
[2019-06-04] MEDS: Levothyroxine 175 MCG TAB PO SCH (04:36)
[2019-06-04 04:49] LABS: Anion Gap 13 mmol/L (10-20); BUN (Urea Nitrogen) 28 mg/dL (8.4-25.7); Calc. Creatinine Clearance 32 mL/min (70-130); Calcium 8.1 mg/dL (7.8-10.44); Carbon Dioxide 23 mmol/L (23-31); Chloride 105 mmol/L (98-107); Estimated GFR-MDRD 28; Glucose 119 mg/dL (83-110); Potassium 4.7 mmol/L (3.5-5.1); Sodium 136 mmol/L (136-145)
--- NOTE | 2019-06-04 07:07 | PRG ---
DATE OF SERVICE: 06/04/2019 SUBJECTIVE: The patient noted with the following vital signs. OBJECTIVE: VITAL SIGNS: Afebrile, temperature 97.9, pulse 97, respiratory rate 18, O2 saturation of 97%, and blood pressure 132/76. HEENT: Unremarkable. CARDIOVASCULAR SYSTEM: First and second heart sounds were heard. RESPIRATORY SYSTEM: Clear to auscultation. DIGESTIVE SYSTEM: Revealed a benign abdomen. Positive bowel sounds. EXTREMITIES: No peripheral edema. SKIN: No new gross rash or edema. LYMPHATICS: No peripheral lymphadenopathy. LABORATORY INVESTIGATION: Showed a creatinine of 2.3, BUN of 30, sodium of 135. IMPRESSION: 1. Acute on chronic kidney disease, which seems to be improving status post treatment for the infection. 2. Metabolic acidosis, mild. PLAN: 1. We will continue with current renal supportive measures. 2. Renally dose medications. 3. Further management to be dependent on the clinical course. Job ID: [id number]
[2019-06-04] MEDS: Sodium Bicarbonate Tab 325 MG TAB PO SCH ×2 (08:20→20:50)
[2019-06-04] MEDS: Senokot S 8.6-50 MG TAB PO SCH ×2 (08:21→20:34)
[2019-06-04] MEDS: Famotidine 20 MG TAB PO SCH (08:21)
[2019-06-04] MEDS: Enoxaparin Sodium 30 MG/0.3 ML SYRINGE SC SCH (08:21)
[2019-06-04] MEDS: Multivit, Therapeutic 1 TAB PO SCH (08:21)
[2019-06-04] MEDS: HumuLIN 70/30 (300 UNITS/3 ML VIAL) SC SCH (10:14)
[2019-06-04] MEDS: HumaLOG 300 UNITS/3 ML VIAL SC PRN ×3 (12:57→20:50)
--- NOTE | 2019-06-04 13:31 | PDOC.HOSPP ---
- Subjective Encounter Date: 06/04/19 Encounter Time: 11:55 Subjective: pt up in bed pain has improved. - Objective Vital Signs & Weight: Vital Signs (12 hours) Temp Pulse Resp BP Pulse Ox 06/04/19 04:45 97.9 F 97 18 133/76 97 Weight Admit Weight 195 lb 1.6 oz Weight 195 lb 1.6 oz I&O: 06/03/19 06/04/19 06/05/19 06:59 06:59 06:59 Intake Total 950 1660 Output Total 1165 1600 Balance -215 60 Result Diagrams: 06/03/19 12:41 06/04/19 04:20 Additional Labs: Accuchecks 06/04/19 06/04/19 06/04/19 11:45 10:10 04:45 POC Glucose 229 H 201 H 147 H 06/03/19 06/03/19 20:04 16:24 POC Glucose 115 H 106 Hospitalist ROS - Review of Systems Respiratory: denies: cough, dry, shortness of breath, hemoptysis, SOB with excertion, pleuritic pain, sputum, wheezing, other Cardiovascular: denies: chest pain, palpitations, orthopnea, paroxysmal noc. dyspnea, edema, light headedness, other Gastrointestinal: denies: nausea, vomiting, abdominal pain, diarrhea, constipation, melena, hematochezia, other Genitourinary: denies: dysuria, frequency, incontinence, hematuria, retention, other - Medication Medications: Active Medications Generic Name Dose Route Start Last Admin Trade Name Freq PRN Reason Stop Dose Admin Acetaminophen 1,000 mg 05/28/19 23:20 05/29/19 21:03 Tylenol PO 1,000 mg Q6H PRN Administration Mild Pain (1-3) Hydrocodone Bitart/Acetaminophen 1 tab 06/02/19 19:22 06/04/19 04:37 [place] 7.5/325 PO 1 tab Q4H PRN Administration Mild-Moderate Pain (1-5) Hydrocodone Bitart/Acetaminophen 2 tab 06/02/19 19:22 06/03/19 18:27 [place] 7.5/325 PO 2 tab Q4H PRN Administration Moderate to Severe Pain (6-10) Dextrose/Water 25 gm 05/28/19 23:20 06/02/19 12:36 Dextrose 50% SLOW IVP 25 gm PRN PRN Administration Hypoglycemia Enoxaparin Sodium 30 mg 05/29/19 09:00 06/04/19 08:21 Lovenox SC 30 mg 0900 [facility] Administration Famotidine 20 mg 05/30/19 09:00 06/04/19 08:21 Pepcid PO 20 mg DAILY SUHAS Administration Heparin Sodium (Porcine) 500 units 06/02/19 19:23 06/03/19 16:30 Heparin Lock Flush 100 Units/Ml IVF 500 unit PRN PRN Administration Heparin Flush Insulin Human Isoph/Insulin Regular 20 units 05/29/19 21:00 06/03/19 20:22 Humulin 70/30 SC Not Given QPM SUHAS Insulin Human Isoph/Insulin Regular 40 units 05/29/19 09:00 06/04/19 10:14 Humulin 70/30 SC Not Given QAM [facility] Insulin Human Lispro 0 units 05/28/19 23:20 06/04/19 12:57 Humalog SC 3 unit .MILD SLIDING SCALE PRN Administration Mild Correctional Scale Insulin Human Lispro 0 units 05/28/19 23:20 05/31/19 21:32 Humalog SC 3 unit .BEDTIME SLIDING SC PRN Administration Bedtime Correctional Scale Levothyroxine Sodium 175 mcg 05/29/19 06:00 06/04/19 04:36 Synthroid PO 175 mcg 0600 [facility] Administration Morphine Sulfate 2 mg 05/28/19 23:49 06/04/19 04:36 Morphine SLOW IVP 2 mg Q4H PRN Administration Moderate to Severe Pain (6-10) Morphine Sulfate 4 mg 06/03/19 11:28 06/03/19 16:25 Morphine SLOW IVP 4 mg Q2H PRN Administration Moderate to Severe Pain (6-10) Multivitamins 1 tab 05/29/19 09:00 06/04/19 08:21 Theragran PO 1 tab DAILY [facility] Administration Polyethylene Glycol 17 gm 05/31/19 04:59 05/31/19 06:09 Miralax PO 17 gm DAILY PRN Administration Constipation Senna/Docusate Sodium 2 tab 05/31/19 09:00 06/04/19 08:21 Senokot S PO Not Given BID [facility] Sodium Bicarbonate 650 mg 05/29/19 21:00 06/04/19 08:20 Bicarbonate, Sodium PO 650 mg BID SUHAS Administration Tamsulosin HCl 0.4 mg 06/03/19 21:00 06/03/19 20:27 Flomax PO 0.4 mg HS SUHAS Administration - Exam Neck: negative: supple, symmetric, no JVD, no thyromegaly, no lymphadenopathy, no carotid bruit, JVD Heart: negative: RRR, no murmur, no gallops, no rubs, normal peripheral pulses, irregular, diminshed peripheral pulses, murmur present, II/IV, III/IV Respiratory: negative: CTAB, no wheezes, no rales, no ronchi, normal chest expansion, no tachypnea, normal percussion, rales, rhonchi, tachypneic, wheezes Gastrointestinal: negative: soft, non-tender, non-distended, normal bowel sounds , no palpable masses, no hepatomegaly, no splenomegaly, no bruit, no guarding, no rigidity, tender to palpation, distended, diminished bowl sounds, voluntary guarding Hosp A/P - Plan (1) Diabetic foot infection Code(s): E11.628 - TYPE 2 DIABETES MELLITUS WITH OTHER SKIN COMPLICATIONS; L08.9 - LOCAL INFECTION OF THE SKIN AND SUBCUTANEOUS TISSUE, UNSP Status: Acute (2) Osteomyelitis Code(s): M86.9 - OSTEOMYELITIS, UNSPECIFIED Status: Acute Qualifiers: Osteomyelitis location: foot Laterality: left (3) CKD (chronic kidney disease) stage 4, GFR 15-29 ml/min Code(s): N18.4 - CHRONIC KIDNEY DISEASE, STAGE 4 (SEVERE) Status: Chronic (4) Hyperkalemia Code(s): E87.5 - HYPERKALEMIA Status: Acute (5) Chronic anemia Code(s): D64.9 - ANEMIA, UNSPECIFIED Status: Chronic (6) DM type 2 (diabetes mellitus, type 2) Status: Chronic Qualifiers: Chronic kidney disease stage: stage 3 (moderate) (7) Hypothyroidism Code(s): E03.9 - HYPOTHYROIDISM, UNSPECIFIED Status: Chronic Qualifiers: (8) Obesity (BMI 30.0-34.9) Code(s): E66.9 - OBESITY, UNSPECIFIED Status: Chronic - Plan On Zosyn and Vancomycin since 05/28/2019, Zosyn switched to Meropenem 05/31/2019 Dr. Caballero consulted, performed I&D on 05/30/2019 as patient refused amputation , patient reconsidering amputation now Cultures pending. Appreciate Dr. Tam' assistance with the antibiotics. Anemia dropped further to less than 7, transfused 2 units PRBC prior to surgery , now stable in low 8, high 7s. Iron studies consistent with anemia of chronic disease. Discharge planning based on patient decision about amputation. s/p amputation on 06/02, pt has pain to his left leg. will stop his abx since he had an amputation. blood sugars controlled. HH is stable. concern for wound healing due to PVD. 06/03 will add nephro to his meals since he is not eating much. will also decrease his insulin since his appetite is low.
[2019-06-04] MEDS: Tamsulosin HCl 0.4 MG CAP PO SCH (20:50)
[2019-06-04] MEDS ORDERED: HumuLIN 70/30 (300 UNITS/3 ML VIAL) SC SCH (21:00)
--- NOTE | 2019-06-04 23:21 | PRG ---
DATE OF SERVICE: 06/04/2019 SUBJECTIVE: Patient noted with the following vital signs. OBJECTIVE: VITAL SIGNS: Afebrile with temperature 98.3, pulse 61, respiratory rate 17, saturating 97%, and blood pressure 154/77. HEENT EXAMINATION: Unremarkable. CARDIOVASCULAR SYSTEM: First and second heart sounds were heard. RESPIRATORY SYSTEM: Clear to auscultation. DIGESTIVE SYSTEM: Revealed a benign abdomen with positive bowel sounds. EXTREMITIES: No peripheral edema. SKIN EXAMINATION: No new gross rash. LYMPHATICS: No peripheral lymphadenopathy. LABORATORY INVESTIGATIONS: Showed a hemoglobin of 8.3. Chemistry showed a creatinine down to 2.27. IMPRESSION: Acute on chronic kidney disease, much improved, feeling better than the patient's normal baseline. PLAN: We will continue current renal supportive measures. Job ID: [id number]
[2019-06-05] MEDS: Levothyroxine 175 MCG TAB PO SCH (04:08)
[2019-06-05] MEDS: HumaLOG 300 UNITS/3 ML VIAL SC PRN ×4 (04:12→20:10)
[2019-06-05 04:25] LABS: #Eosinphils 0.2 thou/uL (0.0-0.7); #Lymphocytes 1.2 thou/uL (1.20-3.40); #Monocytes 0.4 thou/uL (0.11-0.59); #Neutrophils 7.2 thou/uL (1.40-6.50); %Basophils 0.2 % (0.0-1.0); %Eosinophils 2.2 % (0.0-10.0); %Monocytes 4.7 % (0.0-10.0); Hemoglobin 7.7 g/dL (14.0-18.0); Mean Corpuscular HGB CONC 32.5 g/dL (32.0-36.0); Mean Corpuscular Volume 89.2 fL (78.0-98.0); Mean Platelet Volume 6.5 fL (7.4-10.4); Platelet Count 414 thou/uL (130-400); RBC Distribution Width 14.3 % (11.5-14.5); Red Blood Cell (RBC) Count 2.66 mill/uL (4.70-6.10)
[2019-06-05 05:03] LABS: Anion Gap 9 mmol/L (10-20); BUN (Urea Nitrogen) 21 mg/dL (8.4-25.7); Calc. Creatinine Clearance 50 mL/min (70-130); Calcium 6.1 mg/dL (7.8-10.44); Carbon Dioxide 19 mmol/L (23-31); Chloride 117 mmol/L (98-107); Estimated GFR-MDRD 46; Glucose 167 mg/dL (83-110); Potassium 3.7 mmol/L (3.5-5.1); Sodium 141 mmol/L (136-145)
[2019-06-05] MEDS ORDERED: HumuLIN 70/30 (300 UNITS/3 ML VIAL) SC SCH (09:00)
--- NOTE | 2019-06-05 09:20 | PDOC.GSPN ---
Surgery Progress Note: Subj - Subjective Narrative: Patient is feeling well today. Pain is under control on oral medications. He is working with physical therapy. His wound looks good. 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 He can leave his knee immobilizer off during the day but I would like him to wear it at night when he is sleeping. Awaiting rehab placement. Surgery Progress Note: Obj - Vital signs Vital signs: Vital Signs - Most Recent Temp Pulse Resp BP Pulse Ox 98.3 F 61 17 154/77 H 97 06/04/19 20:00 06/04/19 20:00 06/04/19 20:00 06/04/19 20:00 06/04/19 20:00 Surgery Progress Note: Results - Labs Result Diagrams: 06/05/19 04:00 06/05/19 04:00 Lab results: Laboratory Results - last 24 hr 06/05/19 06/05/19 06/05/19 04:00 04:00 04:14 WBC 9.0 RBC 2.66 L Hgb 7.7 L Hct 23.8 L MCV 89.2 MCH 29.0 MCHC 32.5 RDW 14.3 Plt Count 414 H MPV 6.5 L Neutrophils % 80.0 H Lymphocytes % 13.0 L Monocytes % 4.7 Eosinophils % 2.2 Basophils % 0.2 Neutrophils # 7.2 H Lymphocytes # 1.2 Monocytes # 0.4 Eosinophils # 0.2 Basophils # 0.0 Sodium 141 Potassium 3.7 Chloride 117 H Carbon Dioxide 19 L Anion Gap 9 L BUN 21 Creatinine 1.48 H Estimated GFR (MDRD) 46 Glucose 167 H POC Glucose 241 H Calcium 6.1 L
[2019-06-05] MEDS: Enoxaparin Sodium 30 MG/0.3 ML SYRINGE SC SCH (09:41)
[2019-06-05] MEDS: Sodium Bicarbonate Tab 325 MG TAB PO SCH ×2 (09:43→20:09)
[2019-06-05] MEDS: Famotidine 20 MG TAB PO SCH (09:43)
[2019-06-05] MEDS: Senokot S 8.6-50 MG TAB PO SCH ×2 (09:44→20:08)
[2019-06-05] MEDS: Multivit, Therapeutic 1 TAB PO SCH (09:44)
--- NOTE | 2019-06-05 14:24 | PDOC.HOSPP ---
- Subjective Encounter Date: 06/05/19 Encounter Time: 10:45 Subjective: pt up in bed has no appetite. - Objective Vital Signs & Weight: Vital Signs (12 hours) Temp Pulse Pulse Ox 06/05/19 08:00 97.5 F L 61 97 Weight Admit Weight 195 lb 1.6 oz Weight 195 lb 1.6 oz I&O: 06/04/19 06/05/19 06/06/19 06:59 06:59 06:59 Intake Total 1660 450 480 Output Total 1600 1000 Balance 60 -550 480 Result Diagrams: 06/05/19 04:00 06/05/19 04:00 Additional Labs: Accuchecks 06/05/19 06/05/19 06/04/19 11:23 04:14 20:28 POC Glucose 325 H 241 H 216 H 06/04/19 16:37 POC Glucose 231 H Hospitalist ROS - Review of Systems Cardiovascular: denies: chest pain, palpitations, orthopnea, paroxysmal noc. dyspnea, edema, light headedness, other Gastrointestinal: denies: nausea, vomiting, abdominal pain, diarrhea, constipation, melena, hematochezia, other Genitourinary: denies: dysuria, frequency, incontinence, hematuria, retention, other - Medication Medications: Active Medications Generic Name Dose Route Start Last Admin Trade Name Freq PRN Reason Stop Dose Admin Acetaminophen 1,000 mg 05/28/19 23:20 05/29/19 21:03 Tylenol PO 1,000 mg Q6H PRN Administration Mild Pain (1-3) Hydrocodone Bitart/Acetaminophen 1 tab 06/02/19 19:22 06/04/19 04:37 [place] 7.5/325 PO 1 tab Q4H PRN Administration Mild-Moderate Pain (1-5) Hydrocodone Bitart/Acetaminophen 2 tab 06/02/19 19:22 06/03/19 18:27 [place] 7.5/325 PO 2 tab Q4H PRN Administration Moderate to Severe Pain (6-10) Dextrose/Water 25 gm 05/28/19 23:20 06/02/19 12:36 Dextrose 50% SLOW IVP 25 gm PRN PRN Administration Hypoglycemia Enoxaparin Sodium 30 mg 05/29/19 09:00 06/05/19 09:41 Lovenox SC 30 mg 0900 [facility] Administration Famotidine 20 mg 05/30/19 09:00 06/05/19 09:43 Pepcid PO 20 mg DAILY SU[facility] Administration Heparin Sodium (Porcine) 500 units 06/02/19 19:23 06/03/19 16:30 Heparin Lock Flush 100 Units/Ml IVF 500 unit PRN PRN Administration Heparin Flush Insulin Human Isoph/Insulin Regular 8 units 06/04/19 21:00 06/04/19 20:33 Humulin 70/30 SC Not Given QPM SU[facility] Insulin Human Isoph/Insulin Regular 10 units 06/05/19 09:00 06/05/19 09:42 Humulin 70/30 SC 10 unit QAM [facility] Administration Insulin Human Lispro 0 units 05/28/19 23:20 06/05/19 11:59 Humalog SC 5 unit .MILD SLIDING SCALE PRN Administration Mild Correctional Scale Insulin Human Lispro 0 units 05/28/19 23:20 06/04/19 20:50 Humalog SC 2 unit .BEDTIME SLIDING SC PRN Administration Bedtime Correctional Scale Levothyroxine Sodium 175 mcg 05/29/19 06:00 06/05/19 04:08 Synthroid PO 175 mcg 0600 [facility] Administration Morphine Sulfate 2 mg 05/28/19 23:49 06/04/19 04:36 Morphine SLOW IVP 2 mg Q4H PRN Administration Moderate to Severe Pain (6-10) Morphine Sulfate 4 mg 06/03/19 11:28 06/03/19 16:25 Morphine SLOW IVP 4 mg Q2H PRN Administration Moderate to Severe Pain (6-10) Multivitamins 1 tab 05/29/19 09:00 06/05/19 09:44 Theragran PO 1 tab DAILY SU[facility] Administration Polyethylene Glycol 17 gm 05/31/19 04:59 05/31/19 06:09 Miralax PO 17 gm DAILY PRN Administration Constipation Senna/Docusate Sodium 2 tab 05/31/19 09:00 06/05/19 09:44 Senokot S PO Not Given BID [facility] Sodium Bicarbonate 650 mg 05/29/19 21:00 06/05/19 09:43 Bicarbonate, Sodium PO 650 mg BID SU[facility] Administration Tamsulosin HCl 0.4 mg 06/03/19 21:00 06/04/19 20:50 Flomax PO 0.4 mg HS SUHAS Administration - Exam Heart: negative: RRR, no murmur, no gallops, no rubs, normal peripheral pulses, irregular, diminshed peripheral pulses, murmur present, II/IV, III/IV Respiratory: negative: CTAB, no wheezes, no rales, no ronchi, normal chest expansion, no tachypnea, normal percussion, rales, rhonchi, tachypneic, wheezes Gastrointestinal: negative: soft, non-tender, non-distended, normal bowel sounds , no palpable masses, no hepatomegaly, no splenomegaly, no bruit, no guarding, no rigidity, tender to palpation, distended, diminished bowl sounds, voluntary guarding Extremities: negative: no cyanosis, no clubbing, no edema, 1+ LE edema, 2+ LE edema, clubbing Extremities - other findings: left leg amputation Hosp A/P - Plan (1) Diabetic foot infection Code(s): E11.628 - TYPE 2 DIABETES MELLITUS WITH OTHER SKIN COMPLICATIONS; L08.9 - LOCAL INFECTION OF THE SKIN AND SUBCUTANEOUS TISSUE, UNSP Status: Acute (2) Osteomyelitis Code(s): M86.9 - OSTEOMYELITIS, UNSPECIFIED Status: Acute Qualifiers: Osteomyelitis location: foot Laterality: left (3) CKD (chronic kidney disease) stage 4, GFR 15-29 ml/min Code(s): N18.4 - CHRONIC KIDNEY DISEASE, STAGE 4 (SEVERE) Status: Chronic (4) Hyperkalemia Code(s): E87.5 - HYPERKALEMIA Status: Acute (5) Chronic anemia Code(s): D64.9 - ANEMIA, UNSPECIFIED Status: Chronic (6) DM type 2 (diabetes mellitus, type 2) Status: Chronic Qualifiers: Chronic kidney disease stage: stage 3 (moderate) (7) Hypothyroidism Code(s): E03.9 - HYPOTHYROIDISM, UNSPECIFIED Status: Chronic Qualifiers: (8) Obesity (BMI 30.0-34.9) Code(s): E66.9 - OBESITY, UNSPECIFIED Status: Chronic - Plan On Zosyn and Vancomycin since 05/28/2019, Zosyn switched to Meropenem 05/31/2019 Dr. Caballero consulted, performed I&D on 05/30/2019 as patient refused amputation , patient reconsidering amputation now Cultures pending. Appreciate Dr. Tam' assistance with the antibiotics. Anemia dropped further to less than 7, transfused 2 units PRBC prior to surgery , now stable in low 8, high 7s. Iron studies consistent with anemia of chronic disease. Discharge planning based on patient decision about amputation. s/p amputation on 06/02, pt has pain to his left leg. will stop his abx since he had an amputation. blood sugars controlled. HH is stable. concern for wound healing due to PVD. 06/03 will add nephro to his meals since he is not eating much. will also decrease his insulin since his appetite is low. 06/04 pt states that he cannot urinate in bed and needs to be upright to urinate. will conitnue the flomax and will remove vazquez if he is unable to urinate will need to reinsert. PT has been ordered for him. He will need rehab. His mood is depressed. will also check UA, his urine appears cloudy. will increase his insulin. He is tolerating nepro.
[2019-06-05] MEDS ORDERED: Lisinopril 10 MG TAB PO SCH (14:45)
[2019-06-05 14:57] LABS: Bilirubin Negative (Negative); Blood, Urine 2+ (Negative); Clarity Turbid (Clear); Glucose, Urine (Dipstick) >=1000 mg/dL (Negative); Leukocyte 250 Leu/uL (Negative); Nitrite Negative (Negative); Protein, Urine (Dipstick) 50 mg/dL (Neg-Trace); RBC/HPF Greater than 50 HPF (0-3); Squamous Epithelial 0-3 HPF (0-3); Urobilinogen Normal mg/dL (Less than 2); WBC/HPF 21-50 HPF (0-3)
[2019-06-05 15:01] LABS: Bacteria/HPF 1+ HPF (None Seen)
[2019-06-05 15:02] LABS: Urine Culture Reflex Yes Yes
--- NOTE | 2019-06-05 17:22 | PRG ---
DATE OF SERVICE: 06/05/2019 SUBJECTIVE: The patient noted with the following vital signs. OBJECTIVE: VITAL SIGNS: Afebrile, temperature 98.6, pulse 64, respiratory rate of 16, O2 saturation of 97%, and blood pressure 142/67. HEENT: Unremarkable. CARDIOVASCULAR: First and second heart sounds were heard. RESPIRATORY: Clear to auscultation. DIGESTIVE: Benign abdomen. Positive bowel sounds. EXTREMITIES: No peripheral edema. SKIN: No new gross rash. LYMPHATICS: No peripheral lymphadenopathy. LABORATORY INVESTIGATION: Significant for hemoglobin of 7.7. Chemistry showed a creatinine down to 1.58 and BUN of 21. IMPRESSION: 1. Eclkc-ry-wswtchm kidney disease, much improved. 2. Anemia apparently due to iron deficiency anemia of chronic kidney disease. PLAN: 1. Continue current renal supportive measures. 2. Further management including management of anemia to be deferred to the primary team. Job ID: [id number]
[2019-06-05] MEDS: HumuLIN 70/30 (300 UNITS/3 ML VIAL) SC SCH (20:09)
[2019-06-05] MEDS: Tamsulosin HCl 0.4 MG CAP PO SCH (20:09)
[2019-06-06] MEDS: Levothyroxine 175 MCG TAB PO SCH (05:35)
[2019-06-06] MEDS: HumaLOG 300 UNITS/3 ML VIAL SC PRN ×4 (05:43→21:13)
[2019-06-06] MEDS ORDERED: HumuLIN 70/30 (300 UNITS/3 ML VIAL) SC SCH (09:00)
[2019-06-06] MEDS: Sodium Bicarbonate Tab 325 MG TAB PO SCH ×2 (09:06→21:11)
[2019-06-06] MEDS: Senokot S 8.6-50 MG TAB PO SCH ×2 (09:06→21:12)
[2019-06-06] MEDS: Multivit, Therapeutic 1 TAB PO SCH (09:07)
[2019-06-06] MEDS: Famotidine 20 MG TAB PO SCH (09:07)
[2019-06-06] MEDS: Lisinopril 10 MG TAB PO SCH (09:08)
[2019-06-06] MEDS: Enoxaparin Sodium 30 MG/0.3 ML SYRINGE SC SCH (09:10)
[2019-06-06 13:34] LABS: #Eosinphils 0.3 thou/uL (0.0-0.7); #Lymphocytes 1.6 thou/uL (1.20-3.40); #Monocytes 0.4 thou/uL (0.11-0.59); #Neutrophils 6.1 thou/uL (1.40-6.50); %Basophils 0.1 % (0.0-1.0); %Eosinophils 3.3 % (0.0-10.0); %Lymphocytes 19.4 % (21.0-51.0); %Neutrophils 72.1 % (42.0-75.0); Mean Corpuscular HGB CONC 32.4 g/dL (32.0-36.0); Mean Corpuscular Hemoglobin 28.8 pg (27.0-31.0); Mean Platelet Volume 6.4 fL (7.4-10.4); Platelet Count 404 thou/uL (130-400); RBC Distribution Width 14.6 % (11.5-14.5); Red Blood Cell (RBC) Count 2.77 mill/uL (4.70-6.10); White Blood Cell (WBC) Count 8.4 thou/uL (4.8-10.8)
--- NOTE | 2019-06-06 17:54 | PRG ---
DATE OF SERVICE: 06/06/2019 OBJECTIVE: VITAL SIGNS: The patient noted with the following vital signs. Afebrile, temperature 98.2, pulse 59, blood pressure 143/67, respiratory rate of 16, O2 saturation of 97%. HEENT: Unremarkable. CARDIOVASCULAR SYSTEM: First and second heart sounds were heard. RESPIRATORY SYSTEM: Clear to auscultation. DIGESTIVE SYSTEM: Revealed a benign abdomen with positive bowel sounds. EXTREMITIES: No peripheral edema. SKIN: No new gross rash. LYMPHATICS: No peripheral lymphadenopathy. IMPRESSION: 1. Acute on chronic kidney disease, which seems to have improved. 2. Diabetes with diabetic nephropathy. PLAN: Continue current renal supportive measures. Job ID: [id number]
--- NOTE | 2019-06-06 17:58 | PDOC.HOSPP ---
- Subjective Encounter Date: 06/06/19 Encounter Time: 11:30 Subjective: pt up in bed feels much better now. - Objective Vital Signs & Weight: Vital Signs (12 hours) Temp Pulse Resp BP BP Pulse Ox 06/06/19 09:08 143/67 H 06/06/19 09:00 97 06/06/19 08:09 98.2 F 59 L 16 162/73 H 97 Weight Admit Weight 195 lb 1.6 oz Weight 195 lb 1.6 oz I&O: 06/05/19 06/06/19 06/07/19 06:59 06:59 06:59 Intake Total 450 1550 237 Output Total 1000 1300 Balance -550 250 237 Result Diagrams: 06/06/19 13:18 06/05/19 04:00 Additional Labs: Accuchecks 06/06/19 06/05/19 11:43 20:10 POC Glucose 253 H 291 H Hospitalist ROS - Review of Systems Cardiovascular: denies: chest pain, palpitations, orthopnea, paroxysmal noc. dyspnea, edema, light headedness, other Gastrointestinal: denies: nausea, vomiting, abdominal pain, diarrhea, constipation, melena, hematochezia, other Genitourinary: denies: dysuria, frequency, incontinence, hematuria, retention, other - Medication Medications: Active Medications Generic Name Dose Route Start Last Admin Trade Name Freq PRN Reason Stop Dose Admin Acetaminophen 1,000 mg 05/28/19 23:20 05/29/19 21:03 Tylenol PO 1,000 mg Q6H PRN Administration Mild Pain (1-3) Hydrocodone Bitart/Acetaminophen 1 tab 06/02/19 19:22 06/04/19 04:37 [place] 7.5/325 PO 1 tab Q4H PRN Administration Mild-Moderate Pain (1-5) Hydrocodone Bitart/Acetaminophen 2 tab 06/02/19 19:22 06/03/19 18:27 [place] 7.5/325 PO 2 tab Q4H PRN Administration Moderate to Severe Pain (6-10) Dextrose/Water 25 gm 05/28/19 23:20 06/02/19 12:36 Dextrose 50% SLOW IVP 25 gm PRN PRN Administration Hypoglycemia Enoxaparin Sodium 30 mg 05/29/19 09:00 06/06/19 09:10 Lovenox SC 30 mg 0900 [facility] Administration Famotidine 20 mg 05/30/19 09:00 06/06/19 09:07 Pepcid PO 20 mg DAILY [facility] Administration Heparin Sodium (Porcine) 500 units 06/02/19 19:23 06/06/19 13:18 Heparin Lock Flush 100 Units/Ml IVF 500 unit PRN PRN Administration Heparin Flush Insulin Human Isoph/Insulin Regular 20 units 06/06/19 09:00 06/06/19 09:09 Humulin 70/30 SC 20 unit QAM [facility] Administration Insulin Human Isoph/Insulin Regular 15 units 06/05/19 21:00 06/05/19 20:09 Humulin 70/30 SC 15 unit QPM [facility] Administration Insulin Human Lispro 0 units 05/28/19 23:20 06/06/19 13:00 Humalog SC 4 unit .MILD SLIDING SCALE PRN Administration Mild Correctional Scale Insulin Human Lispro 0 units 05/28/19 23:20 06/05/19 20:10 Humalog SC 3 unit .BEDTIME SLIDING SC PRN Administration Bedtime Correctional Scale Levothyroxine Sodium 175 mcg 05/29/19 06:00 06/06/19 05:35 Synthroid PO 175 mcg 0600 SU[facility] Administration Lisinopril 10 mg 06/06/19 09:00 06/06/19 09:08 Zestril PO 10 mg DAILY SU[facility] Administration Morphine Sulfate 2 mg 05/28/19 23:49 06/04/19 04:36 Morphine SLOW IVP 2 mg Q4H PRN Administration Moderate to Severe Pain (6-10) Morphine Sulfate 4 mg 06/03/19 11:28 06/03/19 16:25 Morphine SLOW IVP 4 mg Q2H PRN Administration Moderate to Severe Pain (6-10) Multivitamins 1 tab 05/29/19 09:00 06/06/19 09:07 Theragran PO 1 tab DAILY [facility] Administration Polyethylene Glycol 17 gm 05/31/19 04:59 05/31/19 06:09 Miralax PO 17 gm DAILY PRN Administration Constipation Senna/Docusate Sodium 2 tab 05/31/19 09:00 06/06/19 09:06 Senokot S PO 2 tab BID [facility] Administration Sodium Bicarbonate 650 mg 05/29/19 21:00 06/06/19 09:06 Bicarbonate, Sodium PO 650 mg BID [facility] Administration Tamsulosin HCl 0.4 mg 06/03/19 21:00 06/05/19 20:09 Flomax PO 0.4 mg HS SUHAS Administration - Exam Neck: negative: supple, symmetric, no JVD, no thyromegaly, no lymphadenopathy, no carotid bruit, JVD Heart: negative: RRR, no murmur, no gallops, no rubs, normal peripheral pulses, irregular, diminshed peripheral pulses, murmur present, II/IV, III/IV Respiratory: negative: CTAB, no wheezes, no rales, no ronchi, normal chest expansion, no tachypnea, normal percussion, rales, rhonchi, tachypneic, wheezes Gastrointestinal: negative: soft, non-tender, non-distended, normal bowel sounds , no palpable masses, no hepatomegaly, no splenomegaly, no bruit, no guarding, no rigidity, tender to palpation, distended, diminished bowl sounds, voluntary guarding Extremities - other findings: left bka, dressing intact Hosp A/P - Plan (1) Diabetic foot infection Code(s): E11.628 - TYPE 2 DIABETES MELLITUS WITH OTHER SKIN COMPLICATIONS; L08.9 - LOCAL INFECTION OF THE SKIN AND SUBCUTANEOUS TISSUE, UNSP Status: Acute (2) Osteomyelitis Code(s): M86.9 - OSTEOMYELITIS, UNSPECIFIED Status: Acute Qualifiers: Osteomyelitis location: foot Laterality: left (3) CKD (chronic kidney disease) stage 4, GFR 15-29 ml/min Code(s): N18.4 - CHRONIC KIDNEY DISEASE, STAGE 4 (SEVERE) Status: Chronic (4) Hyperkalemia Code(s): E87.5 - HYPERKALEMIA Status: Acute (5) Chronic anemia Code(s): D64.9 - ANEMIA, UNSPECIFIED Status: Chronic (6) DM type 2 (diabetes mellitus, type 2) Status: Chronic Qualifiers: Chronic kidney disease stage: stage 3 (moderate) (7) Hypothyroidism Code(s): E03.9 - HYPOTHYROIDISM, UNSPECIFIED Status: Chronic Qualifiers: (8) Obesity (BMI 30.0-34.9) Code(s): E66.9 - OBESITY, UNSPECIFIED Status: Chronic - Plan On Zosyn and Vancomycin since 05/28/2019, Zosyn switched to Meropenem 05/31/2019 Dr. Caballero consulted, performed I&D on 05/30/2019 as patient refused amputation , patient reconsidering amputation now Cultures pending. Appreciate Dr. Tam' assistance with the antibiotics. Anemia dropped further to less than 7, transfused 2 units PRBC prior to surgery , now stable in low 8, high 7s. Iron studies consistent with anemia of chronic disease. Discharge planning based on patient decision about amputation. s/p amputation on 06/02, pt has pain to his left leg. will stop his abx since he had an amputation. blood sugars controlled. HH is stable. concern for wound healing due to PVD. 06/03 will add nephro to his meals since he is not eating much. will also decrease his insulin since his appetite is low. 06/04 pt states that he cannot urinate in bed and needs to be upright to urinate. will conitnue the flomax and will remove vazquez if he is unable to urinate will need to reinsert. PT has been ordered for him. He will need rehab. His mood is depressed. will also check UA, his urine appears cloudy. will increase his insulin. He is tolerating nepro. 06/05 pt feels better and is trying to eat. wanted to remove vazquez but pt is refusing. He keeps stating he will not be able to urinate in bed.
[2019-06-06] MEDS: Tamsulosin HCl 0.4 MG CAP PO SCH (21:12)
[2019-06-06] MEDS: HumuLIN 70/30 (300 UNITS/3 ML VIAL) SC SCH (21:12)
[2019-06-07] MEDS: Levothyroxine 175 MCG TAB PO SCH (05:36)
[2019-06-07] MEDS: HumaLOG 300 UNITS/3 ML VIAL SC PRN ×2 (05:37→15:54)
[2019-06-07] MEDS: Sodium Bicarbonate Tab 325 MG TAB PO SCH (08:59)
[2019-06-07] MEDS: Lisinopril 10 MG TAB PO SCH (09:00)
[2019-06-07] MEDS ORDERED: HumuLIN 70/30 (300 UNITS/3 ML VIAL) SC SCH ×3 (09:00→21:00)
[2019-06-07] MEDS: Famotidine 20 MG TAB PO SCH (09:00)
[2019-06-07] MEDS: Senokot S 8.6-50 MG TAB PO SCH (09:01)
[2019-06-07] MEDS: Multivit, Therapeutic 1 TAB PO SCH (09:01)
[2019-06-07] MEDS: Enoxaparin Sodium 30 MG/0.3 ML SYRINGE SC SCH (09:09)
[2019-06-07 13:24] LABS: Anion Gap 10 mmol/L (10-20); BUN (Urea Nitrogen) 28 mg/dL (8.4-25.7); Calc. Creatinine Clearance 35 mL/min (70-130); Calcium 8.5 mg/dL (7.8-10.44); Carbon Dioxide 27 mmol/L (23-31); Chloride 103 mmol/L (98-107); Estimated GFR-MDRD 30; Glucose 211 mg/dL (83-110); Potassium 3.8 mmol/L (3.5-5.1); Sodium 136 mmol/L (136-145)
--- NOTE | 2019-06-07 16:10 | PDOC.GSPN ---
Surgery Progress Note: Subj - Subjective Narrative: Patient is without complaints. His incision looks good. 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 I will see him back in 2 weeks for staple removal. Signing off for now. Surgery Progress Note: Obj - Vital signs Vital signs: Vital Signs - Most Recent Temp Pulse Resp BP Pulse Ox 98.0 F 82 16 143/67 H 97 06/07/19 08:00 06/07/19 08:00 06/07/19 08:00 06/07/19 09:00 06/07/19 09:00 Surgery Progress Note: Results - Labs Result Diagrams: 06/06/19 13:18 06/07/19 12:56 Lab results: Laboratory Results - last 24 hr 06/07/19 06/07/19 06/07/19 04:21 11:42 12:56 Sodium 136 Potassium 3.8 Chloride 103 Carbon Dioxide 27 Anion Gap 10 BUN 28 H Creatinine 2.12 H Estimated GFR (MDRD) 30 Glucose 211 H POC Glucose 189 H 158 H Calcium 8.5
[2019-06-07 16:45] VITALS: BP 163/75; TEMP 98.1
--- NOTE | 2019-06-08 01:35 | DIS ---
DATE OF ADMISSION: 05/28/2019 DATE OF DISCHARGE: 06/07/2019 DISCHARGE DIAGNOSES: 1. Osteomyelitis of the left foot, status post amputation. 2. Osteomyelitis, resolved. 3. Diabetic foot infection. 4. Chronic kidney disease stage 4. 5. Hyperkalemia, resolved. 6. Chronic anemia, stable. 7. Diabetes, chronic, stable. 8. Hypothyroidism and obesity. HOSPITAL COURSE: The patient is an 79-year-old man, who initially presented to the hospital on 05/28, with complaints of left foot pain. The patient has had recurrent osteomyelitis of the left foot. He was initially put on broad-spectrum antibiotics and he was seen by Surgery and Infectious Disease. Given his chronic kidney disease, Nephrology also seen the patient and the patient was put on bicarb. The patient then underwent an initially I and D. Cultures indicated significant bacteria, Pseudomonas, Streptococcus, MRSA, and at this time, the patient then decided to go ahead and do a tqenl-wpv-uipl amputation. He underwent a cxoxm-fev-hoyz amputation on 06/02. Given the fact that he had extensive osteonecrosis and abscess in the left foot, status post had a debridement and then went ahead and did a left rfyve-obh-lvau amputation. The patient continued to improve through the hospital stay. He was then [facility]. His hospital course was complicated with urinary retention. At this time, a Delgado catheter was inserted. He was put on Flomax. We did have attempted to remove the Delgado; however, the patient refused. He stated that he cannot urinate while he is in bed, he needs to be upright to urinate. The patient also stressed the importance that he will not be able to stand up to urinate given his ayuku-afm-aali amputation of the left foot. HOME MEDICATIONS: Will be as of the followin. MiraLAX 17 g daily p.r.n. 2. Lisinopril 10 mg daily. 3. Flomax 0.4 daily. 4. Levothyroxine 175 mcg daily. 5. Humalog 70/30, 40 units in the morning and 20 units at night. 6. Multivitamin one p.o. daily. PHYSICAL EXAMINATION: VITAL SIGNS: Temperature 98.1 97% on room air, blood pressure . GENERAL: He is awake, alert, and oriented x3. Does not appear in distress. CV: S1 and S2 present. No murmurs, rubs, or gallops. ABDOMEN: Soft and nontender. Bowel sounds are present x2. EXTREMITIES: His jeniffer on the left stump area appears intact. Again, he will be discharged to jail and he will follow up with Surgery as outpatient. Job ID: [id number]
== END 2019-06-07 16:21 | DRG 240 ==
LOC: ERS 16:54 → T4-A 18:01
PROVIDERS: ADMIT Surgery; ATTEND Surgery
PROC: 0QBP0ZZ Excision of Left Metatarsal, Open Approach (ICD-10-PCS; 2019-05-30)
PROC: 02PYX3Z Removal of Infusion Device from Great Vessel, External Approach (ICD-10-PCS; 2019-05-30)
PROC: 02HV33Z Insertion of Infusion Device into Superior Vena Cava, Percutaneous Approach (ICD-10-PCS; 2019-05-30)
PROC: B518ZZA Fluoroscopy of Superior Vena Cava, Guidance (ICD-10-PCS; 2019-05-30)
PROC: 30233N1 Transfusion of Nonautologous Red Blood Cells into Peripheral Vein, Percutaneous Approach (ICD-10-PCS; 2019-05-30)
PROC: 0QBM0ZZ Excision of Left Tarsal, Open Approach (ICD-10-PCS; 2019-05-30)
PROC: B544ZZA Ultrasonography of Left Jugular Veins, Guidance (ICD-10-PCS; 2019-05-30)
PROC: B543ZZA Ultrasonography of Right Jugular Veins, Guidance (ICD-10-PCS; 2019-05-30)
PROC: 0Y6J0Z1 Detachment at Left Lower Leg, High, Open Approach (ICD-10-PCS; principal; 2019-06-02)
DX: E11.52 Type 2 diabetes mellitus with diabetic peripheral angiopathy with gangrene (principal); M86.172 Other acute osteomyelitis, left ankle and foot; I96 Gangrene, not elsewhere classified; L03.116 Cellulitis of left lower limb; L02.612 Cutaneous abscess of left foot; E87.2 Acidosis; E87.1 Hypo-osmolality and hyponatremia; M87.9 Osteonecrosis, unspecified; N17.9 Acute kidney failure, unspecified; N18.4 Chronic kidney disease, stage 4 (severe); E11.69 Type 2 diabetes mellitus with other specified complication; E03.9 Hypothyroidism, unspecified; E11.42 Type 2 diabetes mellitus with diabetic polyneuropathy; E11.22 Type 2 diabetes mellitus with diabetic chronic kidney disease; D63.1 Anemia in chronic kidney disease; E11.628 Type 2 diabetes mellitus with other skin complications; E87.5 Hyperkalemia; E66.9 Obesity, unspecified; D50.9 Iron deficiency anemia, unspecified; L08.89 Other specified local infections of the skin and subcutaneous tissue; B95.62 Methicillin resistant Staphylococcus aureus infection as the cause of diseases classified elsewhere; B96.5 Pseudomonas (aeruginosa) (mallei) (pseudomallei) as the cause of diseases classified elsewhere; G54.6 Phantom limb syndrome with pain; R33.9 Retention of urine, unspecified; Z87.891 Personal history of nicotine dependence; Z90.49 Acquired absence of other specified parts of digestive tract; Z79.890 Hormone replacement therapy; Z79.4 Long term (current) use of insulin; Z79.899 Other long term (current) drug therapy; Z68.25 Body mass index [BMI] 25.0-25.9, adult; Z89.422 Acquired absence of other left toe(s); Z89.421 Acquired absence of other right toe(s); Z89.411 Acquired absence of right great toe
CPT/HCPCS: 36415; 36416; 36430; 71045; 80048; 80069; 80202; 81001; 82728; 83540; 83550; 84443; 85007; 85025; 85027; 85046; 85652; 86140; 86850; 86900; 86901; 87070; 87076; 87077; 87086; 87186; 87205; 88307; 88311; 96365; C1751; C1769; J1100; J1170; J1642; J1644; J1650; J1815; J2001; J2185; J2270; J2370; J2405; J2543; J2704; J3010; J3370; J3490; J7050; P9016; S0020

== ENCOUNTER 2019-09-12 06:32 | Outpatient (CLI) | payer MEDICARE, OTHER ==
[2019-09-12 14:13] LABS: Mean Corpuscular HGB CONC 34.4 g/dL (32.0-36.0); Mean Corpuscular Hemoglobin 31.6 pg (27.0-31.0); Mean Corpuscular Volume 91.9 fL (78.0-98.0); Mean Platelet Volume 7.5 fL (7.4-10.4); Platelet Count 222 thou/uL (130-400); RBC Distribution Width 16.2 % (11.5-14.5); Red Blood Cell (RBC) Count 3.46 mill/uL (4.70-6.10); White Blood Cell (WBC) Count 7.2 thou/uL (4.8-10.8)
[2019-09-12 14:29] LABS: INR-International Normal Ratio 1.1; Prothrombin Time 13.8 sec (12.0-14.7)
[2019-09-12 14:30] LABS: PTT 34.7 sec (22.9-36.1)
[2019-09-12 14:38] LABS: Anion Gap 14 mmol/L (10-20); BUN (Urea Nitrogen) 28 mg/dL (8.4-25.7); Calc. Creatinine Clearance 0 mL/min (70-130); Calcium 8.7 mg/dL (7.8-10.44); Carbon Dioxide 23 mmol/L (23-31); Chloride 105 mmol/L (98-107); Estimated GFR-MDRD 24; Glucose 200 mg/dL (83-110); Potassium 5.3 mmol/L (3.5-5.1); Sodium 137 mmol/L (136-145)
[2019-09-12 14:53] LABS: Bacteria/HPF 4+ HPF (None Seen); Bilirubin Negative (Negative); Blood, Urine 1+ (Negative); Clarity Extra Turbid (Clear); Glucose, Urine (Dipstick) 50 mg/dL (Negative); Leukocyte 500 Leu/uL (Negative); Nitrite Negative (Negative); Protein, Urine (Dipstick) 100 mg/dL (Neg-Trace); RBC/HPF 21-50 HPF (0-3); Squamous Epithelial 0-3 HPF (0-3); Transitional Epithelial 0-3 HPF (None Seen); Urobilinogen Normal mg/dL (Less than 2); WBC/HPF Greater than 50 HPF (0-3)
== END 2019-09-12 06:33 | disposition home or self-care (01) ==
LOC: LABBT 06:32
PROVIDERS: ATTEND Urology
DX: Z01.818 Encounter for other preprocedural examination (principal); Z11.59 Encounter for screening for other viral diseases; N40.1 Benign prostatic hyperplasia with lower urinary tract symptoms; R33.8 Other retention of urine; E11.22 Type 2 diabetes mellitus with diabetic chronic kidney disease; E11.51 Type 2 diabetes mellitus with diabetic peripheral angiopathy without gangrene; I13.10 Hypertensive heart and chronic kidney disease without heart failure, with stage 1 through stage 4 chronic kidney disease, or unspecified chronic kidney disease; N18.3 Chronic kidney disease, stage 3 (moderate); M86.8X7 Other osteomyelitis, ankle and foot; R53.81 Other malaise; Z89.512 Acquired absence of left leg below knee
CPT/HCPCS: 80048; 81001; 85027; 85610; 85730; 87077; 87086; U0003; 87186; 87635

== ENCOUNTER 2019-09-15 10:26 | Day surgery (SDC) | payer MEDICARE ==
[2019-09-11 15:44] VITALS: BMI 26.4
[~2019-09-15 10:26] MED LIST: Lidocaine 1% PF 5 ML VIAL ONE; Ondansetron PF 4 MG/2 ML Vial ONE; PROPOFOL 200 MG/20 ML VIAL ONE
[2019-09-15] MEDS ORDERED: Ondansetron PF 4 MG/2 ML Vial ONE (11:13)
[2019-09-15] MEDS ORDERED: Famotidine/PF 20 mg/2ml Vial ONE (11:13)
[2019-09-15] MEDS ORDERED: Fentanyl 100 MCG/2 ML VIAL ONE (11:13)
[2019-09-15] MEDS ORDERED: Midazolam HCl 2 mg/2 ml Vial ONE (11:13)
[2019-09-15] MEDS ORDERED: Levofloxacin 500 mg/D5W 100 ml Premix Bag ONE (11:19)
--- NOTE | 2019-09-15 17:45 | OP ---
DATE OF PROCEDURE: 09/15/2019 SERVICES: Urology. PREOPERATIVE DIAGNOSIS: Benign prostatic hypertrophy with urinary obstruction. POSTOPERATIVE DIAGNOSIS: Benign prostatic hypertrophy with urinary obstruction. PROCEDURE PERFORMED: UroLift with 7 implants. INDICATIONS FOR PROCEDURE: Mr. Park is an 79-year-old white male with BPH and urinary obstruction. He previously had urinary retention. We had discussed options for treatments aside from medical therapy, which I did not recommend given his history of urinary retention and diabetes. Risks and benefits were discussed and he has agreed to proceed with the UroLift procedure. DESCRIPTION OF PROCEDURE: After identification of armband and verification of consent, the patient was brought back to the operating room where he underwent initially total intravenous anesthesia. He was then placed in the dorsal lithotomy position, and prepped and draped in the usual sterile fashion. After appropriate time-out, a lubricated 21-Kosovan rigid cystoscope with visual obturator sheath was advanced through the urethra into the bladder. The bladder was somewhat turbid, which was irrigated out until it was clear. The 1st implant with the UroLift device was placed at the patient's left bladder neck by compressing the tissue and withdrawing approximately 2 cm proximal to the bladder neck. Lateral and anterior compression was achieved and then the safety release. The blue trigger was fired to release the needle and then tension set with the gann trigger. The urethral end-piece was then set with a back trigger and then the UroLift released. This resulted in nice compression on the left proximal prostate. This was then repeated on the patient's right proximal prostate and towards the verumontanum. This resulted in nice opening of the prostate, but there was still anterior prostate that was collapsing down and some protrusion of the patient's distal prostate. Two additional implants were placed anterolaterally between the proximal and distal UroLift implants, which resulted in extremely nice anterior channel; however, there was still some apical enlargement. To minimize number of implants, it was elected just to treat one side and not the other. The right side was bulging more than the left, so I elected to compress this with another UroLift implant, which was the 7th implant. This resulted in nice opening and a good anterior channel. To avoid excessive implantation, I decided not to put an 8th implant on the opposite side and the patient already is completely wide open. The bladder was left full, and the UroLift and cystoscope removed. An 18-Kosovan Delgado catheter was then placed with ease into the patient's bladder and 10 mL sterile water placed into the balloon. The patient was then taken out of positioning, awakened, taken to PACU for recovery in stable condition. Of note, the patient did have to be converted to an LMA during the middle of the procedure secondary to significant agitation and coughing. His anesthesia was converted to general at this point. COMPLICATIONS: None. ESTIMATED BLOOD LOSS: Minimal. RETAINED TUBES AND DRAINS: An 18-Kosovan Delgado catheter. IMPLANTS USED: Seven. DISPOSITION: The patient will go to Recovery. We will plan a void trial after he is in Day Stay pending his urine and his followup will be handled on an outpatient basis. Job ID: [id number]
== END 2019-09-15 15:45 | disposition home or self-care (01) ==
LOC: SDC 10:26
PROVIDERS: ATTEND Urology
PROC: 0T7D8DZ Dilation of Urethra with Intraluminal Device, Via Natural or Artificial Opening Endoscopic (ICD-10-PCS; principal; 2019-09-15)
DX: N40.1 Benign prostatic hyperplasia with lower urinary tract symptoms (principal); N13.8 Other obstructive and reflux uropathy; R33.8 Other retention of urine; R35.0 Frequency of micturition; R35.1 Nocturia; E03.9 Hypothyroidism, unspecified; I12.9 Hypertensive chronic kidney disease with stage 1 through stage 4 chronic kidney disease, or unspecified chronic kidney disease; E11.22 Type 2 diabetes mellitus with diabetic chronic kidney disease; N18.4 Chronic kidney disease, stage 4 (severe); E11.51 Type 2 diabetes mellitus with diabetic peripheral angiopathy without gangrene; Z87.891 Personal history of nicotine dependence; Z77.22 Contact with and (suspected) exposure to environmental tobacco smoke (acute) (chronic); Z79.4 Long term (current) use of insulin; Z79.899 Other long term (current) drug therapy; Z91.041 Radiographic dye allergy status; Z89.512 Acquired absence of left leg below knee; Z89.431 Acquired absence of right foot
CPT/HCPCS: 82962; 93005; C1889; C9740; 36416; 93010; J1956; J2001; J2250; J2405; J2704; J3010; S0028